=== PATIENT | male | born 1940 | race Caucasian/White ===

== ENCOUNTER 2017-10-21 12:28 | Emergency (ER) | payer OTHER ==
[2017-10-21 12:43] VITALS: BP 143/85
--- NOTE | 2017-10-21 13:04 | EDM.PDOC ---
ED HPI GENERAL MEDICAL PROBLEM - General Chief Complaint: ENT Problem Stated Complaint: LT SIDE TOOTH PAIN/SWELLING Time Seen by Provider: 10/21/17 12:45 Source of Information: Reports: Patient, Old Records, RN History Limitations: Reports: No Limitations - History of Present Illness INITIAL COMMENTS - FREE TEXT/NARRATIVE: 77 yo male broke off a couple of L mandibular molars a few yrs ago and did nothing about it. A couple days ago he developed pain in the area and tx'd it with ibuprofen. Now his pain is less, but he is developing L facial swelling. No fever. Hasn't seen a dentist in yrs. Onset: Gradual Onset Date: 10/19/17 Duration: Day(s): (2) Location: Reports: Face (L mandible) Quality: Reports: Ache Severity: Mild Improves with: Reports: Medication Worsens with: Reports: Other (time) Context: Reports: Other (dental neglect) Associated Symptoms: Reports: No Other Symptoms. 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 - Related Data Allergies Allergy/AdvReac Type Severity Reaction Status Date / Time lisinopril Allergy Cough Verified 10/21/17 12:44 venom-honey bee Allergy Swelling Verified 10/21/17 12:44 [bee venom (honey bee)] Home Meds: Home Meds Aspirin 325 mg PO DAILY 11/29/14 [History] Lecithin 518 mg PO DAILY 11/29/14 [History] Levothyroxine Sodium [Synthroid] 25 mcg PO DAILY 11/29/14 [History] Losartan [Cozaar] mg PO DAILY 11/29/14 [History] Multivitamin [Multivitamins] 1 each PO DAILY 11/29/14 [History] metFORMIN [Glucophage] mg PO BIDMEALS 11/29/14 [History] Penicillin V Potassium [IJD: Penicillin V Potassium] 500 mg PO .EVERY 6 HOURS # 40 tab 10/21/17 [Rx] Past Medical History Other Musculoskeletal History: broken ribs from fall - Past Surgical History GI Surgical History: Reports: Appendectomy, Cholecystectomy, Hernia Repair/Other Social & Family History - Tobacco Use Smoking Status *Q: Never Smoker Second Hand Smoke Exposure: No - Alcohol Use Days Per Week of Alcohol Use: 7 Number of Drinks Per Day: 1 Total Drinks Per Week: 7 - Recreational Drug Use Recreational Drug Use: No ED ROS ENT - Review of Systems Review Of Systems: See Below Constitutional: Reports: No Symptoms HEENT: Reports: Dental Pain, Other (L facial swelling, minimal) Respiratory: Reports: No Symptoms Cardiovascular: Reports: No Symptoms GI/Abdominal: Reports: No Symptoms Musculoskeletal: Reports: No Symptoms Skin: Reports: No Symptoms Neurological: Reports: No Symptoms ED EXAM, ENT - Physical Exam Exam: See Below Exam Limited By: No Limitations General Appearance: Alert, WD/WN, No Apparent Distress Eye Exam: Bilateral Eye: Normal Inspection Ears: Normal External Exam, Normal Canal, Hearing Grossly Normal, Normal TMs Nose: Normal Inspection, Normal Mucousa, No Blood Mouth/Throat: Normal Inspection, Normal Lips, Normal Oropharynx, Dental Abcess ( 2 of his molars on the L mandible are broken off at the gum line with marked decay present. ), Dental Pain, Dental Tenderness. No: Lip Swelling, Lip Ulcers , Muffled Voice, Teething, Throat Pain Head: Atraumatic, Normocephalic Neck: Normal Inspection, Supple, Non-Tender Neurological: Alert, Oriented, CN II-XII Intact, Normal Cognition, No Motor/ Sensory Deficits Psychiatric: Normal Affect, Normal Mood Skin: Warm, Dry, Intact, Normal Color, No Rash Lymphatic: No Adenopathy Course - Vital Signs Last Recorded V/S: Last Vital Signs Temp 36.2 C 10/21/17 12:50 Pulse 71 10/21/17 12:50 Resp 16 10/21/17 12:50 BP 143/85 H 10/21/17 12:50 Pulse Ox 96 10/21/17 12:50 Departure - Departure Time of Disposition: 13:04 Disposition: Home, Self-Care 01 Condition: Good Clinical Impression: Dental caries, Dental abscess - Discharge Information Prescriptions: Penicillin V Potassium [IJD: Penicillin V Potassium] 500 mg PO .EVERY 6 HOURS # 40 tab Referrals: Pari Matson MD [Primary Care Provider] - Forms: ED Department Discharge Additional Instructions: Take Penicillin VK 500 mg every 6 hrs until gone. See a dentist KAREN. Take ibuprofen and/or acetaminophen as needed for pain relief.
== END 2017-10-21 13:20 | disposition home or self-care (01) ==
LOC: JP.ED 12:28
DX: K02.9 Dental caries, unspecified (principal); K04.7 Periapical abscess without sinus; Z88.8 Allergy status to other drugs, medicaments and biological substances; Z91.030 Bee allergy status; Z79.82 Long term (current) use of aspirin; Z79.899 Other long term (current) drug therapy; Z79.84 Long term (current) use of oral hypoglycemic drugs; Z90.49 Acquired absence of other specified parts of digestive tract
CPT/HCPCS: 99283

== ENCOUNTER 2018-01-11 02:35 | Emergency (ER) | payer OTHER ==
[2018-01-11 02:56] VITALS: BP 100/64
[2018-01-11] MEDS ORDERED: Famotidine 20 MG Tab PO ONE (04:23)
--- NOTE | 2018-01-11 04:25 | EDM.PDOC ---
ED HPI GENERAL MEDICAL PROBLEM - General Chief Complaint: Gastrointestinal Problem Stated Complaint: VOMITING BLOOD Time Seen by Provider: 01/11/18 03:05 Source of Information: Reports: Patient, Old Records, RN Notes Reviewed History Limitations: Reports: No Limitations - History of Present Illness INITIAL COMMENTS - FREE TEXT/NARRATIVE: Drove himself here Chief complaint Possibly vomiting blood History of present illness 77-year-old male who lives on his own, , an episode yesterday at 3 PM of vomiting up some brownish fluid and then again at 1 AM. This had some red streaks in it. He was concerned he might be bleeding internally. He has a history of anemia for which she is taking an iron tablet. Negative H. pylori test. 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 (see below) Other Treatments UNDERGROUND MINING SECTION FOREMAN: none Lower abdomen Pain Score (Numeric/FACES): 3 - Related Data Allergies Allergy/AdvReac Type Severity Reaction Status Date / Time lisinopril Allergy Cough Verified 01/11/18 02:57 venom-honey bee Allergy Swelling Verified 01/11/18 02:57 [bee venom (honey bee)] Home Meds: Home Meds Aspirin 325 mg PO DAILY 11/29/14 [History] Lecithin 518 mg PO DAILY 11/29/14 [History] Levothyroxine Sodium [Synthroid] 25 mcg PO DAILY 11/29/14 [History] Losartan [Cozaar] 25 mg PO DAILY 11/29/14 [History] Multivitamin [Multivitamins] 1 each PO DAILY 11/29/14 [History] metFORMIN [Glucophage] 500 mg PO BIDMEALS 11/29/14 [History] Famotidine [Pepcid] 20 mg PO DAILY #20 tablet 01/11/18 [Rx] Past Medical History HEENT History: Reports: Hard of Hearing, Other (See Below) Other HEENT History: hearing aids Cardiovascular History: Reports: Hypertension Musculoskeletal History: Reports: Other (See Below) Other Musculoskeletal History: broken ribs from fall Endocrine/Metabolic History: Reports: Diabetes, Type II, Hypothyroidism - Infectious Disease History Infectious Disease History: Reports: Chicken Pox, Measles - Past Surgical History GI Surgical History: Reports: Appendectomy, Cholecystectomy, Hernia Repair/Other Social & Family History - Tobacco Use Smoking Status *Q: Never Smoker Second Hand Smoke Exposure: No - Caffeine Use Caffeine Use: Reports: Coffee - Recreational Drug Use Recreational Drug Use: No ED ROS GENERAL - Review of Systems Review Of Systems: See Below Constitutional: Reports: No Symptoms HEENT: Reports: No Symptoms Respiratory: Reports: No Symptoms Cardiovascular: Reports: No Symptoms GI/Abdominal: Reports: Hematemesis (Possibly). Denies: Diarrhea, Decreased Appetite, Nausea, Vomiting : Reports: No Symptoms Musculoskeletal: Reports: No Symptoms Skin: Reports: No Symptoms Psychiatric: Reports: No Symptoms Hematologic/Lymphatic: Reports: No Symptoms ED EXAM, GI/ABD - Physical Exam Exam: See Below Exam Limited By: No Limitations General Appearance: Alert, Other (Talkative, no acute distress, vital signs normal) Eyes: Bilateral: Normal Appearance Ears: Normal External Exam Nose: Normal Inspection Throat/Mouth: Normal Inspection Head: Atraumatic, Normocephalic Neck: Normal Inspection Respiratory/Chest: No Respiratory Distress, No Accessory Muscle Use Cardiovascular: Normal Peripheral Pulses GI/Abdominal Exam: Normal Bowel Sounds, Soft, Non-Tender, No Distention Back Exam: Normal Inspection Extremities: Normal Inspection Neurological: Alert, Oriented Course - Vital Signs Last Recorded V/S: Last Vital Signs Temp 35.8 C 01/11/18 02:50 Pulse 89 01/11/18 02:50 Resp 14 01/11/18 02:50 BP 100/64 01/11/18 02:50 Pulse Ox 96 01/11/18 02:50 - Orders/Labs/Meds Labs: Laboratory Tests 01/11/18 01/11/18 Range/Units 03:25 03:25 WBC 9.0 (4.5-11.0) K/uL RBC 3.63 L (4.30-5.90) M/uL Hgb 10.7 L D (12.0-15.0) g/dL Hct 33.8 L (40.0-54.0) % MCV 93 (80-98) fL MCH 30 (27-31) pg MCHC 32 (32-36) % Plt Count 185 (150-400) K/uL Sodium 142 (140-148) mmol/L Potassium 4.0 (3.6-5.2) mmol/L Chloride 105 (100-108) mmol/L Carbon Dioxide 24 (21-32) mmol/L Anion Gap 12.6 (5.0-14.0) mmol/L BUN 36 H D (7-18) mg/dL Creatinine 1.1 (0.8-1.3) mg/dL Est Cr Clr Drug Dosing 59.91 mL/min Estimated GFR (MDRD) > 60 (>60) Glucose 192 H (74-106) mg/dL Calcium 8.6 (8.5-10.1) mg/dL Total Bilirubin 0.8 D (0.2-1.0) mg/dL AST 55 H (15-37) U/L ALT 47 (12-78) U/L Alkaline Phosphatase 133 H (46-116) U/L Total Protein 7.1 (6.4-8.2) g/dL Albumin 2.7 L (3.4-5.0) g/dL Globulin 4.4 H (2.3-3.5) g/dL Albumin/Globulin Ratio 0.6 L (1.2-2.2) Lipase 161 (73-393) U/L Meds: Medications Discontinued Medications Generic Name Dose Route Start Last Admin Trade Name Minda PRN Reason Stop Dose Admin Famotidine 20 mg 01/11/18 04:23 Pepcid PO 01/11/18 04:24 ONETIME ONE - Re-Assessments/Exams Free Text/Narrative Re-Assessment/Exam: 01/11/18 04:22 77-year-old male with possible upper GI bleeding, without hypotension, or abdominal pain Does have some anemia but he is under treatment for this. Follow-up with primary care/[facility] is recommended Pepcid 20 mg by mouth See discharge instructions Departure - Departure Time of Disposition: 04:23 Disposition: Home, Self-Care 01 Condition: Good Clinical Impression: Hematemesis Qualifiers: Nausea presence: without nausea Qualified Code(s): K92.0 - Hematemesis - Discharge Information Prescriptions: Famotidine [Pepcid] 20 mg PO DAILY #20 tablet Instructions: Upper Gastrointestinal Bleeding Referrals: Pari Matson MD [Primary Care Provider] - Forms: ED Department Discharge Additional Instructions: Please make an appointment with your clinic for further assessment You may need further testing such as an upper GI endoscopy. Return to emergency if you become very faint or weak, passing out, severe abdominal pain, or vomiting large amounts of blood
== END 2018-01-11 04:43 | disposition home or self-care (01) ==
LOC: JP.ED 02:35
DX: K92.0 Hematemesis (principal); I10 Essential (primary) hypertension; E11.9 Type 2 diabetes mellitus without complications; E03.9 Hypothyroidism, unspecified; Z79.82 Long term (current) use of aspirin; Z79.84 Long term (current) use of oral hypoglycemic drugs; Z79.899 Other long term (current) drug therapy; Z91.030 Bee allergy status; Z88.8 Allergy status to other drugs, medicaments and biological substances
CPT/HCPCS: 36415; 80053; 83690; 85027; 99284

== ENCOUNTER 2018-07-21 08:26 | Inpatient (IN) | payer MEDICARE ==
[2018-07-21] MEDS ORDERED: Pantoprazole 40 MG Vial IVPUSH STA (08:55)
[2018-07-21] MEDS ORDERED: Aluminum Hydroxide/Magnesium Hydroxide/Simethicone Susp 30 ML Cup PO ONE (08:56)
[2018-07-21] MEDS ORDERED: Lactated Ringers 1,000 ML IV SCH (09:00)
--- NOTE | 2018-07-21 09:03 | EDM.PDOC ---
ED HPI GENERAL MEDICAL PROBLEM - General Chief Complaint: Gastrointestinal Problem Stated Complaint: VOMITING BLOOD Time Seen by Provider: 07/21/18 08:45 Source of Information: Reports: Patient, Old Records, RN History Limitations: Reports: No Limitations - History of Present Illness INITIAL COMMENTS - FREE TEXT/NARRATIVE: 78 yo male presents with possible GI bleed. He states he developed nausea in the afternoon yesterday. Then starting about 11pm last night he had a couple episodes of vomiting of some some dark, brownish-red emesis. Then this morning he had a black stool. Had his aspirin stopped about 6 weeks ago. Denies a hx of PUD. Is slightly dizzy with standing. Has some mild chronic anemia, he thinks his last hgb was about 10. Gets most of his health care in [place]. He has no abdominal pain. Take generic Protonix most days, unknown strength. Initial reporting was that he was on IV iron therapy for his anemia. Later if was discovered that he is also on iron orally for about 2 mos. Onset: Gradual Onset Date: 07/20/18 Onset Time: 23:00 (First emesis, nausea preceded this.) Duration: Hour(s):, Getting Worse Location: Reports: Abdomen (no pain in abdomen.) Quality: Reports: Other (no pain) Severity: Moderate Improves with: Reports: None Worsens with: Reports: Other (? time) Context: Reports: Other (unknown, is on Protonix most days.) Associated Symptoms: Reports: Nausea/Vomiting, Weakness. 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 (see below) (none) - Related Data Allergies Allergy/AdvReac Type Severity Reaction Status Date / Time lisinopril Allergy Cough Verified 01/11/18 02:57 venom-honey bee Allergy Swelling Verified 01/11/18 02:57 [bee venom (honey bee)] Home Meds: Home Meds Levothyroxine Sodium [Synthroid] 25 mcg PO DAILY 11/29/14 [History] Losartan [Cozaar] 25 mg PO DAILY 11/29/14 [History] metFORMIN [Glucophage] 500 mg PO BIDMEALS 11/29/14 [History] Iron 18 mg PO DAILY 07/21/18 [History] Pantoprazole Sodium [Protonix] 20 mg PO DAILY 07/21/18 [History] Past Medical History HEENT History: Reports: Hard of Hearing, Other (See Below) Other HEENT History: hearing aids Cardiovascular History: Reports: Hypertension Musculoskeletal History: Reports: Other (See Below) Other Musculoskeletal History: broken ribs from fall Endocrine/Metabolic History: Reports: Diabetes, Type II, Hypothyroidism - Infectious Disease History Infectious Disease History: Reports: Chicken Pox, Measles - Past Surgical History GI Surgical History: Reports: Appendectomy, Cholecystectomy, Hernia Repair/Other Social & Family History - Tobacco Use Smoking Status *Q: Never Smoker - Caffeine Use Caffeine Use: Reports: None - Recreational Drug Use Recreational Drug Use: No ED ROS GENERAL - Review of Systems Review Of Systems: See Below Constitutional: Reports: Malaise, Weakness HEENT: Reports: No Symptoms Respiratory: Reports: No Symptoms Cardiovascular: Reports: Lightheadedness Endocrine: Reports: No Symptoms GI/Abdominal: Reports: Black Stool, Decreased Appetite, Hematemesis, Melena, Nausea, Vomiting. Denies: Abdominal Pain, Bloody Stool, Constipation, Diarrhea , Distension, Flatus, Hematochezia : Reports: No Symptoms Musculoskeletal: Reports: No Symptoms Skin: Reports: No Symptoms Neurological: Reports: No Symptoms ED EXAM, GI/ABD - Physical Exam Exam: See Below Exam Limited By: No Limitations General Appearance: Alert, WD/WN, No Apparent Distress Eyes: Bilateral: EOMI, Pale Conjunctiva Ears: Normal External Exam, Normal Canal, Hearing Loss (hearing aid R ear.) Nose: Normal Inspection, No Blood Throat/Mouth: Normal Inspection, Normal Lips, Normal Oropharynx, Normal Voice, No Airway Compromise Head: Atraumatic, Normocephalic Neck: Normal Inspection Respiratory/Chest: No Respiratory Distress, Lungs Clear, Normal Breath Sounds, No Accessory Muscle Use Cardiovascular: Regular Rate, Rhythm GI/Abdominal Exam: Soft, Non-Tender, No Distention, No Mass, Abnormal Bowel Sounds (slightly increased). No: Distended, Guarding, Rigid, Rebound, Tender, Hernia, Mass, Hepatomegaly, Splenomegaly Back Exam: Normal Inspection. No: CVA Tenderness (R), CVA Tenderness (L) Extremities: Normal Inspection, Normal Range of Motion, Non-Tender, No Pedal Edema Neurological: Alert, Oriented, CN II-XII Intact, Normal Cognition, No Motor/ Sensory Deficits Psychiatric: Normal Affect, Normal Mood Skin Exam: Warm, Dry, Intact, Normal Color, No Rash Course - Vital Signs Text/Narrative:: Dr. Smith aware at 10:20h Last Recorded V/S: Last Vital Signs Temp 35.7 C 07/21/18 08:56 Pulse 78 07/21/18 09:35 Resp 13 07/21/18 08:56 BP 108/63 07/21/18 09:35 Pulse Ox 92 L 07/21/18 08:56 Orthostatic Blood Pressure [ 76/50 Standing] Orthostatic Blood Pressure [ 84/57 Sitting] Orthostatic Blood Pressure [ 89/59 Supine] - Orders/Labs/Meds Orders: Active Orders 24 hr Category Date Time Status Orthostatic Vital Signs [RC] ASDIRECTED Care 07/21/18 08:29 Active H. PYLORI STOOL AG, EIA Routine Lab 07/21/18 09:54 Received Lactated Ringers [Ringers, Lactated] 1,000 ml Med 07/21/18 09:00 Active IV ASDIRECTED Medication Orders Lactated Ringer's (Ringers, Lactated) 1,000 mls @ 500 mls/hr IV ASDIRECTED JEANETTE Last Admin: 07/21/18 09:17 Dose: 500 mls/hr Labs: Laboratory Tests 07/21/18 07/21/18 07/21/18 Range/Units 09:00 09:00 09:00 WBC 9.5 (4.5-11.0) K/uL RBC 3.65 L (4.30-5.90) M/uL Hgb 9.4 L (12.0-15.0) g/dL Hct 30.4 L (40.0-54.0) % MCV 83 (80-98) fL MCH 26 L (27-31) pg MCHC 31 L (32-36) % Plt Count 156 (150-400) K/uL Sodium 143 (140-148) mmol/L Potassium 4.3 (3.6-5.2) mmol/L Chloride 106 (100-108) mmol/L Carbon Dioxide 21 (21-32) mmol/L Anion Gap 15.6 H (5.0-14.0) mmol/L BUN 37 H (7-18) mg/dL Creatinine 1.1 (0.8-1.3) mg/dL Est Cr Clr Drug Dosing 60.48 mL/min Estimated GFR (MDRD) > 60 (>60) Glucose 193 H (74-106) mg/dL Calcium 8.9 (8.5-10.1) mg/dL Urine Color Urine Appearance Urine pH (4.5-8.0) Ur Specific [place] (1.008-1.030) Urine Protein (NEGATIVE) mg/dL Urine Glucose (UA) (NEGATIVE) mg/dL Urine Ketones (NEGATIVE) mg/dL Urine Occult Blood (NEGATIVE) Urine Nitrite (NEGAITVE) Urine Bilirubin (NEGATIVE) Urine Urobilinogen (NORMAL) mg/dL Ur Leukocyte Esterase (NEGATIVE) Urine RBC (0-5) Urine WBC (0-5) Ur Epithelial Cells Amorphous Sediment Urine Bacteria Urine Mucus Blood Type A NEGATIVE Gel Antibody Screen Negative 07/21/18 Range/Units 09:53 WBC (4.5-11.0) K/uL RBC (4.30-5.90) M/uL Hgb (12.0-15.0) g/dL Hct (40.0-54.0) % MCV (80-98) fL MCH (27-31) pg MCHC (32-36) % Plt Count (150-400) K/uL Sodium (140-148) mmol/L Potassium (3.6-5.2) mmol/L Chloride (100-108) mmol/L Carbon Dioxide (21-32) mmol/L Anion Gap (5.0-14.0) mmol/L BUN (7-18) mg/dL Creatinine (0.8-1.3) mg/dL Est Cr Clr Drug Dosing mL/min Estimated GFR (MDRD) (>60) Glucose (74-106) mg/dL Calcium (8.5-10.1) mg/dL Urine Color Yellow Urine Appearance Clear Urine pH 5.0 (4.5-8.0) Ur Specific [place] 1.015 (1.008-1.030) Urine Protein Negative (NEGATIVE) mg/dL Urine Glucose (UA) Normal (NEGATIVE) mg/dL Urine Ketones 15 H (NEGATIVE) mg/dL Urine Occult Blood Negative (NEGATIVE) Urine Nitrite Negative (NEGAITVE) Urine Bilirubin Negative (NEGATIVE) Urine Urobilinogen Normal (NORMAL) mg/dL Ur Leukocyte Esterase Negative (NEGATIVE) Urine RBC Not seen (0-5) Urine WBC 0-5 (0-5) Ur Epithelial Cells Not seen Amorphous Sediment Rare Urine Bacteria Not seen Urine Mucus Not seen Blood Type Gel Antibody Screen Meds: Medications Generic Name Dose Route Start Last Admin Trade Name Minda PRN Reason Stop Dose Admin Lactated Ringer's 1,000 mls @ 500 mls/hr 07/21/18 09:00 07/21/18 09:17 Ringers, Lactated IV 500 mls/hr ASDIRECTED JEANETTE Administration Discontinued Medications Generic Name Dose Route Start Last Admin Trade Name Minda PRN Reason Stop Dose Admin Al Hydroxide/Mg Hydroxide 30 ml 07/21/18 08:56 07/21/18 09:10 Mag-Al Plus PO 07/21/18 08:57 30 ml ONETIME ONE Administration Pantoprazole Sodium 80 mg 07/21/18 08:55 07/21/18 09:11 Protonix Iv IVPUSH 07/21/18 08:56 80 mg .BOLUS STA Administration Departure - Departure Time of Disposition: 10:30 Disposition: Admitted As Inpatient 66 Condition: Fair Clinical Impression: UGI bleed, Elevated blood sugar, Heme + stool Hypotension Qualifiers: Hypotension type: hypotension due to hypovolemia Qualified Code(s): I95.89 - Other hypotension; E86.1 - Hypovolemia - Discharge Information *PRESCRIPTION DRUG MONITORING PROGRAM REVIEWED*: No *COPY OF PRESCRIPTION DRUG MONITORING REPORT IN PATIENT JAIRO: No Referrals: Pari Matson MD [Primary Care Provider] - Forms: ED Department Discharge - My Orders Last 24 Hours: My Active Orders 07/21/18 08:29 Orthostatic Vital Signs [RC] ASDIRECTED 07/21/18 09:00 Lactated Ringers [Ringers, Lactated] 1,000 ml IV ASDIRECTED 07/21/18 09:54 H. PYLORI STOOL AG, EIA Routine - Assessment/Plan Last 24 Hours: My Active Orders 07/21/18 08:29 Orthostatic Vital Signs [RC] ASDIRECTED 07/21/18 09:00 Lactated Ringers [Ringers, Lactated] 1,000 ml IV ASDIRECTED 07/21/18 09:54 H. PYLORI STOOL AG, EIA Routine
[2018-07-21] MEDS ORDERED: Sodium Chloride 0.9% 100 ML with Pantoprazole 80 MG IV SCH ×2 (10:30)
--- NOTE | 2018-07-21 10:42 | PCM.HP ---
H&P History of Present Illness - General Date of Service: 07/21/18 Admit Problem/Dx: Admission Diagnosis/Problem Admission Diagnosis/Problem Bleeding Source of Information: Patient, Provider, RN Notes Reviewed History Limitations: Reports: No Limitations - History of Present Illness Initial Comments - Free Text/Narative: Mr. Schwartz is a 78-year-old gentleman was admitted through the emergency department with a history of hematemesis and melena, thought secondary to an upper GI bleed. He denies any previous history of intestinal bleeding or peptic ulcer disease. He felt well until yesterday afternoon when he noted some symptoms of nausea. Later in the evening had an episode of emesis with dark appearing coffee-ground blood. He had 2 more episodes of hematemesis during the night and an episode of melenic-appearing stool this morning. He does have a history of chronic anemia and does take supplemental iron. He denies significant abdominal pain. Blood pressure found to be low when he initially presented to the emergency department but has improved with IV fluids. He has been seen and evaluated by Dr. Mary with plan to proceed with EGD today. - Related Data Allergies/Adverse Reactions: Allergies Allergy/AdvReac Type Severity Reaction Status Date / Time lisinopril Allergy Cough Verified 01/11/18 02:57 venom-honey bee Allergy Swelling Verified 01/11/18 02:57 [bee venom (honey bee)] Home Medications: Home Meds Levothyroxine Sodium [Synthroid] 25 mcg PO DAILY 11/29/14 [History] Losartan [Cozaar] 25 mg PO DAILY 11/29/14 [History] metFORMIN [Glucophage] 500 mg PO BIDMEALS 11/29/14 [History] Iron 18 mg PO DAILY 07/21/18 [History] Pantoprazole Sodium [Protonix] 20 mg PO DAILY 07/21/18 [History] Past Medical History HEENT History: Reports: Hard of Hearing, Other (See Below) Other HEENT History: hearing aids Cardiovascular History: Reports: Hypertension Musculoskeletal History: Reports: Other (See Below) Other Musculoskeletal History: broken ribs from fall Endocrine/Metabolic History: Reports: Diabetes, Type II, Hypothyroidism - Infectious Disease History Infectious Disease History: Reports: Chicken Pox, Measles - Past Surgical History GI Surgical History: Reports: Appendectomy, Cholecystectomy, Hernia Repair/Other Social & Family History - Tobacco Use Smoking Status *Q: Never Smoker - Caffeine Use Caffeine Use: Reports: None - Recreational Drug Use Recreational Drug Use: No H&P Review of Systems - Review of Systems: Review Of Systems: See Below General: Reports: Weakness, Decreased Appetite. Denies: Fever, Chills HEENT: Reports: No Symptoms Pulmonary: Reports: No Symptoms Cardiovascular: Reports: No Symptoms Gastrointestinal: Reports: Diarrhea, Decreased Appetite, Hematemesis, Melena, Nausea, Vomiting. Denies: Abdominal Pain, Constipation, Difficulty Swallowing, Distension Genitourinary: Reports: No Symptoms Musculoskeletal: Reports: No Symptoms Skin: Reports: No Symptoms Psychiatric: Reports: No Symptoms Neurological: Reports: No Symptoms Hematologic/Lymphatic: Reports: No Symptoms Immunologic: Reports: No Symptoms Exam - Exam Exam: See Below - Vital Signs Vital Signs: Last Vital Signs Temp 96.3 F 07/21/18 08:56 Pulse 78 07/21/18 09:35 Resp 13 07/21/18 08:56 BP 108/63 07/21/18 09:35 Pulse Ox 92 L 07/21/18 08:56 Orthostatic Blood Pressure [ 76/50 Standing] Orthostatic Blood Pressure [ 84/57 Sitting] Orthostatic Blood Pressure [ 89/59 Supine] Weight: 165 lb - Exam Quality Assessment: DVT Prophylaxis General: Alert, Oriented, Cooperative, Moderate Distress HEENT: Conjunctiva Clear, Hearing Intact, Normal Nasal Septum, Posterior Pharynx Clear, Pupils Equal. No: Mucosa Moist & [place] Neck: Supple, Trachea Midline, +2 Carotid Pulse wo Bruit Lungs: Clear to Auscultation, Normal Respiratory Effort Cardiovascular: Regular Rate, Regular Rhythm, Normal S1, Normal S2. No: Systolic Murmur, Diastolic Murmur GI/Abdominal Exam: Soft, Non-Tender, No Organomegaly, No Distention Back Exam: Normal Inspection, Full Range of Motion Extremities: Non-Tender, No Pedal Edema Skin: Warm, Dry, Intact Neurological: Cranial Nerves Intact, Strength Equal Bilateral, Normal Speech, Normal Tone, Sensation Intact. No: Focal Deficit Neuro Extensive - Mental Status: Alert, Oriented x3, Normal Mood/Affect, Normal Cognition, Memory Intact - Patient Data Lab Results Last 24 hrs: Laboratory Results - last 24 hr 07/21/18 07/21/18 07/21/18 Range/Units 09:00 09:00 09:00 WBC 9.5 (4.5-11.0) K/uL RBC 3.65 L (4.30-5.90) M/uL Hgb 9.4 L (12.0-15.0) g/dL Hct 30.4 L (40.0-54.0) % MCV 83 (80-98) fL MCH 26 L (27-31) pg MCHC 31 L (32-36) % Plt Count 156 (150-400) K/uL Sodium 143 (140-148) mmol/L Potassium 4.3 (3.6-5.2) mmol/L Chloride 106 (100-108) mmol/L Carbon Dioxide 21 (21-32) mmol/L Anion Gap 15.6 H (5.0-14.0) mmol/L BUN 37 H (7-18) mg/dL Creatinine 1.1 (0.8-1.3) mg/dL Est Cr Clr Drug Dosing 60.48 mL/min Estimated GFR (MDRD) > 60 (>60) Glucose 193 H (74-106) mg/dL Calcium 8.9 (8.5-10.1) mg/dL Urine Color Urine Appearance Urine pH (4.5-8.0) Ur Specific [place] (1.008-1.030) Urine Protein (NEGATIVE) mg/dL Urine Glucose (UA) (NEGATIVE) mg/dL Urine Ketones (NEGATIVE) mg/dL Urine Occult Blood (NEGATIVE) Urine Nitrite (NEGAITVE) Urine Bilirubin (NEGATIVE) Urine Urobilinogen (NORMAL) mg/dL Ur Leukocyte Esterase (NEGATIVE) Urine RBC (0-5) Urine WBC (0-5) Ur Epithelial Cells Amorphous Sediment Urine Bacteria Urine Mucus Blood Type A NEGATIVE Gel Antibody Screen Negative Crossmatch See Detail 07/21/18 Range/Units 09:53 WBC (4.5-11.0) K/uL RBC (4.30-5.90) M/uL Hgb (12.0-15.0) g/dL Hct (40.0-54.0) % MCV (80-98) fL MCH (27-31) pg MCHC (32-36) % Plt Count (150-400) K/uL Sodium (140-148) mmol/L Potassium (3.6-5.2) mmol/L Chloride (100-108) mmol/L Carbon Dioxide (21-32) mmol/L Anion Gap (5.0-14.0) mmol/L BUN (7-18) mg/dL Creatinine (0.8-1.3) mg/dL Est Cr Clr Drug Dosing mL/min Estimated GFR (MDRD) (>60) Glucose (74-106) mg/dL Calcium (8.5-10.1) mg/dL Urine Color Yellow Urine Appearance Clear Urine pH 5.0 (4.5-8.0) Ur Specific [place] 1.015 (1.008-1.030) Urine Protein Negative (NEGATIVE) mg/dL Urine Glucose (UA) Normal (NEGATIVE) mg/dL Urine Ketones 15 H (NEGATIVE) mg/dL Urine Occult Blood Negative (NEGATIVE) Urine Nitrite Negative (NEGAITVE) Urine Bilirubin Negative (NEGATIVE) Urine Urobilinogen Normal (NORMAL) mg/dL Ur Leukocyte Esterase Negative (NEGATIVE) Urine RBC Not seen (0-5) Urine WBC 0-5 (0-5) Ur Epithelial Cells Not seen Amorphous Sediment Rare Urine Bacteria Not seen Urine Mucus Not seen Blood Type Gel Antibody Screen Crossmatch Result Diagrams: 07/21/18 09:00 07/21/18 09:00 [place] Results Last 24 hrs: Microbiology 07/21/18 09:53 Stool Occult Blood (TRISTIAN) - Final Stool / Feces *Q Meaningful Use (ADM) - VTE *Q VTE Pharmacological Contraindications *Q: Active Hemorrhage - VTE Risk Assess *Q Each Risk Factor Represents 1 Point: None Total Score 1 Point Risk Factors: 0 Each Risk Factor Represents 2 Points: None Total Score 2 Point Risk Factors: 0 Each Risk Factor Represents 3 Points: Age 75 Years or Greater Total Score 3 Point Risk Factors: 3 Each Risk Factor Represents 5 Points: None Total Score 5 Point Risk Factors: 0 Venous Thromboembolism Risk Factor Score *Q: 3 Problem List Initiated/Reviewed/Updated: Yes Orders Last 24hrs: Active Orders 24 hr Category Date Time Status Patient Status Manage Transfer [TRANSFER] Routine ADT 07/21/18 10:27 Active Orthostatic Vital Signs [RC] ASDIRECTED Care 07/21/18 08:29 Active H. PYLORI STOOL AG, EIA Routine Lab 07/21/18 09:54 Received HGB [HEMOGLOBIN] [HEME] Stat Lab 07/21/18 12:00 Ordered HGB [HEMOGLOBIN] [HEME] Stat Lab 07/21/18 17:00 Ordered HGB [HEMOGLOBIN] [HEME] Stat Lab 07/21/18 23:00 Ordered PATIENT RETYPE [BBK] Stat Lab 07/21/18 09:00 Results RED BLOOD CELLS LP [BBK] Stat Lab 07/21/18 09:00 Results TYPE AND SCREEN [BBK] Stat Lab 07/21/18 09:00 Results Lactated Ringers [Ringers, Lactated] 1,000 ml Med 07/21/18 09:00 Active IV ASDIRECTED Sodium Chloride 0.9% [Normal Saline] 100 ml Med 07/21/18 10:45 Active Pantoprazole [ProTONIX IV] 80 mg IV 10 mls/hr Resuscitation Status Routine Resus Stat 07/21/18 10:35 Ordered Medication Orders Lactated Ringer's (Ringers, Lactated) 1,000 mls @ 500 mls/hr IV ASDIRECTED JEANETTE Last Admin: 07/21/18 09:17 Dose: 500 mls/hr Pantoprazole Sodium 80 mg/ (Sodium Chloride) 100 mls @ 10 mls/hr IV .Q10H [facility] Assessment/Plan Comment:: ASSESSMENT AND PLAN UPPER GI BLEED-history of hematemesis and melena over the past several hours, consistent with upper GI bleed. No previous history of GI bleed, ulcer disease or significant risk factors. -Maintain 2 IV sites -Type and cross to hold 2 units of red blood cells -Surgical consult Dr. Mary, EGD now -Protonix 80 mg IV bolus given in emergency department -Protonix continuous infusion 8 mg per hour initiated in emergency department -IV fluids for hydration -Admit to ICU for more close monitoring -Serial hemoglobin levels ACUTE BLOOD LOSS ANEMIA-secondary to upper GI bleed TYPE 2 DIABETES MELLITUS -Hold metformin -4 times a day glucometers -Low-dose sliding scale Humalog MAINTENANCE ISSUES -DVT prophylaxis; SCUDs, hold on anticoagulation because of acute hemorrhage -GI prophylaxis; Protonix as above -Moy catheter; not indicated -Nutrition; nothing by mouth -Nicotine dependence; not required CODE STATUS-FULL CODE ADMISSION STATUS-patient will be admitted to inpatient status, expect at least a 2 night hospital stay for evaluation and management of problems as outlined above. At the time of this admission I do not reasonably expected evaluation and management of this problem will require more than a 96 hour hospital stay. DISPOSITION-anticipate discharge to home after the hospital stay. PRIMARY CARE PROVIDER-Pari Matson
[2018-07-21] MEDS: Sodium Chloride 0.9% 100 ML with Pantoprazole 80 MG IV SCH ×4 (11:04→20:27)
[2018-07-21] MEDS ORDERED: Propofol 200 MG/20 ML SDV ONE (11:22)
[2018-07-21] MEDS ORDERED: EPINEPHrine 1 MG/ML SDV ONE ×2 (11:43→11:44)
[2018-07-21] MEDS ORDERED: Glucose Gel 15 GM in 37.5 GM Tube PO PRN (12:31)
[2018-07-21] MEDS ORDERED: Acetaminophen 325 MG Tab PO PRN (12:31)
[2018-07-21] MEDS ORDERED: 50% Dextrose in Water 50 ML Syringe IV PRN (12:31)
[2018-07-21] MEDS ORDERED: Sodium Chloride 0.9% 10 ML Syringe FLUSH PRN (12:31)
[2018-07-21] MEDS: Insulin Lispro 100 Unit/ML 3 ML KwikPen SUBCUT SCH ×3 (14:55→20:15)
[2018-07-21] MEDS: Sodium Chloride 0.9% 1,000 ML IV SCH (17:47)
[2018-07-22] MEDS: Sodium Chloride 0.9% 1,000 ML IV SCH (01:29)
[2018-07-22] MEDS: Sodium Chloride 0.9% 100 ML with Pantoprazole 80 MG IV SCH ×4 (06:07→17:17)
[2018-07-22] MEDS: Levothyroxine 25 MCG Tab PO SCH (07:34)
[2018-07-22] MEDS: Insulin Lispro 100 Unit/ML 3 ML KwikPen SUBCUT SCH ×4 (07:34→19:49)
[2018-07-22] MEDS ORDERED: Sodium Chloride 0.9% 1,000 ML IV SCH (09:15)
--- NOTE | 2018-07-22 09:30 | PCM.PN ---
- General Info Date of Service: 07/22/18 Subjective Update: Mr. Schwartz did have a drop in hemoglobin this morning 7.5 and now has received 1 unit of red blood cells. Otherwise has been hemodynamically stable and afebrile. Continues to pass some melenic-appearing stool through the night and this morning. Denies any discomfort. EGD performed yesterday by Dr. Mary shoulder old blood within the stomach, no obvious source of blood loss was seen because of old blood coating the reese of the stomach and small intestine. Functional Status: Reports: Ambulating, Urinating - Review of Systems General: Denies: Fever, Weakness, Chills Pulmonary: Reports: No Symptoms Cardiovascular: Reports: No Symptoms Gastrointestinal: Reports: Diarrhea, Melena. Denies: Abdominal Pain, Difficulty Swallowing, Nausea, Vomiting - Patient Data Vitals - Most Recent: Last Vital Signs Temp 97.9 F 07/22/18 08:25 Pulse 53 L 07/22/18 08:25 Resp 16 07/22/18 08:25 BP 107/48 L 07/22/18 08:25 Pulse Ox 99 07/22/18 08:00 Orthostatic Blood Pressure [ 76/50 Standing] Orthostatic Blood Pressure [ 84/57 Sitting] Orthostatic Blood Pressure [ 89/59 Supine] Weight - Most Recent: 373 lb 0.354 oz I&O - Last 24 Hours: Intake & Output 07/21/18 07/22/18 07/22/18 22:59 06:59 14:59 Intake Total 890 1495 0 Balance 890 1495 0 Lab Results Last 24 Hours: Laboratory Results - last 24 hr 07/21/18 07/21/18 07/21/18 Range/Units 09:00 09:00 09:00 WBC 9.5 (4.5-11.0) K/uL RBC 3.65 L (4.30-5.90) M/uL Hgb 9.4 L (12.0-15.0) g/dL Hct 30.4 L (40.0-54.0) % MCV 83 (80-98) fL MCH 26 L (27-31) pg MCHC 31 L (32-36) % Plt Count 156 (150-400) K/uL Neut % (Auto) (36-66) % Lymph % (Auto) (24-44) % [place] % (Auto) (2-6) % Eos % (Auto) (2-4) % Baso % (Auto) (0-1) % PT (9.5-12.0) sec INR (0.80-1.20) APTT (27.0-36.0) sec Sodium 143 (140-148) mmol/L Potassium 4.3 (3.6-5.2) mmol/L Chloride 106 (100-108) mmol/L Carbon Dioxide 21 (21-32) mmol/L Anion Gap 15.6 H (5.0-14.0) mmol/L BUN 37 H (7-18) mg/dL Creatinine 1.1 (0.8-1.3) mg/dL Est Cr Clr Drug Dosing 60.48 mL/min Estimated GFR (MDRD) > 60 (>60) Glucose 193 H (74-106) mg/dL Calcium 8.9 (8.5-10.1) mg/dL Urine Color Urine Appearance Urine pH (4.5-8.0) Ur Specific [place] (1.008-1.030) Urine Protein (NEGATIVE) mg/dL Urine Glucose (UA) (NEGATIVE) mg/dL Urine Ketones (NEGATIVE) mg/dL Urine Occult Blood (NEGATIVE) Urine Nitrite (NEGAITVE) Urine Bilirubin (NEGATIVE) Urine Urobilinogen (NORMAL) mg/dL Ur Leukocyte Esterase (NEGATIVE) Urine RBC (0-5) Urine WBC (0-5) Ur Epithelial Cells Amorphous Sediment Urine Bacteria Urine Mucus Blood Type A NEGATIVE Gel Antibody Screen Negative Crossmatch See Detail 07/21/18 07/21/18 07/21/18 Range/Units 09:00 09:53 12:46 WBC (4.5-11.0) K/uL RBC (4.30-5.90) M/uL Hgb 8.4 L (12.0-15.0) g/dL Hct (40.0-54.0) % MCV (80-98) fL MCH (27-31) pg MCHC (32-36) % Plt Count (150-400) K/uL Neut % (Auto) (36-66) % Lymph % (Auto) (24-44) % [place] % (Auto) (2-6) % Eos % (Auto) (2-4) % Baso % (Auto) (0-1) % PT 12.3 H (9.5-12.0) sec INR 1.13 (0.80-1.20) APTT 25.7 L (27.0-36.0) sec Sodium (140-148) mmol/L Potassium (3.6-5.2) mmol/L Chloride (100-108) mmol/L Carbon Dioxide (21-32) mmol/L Anion Gap (5.0-14.0) mmol/L BUN (7-18) mg/dL Creatinine (0.8-1.3) mg/dL Est Cr Clr Drug Dosing mL/min Estimated GFR (MDRD) (>60) Glucose (74-106) mg/dL Calcium (8.5-10.1) mg/dL Urine Color Yellow Urine Appearance Clear Urine pH 5.0 (4.5-8.0) Ur Specific [place] 1.015 (1.008-1.030) Urine Protein Negative (NEGATIVE) mg/dL Urine Glucose (UA) Normal (NEGATIVE) mg/dL Urine Ketones 15 H (NEGATIVE) mg/dL Urine Occult Blood Negative (NEGATIVE) Urine Nitrite Negative (NEGAITVE) Urine Bilirubin Negative (NEGATIVE) Urine Urobilinogen Normal (NORMAL) mg/dL Ur Leukocyte Esterase Negative (NEGATIVE) Urine RBC Not seen (0-5) Urine WBC 0-5 (0-5) Ur Epithelial Cells Not seen Amorphous Sediment Rare Urine Bacteria Not seen Urine Mucus Not seen Blood Type Gel Antibody Screen Crossmatch 07/21/18 07/21/18 07/22/18 Range/Units 17:05 23:00 04:34 WBC 6.4 (4.5-11.0) K/uL RBC 2.87 L (4.30-5.90) M/uL Hgb 8.5 L 8.5 L 7.5 L (12.0-15.0) g/dL Hct 24.0 L (40.0-54.0) % MCV 84 (80-98) fL MCH 26 L (27-31) pg MCHC 31 L (32-36) % Plt Count 120 L (150-400) K/uL Neut % (Auto) 47 (36-66) % Lymph % (Auto) 37 (24-44) % [place] % (Auto) 14 H (2-6) % Eos % (Auto) 2 (2-4) % Baso % (Auto) 1 (0-1) % PT (9.5-12.0) sec INR (0.80-1.20) APTT (27.0-36.0) sec Sodium (140-148) mmol/L Potassium (3.6-5.2) mmol/L Chloride (100-108) mmol/L Carbon Dioxide (21-32) mmol/L Anion Gap (5.0-14.0) mmol/L BUN (7-18) mg/dL Creatinine (0.8-1.3) mg/dL Est Cr Clr Drug Dosing mL/min Estimated GFR (MDRD) (>60) Glucose (74-106) mg/dL Calcium (8.5-10.1) mg/dL Urine Color Urine Appearance Urine pH (4.5-8.0) Ur Specific [place] (1.008-1.030) Urine Protein (NEGATIVE) mg/dL Urine Glucose (UA) (NEGATIVE) mg/dL Urine Ketones (NEGATIVE) mg/dL Urine Occult Blood (NEGATIVE) Urine Nitrite (NEGAITVE) Urine Bilirubin (NEGATIVE) Urine Urobilinogen (NORMAL) mg/dL Ur Leukocyte Esterase (NEGATIVE) Urine RBC (0-5) Urine WBC (0-5) Ur Epithelial Cells Amorphous Sediment Urine Bacteria Urine Mucus Blood Type Gel Antibody Screen Crossmatch 07/22/18 Range/Units 04:34 WBC (4.5-11.0) K/uL RBC (4.30-5.90) M/uL Hgb (12.0-15.0) g/dL Hct (40.0-54.0) % MCV (80-98) fL MCH (27-31) pg MCHC (32-36) % Plt Count (150-400) K/uL Neut % (Auto) (36-66) % Lymph % (Auto) (24-44) % [place] % (Auto) (2-6) % Eos % (Auto) (2-4) % Baso % (Auto) (0-1) % PT (9.5-12.0) sec INR (0.80-1.20) APTT (27.0-36.0) sec Sodium 144 (140-148) mmol/L Potassium 4.0 (3.6-5.2) mmol/L Chloride 112 H (100-108) mmol/L Carbon Dioxide 24 (21-32) mmol/L Anion Gap 12.0 (5.0-14.0) mmol/L BUN 34 H (7-18) mg/dL Creatinine 1.0 (0.8-1.3) mg/dL Est Cr Clr Drug Dosing 73.10 mL/min Estimated GFR (MDRD) > 60 (>60) Glucose 158 H (74-106) mg/dL Calcium 8.3 L (8.5-10.1) mg/dL Urine Color Urine Appearance Urine pH (4.5-8.0) Ur Specific [place] (1.008-1.030) Urine Protein (NEGATIVE) mg/dL Urine Glucose (UA) (NEGATIVE) mg/dL Urine Ketones (NEGATIVE) mg/dL Urine Occult Blood (NEGATIVE) Urine Nitrite (NEGAITVE) Urine Bilirubin (NEGATIVE) Urine Urobilinogen (NORMAL) mg/dL Ur Leukocyte Esterase (NEGATIVE) Urine RBC (0-5) Urine WBC (0-5) Ur Epithelial Cells Amorphous Sediment Urine Bacteria Urine Mucus Blood Type Gel Antibody Screen Crossmatch [place] Results Last 24 Hours: Microbiology 07/21/18 09:53 Stool Occult Blood (TRISTIAN) - Final Stool / Feces Med Orders - Current: Current Medications Acetaminophen (Tylenol) 650 mg PO Q4H PRN PRN Reason: Pain (Mild 1-3)/fever Dextrose (Glutose 15) 15 gm PO ONETIME PRN PRN Reason: Hypoglycemia Dextrose/Water (Dextrose 50% In Water) 50 ml IV ONETIME PRN PRN Reason: Hypoglycemia Pantoprazole Sodium 80 mg/ (Sodium Chloride) 100 mls @ 10 mls/hr IV .Q10H [facility] Last Admin: 07/22/18 06:07 Dose: 10 mls/hr Sodium Chloride (Normal Saline) 1,000 mls @ 25 mls/hr IV ASDIRECTED JEANETTE Insulin Human Lispro (Humalog) 0 unit SUBCUT QIDACANDBED [facility]; Protocol Last Admin: 07/22/18 07:34 Dose: 1 unit Levothyroxine Sodium (Levothyroxine) 25 mcg PO ACBREAKFAST JEANETTE Last Admin: 07/22/18 07:34 Dose: 25 mcg Sodium Chloride (Saline Flush) 10 ml FLUSH ASDIRECTED PRN PRN Reason: Keep Vein Open Discontinued Medications Al Hydroxide/Mg Hydroxide (Mag-Al Plus) 30 ml PO ONETIME ONE Stop: 07/21/18 08:57 Last Admin: 07/21/18 09:10 Dose: 30 ml Epinephrine HCl (Adrenalin) Confirm Administered Dose 1 mg .ROUTE .STK-MED ONE Stop: 07/21/18 11:44 Epinephrine HCl (Adrenalin) Confirm Administered Dose 2 mg .ROUTE .STK-MED ONE Stop: 07/21/18 11:45 Lactated Ringer's (Ringers, Lactated) 1,000 mls @ 500 mls/hr IV ASDIRECTED [facility] Last Admin: 07/21/18 09:17 Dose: 500 mls/hr Sodium Chloride (Normal Saline) 1,000 mls @ 125 mls/hr IV ASDIRECTED [facility] Last Admin: 07/22/18 01:29 Dose: 125 mls/hr Pantoprazole Sodium (Protonix Iv) 80 mg IVPUSH .BOLUS STA Stop: 07/21/18 08:56 Last Admin: 07/21/18 09:11 Dose: 80 mg Propofol (Diprivan 20 Ml) Confirm Administered Dose 200 mg .ROUTE .STK-MED ONE Stop: 07/21/18 11:23 - Exam General: Alert, Oriented, Cooperative, No Acute Distress Lungs: Clear to Auscultation, Normal Respiratory Effort Cardiovascular: Regular Rate, Regular Rhythm, No Murmurs GI/Abdominal Exam: Soft, Non-Tender, No Organomegaly, No Distention Extremities: Non-Tender, No Pedal Edema - Problem List Review Problem List Initiated/Reviewed/Updated: Yes - My Orders Last 24 Hours: My Active Orders 07/21/18 09:00 RED BLOOD CELLS LP [BBK] Stat 07/21/18 10:35 Resuscitation Status Routine 07/21/18 10:45 Sodium Chloride 0.9% [Normal Saline] 100 ml Pantoprazole [ProTONIX IV] 80 mg IV 10 mls/hr 07/21/18 12:31 Patient Status [ADT] Routine Ambulate [RC] QID Blood Glucose Check, Bedside [RC] QIDACANDBED Cardiac Monitoring [RC] .As Directed Communication Order [RC] STAT Diabetes Education [RC] Click to Edit Height and Weight [RC] DAILY Intake and Output [RC] QSHIFT Notify Provider Consults [RC] ASDIRECTED Notify Provider Vital Signs [RC] ASDIRECTED Notify Provider [RC] PRN Oxygen Therapy [RC] PRN Peripheral IV Care [RC] . DIRECTED Up With Assistance [RC] ASDIRECTED Up to Chair [RC] QID VTE/DVT Education [RC] Per Unit Routine Vital Signs [RC] Q2H Consult to Physician [CONS] Routine Acetaminophen [Tylenol] 650 mg PO Q4H PRN Dextrose 50% in Water 50 ml IV ONETIME PRN Dextrose [Glutose 15] 15 gm PO ONETIME PRN Insulin Lispro [HumaLOG] See Protocol SUBCUT QIDACANDBED Sodium Chloride 0.9% [Saline Flush] 10 ml FLUSH ASDIRECTED PRN Peripheral IV Insertion Adult [OM.PC] Routine Sequential Compression Device [OM.PC] Per Unit Routine VTE Pharmacological Contraindications [AST] Per Unit Routine 07/22/18 05:48 Transfuse Red Blood Cells [COMM] Stat 07/22/18 07:30 Levothyroxine 25 mcg PO ACBREAKFAST 07/22/18 09:15 Sodium Chloride 0.9% [Normal Saline] 1,000 ml IV ASDIRECTED 07/22/18 11:00 HGB [HEMOGLOBIN] [HEME] Stat 07/22/18 17:00 HGB [HEMOGLOBIN] [HEME] Stat 07/22/18 23:00 HGB [HEMOGLOBIN] [HEME] Stat 07/23/18 05:00 BASIC METABOLIC PANEL,BMP [CHEM] Timed CBC WITH AUTO DIFF [HEME] Timed 07/23/18 07:30 GLUCOSE POC LAB TO COLLECT [POC] QIDACANDBED 07/23/18 11:30 GLUCOSE POC LAB TO COLLECT [POC] QIDACANDBED 07/23/18 16:30 GLUCOSE POC LAB TO COLLECT [POC] QIDACANDBED 07/23/18 21:00 GLUCOSE POC LAB TO COLLECT [POC] QIDACANDBED 07/24/18 07:30 GLUCOSE POC LAB TO COLLECT [POC] QIDACANDBED 07/24/18 11:30 GLUCOSE POC LAB TO COLLECT [POC] QIDACANDBED 07/24/18 16:30 GLUCOSE POC LAB TO COLLECT [POC] QIDACANDBED 07/24/18 21:00 GLUCOSE POC LAB TO COLLECT [POC] QIDACANDBED 07/25/18 07:30 GLUCOSE POC LAB TO COLLECT [POC] QIDACANDBED 07/25/18 11:30 GLUCOSE POC LAB TO COLLECT [POC] QIDACANDBED 07/25/18 16:30 GLUCOSE POC LAB TO COLLECT [POC] QIDACANDBED 07/25/18 21:00 GLUCOSE POC LAB TO COLLECT [POC] QIDACANDBED 07/26/18 07:30 GLUCOSE POC LAB TO COLLECT [POC] QIDACANDBED 07/26/18 11:30 GLUCOSE POC LAB TO COLLECT [POC] QIDACANDBED - Plan Plan:: ASSESSMENT AND PLAN UPPER GI BLEED-status post transfusion of one unit of red blood cells this morning after hemoglobin dropped to 7.5. Continues to experience melenic stools. No hematemesis or significant abdominal pain. EGD showed old blood in the stomach, no obvious source identified. -Consider repeating EGD if there is further evidence of active bleeding -Maintain 2 IV sites -1unit of blood on hold -Surgical follow-up per Dr. Mary -Continue IV Protonix 8 mg per hour -Decrease IV rate to 25 mL per hour -There liquid diet -Serial hemoglobin levels -Plan for outpatient EGD 2 weeks for follow-up of thickened mucosa in the duodenum ACUTE BLOOD LOSS ANEMIA-secondary to upper GI bleed TYPE 2 DIABETES MELLITUS -Hold metformin -4 times a day glucometers -Low-dose sliding scale Humalog MAINTENANCE ISSUES -DVT prophylaxis; SCUDs, hold on anticoagulation because of acute hemorrhage -GI prophylaxis; Protonix as above -Moy catheter; not indicated -Nutrition; nothing by mouth -Nicotine dependence; not required CODE STATUS-FULL CODE ADMISSION STATUS-patient will be admitted to inpatient status, expect at least a 2 night hospital stay for evaluation and management of problems as outlined above. At the time of this admission I do not reasonably expected evaluation and management of this problem will require more than a 96 hour hospital stay. DISPOSITION-anticipate discharge to home after the hospital stay. PRIMARY CARE PROVIDER-Pari Matson
[2018-07-23] MEDS: Sodium Chloride 0.9% 100 ML with Pantoprazole 80 MG IV SCH ×2 (02:46)
[2018-07-23] MEDS: Insulin Lispro 100 Unit/ML 3 ML KwikPen SUBCUT SCH ×4 (07:48→21:31)
[2018-07-23] MEDS: Levothyroxine 25 MCG Tab PO SCH (07:48)
--- NOTE | 2018-07-23 08:09 | OR ---
DATE OF PROCEDURE: 07/21/2018 PREOPERATIVE DIAGNOSIS: Upper gastrointestinal hemorrhage. POSTOPERATIVE DIAGNOSES: Upper gastrointestinal hemorrhage, etiology unknown. No active bleeding at the present time. Old blood present. Prominent duodenal folds. PROCEDURE: Esophagogastroduodenoscopy. ANESTHESIA: IV anesthesia with monitored anesthesia care. SURGEON: Sumanth Mary MD INDICATION: This 78-year-old white male has had prior upper gastrointestinal hemorrhages dating back several months. He has had two or three of these episodes. He has undergone upper and lower endoscopy at the [facility] in [place]. He was doing fine until last night about 11 o'clock when he felt some abdominal discomfort and then vomited blood. He vomited again at 3 a.m. and this ultimately caused him to come into the emergency room. He did have a dark maroon stool. In the emergency room, he has received IV fluid and currently feels well. No more vomiting. His hemoglobin is 9.5. The indices are microcytic suggestive of chronic blood loss. Request was made for upper endoscopy. I counseled him for upper endoscopy with possible biopsy with the attempt to stop any bleeding encountered including risks and alternatives, and he gave his informed consent to proceed. His PT, PTT, and INR are unremarkable. He is taking no anticoagulation medication. DESCRIPTION OF PROCEDURE: The patient was placed in the left lateral decubitus position. IV anesthesia was administered by the Anesthesia Service. Time-out was held. The flexible video Olympus upper endoscope was passed through his mouth, down his esophagus, and into his stomach. We encountered a pool of old brown blood. We saw no evidence of active bleeding. The scope was easily passed through the pylorus into the duodenum, reaching its third portion. The scope was then slowly withdrawn examining the mucosa throughout. At the edge of the duodenal bulb, there were some prominent duodenal folds. We did not biopsy these at the present time. The scope was brought up into the stomach. We aspirated as much of the old blood free as we could. We saw no active bleeding at the present time. The antrum appeared unremarkable. The scope was retroflexed. No obvious masses or ulcers. The scope was straightened and brought up through the GE junction. The GE junction appeared unremarkable. The scope was then brought up through the unremarkable- appearing esophagus and was removed. He tolerated the procedure well. He will be placed in the Intensive Care Unit with serial hemoglobins. Hopefully, he will not start bleeding again. Sumanth Mary MD /[id number] MTDD
--- NOTE | 2018-07-23 09:50 | PCM.PN ---
- General Info Date of Service: 07/23/18 Subjective Update: there were no acute events overnight. The patient reports no abdominal pain and has not had any melena. Tolerated clear liquids with no difficulty. No fevers. Hemoglobin stable since blood transfusion yesterday. Vital signs have all been stable. Functional Status: Reports: Pain Controlled, Tolerating Diet - Review of Systems General: Denies: Weakness Gastrointestinal: Denies: Abdominal Pain, Melena - Patient Data Vitals - Most Recent: Last Vital Signs Temp 36.2 C 07/23/18 03:56 Pulse 55 L 07/23/18 03:56 Resp 16 07/23/18 06:00 BP 135/60 07/23/18 06:00 Pulse Ox 99 07/23/18 03:56 Orthostatic Blood Pressure [ 76/50 Standing] Orthostatic Blood Pressure [ 84/57 Sitting] Orthostatic Blood Pressure [ 89/59 Supine] Weight - Most Recent: 75.432 kg I&O - Last 24 Hours: Intake & Output 07/22/18 07/23/18 07/23/18 22:59 06:59 14:59 Intake Total 879 418 Balance 879 418 Lab Results Last 24 Hours: Laboratory Results - last 24 hr 07/22/18 07/22/18 07/22/18 Range/Units 11:00 17:00 23:00 WBC (4.5-11.0) K/uL RBC (4.30-5.90) M/uL Hgb 9.3 L 8.7 L 8.4 L (12.0-15.0) g/dL Hct (40.0-54.0) % MCV (80-98) fL MCH (27-31) pg MCHC (32-36) % Plt Count (150-400) K/uL Neut % (Auto) (36-66) % Lymph % (Auto) (24-44) % [place] % (Auto) (2-6) % Eos % (Auto) (2-4) % Baso % (Auto) (0-1) % Sodium (140-148) mmol/L Potassium (3.6-5.2) mmol/L Chloride (100-108) mmol/L Carbon Dioxide (21-32) mmol/L Anion Gap (5.0-14.0) mmol/L BUN (7-18) mg/dL Creatinine (0.8-1.3) mg/dL Est Cr Clr Drug Dosing mL/min Estimated GFR (MDRD) (>60) Glucose (74-106) mg/dL Calcium (8.5-10.1) mg/dL 07/23/18 07/23/18 Range/Units 04:35 04:35 WBC 4.3 L (4.5-11.0) K/uL RBC 3.08 L (4.30-5.90) M/uL Hgb 8.5 L (12.0-15.0) g/dL Hct 25.9 L (40.0-54.0) % MCV 84 (80-98) fL MCH 28 (27-31) pg MCHC 33 (32-36) % Plt Count 106 L (150-400) K/uL Neut % (Auto) 41 (36-66) % Lymph % (Auto) 40 (24-44) % [place] % (Auto) 14 H (2-6) % Eos % (Auto) 4 (2-4) % Baso % (Auto) 1 (0-1) % Sodium 143 (140-148) mmol/L Potassium 3.6 (3.6-5.2) mmol/L Chloride 111 H (100-108) mmol/L Carbon Dioxide 21 (21-32) mmol/L Anion Gap 14.6 H (5.0-14.0) mmol/L BUN 17 (7-18) mg/dL Creatinine 0.8 (0.8-1.3) mg/dL Est Cr Clr Drug Dosing 83.81 mL/min Estimated GFR (MDRD) > 60 (>60) Glucose 129 H (74-106) mg/dL Calcium 8.2 L (8.5-10.1) mg/dL Med Orders - Current: Current Medications Acetaminophen (Tylenol) 650 mg PO Q4H PRN PRN Reason: Pain (Mild 1-3)/fever Dextrose (Glutose 15) 15 gm PO ONETIME PRN PRN Reason: Hypoglycemia Dextrose/Water (Dextrose 50% In Water) 50 ml IV ONETIME PRN PRN Reason: Hypoglycemia Insulin Human Lispro (Humalog) 0 unit SUBCUT QIDACANDBED [facility]; Protocol Last Admin: 07/23/18 07:48 Dose: Not Given Levothyroxine Sodium (Levothyroxine) 25 mcg PO ACBREAKFAST [facility] Last Admin: 07/23/18 07:48 Dose: 25 mcg Sodium Chloride (Saline Flush) 10 ml FLUSH ASDIRECTED PRN PRN Reason: Keep Vein Open Discontinued Medications Al Hydroxide/Mg Hydroxide (Mag-Al Plus) 30 ml PO ONETIME ONE Stop: 07/21/18 08:57 Last Admin: 07/21/18 09:10 Dose: 30 ml Epinephrine HCl (Adrenalin) Confirm Administered Dose 1 mg .ROUTE .STK-MED ONE Stop: 07/21/18 11:44 Epinephrine HCl (Adrenalin) Confirm Administered Dose 2 mg .ROUTE .STK-MED ONE Stop: 07/21/18 11:45 Lactated Ringer's (Ringers, Lactated) 1,000 mls @ 500 mls/hr IV ASDIRECTED JEANETTE Last Admin: 07/21/18 09:17 Dose: 500 mls/hr Pantoprazole Sodium 80 mg/ (Sodium Chloride) 100 mls @ 10 mls/hr IV .Q10H [facility] Last Admin: 07/23/18 02:46 Dose: 10 mls/hr Sodium Chloride (Normal Saline) 1,000 mls @ 125 mls/hr IV ASDIRECTED JEANETTE Last Admin: 07/22/18 01:29 Dose: 125 mls/hr Sodium Chloride (Normal Saline) 1,000 mls @ 25 mls/hr IV ASDIRECTED JEANETTE Pantoprazole Sodium (Protonix Iv) 80 mg IVPUSH .BOLUS STA Stop: 07/21/18 08:56 Last Admin: 07/21/18 09:11 Dose: 80 mg Propofol (Diprivan 20 Ml) Confirm Administered Dose 200 mg .ROUTE .STK-MED ONE Stop: 07/21/18 11:23 - Exam Quality Assessment: No: Supplemental Oxygen General: Alert, Oriented, Cooperative, No Acute Distress Lungs: Clear to Auscultation, Normal Respiratory Effort Cardiovascular: Regular Rate, Regular Rhythm GI/Abdominal Exam: Soft, No Distention Extremities: No Pedal Edema Skin: Warm, Dry Psy/Mental Status: Alert, Normal Affect - Problem List Review Problem List Initiated/Reviewed/Updated: Yes - My Orders Last 24 Hours: My Active Orders 07/23/18 09:49 Transfer Patient (Change bed) [ADT] Routine Convert IV to Saline Lock [OM.PC] Routine 07/23/18 16:30 Pantoprazole [ProTONIX] 40 mg PO BIDAC 07/23/18 Lunch Full Liquid Diet [DIET] 07/24/18 05:00 CBC W/O DIFF,HEMOGRAM [HEME] Timed (1) - Plan Plan:: ASSESSMENT AND PLAN ACUTE UPPER GI BLEED - status post transfusion of one unit of red blood cells after hemoglobin dropped to 7.5. melena has resolved and hemoglobin has been stable. -Consider repeating EGD if there is further evidence of active bleeding -Maintain 2 IV sites -1unit of blood on hold -Surgical follow-up per Dr. Mary -transition to oral pantoprazole -saline lock IV -full liquid diet -hemoglobin level in the morning -Plan for outpatient EGD 2 weeks for follow-up of thickened mucosa in the duodenum ACUTE BLOOD LOSS ANEMIA - secondary to upper GI bleed. currently stable with no evidence for ongoing bleeding. TYPE 2 DIABETES MELLITUS -Hold metformin -4 times a day glucometers -Low-dose sliding scale Humalog MAINTENANCE ISSUES -DVT prophylaxis; SCUDs, hold on anticoagulation because of acute hemorrhage -GI prophylaxis; PPI -Moy catheter; not indicated -Nutrition; full liquids DISPOSITION - anticipate discharge to home after the hospital stay, likely tomorrow if stable overnight Etienne Del Rio M.D.
[2018-07-23] MEDS: Pantoprazole 40 MG Tab.CR PO SCH (16:06)
[2018-07-24 07:11] VITALS: BP 133/68
[2018-07-24] MEDS: Pantoprazole 40 MG Tab.CR PO SCH (07:34)
[2018-07-24] MEDS: Levothyroxine 25 MCG Tab PO SCH (07:34)
[2018-07-24] MEDS: Insulin Lispro 100 Unit/ML 3 ML KwikPen SUBCUT SCH (07:38)
--- NOTE | 2018-07-24 10:26 | PCM.DCSUM1 ---
Discharge Summary - Hospital Course Brief History: 78-year-old male who presented with hematemesis and melena. He was admitted for management of acute upper gastrointestinal hemorrhage. Diagnosis: Stroke: No - Discharge Data Discharge Date: 07/24/18 Discharge Disposition: Home, Self-Care 01 Condition: Good - Discharge Diagnosis/Problem(s) (1) Acute upper GI hemorrhage SNOMED Code(s): 85857199 ICD Code: K92.2 - GASTROINTESTINAL HEMORRHAGE, UNSPECIFIED Status: Acute (2) Anemia due to acute blood loss SNOMED Code(s): 966370614 ICD Code: D62 - ACUTE POSTHEMORRHAGIC ANEMIA Status: Acute - Patient Summary/Data Operative Procedure(s) Performed: Upper endoscopy performed by Dr. Mary to determine source of presumed upper gastrointestinal hemorrhage Consults: Consultations 07/21/18 12:31 Consult to Physician [CONS] Routine Consulting Provider: Sumanth Mary Courtesy Call Completed to Consulting Physician: Yes Reason for Consult: Upper GI bleed, EGD Hospital Course: Alton presented to the emergency room with hematemesis and melena. Workup in the emergency room revealed a hemoglobin of 9.4. There was significant concern for potentially life-threatening upper gastrointestinal hemorrhage. He was admitted to the intensive care unit for further management. He was taken to the operating room the afternoon after admission and had upper endoscopy performed. This did not determine a source of bleeding but there was a fair amount of old blood in the stomach. After admission to the intensive care unit he had serial hemoglobin levels taken along with IV fluid resuscitation. He was also started on a pantoprazole infusion. Over the next 24 hours his hemoglobin drifted down to 7.5. He did receive 1 unit of blood via transfusion the morning after admission. By the evening after admission his melena had stopped. He was started on clear liquids and tolerated these well. His hemoglobin remained stable after the blood transfusion with average readings during the last 2 days of his hospital stay being 8.5. He has tolerated the transition from clear liquids to full liquids. He has no abdominal pain. He has not had any melena. We did make the transition from IV pantoprazole to oral pantoprazole. At this point I believe he is safe for discharge to home. He will be taking a proton pump inhibitor twice daily until his follow-up endoscopy which is planned in 2 weeks time. This endoscopy is planned because of the incomplete evaluation during the hospital stay due to significant quantity of old blood in the stomach limiting evaluation. - Patient Instructions Diet: Regular Diet as Tolerated (soft, bland food for the next week ) Activity: As Tolerated Showering/Bathing: May Shower Notify Provider of: Fever, Increased Pain, Nausea and/or Vomiting Other/Special Instructions: 1. You were in the hospital for management of an acute upper gastrointestinal hemorrhage with anemia due to acute blood loss. You did require a blood transfusion because of the severity of the bleeding. Your hemoglobin has been stable and the bleeding seems to have stopped. We were not able to determine the exact source of bleeding because of all of the old blood in your stomach. I recommend a repeat upper endoscopy in [address] Mary to see if we can find the source of bleeding. I am suspicious that you have an ulcer in your stomach and would recommend that you take an acid blocking medication such as omeprazole or pantoprazole twice daily until you follow-up with Dr. Mary. 2. Continue your other home medications as previously prescribed. 3. Seek medical attention if you have fever greater than 101, you vomit blood or you have black tarry stools. - Discharge Plan *PRESCRIPTION DRUG MONITORING PROGRAM REVIEWED*: No *COPY OF PRESCRIPTION DRUG MONITORING REPORT IN PATIENT JAIRO: No Home Medications: Home Meds Levothyroxine Sodium [Synthroid] 25 mcg PO DAILY 11/29/14 [History] Losartan [Cozaar] 25 mg PO DAILY 11/29/14 [History] metFORMIN [Glucophage] 500 mg PO BIDMEALS 11/29/14 [History] Iron 18 mg PO DAILY 07/21/18 [History] Pantoprazole Sodium [Protonix] 20 mg PO DAILY 07/21/18 [History] Oxygen Therapy Mode: Room Air Patient Handouts: Gastrointestinal Bleeding Referrals: Pari Matson MD [Primary Care Provider] - (f/u as needed after the hospital stay ) - Discharge Summary/Plan Comment DC Time >30 min.: No - Patient Data Vitals - Most Recent: Last Vital Signs Temp 36.9 C 07/24/18 07:00 Pulse 57 L 07/24/18 07:00 Resp 16 07/24/18 07:00 BP 133/68 07/24/18 07:00 Pulse Ox 98 07/24/18 07:00 Orthostatic Blood Pressure [ 76/50 Standing] Orthostatic Blood Pressure [ 84/57 Sitting] Orthostatic Blood Pressure [ 89/59 Supine] Weight - Most Recent: 75.432 kg I&O - Last 24 hours: Intake & Output 07/23/18 07/24/18 07/24/18 22:59 06:59 14:59 Intake Total 500 360 Balance 500 360 Lab Results - Last 24 hrs: Laboratory Results - last 24 hr 07/24/18 Range/Units 05:00 WBC 4.2 L (4.5-11.0) K/uL RBC 3.08 L (4.30-5.90) M/uL Hgb 8.4 L (12.0-15.0) g/dL Hct 26.0 L (40.0-54.0) % MCV 84 (80-98) fL MCH 27 (27-31) pg MCHC 32 (32-36) % Plt Count 97 L (150-400) K/uL Med Orders - Current: Current Medications Acetaminophen (Tylenol) 650 mg PO Q4H PRN PRN Reason: Pain (Mild 1-3)/fever Dextrose (Glutose 15) 15 gm PO ONETIME PRN PRN Reason: Hypoglycemia Dextrose/Water (Dextrose 50% In Water) 50 ml IV ONETIME PRN PRN Reason: Hypoglycemia Insulin Human Lispro (Humalog) 0 unit SUBCUT QIDACANDBED [facility]; Protocol Last Admin: 07/24/18 07:38 Dose: Not Given Levothyroxine Sodium (Levothyroxine) 25 mcg PO ACBREAKFAST [facility] Last Admin: 07/24/18 07:34 Dose: 25 mcg Pantoprazole Sodium (Protonix) 40 mg PO BIDAC [facility] Last Admin: 07/24/18 07:34 Dose: 40 mg Sodium Chloride (Saline Flush) 10 ml FLUSH ASDIRECTED PRN PRN Reason: Keep Vein Open Discontinued Medications Al Hydroxide/Mg Hydroxide (Mag-Al Plus) 30 ml PO ONETIME ONE Stop: 07/21/18 08:57 Last Admin: 07/21/18 09:10 Dose: 30 ml Epinephrine HCl (Adrenalin) Confirm Administered Dose 1 mg .ROUTE .STK-MED ONE Stop: 07/21/18 11:44 Epinephrine HCl (Adrenalin) Confirm Administered Dose 2 mg .ROUTE .STK-MED ONE Stop: 07/21/18 11:45 Lactated Ringer's (Ringers, Lactated) 1,000 mls @ 500 mls/hr IV ASDIRECTED [facility] Last Admin: 07/21/18 09:17 Dose: 500 mls/hr Pantoprazole Sodium 80 mg/ (Sodium Chloride) 100 mls @ 10 mls/hr IV .Q10H [facility] Last Admin: 07/23/18 02:46 Dose: 10 mls/hr Sodium Chloride (Normal Saline) 1,000 mls @ 125 mls/hr IV ASDIRECTED [facility] Last Admin: 07/22/18 01:29 Dose: 125 mls/hr Sodium Chloride (Normal Saline) 1,000 mls @ 25 mls/hr IV ASDIRECTED [facility] Pantoprazole Sodium (Protonix Iv) 80 mg IVPUSH .BOLUS STA Stop: 07/21/18 08:56 Last Admin: 07/21/18 09:11 Dose: 80 mg Propofol (Diprivan 20 Ml) Confirm Administered Dose 200 mg .ROUTE .[facility]-MED ONE Stop: 07/21/18 11:23 - Exam Quality Assessment: Denies: Supplemental Oxygen General: Reports: Alert, Oriented, Cooperative, No Acute Distress Lungs: Reports: Normal Respiratory Effort Cardiovascular: Reports: Regular Rate, Regular Rhythm GI/Abdominal Exam: Soft, No Distention Extremities: No Pedal Edema Psy/Mental Status: Reports: Alert, Normal Affect *Q Meaningful Use (DIS) - VTE *Q VTE Pharmacological Contraindications *Q: Active Hemorrhage
== END 2018-07-24 11:09 | disposition home or self-care (01) | DRG 378 ==
LOC: JP.ED 08:26 → JP.ICU 10:27 → JP.MS 07-23 11:26
PROVIDERS: ADMIT Hospitalist; ATTEND Internal Medicine
PROC: 0DJ08ZZ Inspection of Upper Intestinal Tract, Via Natural or Artificial Opening Endoscopic (ICD-10-PCS; principal; 2018-07-21)
PROC: 30233N1 Transfusion of Nonautologous Red Blood Cells into Peripheral Vein, Percutaneous Approach (ICD-10-PCS; 2018-07-22)
DX: K92.2 Gastrointestinal hemorrhage, unspecified (principal); D62 Acute posthemorrhagic anemia; I10 Essential (primary) hypertension; E03.9 Hypothyroidism, unspecified; E11.9 Type 2 diabetes mellitus without complications; Z79.84 Long term (current) use of oral hypoglycemic drugs; H91.90 Unspecified hearing loss, unspecified ear; Z91.030 Bee allergy status; Z88.8 Allergy status to other drugs, medicaments and biological substances; K92.0 Hematemesis; K92.1 Melena
CPT/HCPCS: 36415; 80048; 81001; 82272; 85027; 85610; 85730; 86850; 86900; 86901; 86920; 86922; 87338; 96361; 96374; 99285; A9270; C9113; J7120; 36430; 82962; 85018; 85025; J0171; J1815; J2704; J7030; P9016

== ENCOUNTER 2018-08-16 08:15 | Day surgery (SDC) | payer MEDICARE, OTHER ==
[2018-08-16] MEDS ORDERED: Dextrose 5%-Lactated Ringers 1,000 ML IV SCH (09:15)
[2018-08-16] MEDS ORDERED: Propofol 200 MG/20 ML SDV ONE (09:43)
[2018-08-16] MEDS ORDERED: fentaNYL 100 MCG/2 ML SDV ONE (09:43)
[2018-08-16 13:56] VITALS: BP 173/95
--- NOTE | 2018-08-20 13:23 | OR ---
DATE OF PROCEDURE: 08/16/2018 PREOPERATIVE DIAGNOSIS: Recent upper gastrointestinal bleeding with a brief endoscopic examination. POSTOPERATIVE DIAGNOSES: 1. Large hiatal hernia without significant gross inflammation at the esophagogastric junction. 2. Mild antral gastritis and duodenitis, but without any bleeding, erosions, or ulcers on present upper GI endoscopic examination. OPERATIVE PROCEDURE: Esophagogastroduodenoscopy with biopsies of the antrum for CLOtest. ANESTHESIA: IV sedation. INDICATION FOR PROCEDURE: A 78-year-old presenting for a followup endoscopy. He was examined by an upper endoscopy by Dr. Sumanth Mary about 2 weeks ago. At that time, no obvious bleeding source was seen, but there was a large amount of old blood present in the stomach, making a complete examination not possible. He has been on Protonix 20 mg orally b.i.d. and is in now for followup upper endoscopy to make sure there are not some problems, such as underlying neoplasia associated with the process, and to assess whether or not the healing has occurred. Potential risks including bleeding and perforation were discussed, and the patient wishes to proceed. DETAILS OF PROCEDURE: The patient was taken to the operating room and placed in a left lateral decubitus position. IV sedation was administered, after which the upper GI endoscope was passed orally through the length of the esophagus and into the stomach with retroflexion view of the fundus, and thereafter through the pyloric channel and into the proximal duodenum. Findings included normal hypopharynx, larynx, upper esophageal sphincter, and esophageal body. At the EG junction, there was a fairly large hiatal hernia measuring around 4 cm. This, however, was not associated with any gross upward extension of the esophagogastric junction mucosal line above the upper gastric folds and not associated with any significant gross inflammation in the area of the esophagogastric junction. As one passed into the stomach, no retained food or bile was present. There was some mild gastritis in the antrum consisting of some patchy reddened areas. This continued into the duodenal bulb, and then beyond the duodenal bulb, the remainder of the duodenal examination at the junction of third and fourth portions was unremarkable. Overall, there was no blood or bleeding and presently no erosions or ulcers or other signs of neoplasia on the upper GI endoscopic exam. Biopsies were obtained from the antrum and sent for the CLOtest to establish the patient's H. pylori status. Minimal bleeding from the biopsy sites was seen, and the procedure was then concluded. The plan will be to have the patient continue on the Protonix 20 mg b.i.d. 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 Ty Munguia MD /[id number]
== END 2018-08-16 14:02 | disposition home or self-care (01) ==
LOC: JP.SDS 08:15
PROVIDERS: ATTEND Surgery
DX: K29.71 Gastritis, unspecified, with bleeding (principal); K29.81 Duodenitis with bleeding; K44.9 Diaphragmatic hernia without obstruction or gangrene; I10 Essential (primary) hypertension; E11.9 Type 2 diabetes mellitus without complications; K21.9 Gastro-esophageal reflux disease without esophagitis
CPT/HCPCS: 36415; 43239; 82728; 85027; 87081; J2704; J3010; J7042

== ENCOUNTER 2018-09-24 09:32 | Emergency (ER) | payer MEDICARE ==
[2018-09-24 09:49] VITALS: BP 140/73
[2018-09-24] MEDS ORDERED: Sodium Chloride 0.9% 10 ML Syringe FLUSH PRN (11:33)
--- NOTE | 2018-09-24 11:33 | EDM.PDOC ---
<Marta Danielson - Last Filed: 09/24/18 11:56> ED HPI GENERAL MEDICAL PROBLEM - General Chief Complaint: Gastrointestinal Problem Stated Complaint: SURGERY COMPLICATIONS Time Seen by Provider: 09/24/18 10:10 Source of Information: Reports: Patient History Limitations: Reports: No Limitations - History of Present Illness INITIAL COMMENTS - FREE TEXT/NARRATIVE: Pt comes to er with complaints of red blood in his emesis this am. Pt states he was up last night with excessive burping and then this morning at 630 had "pint size emesis with red blood". He had an additional emesis of lesser amount at 815. This concerned him and he came to the ER. He had a recent endoscopy with biopsy in previous 6 months and patient states "benign" findings. [facility]. He states he stopped taking his iron supplement. Pt states he is due for a colonoscopy this year. Today patient denies pain, blood in his stool, nausea or difficulty swallowing. He feels he has lost approximately 10 # in last 10 days stating his weight is less than he was in high school. Pt states his appetite is the same and eating when he feels he is hungry. Onset: Today, Sudden Onset Date: 09/24/18 (this occurance started this am but this is an onging issue ) Onset Time: 06:15 Duration: Hour(s):, Chronic, Getting Worse Location: Reports: Abdomen Quality: Reports: Pressure (slight pressure in mid right abdomen) Severity: Mild Improves with: Reports: None Worsens with: Reports: None Context: Reports: Other (history of previous emesis with blood) Associated Symptoms: Reports: No Other Symptoms - Related Data Allergies Allergy/AdvReac Type Severity Reaction Status Date / Time lisinopril Allergy Cough Verified 01/11/18 02:57 venom-honey bee Allergy Swelling Verified 01/11/18 02:57 [bee venom (honey bee)] Home Meds: Home Meds Levothyroxine Sodium [Synthroid] 25 mcg PO DAILY 11/29/14 [History] Losartan [Cozaar] 25 mg PO DAILY 11/29/14 [History] metFORMIN [Glucophage] 500 mg PO BIDMEALS 11/29/14 [History] Pantoprazole Sodium [Protonix] 20 mg PO BID 07/21/18 [History] Past Medical History HEENT History: Reports: Cataract, Hard of Hearing, Other (See Below) Other HEENT History: hearing aids Cardiovascular History: Reports: Hypertension Gastrointestinal History: Reports: GERD, GI Bleed Genitourinary History: Reports: BPH Musculoskeletal History: Reports: Gout, Other (See Below) Other Musculoskeletal History: broken ribs from fall Endocrine/Metabolic History: Reports: Diabetes, Type II, Hypothyroidism Hematologic History: Reports: Blood Transfusion(s), Iron Deficiency Oncologic (Cancer) History: Reports: Basal Cell Carcinoma - Infectious Disease History Infectious Disease History: Reports: Chicken Pox, Herpes, Measles, Mumps - Past Surgical History HEENT Surgical History: Reports: Cataract Surgery Cardiovascular Surgical History: Reports: None GI Surgical History: Reports: Appendectomy, Cholecystectomy, Hernia Repair/Other Male Surgical History: Reports: Prostate Biopsy Endocrine Surgical History: Reports: None Musculoskeletal Surgical History: Reports: None Oncologic Surgical History: Reports: Other (See Below) Other Oncologic Surgeries/Procedures: nose biopsy Dermatological Surgical History: Reports: None Social & Family History - Family History Cardiac: Reports: [place] - Tobacco Use Smoking Status *Q: Unknown Ever Smoked - Caffeine Use Caffeine Use: Reports: Coffee - Recreational Drug Use Recreational Drug Use: No ED ROS GENERAL - Review of Systems Review Of Systems: See Below Constitutional: Reports: No Symptoms HEENT: Reports: No Symptoms Respiratory: Reports: No Symptoms Cardiovascular: Reports: No Symptoms Endocrine: Reports: No Symptoms GI/Abdominal: Reports: Hematemesis, Vomiting. Denies: Abdominal Pain, Black Stool, Bloody Stool, Difficulty Swallowing, Melena Musculoskeletal: Reports: No Symptoms Skin: Reports: No Symptoms Neurological: Reports: No Symptoms. Denies: Confusion, Headache, Syncope Psychiatric: Reports: No Symptoms Hematologic/Lymphatic: Reports: Anemia ED EXAM, GENERAL - Physical Exam Exam: See Below Free Text/Narrative:: Alton is a 78 y/o male appearing stated age, dressed and converses appropriately. Exam Limited By: No Limitations General Appearance: Alert, WD/WN, No Apparent Distress Throat/Mouth: Normal Inspection, Normal Lips, Normal Oropharynx, Normal Voice, No Airway Compromise Head: Atraumatic, Normocephalic Respiratory/Chest: No Respiratory Distress, Lungs Clear, Normal Breath Sounds, No Accessory Muscle Use, Chest Non-Tender Cardiovascular: Normal Peripheral Pulses, Regular Rate, Rhythm, No Edema, No Gallop, No Murmur, No Rub GI/Abdominal: Normal Bowel Sounds, Soft, No Organomegaly, No Distention, No Abnormal Bruit, No Mass, Pelvis Stable. No: Non-Tender (minimal tenderness with palpation mid right abdomen), Guarding, Rigid, Rebound, Mass, Hepatomegaly Extremities: Normal Inspection, Normal Range of Motion, Non-Tender, No Pedal Edema, Normal Capillary Refill Neurological: Alert, Oriented, CN II-XII Intact, Normal Cognition, Normal Gait, Normal Reflexes, No Motor/Sensory Deficits Psychiatric: Normal Affect, Normal Mood Skin Exam: Warm, Dry, Intact, Normal Color, No Rash Course - Vital Signs Last Recorded V/S: Last Vital Signs Temp 95 F L 09/24/18 09:48 Pulse 90 09/24/18 09:48 Resp 18 09/24/18 09:48 BP 140/73 09/24/18 09:48 Pulse Ox 99 09/24/18 09:48 VSS denies fever is currently afebrile and without signs of sepsis - Orders/Labs/Meds Orders: Active Orders 24 hr Category Date Time Status Peripheral IV Care [RC] . DIRECTED Care 09/24/18 11:33 Active Peripheral IV Insertion Adult [OM.PC] Routine Oth 09/24/18 11:33 Ordered Labs: Laboratory Tests 09/24/18 09/24/18 Range/Units 10:32 10:32 WBC 6.8 (4.5-11.0) K/uL RBC 3.19 L (4.30-5.90) M/uL Hgb 9.6 L D (12.0-15.0) g/dL Hct 28.8 L (40.0-54.0) % MCV 90 (80-98) fL MCH 30 (27-31) pg MCHC 33 (32-36) % Plt Count 114 L (150-400) K/uL Neut % (Auto) 64 (36-66) % Lymph % (Auto) 25 (24-44) % Powell % (Auto) 11 H (2-6) % Eos % (Auto) 0 L (2-4) % Baso % (Auto) 0 (0-1) % Sodium 139 L (140-148) mmol/L Potassium 4.8 (3.6-5.2) mmol/L Chloride 106 (100-108) mmol/L Carbon Dioxide 24 (21-32) mmol/L Anion Gap 13.8 (5.0-14.0) mmol/L BUN 30 H D (7-18) mg/dL Creatinine 1.0 (0.8-1.3) mg/dL Est Cr Clr Drug Dosing 63.73 mL/min Estimated GFR (MDRD) > 60 (>60) Glucose 172 H (74-106) mg/dL Calcium 8.2 L (8.5-10.1) mg/dL Decrease of HGB on 08/16 at 11.8 to 9.6 today Meds: Medications Discontinued Medications Generic Name Dose Route Start Last Admin Trade Name Freq PRN Reason Stop Dose Admin Sodium Chloride 10 ml 09/24/18 11:33 09/24/18 11:41 Saline Flush FLUSH 10 ml ASDIRECTED PRN Administration Keep Vein Open - Re-Assessments/Exams Free Text/Narrative Re-Assessment/Exam: 09/24/18 11:49 Patient is in no obvious distress. Discussed drop in his hemoglobin and need for detention officer assessment per [place] recommendations. Dr Chambers discussed patient situation with [facility] and received approval to transfer patient to facility with specialist. Patient is in agreement with this plan 09/24/18 11:57 Departure - Departure Disposition: DC/Tfer to Acute Hospital 02 Clinical Impression: Blood loss anemia Hematemesis Qualifiers: Nausea presence: with nausea Qualified Code(s): K92.0 - Hematemesis - Discharge Information Referrals: PCP,None [Primary Care Provider] - Forms: ED Department Discharge Care Plan Goals: Patient is to be transferred to [facility] in [place] for evaluation of hematemesis and anemia. <Rufino Chambers - Last Filed: 09/24/18 12:52> Course - Re-Assessments/Exams Free Text/Narrative Re-Assessment/Exam: 09/24/18 12:49 Historical and physical exam from Lisa Danielson was reviewed and repeated as necessary, her findings are concurred. [facility], [facility] not have [facility] available and recommended transfer to [facility]. This was arranged through the hospitalist service, he was transferred by EMS. Departure - Departure Time of Disposition: 12:37 Condition: Fair
== END 2018-09-24 12:37 ==
LOC: JP.ED 09:32
DX: K92.0 Hematemesis (principal); D50.0 Iron deficiency anemia secondary to blood loss (chronic); I10 Essential (primary) hypertension; K21.9 Gastro-esophageal reflux disease without esophagitis; E11.9 Type 2 diabetes mellitus without complications; E03.9 Hypothyroidism, unspecified; Z79.899 Other long term (current) drug therapy; Z79.84 Long term (current) use of oral hypoglycemic drugs
CPT/HCPCS: 36415; 80048; 85025; 99285

== ENCOUNTER 2019-03-02 05:37 | Inpatient (IN) | payer MEDICARE, OTHER ==
[2019-03-02] MEDS ORDERED: Sodium Chloride 0.9% 1,000 ML IV SCH (06:30)
--- NOTE | 2019-03-02 06:35 | EDM.PDOC ---
ED HPI GENERAL MEDICAL PROBLEM - General Chief Complaint: Gastrointestinal Problem Stated Complaint: BLOOD IN STOOL Time Seen by Provider: 03/02/19 06:30 Source of Information: Reports: Patient History Limitations: Reports: No Limitations - History of Present Illness INITIAL COMMENTS - FREE TEXT/NARRATIVE: [place] . Yesterday he started to have black tarry stools. During the nite he had a stool every hour. 4 monthes ago he had heaVY gi BLEEDING. hE HAD A GASTRO AND A COLONOSCOPY ATTHAT TIME. 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 hE WAS IN THE HOSP FOR 4 DAYS AT THAT TIME. hE DID HAVE 3 POLPS REMOVED ON MON. Onset: Other ( STARTED YESTERDAY. ) Duration: Hour(s): Location: Reports: Abdomen, Other (PT IS HAVING BLOODY STOOLS. ) Quality: Reports: Ache Associated Symptoms: Reports: Nausea/Vomiting, Other (PT DID HAVE ONE EMESIS THAT HAD A SMALL AMOUNT OF BRIGHT RED BLOOD IN THE EMESIS. ) denies Pain Score (Numeric/FACES): 0 - Related Data Allergies Allergy/AdvReac Type Severity Reaction Status Date / Time venom-honey bee Allergy Swelling Verified 03/02/19 05:58 [bee venom (honey bee)] lisinopril AdvReac Cough Verified 03/02/19 07:53 Home Meds: Home Meds Levothyroxine Sodium [Synthroid] 25 mcg PO DAILY 11/29/14 [History] metFORMIN [Glucophage] 500 mg PO BIDMEALS 11/29/14 [History] Pantoprazole Sodium [Protonix] 20 mg PO BID 07/21/18 [History] Past Medical History HEENT History: Reports: Cataract, Hard of Hearing, Other (See Below) Other HEENT History: hearing aids Cardiovascular History: Reports: Hypertension Gastrointestinal History: Reports: GERD, GI Bleed Genitourinary History: Reports: BPH Musculoskeletal History: Reports: Gout, Other (See Below) Other Musculoskeletal History: broken ribs from fall Endocrine/Metabolic History: Reports: Diabetes, Type II, Hypothyroidism Hematologic History: Reports: Blood Transfusion(s), Iron Deficiency Oncologic (Cancer) History: Reports: Basal Cell Carcinoma - Infectious Disease History Infectious Disease History: Reports: Chicken Pox, Herpes, Measles, Mumps - Past Surgical History Head Surgeries/Procedures: Reports: None HEENT Surgical History: Reports: Cataract Surgery Cardiovascular Surgical History: Reports: None GI Surgical History: Reports: Appendectomy, Cholecystectomy, Hernia Repair/Other Male Surgical History: Reports: Prostate Biopsy Endocrine Surgical History: Reports: None Musculoskeletal Surgical History: Reports: None Oncologic Surgical History: Reports: Other (See Below) Other Oncologic Surgeries/Procedures: nose biopsy Dermatological Surgical History: Reports: None Social & Family History - Family History Cardiac: Reports: [place] - Tobacco Use Smoking Status *Q: Never Smoker Second Hand Smoke Exposure: No - Caffeine Use Caffeine Use: Reports: Coffee, Soda, Tea - Recreational Drug Use Recreational Drug Use: No ED ROS GENERAL - Review of Systems Review Of Systems: See Below Constitutional: Reports: No Symptoms HEENT: Reports: No Symptoms Respiratory: Reports: No Symptoms Cardiovascular: Reports: No Symptoms Endocrine: Reports: No Symptoms GI/Abdominal: Reports: Black Stool, Bloody Stool, Diarrhea, Other (PT HAS HAD A STOOL EVERY HOUR AND THE LAST STOOLS LOOK LIKE PURE BLOOD. ) ED EXAM, GI/ABD - Physical Exam Exam: See Below Text/Narrative:: PT IS A VERY PALE APPEARING PT WITH A BP OF 108/60. hE HAS HAD ABOUT 12 OR 13 BLOODY STOOLS DURING THE NITE. hE DID HAVE 3 POLPS REMOVED ON MON AT THE ct, hE DOES HAVE A HISTORY OF CIRROHOSIS OF THE LIVER. aLL OF THE STOOLS HAVE BEEN BLACK. Exam Limited By: No Limitations General Appearance: Alert, Anxious, Mild Distress Ears: Normal TMs Nose: Normal Inspection Throat/Mouth: Normal Inspection Head: Atraumatic Neck: Normal Inspection Respiratory/Chest: No Respiratory Distress Cardiovascular: Regular Rate, Rhythm GI/Abdominal Exam: Soft, Other (MIL UPPER ABDOMANAL TENDERNESS. ) (Male) Exam: Other ( DARK BLOODY STOOL PRESENT) Back Exam: Normal Inspection Extremities: Normal Inspection Course - Vital Signs Last Recorded V/S: Last Vital Signs Temp 36.6 C 03/04/19 16:00 Pulse 56 L 03/04/19 16:00 Resp 14 03/04/19 16:00 BP 106/61 03/04/19 16:00 Pulse Ox 96 03/04/19 16:00 - Orders/Labs/Meds Orders: Medication Orders Acetaminophen (Tylenol) 650 mg PO Q4H PRN PRN Reason: Pain (Mild 1-3)/fever Dextrose (Glutose 15) 15 gm PO ONETIME PRN PRN Reason: Hypoglycemia Dextrose/Water (Dextrose 50% In Water) 50 ml IV ONETIME PRN PRN Reason: Hypoglycemia Insulin Human Lispro (Humalog) 0 unit SUBCUT QIDACANDBED [facility]; Protocol Last Admin: 03/04/19 17:24 Dose: Admin: 03/04/19 11:13 Dose: 2 unit Admin: 03/04/19 07:16 Dose: Admin: 03/03/19 21:01 Dose: 1 unit Admin: 03/03/19 17:14 Dose: Not Given Admin: 03/03/19 11:39 Dose: 1 unit Admin: 03/03/19 07:39 Dose: Not Given Admin: 03/02/19 21:05 Dose: Not Given Admin: 03/02/19 16:52 Dose: Not Given Admin: 03/02/19 11:26 Dose: 1 unit Levothyroxine Sodium (Levothyroxine) 25 mcg PO DAILY@0730 [facility] Last Admin: 03/04/19 10:10 Dose: 25 mcg Admin: 03/03/19 10:17 Dose: 25 mcg Admin: 03/02/19 11:15 Dose: 25 mcg Melatonin (Melatonin) 6 mg PO BEDTIME [facility] Last Admin: 03/03/19 21:01 Dose: 6 mg Admin: 03/02/19 21:05 Dose: 6 mg Ondansetron HCl (Zofran) 4 mg IV Q4H PRN PRN Reason: Nausea/Vomiting Sodium Chloride (Saline Flush) 10 ml FLUSH ASDIRECTED PRN PRN Reason: Keep Vein Open Labs: Laboratory Tests 03/02/19 03/02/19 03/02/19 Range/Units 06:16 06:16 06:29 WBC 7.8 (4.5-11.0) K/uL RBC 2.89 L (4.30-5.90) M/uL Hgb 6.7 L* D (12.0-15.0) g/dL Hct 23.0 L (40.0-54.0) % MCV 80 (80-98) fL MCH 23 L (27-31) pg MCHC 29 L (32-36) % Plt Count 172 (150-400) K/uL Neut % (Auto) 66 (36-66) % Lymph % (Auto) 21 L (24-44) % [place] % (Auto) 11 H (2-6) % Eos % (Auto) 1 L (2-4) % Baso % (Auto) 1 (0-1) % Sodium 141 (140-148) mmol/L Potassium 4.1 (3.6-5.2) mmol/L Chloride 108 (100-108) mmol/L Carbon Dioxide 22 (21-32) mmol/L Anion Gap 11.2 (5.0-14.0) mmol/L BUN 27 H (7-18) mg/dL Creatinine 1.1 (0.8-1.3) mg/dL Est Cr Clr Drug Dosing 58.99 mL/min Estimated GFR (MDRD) > 60 (>60) Glucose 144 H (74-106) mg/dL Calcium 8.3 L (8.5-10.1) mg/dL Total Bilirubin 0.7 (0.2-1.0) mg/dL AST 32 (15-37) U/L ALT 25 (12-78) U/L Alkaline Phosphatase 99 (46-116) U/L Total Protein 6.6 (6.4-8.2) g/dL Albumin 2.2 L (3.4-5.0) g/dL Globulin 4.4 H (2.3-3.5) g/dL Albumin/Globulin Ratio 0.5 L (1.2-2.2) Lipase 174 (73-393) U/L Blood Type Gel Antibody Screen Crossmatch 03/02/19 Range/Units 06:34 WBC (4.5-11.0) K/uL RBC (4.30-5.90) M/uL Hgb (12.0-15.0) g/dL Hct (40.0-54.0) % MCV (80-98) fL MCH (27-31) pg MCHC (32-36) % Plt Count (150-400) K/uL Neut % (Auto) (36-66) % Lymph % (Auto) (24-44) % [place] % (Auto) (2-6) % Eos % (Auto) (2-4) % Baso % (Auto) (0-1) % Sodium (140-148) mmol/L Potassium (3.6-5.2) mmol/L Chloride (100-108) mmol/L Carbon Dioxide (21-32) mmol/L Anion Gap (5.0-14.0) mmol/L BUN (7-18) mg/dL Creatinine (0.8-1.3) mg/dL Est Cr Clr Drug Dosing mL/min Estimated GFR (MDRD) (>60) Glucose (74-106) mg/dL Calcium (8.5-10.1) mg/dL Total Bilirubin (0.2-1.0) mg/dL AST (15-37) U/L ALT (12-78) U/L Alkaline Phosphatase (46-116) U/L Total Protein (6.4-8.2) g/dL Albumin (3.4-5.0) g/dL Globulin (2.3-3.5) g/dL Albumin/Globulin Ratio (1.2-2.2) Lipase (73-393) U/L Blood Type A NEGATIVE Gel Antibody Screen Negative Crossmatch See Detail Meds: Medications Generic Name Dose Route Start Last Admin Trade Name Frebhavana PRN Reason Stop Dose Admin Acetaminophen 650 mg 03/02/19 09:10 Tylenol PO Q4H PRN Pain (Mild 1-3)/fever Dextrose 15 gm 03/02/19 09:10 Glutose 15 PO ONETIME PRN Hypoglycemia Dextrose/Water 50 ml 03/02/19 09:10 Dextrose 50% In Water IV ONETIME PRN Hypoglycemia Insulin Human Lispro 0 unit 03/02/19 11:00 03/04/19 17:24 Humalog SUBCUT Not Given QIDACANDBED [facility] Protocol Levothyroxine Sodium 25 mcg 03/02/19 09:10 03/04/19 10:10 Levothyroxine PO 25 mcg DAILY@0730 JEANETTE Administration Melatonin 6 mg 03/02/19 21:00 03/03/19 21:01 Melatonin PO 6 mg BEDTIME JEANETTE Administration Ondansetron HCl 4 mg 03/02/19 09:10 Zofran IV Q4H PRN Nausea/Vomiting Sodium Chloride 10 ml 03/02/19 09:10 Saline Flush FLUSH ASDIRECTED PRN Keep Vein Open Discontinued Medications Generic Name Dose Route Start Last Admin Trade Name Frebhavana PRN Reason Stop Dose Admin Fentanyl Confirm 03/03/19 06:22 Sublimaze Administered 03/03/19 06:23 Dose 100 mcg .ROUTE .STK-MED ONE Fentanyl Confirm 03/04/19 08:11 Sublimaze Administered 03/04/19 08:12 Dose 100 mcg .ROUTE .STK-MED ONE Sodium Chloride 1,000 mls @ 999 mls/hr 03/02/19 06:30 03/02/19 06:42 Normal Saline IV 999 mls/hr ASDIRECTED JEANETTE Administration Pantoprazole Sodium 80 mg/ 100 mls @ 10 mls/hr 03/02/19 10:00 03/02/19 09:41 Sodium Chloride IV 10 mls/hr .Q10H JEANETTE Administration Sodium Chloride 1,000 mls @ 125 mls/hr 03/02/19 09:10 03/03/19 10:09 Normal Saline IV 125 mls/hr ASDIRECTED JEANETTE Administration Pantoprazole Sodium 80 mg/ 100 mls @ 10 mls/hr 03/02/19 18:00 03/03/19 05:36 Sodium Chloride IV 03/03/19 13:59 10 mls/hr .Q10H JAENETTE Administration Sodium Chloride 1,000 mls @ 75 mls/hr 03/04/19 00:01 Normal Saline IV ASDIRECTED JEANETTE Pantoprazole Sodium 80 mg/ 100 mls @ 10 mls/hr 03/03/19 15:30 03/04/19 01:39 Sodium Chloride IV 10 mls/hr .Q10H JEANETTE Administration Lactated Ringer's Confirm 03/04/19 09:19 Ringers, Lactated Administered 03/04/19 09:20 Dose 1,000 mls @ as directed .ROUTE .STK-MED ONE Pantoprazole Sodium 40 mg 03/02/19 06:39 03/02/19 06:47 Protonix Iv IVPUSH 03/02/19 06:40 40 mg ONETIME ONE Administration Pantoprazole Sodium 40 mg 03/02/19 08:25 03/02/19 09:36 Protonix Iv IVPUSH 03/02/19 08:26 40 mg ONETIME ONE Administration Propofol Confirm 03/03/19 06:22 Diprivan 20 Ml Administered 03/03/19 06:23 Dose 200 mg .ROUTE .STK-MED ONE Propofol Confirm 03/04/19 08:11 Diprivan 20 Ml Administered 03/04/19 08:12 Dose 200 mg .ROUTE .STK-MED ONE Departure - Departure Time of Disposition: 08:00 Disposition: Admitted As Inpatient 66 Condition: Fair Clinical Impression: Upper GI bleed - Discharge Information
[2019-03-02] MEDS ORDERED: Pantoprazole 40 MG Vial IVPUSH ONE ×2 (06:39→08:25)
--- NOTE | 2019-03-02 08:41 | PCM.HP.2 ---
H&P History of Present Illness - General Date of Service: 03/02/19 Admit Problem/Dx: Admission Diagnosis/Problem Admission Diagnosis/Problem Bleeding Source of Information: Patient, Old Records, Provider, RN Notes Reviewed History Limitations: Reports: No Limitations - History of Present Illness Initial Comments - Free Text/Narative: Mr. Schwartz is a 78-year-old gentleman who was admitted through the emergency department with weakness and melenic stool, hemoglobin of 6.7, secondary to upper GI bleed. He was hospitalized at this facility in July with similar symptoms and findings, upper GI endoscopy at that time showed old blood within the stomach but no obvious source of bleeding. Since then he has been diagnosed with hepatic cirrhosis, it's unclear as to whether they feel he has esophageal varices. He been feeling well until early this morning when he began to note melenic stools and to feel somewhat lightheaded. On evaluation in emergency department hemoglobin was noted to be low as documented above, he has been hemodynamically stable. - Related Data Allergies/Adverse Reactions: Allergies Allergy/AdvReac Type Severity Reaction Status Date / Time venom-honey bee Allergy Swelling Verified 03/02/19 05:58 [bee venom (honey bee)] lisinopril AdvReac Cough Verified 03/02/19 07:53 Home Medications: Home Meds Levothyroxine Sodium [Synthroid] 25 mcg PO DAILY 11/29/14 [History] metFORMIN [Glucophage] 500 mg PO BIDMEALS 11/29/14 [History] Pantoprazole Sodium [Protonix] 20 mg PO BID 07/21/18 [History] Past Medical History HEENT History: Reports: Cataract, Hard of Hearing, Other (See Below) Other HEENT History: hearing aids Cardiovascular History: Reports: Hypertension Gastrointestinal History: Reports: GERD, GI Bleed Genitourinary History: Reports: BPH Musculoskeletal History: Reports: Gout, Other (See Below) Other Musculoskeletal History: broken ribs from fall Endocrine/Metabolic History: Reports: Diabetes, Type II, Hypothyroidism Hematologic History: Reports: Blood Transfusion(s), Iron Deficiency Oncologic (Cancer) History: Reports: Basal Cell Carcinoma - Infectious Disease History Infectious Disease History: Reports: Chicken Pox, Herpes, Measles, Mumps - Past Surgical History Head Surgeries/Procedures: Reports: None HEENT Surgical History: Reports: Cataract Surgery Cardiovascular Surgical History: Reports: None GI Surgical History: Reports: Appendectomy, Cholecystectomy, Hernia Repair/Other Male Surgical History: Reports: Prostate Biopsy Endocrine Surgical History: Reports: None Musculoskeletal Surgical History: Reports: None Oncologic Surgical History: Reports: Other (See Below) Other Oncologic Surgeries/Procedures: nose biopsy Dermatological Surgical History: Reports: None Social & Family History - Family History Cardiac: Reports: ME - Tobacco Use Smoking Status *Q: Never Smoker Second Hand Smoke Exposure: No - Caffeine Use Caffeine Use: Reports: Coffee, Soda, Tea - Recreational Drug Use Recreational Drug Use: No H&P Review of Systems - Review of Systems: Review Of Systems: See Below General: Reports: Malaise, Weakness HEENT: Reports: No Symptoms Pulmonary: Reports: No Symptoms Cardiovascular: Reports: No Symptoms Gastrointestinal: Reports: Abdominal Pain, Diarrhea, Decreased Appetite, Melena , Nausea. Denies: Difficulty Swallowing, Distension, Vomiting Genitourinary: Reports: No Symptoms Musculoskeletal: Reports: No Symptoms Skin: Reports: No Symptoms Psychiatric: Reports: No Symptoms Neurological: Reports: No Symptoms Hematologic/Lymphatic: Reports: No Symptoms Immunologic: Reports: No Symptoms Exam - Exam Exam: See Below - Vital Signs Vital Signs: Last Vital Signs Temp 96.7 F 03/02/19 08:21 Pulse 72 03/02/19 08:21 Resp 15 03/02/19 08:21 BP 113/67 03/02/19 08:21 Pulse Ox 97 03/02/19 05:57 Weight: 166 lb 7.184 oz - Exam Quality Assessment: DVT Prophylaxis General: Alert, Oriented, Cooperative, Mild Distress HEENT: Conjunctiva Clear, Hearing Intact, Normal Nasal Septum, Posterior Pharynx Clear, Pupils Equal. No: Mucosa Moist & [place] Neck: Supple, Trachea Midline, +2 Carotid Pulse wo Bruit Lungs: Clear to Auscultation, Normal Respiratory Effort Cardiovascular: Regular Rate, Regular Rhythm, Normal S1, Normal S2. No: Systolic Murmur, Diastolic Murmur GI/Abdominal Exam: Soft, No Organomegaly, Tender. No: Distended, Guarding, Rigid, Rebound Back Exam: Normal Inspection, Full Range of Motion Extremities: Non-Tender, No Pedal Edema Skin: Warm, Dry, Intact Neurological: Cranial Nerves Intact, Strength Equal Bilateral, Normal Speech, Normal Tone, Sensation Intact. No: Focal Deficit Neuro Extensive - Mental Status: Alert, Oriented x3, Normal Mood/Affect, Normal Cognition, Memory Intact - Patient Data Lab Results Last 24 hrs: Laboratory Results - last 24 hr 03/02/19 03/02/19 03/02/19 Range/Units 06:16 06:16 06:29 WBC 7.8 (4.5-11.0) K/uL RBC 2.89 L (4.30-5.90) M/uL Hgb 6.7 L* D (12.0-15.0) g/dL Hct 23.0 L (40.0-54.0) % MCV 80 (80-98) fL MCH 23 L (27-31) pg MCHC 29 L (32-36) % Plt Count 172 (150-400) K/uL Neut % (Auto) 66 (36-66) % Lymph % (Auto) 21 L (24-44) % [place] % (Auto) 11 H (2-6) % Eos % (Auto) 1 L (2-4) % Baso % (Auto) 1 (0-1) % Sodium 141 (140-148) mmol/L Potassium 4.1 (3.6-5.2) mmol/L Chloride 108 (100-108) mmol/L Carbon Dioxide 22 (21-32) mmol/L Anion Gap 11.2 (5.0-14.0) mmol/L BUN 27 H (7-18) mg/dL Creatinine 1.1 (0.8-1.3) mg/dL Est Cr Clr Drug Dosing 58.99 mL/min Estimated GFR (MDRD) > 60 (>60) Glucose 144 H (74-106) mg/dL Calcium 8.3 L (8.5-10.1) mg/dL Total Bilirubin 0.7 (0.2-1.0) mg/dL AST 32 (15-37) U/L ALT 25 (12-78) U/L Alkaline Phosphatase 99 (46-116) U/L Total Protein 6.6 (6.4-8.2) g/dL Albumin 2.2 L (3.4-5.0) g/dL Globulin 4.4 H (2.3-3.5) g/dL Albumin/Globulin Ratio 0.5 L (1.2-2.2) Lipase 174 (73-393) U/L Blood Type Gel Antibody Screen Crossmatch 03/02/19 Range/Units 06:34 WBC (4.5-11.0) K/uL RBC (4.30-5.90) M/uL Hgb (12.0-15.0) g/dL Hct (40.0-54.0) % MCV (80-98) fL MCH (27-31) pg MCHC (32-36) % Plt Count (150-400) K/uL Neut % (Auto) (36-66) % Lymph % (Auto) (24-44) % [place] % (Auto) (2-6) % Eos % (Auto) (2-4) % Baso % (Auto) (0-1) % Sodium (140-148) mmol/L Potassium (3.6-5.2) mmol/L Chloride (100-108) mmol/L Carbon Dioxide (21-32) mmol/L Anion Gap (5.0-14.0) mmol/L BUN (7-18) mg/dL Creatinine (0.8-1.3) mg/dL Est Cr Clr Drug Dosing mL/min Estimated GFR (MDRD) (>60) Glucose (74-106) mg/dL Calcium (8.5-10.1) mg/dL Total Bilirubin (0.2-1.0) mg/dL AST (15-37) U/L ALT (12-78) U/L Alkaline Phosphatase (46-116) U/L Total Protein (6.4-8.2) g/dL Albumin (3.4-5.0) g/dL Globulin (2.3-3.5) g/dL Albumin/Globulin Ratio (1.2-2.2) Lipase (73-393) U/L Blood Type A NEGATIVE Gel Antibody Screen Negative Crossmatch See Detail Result Diagrams: 03/02/19 06:16 03/02/19 06:16 *Q Meaningful Use (ADM) - VTE *Q VTE Pharmacological Contraindications *Q: Active Hemorrhage - VTE Risk Assess *Q Each Risk Factor Represents 1 Point: None Total Score 1 Point Risk Factors: 0 Each Risk Factor Represents 2 Points: None Total Score 2 Point Risk Factors: 0 Each Risk Factor Represents 3 Points: Age 75 Years or Greater Total Score 3 Point Risk Factors: 3 Each Risk Factor Represents 5 Points: None Total Score 5 Point Risk Factors: 0 Venous Thromboembolism Risk Factor Score *Q: 3 Problem List Initiated/Reviewed/Updated: Yes Orders Last 24hrs: Active Orders 24 hr Category Date Time Status Patient Status Manage Transfer [TRANSFER] Routine ADT 03/02/19 08:27 Ordered RED BLOOD CELLS LP [BBK] Stat Lab 03/02/19 06:34 Results TYPE AND SCREEN [BBK] Stat Lab 03/02/19 06:34 Results Sodium Chloride 0.9% [Normal Saline] 1,000 ml Med 03/02/19 06:30 Active IV ASDIRECTED Sodium Chloride 0.9% [Normal Saline] 100 ml Med 03/02/19 08:30 Pending Pantoprazole [ProTONIX IV] 80 mg IV 10 mls/hr Resuscitation Status Routine Resus Stat 03/02/19 08:29 Ordered Medication Orders Sodium Chloride (Normal Saline) 1,000 mls @ 999 mls/hr IV ASDIRECTED JEANETTE Last Admin: 03/02/19 06:42 Dose: 999 mls/hr Pantoprazole Sodium 80 mg/ (Sodium Chloride) 100 mls @ 10 mls/hr IV .Q10H JEANETTE Assessment/Plan Comment:: ASSESSMENT AND PLAN UPPER GI BLEED-history of hematemesis and melena over the past several hours, consistent with upper GI bleed. Similar symptoms and findings approximately 8 months ago, EGD at that time showed old blood within the stomach but no obvious source of bleeding. Since then he has been diagnosed with cirrhosis, unclear as to whether they have found varices. -Maintain 2 IV sites -Type and cross to hold 2 units of red blood cells -Surgical consult Dr. Munguia, EGD in a.m. -Protonix 80 mg IV bolus given in emergency department -Protonix continuous infusion 8 mg per hour initiated in emergency department -IV fluids for hydration -Admit to ICU for more close monitoring -Serial hemoglobin levels -Nothing by mouth ACUTE BLOOD LOSS ANEMIA-secondary to upper GI bleed TYPE 2 DIABETES MELLITUS -Hold metformin -4 times a day glucometers -Low-dose sliding scale Humalog MAINTENANCE ISSUES -DVT prophylaxis; SCUDs, hold on anticoagulation because of acute hemorrhage -GI prophylaxis; Protonix as above -Moy catheter; not indicated -Nutrition; nothing by mouth -Nicotine dependence; not required CODE STATUS-FULL CODE ADMISSION STATUS-patient will be admitted to inpatient status, expect at least a 2 night hospital stay for evaluation and management of problems as outlined above. At the time of this admission I do not reasonably expected evaluation and management of this problem will require more than a 96 hour hospital stay. DISPOSITION-anticipate discharge to home after the hospital stay. PRIMARY CARE PROVIDER-Pari Matson - Mortality Measure Prognosis:: Good
[2019-03-02] MEDS ORDERED: Acetaminophen 325 MG Tab PO PRN (09:10)
[2019-03-02] MEDS ORDERED: Glucose Gel 15 GM in 37.5 GM Tube PO PRN (09:10)
[2019-03-02] MEDS ORDERED: 50% Dextrose in Water 50 ML Syringe IV PRN (09:10)
[2019-03-02] MEDS ORDERED: Sodium Chloride 0.9% 10 ML Syringe FLUSH PRN (09:10)
[2019-03-02] MEDS ORDERED: Ondansetron 4 MG/2 ML SDV IV PRN (09:10)
[2019-03-02] MEDS ORDERED: Sodium Chloride 0.9% 100 ML with Pantoprazole 80 MG IV SCH ×2 (10:00)
[2019-03-02] MEDS: Levothyroxine 25 MCG Tab PO SCH (11:15)
[2019-03-02] MEDS: Insulin Lispro 100 Unit/ML 3 ML KwikPen SUBCUT SCH ×3 (11:26→21:05)
[2019-03-02] MEDS: Sodium Chloride 0.9% 100 ML with Pantoprazole 80 MG IV SCH ×2 (18:23)
[2019-03-02] MEDS: Melatonin 3 MG Tab PO SCH (21:05)
[2019-03-02] MEDS: Sodium Chloride 0.9% 1,000 ML IV SCH (21:39)
[2019-03-03] MEDS: Sodium Chloride 0.9% 1,000 ML IV SCH ×2 (05:30→10:09)
[2019-03-03] MEDS: Sodium Chloride 0.9% 100 ML with Pantoprazole 80 MG IV SCH ×4 (05:36→16:08)
[2019-03-03] MEDS ORDERED: fentaNYL 100 MCG/2 ML SDV ONE (06:22)
[2019-03-03] MEDS ORDERED: Propofol 200 MG/20 ML SDV ONE (06:22)
[2019-03-03] MEDS: Insulin Lispro 100 Unit/ML 3 ML KwikPen SUBCUT SCH ×4 (07:39→21:01)
[2019-03-03] MEDS: Levothyroxine 25 MCG Tab PO SCH (10:17)
--- NOTE | 2019-03-03 10:30 | PCM.PN ---
- General Info Date of Service: 03/03/19 Subjective Update: Mr. Schwartz has shown some evidence of ongoing bleeding yesterday, stable since last night. After admission he was transfused 2 units of red blood cells and hemoglobin was stable at 8.5 until last night when it dropped to 7.5. He was transfused 1 additional unit of red blood cells and this morning his hemoglobin is back to 8.5. EGD was performed this morning by Dr. Munguia, nondiagnostic because of large amount of old blood and clots within the lumen of the stomach. Functional Status: Reports: Ambulating, Urinating - Review of Systems General: Reports: Weakness. Denies: Fever, Chills Pulmonary: Reports: No Symptoms Cardiovascular: Reports: No Symptoms Gastrointestinal: Reports: Melena. Denies: Abdominal Pain, Difficulty Swallowing, Nausea, Vomiting - Patient Data Vitals - Most Recent: Last Vital Signs Temp 96.8 F 03/03/19 10:12 Pulse 62 03/03/19 09:59 Resp 20 03/03/19 10:12 BP 112/62 03/03/19 10:12 Pulse Ox 95 03/03/19 10:12 Weight - Most Recent: 166 lb 7.184 oz I&O - Last 24 Hours: Intake & Output 03/02/19 03/03/19 03/03/19 22:59 06:59 14:59 Intake Total 534 1928 Output Total 125 1500 Balance 409 428 Lab Results Last 24 Hours: Laboratory Results - last 24 hr 03/02/19 03/02/19 03/02/19 Range/Units 06:34 14:15 16:55 WBC (4.5-11.0) K/uL RBC (4.30-5.90) M/uL Hgb 8.4 L 8.4 L (12.0-15.0) g/dL Hct (40.0-54.0) % MCV (80-98) fL MCH (27-31) pg MCHC (32-36) % Plt Count (150-400) K/uL Neut % (Auto) (36-66) % Lymph % (Auto) (24-44) % [place] % (Auto) (2-6) % Eos % (Auto) (2-4) % Baso % (Auto) (0-1) % PT (9.5-12.0) sec INR (0.80-1.20) Sodium (140-148) mmol/L Potassium (3.6-5.2) mmol/L Chloride (100-108) mmol/L Carbon Dioxide (21-32) mmol/L Anion Gap (5.0-14.0) mmol/L BUN (7-18) mg/dL Creatinine (0.8-1.3) mg/dL Est Cr Clr Drug Dosing mL/min Estimated GFR (MDRD) (>60) Glucose (74-106) mg/dL Calcium (8.5-10.1) mg/dL Blood Type A NEGATIVE Gel Antibody Screen Negative Crossmatch See Detail 03/02/19 03/03/19 03/03/19 Range/Units 23:00 05:40 05:40 WBC 4.9 (4.5-11.0) K/uL RBC 3.33 L (4.30-5.90) M/uL Hgb 7.5 L 8.5 L (12.0-15.0) g/dL Hct 27.2 L (40.0-54.0) % MCV 82 (80-98) fL MCH 26 L (27-31) pg MCHC 31 L (32-36) % Plt Count 109 L (150-400) K/uL Neut % (Auto) 59 (36-66) % Lymph % (Auto) 22 L (24-44) % [place] % (Auto) 17 H (2-6) % Eos % (Auto) 1 L (2-4) % Baso % (Auto) 0 (0-1) % PT (9.5-12.0) sec INR (0.80-1.20) Sodium 141 (140-148) mmol/L Potassium 3.8 (3.6-5.2) mmol/L Chloride 112 H (100-108) mmol/L Carbon Dioxide 21 (21-32) mmol/L Anion Gap 11.8 (5.0-14.0) mmol/L BUN 23 H (7-18) mg/dL Creatinine 0.9 (0.8-1.3) mg/dL Est Cr Clr Drug Dosing 72.28 mL/min Estimated GFR (MDRD) > 60 (>60) Glucose 136 H (74-106) mg/dL Calcium 7.8 L (8.5-10.1) mg/dL Blood Type Gel Antibody Screen Crossmatch 03/03/19 Range/Units 05:40 WBC (4.5-11.0) K/uL RBC (4.30-5.90) M/uL Hgb (12.0-15.0) g/dL Hct (40.0-54.0) % MCV (80-98) fL MCH (27-31) pg MCHC (32-36) % Plt Count (150-400) K/uL Neut % (Auto) (36-66) % Lymph % (Auto) (24-44) % [place] % (Auto) (2-6) % Eos % (Auto) (2-4) % Baso % (Auto) (0-1) % PT 12.9 H (9.5-12.0) sec INR 1.21 H (0.80-1.20) Sodium (140-148) mmol/L Potassium (3.6-5.2) mmol/L Chloride (100-108) mmol/L Carbon Dioxide (21-32) mmol/L Anion Gap (5.0-14.0) mmol/L BUN (7-18) mg/dL Creatinine (0.8-1.3) mg/dL Est Cr Clr Drug Dosing mL/min Estimated GFR (MDRD) (>60) Glucose (74-106) mg/dL Calcium (8.5-10.1) mg/dL Blood Type Gel Antibody Screen Crossmatch Med Orders - Current: Current Medications Acetaminophen (Tylenol) 650 mg PO Q4H PRN PRN Reason: Pain (Mild 1-3)/fever Dextrose (Glutose 15) 15 gm PO ONETIME PRN PRN Reason: Hypoglycemia Dextrose/Water (Dextrose 50% In Water) 50 ml IV ONETIME PRN PRN Reason: Hypoglycemia Pantoprazole Sodium 80 mg/ (Sodium Chloride) 100 mls @ 10 mls/hr IV .Q10H JEANETTE Last Admin: 03/03/19 05:36 Dose: 10 mls/hr Sodium Chloride (Normal Saline) 1,000 mls @ 75 mls/hr IV ASDIRECTED [facility] Insulin Human Lispro (Humalog) 0 unit SUBCUT QIDACANDBED [facility]; Protocol Last Admin: 03/03/19 07:39 Dose: Not Given Levothyroxine Sodium (Levothyroxine) 25 mcg PO DAILY@0730 [facility] Last Admin: 03/03/19 10:17 Dose: 25 mcg Melatonin (Melatonin) 6 mg PO BEDTIME [facility] Last Admin: 03/02/19 21:05 Dose: 6 mg Ondansetron HCl (Zofran) 4 mg IV Q4H PRN PRN Reason: Nausea/Vomiting Sodium Chloride (Saline Flush) 10 ml FLUSH ASDIRECTED PRN PRN Reason: Keep Vein Open Discontinued Medications Fentanyl (Sublimaze) Confirm Administered Dose 100 mcg .ROUTE .STK-MED ONE Stop: 03/03/19 06:23 Sodium Chloride (Normal Saline) 1,000 mls @ 999 mls/hr IV ASDIRECTED [facility] Last Admin: 03/02/19 06:42 Dose: 999 mls/hr Pantoprazole Sodium 80 mg/ (Sodium Chloride) 100 mls @ 10 mls/hr IV .Q10H [facility] Last Admin: 03/02/19 09:41 Dose: 10 mls/hr Sodium Chloride (Normal Saline) 1,000 mls @ 125 mls/hr IV ASDIRECTED [facility] Last Admin: 03/03/19 10:09 Dose: 125 mls/hr Pantoprazole Sodium (Protonix Iv) 40 mg IVPUSH ONETIME ONE Stop: 03/02/19 06:40 Last Admin: 03/02/19 06:47 Dose: 40 mg Pantoprazole Sodium (Protonix Iv) 40 mg IVPUSH ONETIME ONE Stop: 03/02/19 08:26 Last Admin: 03/02/19 09:36 Dose: 40 mg Propofol (Diprivan 20 Ml) Confirm Administered Dose 200 mg .ROUTE .STK-MED ONE Stop: 03/03/19 06:23 - Exam Quality Assessment: DVT Prophylaxis General: Alert, Oriented, Cooperative, No Acute Distress Lungs: Clear to Auscultation, Normal Respiratory Effort Cardiovascular: Regular Rate, Regular Rhythm, No Murmurs GI/Abdominal Exam: Soft, Non-Tender, No Organomegaly, No Distention - Problem List Review Problem List Initiated/Reviewed/Updated: Yes - My Orders Last 24 Hours: My Active Orders 03/02/19 11:00 Insulin Lispro [HumaLOG] See Protocol SUBCUT QIDACANDBED 03/02/19 18:00 Sodium Chloride 0.9% [Normal Saline] 100 ml Pantoprazole [ProTONIX IV] 80 mg IV 10 mls/hr 03/02/19 21:00 Melatonin 6 mg PO BEDTIME 03/02/19 23:14 Transfuse Red Blood Cells [COMM] Urgent 03/03/19 10:18 Convert IV to Saline Lock [OM.PC] Routine 03/03/19 17:00 HGB [HEMOGLOBIN] [HEME] Stat 03/04/19 00:01 Sodium Chloride 0.9% @ 75 MLS/HR(1000ml) Sodium Chloride 0.9% [Normal Saline] 1 ,000 ml IV ASDIRECTED 03/04/19 05:11 HGB [HEMOGLOBIN] [HEME] AM 03/04/19 07:30 GLUCOSE POC LAB TO COLLECT [POC] QIDACANDBED 03/04/19 11:30 GLUCOSE POC LAB TO COLLECT [POC] QIDACANDBED 03/04/19 16:30 GLUCOSE POC LAB TO COLLECT [POC] QIDACANDBED 03/04/19 21:00 GLUCOSE POC LAB TO COLLECT [POC] QIDACANDBED 03/04/19 Breakfast NPO After Midnight [Nothing per Oral After Midnight Diet] [DIET] 03/05/19 07:30 GLUCOSE POC LAB TO COLLECT [POC] QIDACANDBED 03/05/19 11:30 GLUCOSE POC LAB TO COLLECT [POC] QIDACANDBED 03/05/19 16:30 GLUCOSE POC LAB TO COLLECT [POC] QIDACANDBED 03/05/19 21:00 GLUCOSE POC LAB TO COLLECT [POC] QIDACANDBED 03/06/19 07:30 GLUCOSE POC LAB TO COLLECT [POC] QIDACANDBED 03/06/19 11:30 GLUCOSE POC LAB TO COLLECT [POC] QIDACANDBED 03/06/19 16:30 GLUCOSE POC LAB TO COLLECT [POC] QIDACANDBED 03/06/19 21:00 GLUCOSE POC LAB TO COLLECT [POC] QIDACANDBED 03/07/19 07:30 GLUCOSE POC LAB TO COLLECT [POC] QIDACANDBED - Plan Plan:: ASSESSMENT AND PLAN UPPER GI BLEED-evidence of ongoing bleeding yesterday, stable since last night. EGD this morning nondiagnostic because of large amount of old blood and clots within the stomach and upper GI tract. -Maintain 2 IV sites -Continue to hold 2 units of red blood cells -Repeat EGD in a.m., Dr. De Jesus -Protonix continuous infusion 8 mg per hour -Saline lock IV, resume IV fluids after midnight -Serial hemoglobin levels -Clear liquid diet, nothing by mouth after midnight ACUTE BLOOD LOSS ANEMIA-secondary to upper GI bleed TYPE 2 DIABETES MELLITUS -Hold metformin -4 times a day glucometers -Low-dose sliding scale Humalog MAINTENANCE ISSUES -DVT prophylaxis; SCUDs, hold on anticoagulation because of acute hemorrhage -GI prophylaxis; Protonix as above -Moy catheter; not indicated -Nutrition; nothing by mouth -Nicotine dependence; not required CODE STATUS-FULL CODE ADMISSION STATUS-patient will be admitted to inpatient status, expect at least a 2 night hospital stay for evaluation and management of problems as outlined above. At the time of this admission I do not reasonably expected evaluation and management of this problem will require more than a 96 hour hospital stay. DISPOSITION-anticipate discharge to home after the hospital stay. PRIMARY CARE PROVIDER-Pari Matson
[2019-03-03] MEDS: Melatonin 3 MG Tab PO SCH (21:01)
[2019-03-04] MEDS ORDERED: Sodium Chloride 0.9% 1,000 ML IV SCH (00:01)
[2019-03-04] MEDS: Sodium Chloride 0.9% 100 ML with Pantoprazole 80 MG IV SCH ×2 (01:39)
[2019-03-04] MEDS: Insulin Lispro 100 Unit/ML 3 ML KwikPen SUBCUT SCH ×4 (07:16→21:01)
[2019-03-04] MEDS ORDERED: Propofol 200 MG/20 ML SDV ONE (08:11)
[2019-03-04] MEDS ORDERED: fentaNYL 100 MCG/2 ML SDV ONE (08:11)
[2019-03-04] MEDS ORDERED: Lactated Ringers 1,000 ML ONE (09:19)
--- NOTE | 2019-03-04 10:03 | PN ---
DATE OF SERVICE: 03/04/2019 SUBJECTIVE: Alton had an esophagogastroduodenoscopy yesterday. It will be repeated today for an upper GI. Hemoglobin this morning dropped from 8.1 to 7.3. He is getting 1 unit of packed red blood cells. Vital signs have been stable. He is n.p.o. no other questions or concerns. OBJECTIVE: GENERAL: Alton Schwartz is a 78-year-old male. VITAL SIGNS: TPR is 98, 60, 21, blood pressure 119/67. HEENT: Negative. NECK: Supple. HEART: Regular rate and rhythm. LUNGS: Clear. ABDOMEN: Nontender. EXTREMITIES: Without peripheral edema. ASSESSMENT: Gastrointestinal bleed. PLAN: Sumanth Mary MD, will be doing the esophagogastroduodenoscopy to further evaluate upper gastrointestinal bleed. Remainder of care is under hospitalist. We will evaluate p.r.n. or in a.m. Kitty Medeiros PA-C /[id number]
[2019-03-04] MEDS: Levothyroxine 25 MCG Tab PO SCH (10:10)
--- NOTE | 2019-03-04 13:38 | PCM.PN ---
- General Info Date of Service: 03/04/19 Subjective Update: There were no acute events overnight. Patient did not have nausea, vomiting or hematemesis. He doesn't think that he had any melena but does admit that he stooled in the dark this morning. No complaints of abdominal pain. No fevers. Hemoglobin did drop down to 7.3 this morning and he did receive another unit of blood via transfusion. Repeat EGD this morning did reveal some mild varices but no evidence for bleeding. There is no blood in the stomach. No obvious source for bleeding. Functional Status: Reports: Pain Controlled - Review of Systems Gastrointestinal: Denies: Abdominal Pain, Hematochezia, Melena - Patient Data Vitals - Most Recent: Last Vital Signs Temp 36.6 C 03/04/19 10:00 Pulse 59 L 03/04/19 12:00 Resp 21 H 03/04/19 12:00 BP 110/57 L 03/04/19 12:00 Pulse Ox 96 03/04/19 12:00 Weight - Most Recent: 75.5 kg I&O - Last 24 Hours: Intake & Output 03/03/19 03/04/19 03/04/19 22:59 06:59 14:59 Intake Total 851 674 805 Balance 851 674 805 Lab Results Last 24 Hours: Laboratory Results - last 24 hr 03/02/19 03/03/19 03/04/19 Range/Units 06:34 17:08 04:30 Hgb 8.1 L 7.3 L (12.0-15.0) g/dL Blood Type A NEGATIVE Gel Antibody Screen Negative Crossmatch See Detail [place] Results Last 24 Hours: Microbiology 03/03/19 09:35 CLOtest - Final Stomach NEGATIVE CLOTEST REFERENCE RANGE: NEGATIVE Med Orders - Current: Current Medications Acetaminophen (Tylenol) 650 mg PO Q4H PRN PRN Reason: Pain (Mild 1-3)/fever Dextrose (Glutose 15) 15 gm PO ONETIME PRN PRN Reason: Hypoglycemia Dextrose/Water (Dextrose 50% In Water) 50 ml IV ONETIME PRN PRN Reason: Hypoglycemia Insulin Human Lispro (Humalog) 0 unit SUBCUT QIDACANDBED [facility]; Protocol Last Admin: 03/04/19 11:13 Dose: 2 unit Levothyroxine Sodium (Levothyroxine) 25 mcg PO DAILY@0730 [facility] Last Admin: 03/04/19 10:10 Dose: 25 mcg Melatonin (Melatonin) 6 mg PO BEDTIME [facility] Last Admin: 03/03/19 21:01 Dose: 6 mg Ondansetron HCl (Zofran) 4 mg IV Q4H PRN PRN Reason: Nausea/Vomiting Sodium Chloride (Saline Flush) 10 ml FLUSH ASDIRECTED PRN PRN Reason: Keep Vein Open Discontinued Medications Fentanyl (Sublimaze) Confirm Administered Dose 100 mcg .ROUTE .STK-MED ONE Stop: 03/03/19 06:23 Fentanyl (Sublimaze) Confirm Administered Dose 100 mcg .ROUTE .K-MED ONE Stop: 03/04/19 08:12 Sodium Chloride (Normal Saline) 1,000 mls @ 999 mls/hr IV ASDIRECTED [facility] Last Admin: 03/02/19 06:42 Dose: 999 mls/hr Pantoprazole Sodium 80 mg/ (Sodium Chloride) 100 mls @ 10 mls/hr IV .Q10H [facility] Last Admin: 03/02/19 09:41 Dose: 10 mls/hr Sodium Chloride (Normal Saline) 1,000 mls @ 125 mls/hr IV ASDIRECTED [facility] Last Admin: 03/03/19 10:09 Dose: 125 mls/hr Pantoprazole Sodium 80 mg/ (Sodium Chloride) 100 mls @ 10 mls/hr IV .Q10H [facility] Stop: 03/03/19 13:59 Last Admin: 03/03/19 05:36 Dose: 10 mls/hr Sodium Chloride (Normal Saline) 1,000 mls @ 75 mls/hr IV ASDIRECTED [facility] Pantoprazole Sodium 80 mg/ (Sodium Chloride) 100 mls @ 10 mls/hr IV .Q10H [facility] Last Admin: 03/04/19 01:39 Dose: 10 mls/hr Lactated Ringer's (Ringers, Lactated) Confirm Administered Dose 1,000 mls @ as directed .ROUTE .K-MED ONE Stop: 03/04/19 09:20 Pantoprazole Sodium (Protonix Iv) 40 mg IVPUSH ONETIME ONE Stop: 03/02/19 06:40 Last Admin: 03/02/19 06:47 Dose: 40 mg Pantoprazole Sodium (Protonix Iv) 40 mg IVPUSH ONETIME ONE Stop: 03/02/19 08:26 Last Admin: 03/02/19 09:36 Dose: 40 mg Propofol (Diprivan 20 Ml) Confirm Administered Dose 200 mg .ROUTE .STK-MED ONE Stop: 03/03/19 06:23 Propofol (Diprivan 20 Ml) Confirm Administered Dose 200 mg .ROUTE .STK-MED ONE Stop: 03/04/19 08:12 - Exam Quality Assessment: No: Supplemental Oxygen General: Alert, Oriented, Cooperative, No Acute Distress Lungs: Normal Respiratory Effort Cardiovascular: Regular Rhythm, Irregular Rhythm GI/Abdominal Exam: Soft, No Distention Extremities: No Pedal Edema Skin: Warm, Dry Psy/Mental Status: Alert, Normal Affect - Problem List Review Problem List Initiated/Reviewed/Updated: Yes - My Orders Last 24 Hours: My Active Orders 03/04/19 10:55 Convert IV to Saline Lock [OM.PC] Routine 03/04/19 16:00 HGB [HEMOGLOBIN] [HEME] Routine 03/05/19 05:00 BASIC METABOLIC PANEL,BMP [CHEM] Timed CBC W/O DIFF,HEMOGRAM [HEME] Timed (1) - Plan Plan:: ASSESSMENT AND PLAN UPPER GI HEMORRHAGE - no evidence to support bleeding overnight but hemoglobin did drop approximately 1 g overnight. Repeat EGD this morning did not show any source of bleeding or blood in the stomach. Mild varices were noted. He did receive a unit of blood this morning. -Maintain 2 IV sites -Continue to hold 2 units of red blood cells -Twice daily PPI -Saline lock IV -Serial hemoglobin levels -Clear liquid diet, advance if tolerated ACUTE BLOOD LOSS ANEMIA - secondary to upper GI bleed. Hemoglobin dropped again this morning and he did receive another unit of blood. -Management as above TYPE 2 DIABETES MELLITUS - stable. -Hold metformin -4 times a day glucometers -Low-dose sliding scale Humalog MAINTENANCE ISSUES -DVT prophylaxis; SCUDs, hold on anticoagulation because of acute hemorrhage -GI prophylaxis; Protonix as above -Moy catheter; not indicated -Nutrition; nothing by mouth -Nicotine dependence; not required CODE STATUS-FULL CODE ADMISSION STATUS-patient will be admitted to inpatient status, expect at least a 2 night hospital stay for evaluation and management of problems as outlined above. At the time of this admission I do not reasonably expected evaluation and management of this problem will require more than a 96 hour hospital stay. DISPOSITION - anticipate discharge to home after the hospital stay. Etienne Del Rio M.D.
--- NOTE | 2019-03-04 15:00 | OR ---
DATE OF PROCEDURE: 03/04/2019 PREOPERATIVE DIAGNOSIS: Upper gastrointestinal hemorrhage. POSTOPERATIVE DIAGNOSES: 1. Upper gastrointestinal hemorrhage, resolved, etiology unknown. 2. Esophageal varices. PROCEDURE: Esophagogastroduodenoscopy. SURGEON: Sumanth Mary MD ANESTHESIA: IV anesthesia with monitored anesthesia care. INDICATION: This 78-year-old white male, a few months ago, underwent upper endoscopy for upper gastrointestinal hemorrhage. The etiology of bleeding was unknown. He has done fine since then, after being placed on a proton pump inhibitor. A few days ago, he started noticing black tarry stools. He ultimately came into the emergency room and was admitted. He has had blood transfusions. Upper endoscopy was done yesterday, but there was too much blood present to identify the source. It was all old blood. There was no fresh bleeding. A request was made for a repeat endoscopy today. I counseled him for upper endoscopy with possible biopsy, including risks and alternatives, and he gave his informed consent to proceed. PROCEDURE IN DETAIL: The patient was placed in the left lateral decubitus position. IV anesthesia was administered by the Anesthesia Service. Time-out was held. The flexible video Olympus upper endoscope was passed through his mouth, down his esophagus, and into his stomach. The scope was easily passed through the pylorus into the duodenum, reaching its third portion. The scope was then slowly withdrawn, examining the mucosa throughout. The duodenal mucosa appeared unremarkable. The scope was brought through the pylorus. The antrum appeared unremarkable. The scope was retroflexed. The proximal stomach appeared unremarkable. The scope was straightened and brought up to the GE junction. The GE junction appeared unremarkable. When we examined the lower esophagus, we encountered some esophageal varices. There was no bleeding from any of these. The scope was then brought up through the esophagus, which other than the varices appeared unremarkable and it was removed. He tolerated the procedure well. Sumanth Mary MD /[id number]
[2019-03-04] MEDS: Melatonin 3 MG Tab PO SCH (23:14)
[2019-03-05] MEDS: Insulin Lispro 100 Unit/ML 3 ML KwikPen SUBCUT SCH (07:12)
[2019-03-05] MEDS: Levothyroxine 25 MCG Tab PO SCH (07:22)
[2019-03-05] MEDS ORDERED: Potassium Chloride 20 MEQ Tab.ER PO ONE (09:00)
--- NOTE | 2019-03-05 09:06 | PN ---
DATE OF SERVICE: 03/05/2019 Alton is a 78-year-old male. He is sitting up in the chair, ready to go home. Stating that he is feeling better and [facility]. Vital signs have been stable. Hemoglobin this morning was 9.1. He received 4 units of packed red blood cells. Esophagogastroduodenoscopy yesterday showed esophageal varices. He will be discharged by Etienne Del Rio MD, and he states he will [facility] the [facility]. Kitty Medeiros PA-C /[id number]
[2019-03-05 09:17] VITALS: BP 136/76
--- NOTE | 2019-03-05 09:43 | PCM.DCSUM1 ---
Discharge Summary - Hospital Course Brief History: 78-year-old male with history of idiopathic upper gastrointestinal hemorrhage, type 2 diabetes mellitus that is well-controlled who presented with lightheadedness and melena. He was admitted for management of acute upper gastrointestinal hemorrhage. Diagnosis: Stroke: No - Discharge Data Discharge Date: 03/05/19 Discharge Disposition: Home, Self-Care 01 Condition: Good - Discharge Diagnosis/Problem(s) (1) Acute upper gastrointestinal hemorrhage SNOMED Code(s): 72893632 ICD Code: K92.2 - GASTROINTESTINAL HEMORRHAGE, UNSPECIFIED Status: Acute (2) Blood loss anemia SNOMED Code(s): 880508274 ICD Code: D50.0 - IRON DEFICIENCY ANEMIA SECONDARY TO BLOOD LOSS (CHRONIC) Status: Acute (3) Type 2 diabetes mellitus SNOMED Code(s): 28166245 ICD Code: E11.9 - TYPE 2 DIABETES MELLITUS WITHOUT COMPLICATIONS Status: Chronic Qualifiers: Diabetes mellitus halfway insulin use: without intermission coordinator use Diabetes mellitus complication status: without complication Qualified Code(s): E11.9 - Type 2 diabetes mellitus without complications (4) Hypothyroidism SNOMED Code(s): 20290568 ICD Code: E03.9 - HYPOTHYROIDISM, UNSPECIFIED Status: Chronic Qualifiers: Hypothyroidism type: acquired Qualified Code(s): E03.9 - Hypothyroidism, unspecified - Patient Summary/Data Operative Procedure(s) Performed: Upper endoscopy was performed twice, once by Dr. Munguia on 03/[address] Mary on 03/04 Consults: Consultations 03/02/19 09:10 Consult to Physician [CONS] Routine Consulting Provider: Ty Munguia Courtesy Call Completed to Consulting Physician: Yes Reason for Consult: UGI Bleed Hospital Course: Alton presented to the emergency room with weakness, lightheadedness and melena. Workup in the emergency room revealed a hemoglobin of 6.7. Patient was transfused 2 units of blood and started on a pantoprazole infusion and admitted to the intensive care unit for further management. Recheck of his hemoglobin revealed improvement initially but then later in the evening it had dropped down to 7 again. He was still having melena so he received a third unit of blood the evening of admission. Vital signs were otherwise stable. The morning after admission he did have an EGD performed by Dr. Munguia which was nondiagnostic because of a large quantity of old blood in the stomach. He was continued on the pantoprazole infusion and his hemoglobin had remained stable throughout the second day of hospitalization. Vital signs have been stable as well. He had a small amount of melena but did not have any hematemesis. On the morning of hospital day 3 his hemoglobin dropped down to 7 again and he received a fourth unit of blood. Also he had a second EGD performed which revealed some gastric varices but there was no evidence for active bleeding, no old blood and no stigmata of recent bleeding. None of the varices appeared to have been bleeding recently or were actively bleeding. Since that time he has not had any melena and his hemoglobin has been stable to improving for more than 24 hours. He has tolerated advancement in his diet. His vital signs have remained stable and clinically he feels well. The exact source of his bleeding has not been determined at this time. Upper gastrointestinal source was suspected but an exact source was never determined. Differential would include occult bleeding source from his varices versus Dieulafoy lesion versus other. There is no evidence for gastritis or ulceration. Patient does have an upcoming visit with the electric switch repairer. His bleeding has stopped and his vitals have been stable. I believe he is safe for outpatient management at this time. He will be following up next week for a hemoglobin recheck. - Patient Instructions Diet: Regular Diet as Tolerated Activity: As Tolerated Showering/Bathing: May Shower Notify Provider of: Fever, Increased Pain, Nausea and/or Vomiting Other/Special Instructions: 1. You were in the hospital for management of an acute upper gastrointestinal hemorrhage. We did not find a definite source for the bleeding. We did notice esophageal varices on the upper endoscopy but these did not appear to have been bleeding and were not actively bleeding. The bleeding has stopped and your hemoglobin has been stable/improving for the past 24 hours. Please follow-up as scheduled with the electric switch repairer in early April. 2. Continue your usual home medications as previously prescribed. 3. Follow up with your primary care next week to have your hemoglobin rechecked and ensure that you continue to do well after hospital discharge. 4. Seek medical attention if you have fever greater than 101, you vomit blood, you have black, tarry stools or if you have severe abdominal pain. - Discharge Plan *PRESCRIPTION DRUG MONITORING PROGRAM REVIEWED*: Not Applicable *COPY OF PRESCRIPTION DRUG MONITORING REPORT IN PATIENT JAIRO: Not Applicable Home Medications: Home Meds Levothyroxine Sodium [Synthroid] 25 mcg PO DAILY 11/29/14 [History] metFORMIN [Glucophage] 500 mg PO BIDMEALS 11/29/14 [History] Pantoprazole Sodium [Protonix] 20 mg PO BID 07/21/18 [History] Oxygen Therapy Mode: Room Air Patient Handouts: Esophageal Varices Referrals: Pari Matson MD [Primary Care Provider] - (1 week - f/u hospital stay for GI bleed, varices and recheck hemoglobin ) - Discharge Summary/Plan Comment DC Time >30 min.: No - Patient Data Vitals - Most Recent: Last Vital Signs Temp 36.6 C 03/05/19 09:16 Pulse 61 03/05/19 09:16 Resp 19 03/05/19 09:16 BP 136/76 03/05/19 09:16 Pulse Ox 98 03/05/19 09:16 Weight - Most Recent: 75.5 kg I&O - Last 24 hours: Intake & Output 03/04/19 03/05/19 03/05/19 22:59 06:59 14:59 Intake Total 260 480 Balance 260 480 Lab Results - Last 24 hrs: Laboratory Results - last 24 hr 03/04/19 03/05/19 03/05/19 Range/Units 16:02 04:40 04:40 WBC 4.1 L (4.5-11.0) K/uL RBC 3.42 L (4.30-5.90) M/uL Hgb 8.6 L 9.1 L (12.0-15.0) g/dL Hct 28.2 L (40.0-54.0) % MCV 83 (80-98) fL MCH 27 (27-31) pg MCHC 32 (32-36) % Plt Count 111 L (150-400) K/uL Sodium 139 L (140-148) mmol/L Potassium 3.3 L (3.6-5.2) mmol/L Chloride 109 H (100-108) mmol/L Carbon Dioxide 20 L (21-32) mmol/L Anion Gap 13.3 (5.0-14.0) mmol/L BUN 13 (7-18) mg/dL Creatinine 0.8 (0.8-1.3) mg/dL Est Cr Clr Drug Dosing 81.31 mL/min Estimated GFR (MDRD) > 60 (>60) Glucose 127 H (74-106) mg/dL Calcium 7.7 L (8.5-10.1) mg/dL JOSEFINA Results - Last 24 hrs: Microbiology 03/03/19 09:35 CLOtest - Final Stomach NEGATIVE CLOTEST REFERENCE RANGE: NEGATIVE Med Orders - Current: Current Medications Acetaminophen (Tylenol) 650 mg PO Q4H PRN PRN Reason: Pain (Mild 1-3)/fever Dextrose (Glutose 15) 15 gm PO ONETIME PRN PRN Reason: Hypoglycemia Dextrose/Water (Dextrose 50% In Water) 50 ml IV ONETIME PRN PRN Reason: Hypoglycemia Insulin Human Lispro (Humalog) 0 unit SUBCUT QIDACANDBED [facility]; Protocol Last Admin: 03/05/19 07:12 Dose: Not Given Levothyroxine Sodium (Levothyroxine) 25 mcg PO DAILY@0730 [facility] Last Admin: 03/05/19 07:22 Dose: 25 mcg Melatonin (Melatonin) 6 mg PO BEDTIME [facility] Last Admin: 03/04/19 23:14 Dose: Not Given Metformin HCl (Glucophage) 500 mg PO BIDMEALS [facility] Ondansetron HCl (Zofran) 4 mg IV Q4H PRN PRN Reason: Nausea/Vomiting Sodium Chloride (Saline Flush) 10 ml FLUSH ASDIRECTED PRN PRN Reason: Keep Vein Open Discontinued Medications Fentanyl (Sublimaze) Confirm Administered Dose 100 mcg .ROUTE .STK-MED ONE Stop: 03/03/19 06:23 Fentanyl (Sublimaze) Confirm Administered Dose 100 mcg .ROUTE .STK-MED ONE Stop: 03/04/19 08:12 Sodium Chloride (Normal Saline) 1,000 mls @ 999 mls/hr IV ASDIRECTED [facility] Last Admin: 03/02/19 06:42 Dose: 999 mls/hr Pantoprazole Sodium 80 mg/ (Sodium Chloride) 100 mls @ 10 mls/hr IV .Q10H [facility] Last Admin: 03/02/19 09:41 Dose: 10 mls/hr Sodium Chloride (Normal Saline) 1,000 mls @ 125 mls/hr IV ASDIRECTED [facility] Last Admin: 03/03/19 10:09 Dose: 125 mls/hr Pantoprazole Sodium 80 mg/ (Sodium Chloride) 100 mls @ 10 mls/hr IV .Q10H [facility] Stop: 03/03/19 13:59 Last Admin: 03/03/19 05:36 Dose: 10 mls/hr Sodium Chloride (Normal Saline) 1,000 mls @ 75 mls/hr IV ASDIRECTED [facility] Pantoprazole Sodium 80 mg/ (Sodium Chloride) 100 mls @ 10 mls/hr IV .Q10H [facility] Last Admin: 03/04/19 01:39 Dose: 10 mls/hr Lactated Ringer's (Ringers, Lactated) Confirm Administered Dose 1,000 mls @ as directed .ROUTE .STK-MED ONE Stop: 03/04/19 09:20 Pantoprazole Sodium (Protonix Iv) 40 mg IVPUSH ONETIME ONE Stop: 03/02/19 06:40 Last Admin: 03/02/19 06:47 Dose: 40 mg Pantoprazole Sodium (Protonix Iv) 40 mg IVPUSH ONETIME ONE Stop: 03/02/19 08:26 Last Admin: 03/02/19 09:36 Dose: 40 mg Potassium Chloride (Klor-Con M20) 40 meq PO ONETIME ONE Stop: 03/05/19 09:01 Last Admin: 03/05/19 09:08 Dose: 40 meq Propofol (Diprivan 20 Ml) Confirm Administered Dose 200 mg .ROUTE .STK-MED ONE Stop: 03/03/19 06:23 Propofol (Diprivan 20 Ml) Confirm Administered Dose 200 mg .ROUTE .STK-MED ONE Stop: 03/04/19 08:12 - Exam Quality Assessment: Denies: Supplemental Oxygen General: Reports: Alert, Oriented, Cooperative, No Acute Distress Lungs: Reports: Normal Respiratory Effort Cardiovascular: Reports: Regular Rate, Regular Rhythm GI/Abdominal Exam: Soft, No Distention Extremities: No Pedal Edema Psy/Mental Status: Reports: Alert, Normal Affect *Q Meaningful Use (DIS) - VTE *Q VTE Pharmacological Contraindications *Q: Active Hemorrhage
[2019-03-05] MEDS ORDERED: metFORMIN 500 MG Tab PO SCH (17:00)
--- NOTE | 2019-03-06 15:09 | OR ---
DATE OF PROCEDURE: 03/03/2019 SURGEON: Ty Munguia MD PREOPERATIVE DIAGNOSIS: Upper gastrointestinal bleeding. POSTOPERATIVE DIAGNOSES: 1. Ulcerative distal esophagitis with small hiatal hernia. 2. Large amount of old black blood in the stomach and duodenum obscuring much of the gastroduodenal surfaces. 3. No obvious active bleeding. OPERATIVE PROCEDURE: Esophagogastroduodenoscopy with biopsies of antrum for CLOtest. ANESTHESIA: IV sedation. INDICATION FOR PROCEDURE: This is a 78-year-old presenting with evidence of upper GI bleeding. He had episode recently with no well-defined underlying diagnosis being established. The plan is to proceed with upper GI endoscopy with biopsies as indicated. Potential risks including bleeding and perforation were discussed, and the patient wishes to proceed. DETAILS OF PROCEDURE: The patient was taken to the operating room and placed in a left lateral decubitus position. IV sedation was administered, after which the upper GI endoscope was passed orally through the length of the esophagus and into the stomach, and from there, retroflexion was obtained and then the scope passed into the pyloric channel and proximal duodenum. The patient was noted to have no active bleeding. There was a large amount of black old blood predominantly in the stomach, to a lesser extent in the duodenum, and a little bit in the distal esophagus. The patient had some shallow ulcers within the distal esophagus, but did not appear to be overly convincing as a cause of bleeding. There was no blood or bleeding on the surface, and at this point, there was only a very thin layer of fibrinous exudate. Within the stomach and visualized portion of duodenum, no obvious pathology was seen, although a large portion of the fundus and a large portion of the antrum was obscured by the blood, as was a portion of the duodenum. Antral biopsies were obtained to rule out H. pylori, and the scope was then withdrawn, and procedure was concluded. The plan will be to continue his proton pump inhibitor administration and re-endoscopy. I will be out of town, so Dr. Mary will be doing followup endoscopy tomorrow. Ty Munguia MD /[id number]
== END 2019-03-05 10:06 | disposition home or self-care (01) | DRG 378 ==
LOC: JP.ED 05:37 → JP.ICU 08:27
PROVIDERS: ADMIT Hospitalist; ATTEND Internal Medicine
PROC: 0DB78ZX Excision of Stomach, Pylorus, Via Natural or Artificial Opening Endoscopic, Diagnostic (ICD-10-PCS; principal; 2019-03-03)
PROC: 30233N1 Transfusion of Nonautologous Red Blood Cells into Peripheral Vein, Percutaneous Approach (ICD-10-PCS; 2019-03-03)
PROC: 0DJ08ZZ Inspection of Upper Intestinal Tract, Via Natural or Artificial Opening Endoscopic (ICD-10-PCS; 2019-03-04)
DX: K92.1 Melena (principal); K92.0 Hematemesis; H91.93 Unspecified hearing loss, bilateral; K92.2 Gastrointestinal hemorrhage, unspecified; K22.10 Ulcer of esophagus without bleeding; N40.0 Benign prostatic hyperplasia without lower urinary tract symptoms; D62 Acute posthemorrhagic anemia; I85.00 Esophageal varices without bleeding; E11.9 Type 2 diabetes mellitus without complications; E03.9 Hypothyroidism, unspecified; I86.4 Gastric varices; Z79.890 Hormone replacement therapy; I10 Essential (primary) hypertension; K21.9 Gastro-esophageal reflux disease without esophagitis; M10.9 Gout, unspecified; K74.60 Unspecified cirrhosis of liver; K44.9 Diaphragmatic hernia without obstruction or gangrene; Z98.49 Cataract extraction status, unspecified eye; Z90.49 Acquired absence of other specified parts of digestive tract; Z90.89 Acquired absence of other organs; Z85.828 Personal history of other malignant neoplasm of skin; Z91.030 Bee allergy status; Z88.8 Allergy status to other drugs, medicaments and biological substances; Z79.84 Long term (current) use of oral hypoglycemic drugs; Z86.010 Personal history of colon polyps; Z79.899 Other long term (current) drug therapy
CPT/HCPCS: 36415; 36430; 80053; 83690; 85025; 86850; 86900; 86901; 86920 ×4; 86922 ×4; 99284; C9113; J7030; P9016; 80048; 82962; 85018; 85027; 85610; 87081; A9270-GY; J1815; J2704; J3010; J7120

== ENCOUNTER 2019-03-09 07:32 | Emergency (ER) | payer OTHER ==
[2019-03-09] MEDS ORDERED: Sodium Chloride 0.9% 1,000 ML IV SCH (07:45)
--- NOTE | 2019-03-09 08:06 | EDM.PDOC ---
ED HPI GENERAL MEDICAL PROBLEM - General Chief Complaint: Gastrointestinal Problem Stated Complaint: MEDICAL [facility]IA [facility] Time Seen by Provider: 03/09/19 08:06 Source of Information: Reports: Patient History Limitations: Reports: No Limitations - History of Present Illness INITIAL COMMENTS - FREE TEXT/NARRATIVE: pt was discharged from the hop the first of the week and he is now vomiting blood and passing dark stools. His hg is 6. He is having some left lower abdomanal pain. Onset: Today, Other (Pt started bleeding today. ) Duration: Week(s): Location: Reports: Abdomen Associated Symptoms: Reports: Nausea/Vomiting, Other ( black tarry stools. ) - Related Data Allergies Allergy/AdvReac Type Severity Reaction Status Date / Time venom-honey bee Allergy Swelling Verified 03/09/19 07:42 [bee venom (honey bee)] lisinopril AdvReac Cough Verified 03/09/19 07:42 Home Meds: Home Meds Levothyroxine Sodium [Synthroid] 25 mcg PO DAILY 11/29/14 [History] metFORMIN [Glucophage] 500 mg PO BIDMEALS 11/29/14 [History] Pantoprazole Sodium [Protonix] 20 mg PO BID 07/21/18 [History] Past Medical History HEENT History: Reports: Cataract, Hard of Hearing, Other (See Below) Other HEENT History: hearing aids Cardiovascular History: Reports: Hypertension Gastrointestinal History: Reports: GERD, GI Bleed Genitourinary History: Reports: BPH Musculoskeletal History: Reports: Gout, Other (See Below) Other Musculoskeletal History: broken ribs from fall Endocrine/Metabolic History: Reports: Diabetes, Type II, Hypothyroidism Hematologic History: Reports: Blood Transfusion(s), Iron Deficiency Oncologic (Cancer) History: Reports: Basal Cell Carcinoma - Infectious Disease History Infectious Disease History: Reports: Chicken Pox, Herpes, Measles, Mumps - Past Surgical History Head Surgeries/Procedures: Reports: None HEENT Surgical History: Reports: Cataract Surgery Cardiovascular Surgical History: Reports: None GI Surgical History: Reports: Appendectomy, Cholecystectomy, Hernia Repair/Other Male Surgical History: Reports: Prostate Biopsy Endocrine Surgical History: Reports: None Musculoskeletal Surgical History: Reports: None Oncologic Surgical History: Reports: Other (See Below) Other Oncologic Surgeries/Procedures: nose biopsy Dermatological Surgical History: Reports: None Social & Family History - Family History Cardiac: Reports: [place] - Tobacco Use Smoking Status *Q: Never Smoker - Caffeine Use Caffeine Use: Reports: Coffee ED ROS GENERAL - Review of Systems Review Of Systems: See Below Constitutional: Reports: No Symptoms HEENT: Reports: No Symptoms Respiratory: Reports: No Symptoms Cardiovascular: Reports: No Symptoms Endocrine: Reports: No Symptoms GI/Abdominal: Reports: Abdominal Pain, Black Stool, Hematemesis : Reports: No Symptoms Musculoskeletal: Reports: No Symptoms Skin: Reports: No Symptoms Neurological: Reports: No Symptoms Psychiatric: Reports: Anxiety ED EXAM, GI/ABD - Physical Exam Exam: See Below Text/Narrative:: pt arrived with a history of black tarry stools and vomiting bright red blood twice. Exam Limited By: No Limitations General Appearance: Alert, Anxious, Moderate Distress Ears: Normal TMs Nose: Normal Inspection Throat/Mouth: Normal Inspection Head: Atraumatic Neck: Normal Inspection Respiratory/Chest: No Respiratory Distress Cardiovascular: Regular Rate, Rhythm, Tachycardia GI/Abdominal Exam: Other (tender in the left lower abdoman. ) (Male) Exam: Deferred Rectal (Males) Exam: Deferred Back Exam: Normal Inspection Extremities: Normal Inspection Neurological: Alert, Oriented, Normal Cognition Course - Vital Signs Last Recorded V/S: Last Vital Signs Temp 35.9 C 03/09/19 09:26 Pulse 89 03/09/19 09:26 Resp 20 03/09/19 09:26 BP 124/73 03/09/19 09:26 Pulse Ox 97 03/09/19 08:34 - Orders/Labs/Meds Orders: Active Orders 24 hr Category Date Time Status Chest 2V [CR] Stat Exams 03/09/19 09:28 Ordered RED BLOOD CELLS LP [BBK] Stat Lab 03/09/19 08:04 Results TYPE AND SCREEN [BBK] Stat Lab 03/09/19 08:04 Results Sodium Chloride 0.9% [Normal Saline] 1,000 ml Med 03/09/19 07:45 Active IV ASDIRECTED Medication Orders Sodium Chloride (Normal Saline) 1,000 mls @ 500 mls/hr IV ASDIRECTED JEANETTE Last Admin: 03/09/19 08:18 Dose: 500 mls/hr Labs: Laboratory Tests 03/09/19 03/09/19 03/09/19 Range/Units 07:48 07:48 08:04 WBC 7.3 (4.5-11.0) K/uL RBC 2.34 L (4.30-5.90) M/uL Hgb 6.0 L* D (12.0-15.0) g/dL Hct 20.6 L (40.0-54.0) % MCV 88 (80-98) fL MCH 26 L (27-31) pg MCHC 29 L (32-36) % Plt Count 168 (150-400) K/uL Neut % (Auto) 72 H (36-66) % Lymph % (Auto) 17 L (24-44) % [place] % (Auto) 11 H (2-6) % Eos % (Auto) 0 L (2-4) % Baso % (Auto) 0 (0-1) % Sodium 142 (140-148) mmol/L Potassium 4.5 (3.6-5.2) mmol/L Chloride 106 (100-108) mmol/L Carbon Dioxide 16 L (21-32) mmol/L Anion Gap 24.5 H (5.0-14.0) mmol/L BUN 34 H D (7-18) mg/dL Creatinine 1.5 H D (0.8-1.3) mg/dL Est Cr Clr Drug Dosing 43.26 mL/min Estimated GFR (MDRD) 46 L (>60) Glucose 179 H (74-106) mg/dL Calcium 7.5 L (8.5-10.1) mg/dL Total Bilirubin 0.9 (0.2-1.0) mg/dL AST 31 (15-37) U/L ALT 28 (12-78) U/L Alkaline Phosphatase 103 (46-116) U/L Total Protein 5.7 L (6.4-8.2) g/dL Albumin 1.8 L (3.4-5.0) g/dL Globulin 3.9 H (2.3-3.5) g/dL Albumin/Globulin Ratio 0.5 L (1.2-2.2) Blood Type A NEGATIVE Gel Antibody Screen Negative Crossmatch See Detail Meds: Medications Generic Name Dose Route Start Last Admin Trade Name Freq PRN Reason Stop Dose Admin Sodium Chloride 1,000 mls @ 500 mls/hr 03/09/19 07:45 03/09/19 08:18 Normal Saline IV 500 mls/hr ASDIRECTED JEANETTE Administration - Re-Assessments/Exams Free Text/Narrative Re-Assessment/Exam: 03/09/19 09:53 pt has a hg of 6. He had a cat scan of the abdoman without contrast which showed a small amount of acetes, he has a very large rt pleual effusion. He has borderline renal funtion. Departure - Departure Time of Disposition: 09:55 Disposition: DC/Tfer to [facility] 02 Condition: Fair Clinical Impression: GI bleeding, Cirrhosis of liver, Ascites, Anemia, Renal insufficiency - Discharge Information Referrals: PCP,None [Primary Care Provider] - Forms: ED Department Discharge Care Plan Goals: transfer to [facility]. - My Orders Last 24 Hours: My Active Orders 03/09/19 07:45 Sodium Chloride 0.9% [Normal Saline] 1,000 ml IV ASDIRECTED 03/09/19 08:04 RED BLOOD CELLS LP [BBK] Stat TYPE AND SCREEN [BBK] Stat 03/09/19 09:28 Chest 2V [CR] Stat - Assessment/Plan Last 24 Hours: My Active Orders 03/09/19 07:45 Sodium Chloride 0.9% [Normal Saline] 1,000 ml IV ASDIRECTED 03/09/19 08:04 RED BLOOD CELLS LP [BBK] Stat TYPE AND SCREEN [BBK] Stat 03/09/19 09:28 Chest 2V [CR] Stat
--- NOTE | 2019-03-09 09:21 | CRLCT ---
Examination / Procedure: CT Abdomen/Pelvis Indication: Left-sided abdominal pain. Gastrointestinal bleeding. Comparison: None available Technique: Contiguous axial CT images of the abdomen and pelvis were acquired without IV contrast. Coronal and sagittal reformations generated and reviewed. Findings: Lack of IV contrast limits evaluation of the solid abdominal organs. Kidneys/ureters/bladder: No hydronephrosis or nephrolithiasis. Ureters are nondistended with no suspicious calcifications along the length. Mild prostatic hypertrophy. There is mild thickening of the bladder wall. Small right inguinal hernia contains ascites and fat. Liver/bile ducts/gallbladder: Cirrhosis. Lack of IV contrast limits evaluation for underlying liver lesions. Gallbladder not well seen either surgically absent or decompressed. Moderate amount of ascites. Pancreas: Unremarkable. Spleen: Unremarkable. No splenomegaly. Adrenals: Unremarkable. Bowel/Mesentery: No bowel obstruction. No definite wall thickening though presence of cirrhosis and ascites slightly limits this evaluation. Appendix not identified but no secondary signs of appendicitis. Sigmoid diverticulosis. Lymph nodes: No enlarged mesenteric, retroperitoneal, pelvic, or inguinal lymphadenopathy. Vasculature: Aortoiliac atherosclerosis. Mild abdominal aortic aneurysm measuring up to 3.0 cm in diameter. 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 Lower chest: Large right pleural effusion with atelectasis of the majority of the right lower lobe. Coronary artery calcifications. Bones: Age-indeterminate 25 percent compression deformity of T12 vertebral body. Vertebral body heights otherwise well maintained. L5 pars defects with grade 1 anterolisthesis of L5 on S1 and severe L5-S1 degenerative disc disease. Impression: 1. Cirrhosis and moderate ascites. 2. Diverticulosis without evidence of diverticulitis. No large perirectal varices identified though evaluation is limited without IV contrast. 3. Mild prostatic hypertrophy. Bladder wall thickening could be due to chronic outlet obstruction. Correlate with urinalysis if there is concern for infection. 4. Large right pleural effusion with atelectasis of most of the right lower lobe. 5. Abdominal aortic aneurysm measuring up to 3.0 cm in diameter. Left common iliac artery aneurysm also measuring up to 3.0 cm. 6. 25 percent compression deformity T12 vertebral body. This is age indeterminate. Correlate with point tenderness to exclude acute injury. Please note that all CT scans at this facility use dose modulation, iterative reconstruction, and/or weight-based dosing when appropriate to reduce radiation dose to as low as reasonably achievable. Dictated by Sigifredo Gambino MD @ Mar 09 2019 9:08AM Signed by Dr. Sigifredo Gambino @ Mar 09 2019 9:18AM
--- NOTE | 2019-03-09 10:01 | CRLCR ---
Indication: Pleural effusion Technique: PA and lateral (2) views of the chest. Comparison: Chest radiograph 11/29/2014. Findings: There is a large right pleural effusion with atelectasis of the mid and lower portions of the right lung. The left lung and left pleural spaces are clear. Normal heart and mediastinum. No acute or aggressive osseous abnormality. Impression: Large right pleural effusion with passive atelectasis of the mid and lower portions of the right lung. Dictated by Sigifredo Gambino MD @ Mar 09 2019 9:59AM Signed by Dr. Sigifredo Gambino @ Mar 09 2019 10:00AM
[2019-03-12 13:59] VITALS: BP 123/79
== END 2019-03-09 11:00 ==
LOC: JP.ED 07:32
DX: K92.2 Gastrointestinal hemorrhage, unspecified (principal); K74.60 Unspecified cirrhosis of liver; R18.8 Other ascites; D64.9 Anemia, unspecified; N28.9 Disorder of kidney and ureter, unspecified; I10 Essential (primary) hypertension; E11.9 Type 2 diabetes mellitus without complications; E03.9 Hypothyroidism, unspecified; K21.9 Gastro-esophageal reflux disease without esophagitis; Z98.49 Cataract extraction status, unspecified eye; Z90.49 Acquired absence of other specified parts of digestive tract; Z79.84 Long term (current) use of oral hypoglycemic drugs; Z79.899 Other long term (current) drug therapy; Z91.030 Bee allergy status; Z88.8 Allergy status to other drugs, medicaments and biological substances
CPT/HCPCS: 36415; 36430; 71046; 74176; 80053; 85025; 86850; 86900; 86901; 86920; 86922; 96360; 96361; 99285; J7030; P9016

== ENCOUNTER 2019-10-02 19:37 | Inpatient (IN) | payer OTHER ==
--- NOTE | 2019-10-02 19:51 | EDM.PDOC ---
ED HPI GENERAL MEDICAL PROBLEM - General Chief Complaint: Gastrointestinal Problem Stated Complaint: MEDICAL [facility]IA [facility] Time Seen by Provider: 10/02/19 19:40 Source of Information: Reports: Patient, EMS, Old Records History Limitations: Reports: No Limitations - History of Present Illness INITIAL COMMENTS - FREE TEXT/NARRATIVE: 79 yo male began vomiting about 0300h today. His emesis is brown. His last stool was black. He is dizzy with standing. Has not been able to take any of his regular meds today. Has a hx of anemia. Is suspected of having liver dz. Here via EMS who administered Zofran IV en route. Onset: Today Onset Date: 10/02/19 Onset Time: 03:00 Duration: Hour(s):, Waxing/Waning Location: Reports: Other (GI tract) Quality: Reports: Other (no pain reported.) Severity: Moderate Improves with: Reports: None Worsens with: Reports: Other (unknown) Context: Reports: Other (see HPI) Associated Symptoms: Reports: Nausea/Vomiting, Other (tachycardia when up). 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 - Related Data Allergies Allergy/AdvReac Type Severity Reaction Status Date / Time venom-honey bee Allergy Swelling Verified 10/02/19 19:47 [bee venom (honey bee)] lisinopril AdvReac Cough Verified 10/02/19 19:47 Home Meds: Home Meds Levothyroxine Sodium [Synthroid] 50 mcg PO DAILY 11/29/14 [History] metFORMIN [Glucophage] 1,000 mg PO BIDMEALS 11/29/14 [History] Pantoprazole Sodium [Protonix] 20 mg PO BID 07/21/18 [History] Spironolactone [Aldactone] 100 mg PO BID 10/02/19 [History] Past Medical History HEENT History: Reports: Cataract, Hard of Hearing, Other (See Below) Other HEENT History: hearing aids Cardiovascular History: Reports: Hypertension Gastrointestinal History: Reports: GERD, GI Bleed Genitourinary History: Reports: BPH Musculoskeletal History: Reports: Gout, Other (See Below) Other Musculoskeletal History: broken ribs from fall Endocrine/Metabolic History: Reports: Diabetes, Type II, Hypothyroidism Hematologic History: Reports: Blood Transfusion(s), Iron Deficiency Oncologic (Cancer) History: Reports: Basal Cell Carcinoma - Infectious Disease History Infectious Disease History: Reports: Chicken Pox, Herpes, Measles, Mumps - Past Surgical History Head Surgeries/Procedures: Reports: None HEENT Surgical History: Reports: Cataract Surgery Cardiovascular Surgical History: Reports: None GI Surgical History: Reports: Appendectomy, Cholecystectomy, Hernia Repair/Other Male Surgical History: Reports: Prostate Biopsy Endocrine Surgical History: Reports: None Musculoskeletal Surgical History: Reports: None Oncologic Surgical History: Reports: Other (See Below) Other Oncologic Surgeries/Procedures: nose biopsy Dermatological Surgical History: Reports: None Social & Family History - Family History Cardiac: Reports: [place] - Caffeine Use Caffeine Use: Reports: Coffee ED ROS GENERAL - Review of Systems Review Of Systems: See Below Constitutional: Reports: Weakness HEENT: Reports: No Symptoms Respiratory: Reports: No Symptoms Cardiovascular: Reports: Dyspnea on Exertion, Other (tachycardia when up.) Endocrine: Reports: No Symptoms GI/Abdominal: Reports: Black Stool, Hematemesis, Melena, Nausea, Vomiting. Denies: Abdominal Pain, Bloody Stool, Constipation, Diarrhea : Reports: No Symptoms Musculoskeletal: Reports: No Symptoms Skin: Reports: No Symptoms Neurological: Reports: No Symptoms Psychiatric: Reports: No Symptoms ED EXAM, GI/ABD - Physical Exam Exam: See Below Exam Limited By: No Limitations General Appearance: Alert, WD/WN, No Apparent Distress Eyes: Bilateral: Normal Appearance (pale conjunctivas) Ears: Normal External Exam, Normal Canal, Hearing Loss Nose: Normal Inspection, No Blood Throat/Mouth: Normal Inspection, Normal Lips, Normal Oropharynx, Normal Voice, No Airway Compromise Head: Atraumatic, Normocephalic Neck: Normal Inspection Respiratory/Chest: No Respiratory Distress, Lungs Clear, Normal Breath Sounds, No Accessory Muscle Use Cardiovascular: Regular Rate, Rhythm, No Edema GI/Abdominal Exam: Normal Bowel Sounds, Soft, Non-Tender, No Distention Extremities: Normal Inspection, Normal Range of Motion, Non-Tender, No Pedal Edema Neurological: Alert, Oriented, CN II-XII Intact, Normal Cognition, No Motor/ Sensory Deficits Psychiatric: Normal Affect, Normal Mood Skin Exam: Warm, Dry, Intact, No Rash, Other (pale) Course - Vital Signs Text/Narrative:: Francine Resendiz called @ Last Recorded V/S: Last Vital Signs Temp 35.4 C L 10/02/19 19:47 Pulse 91 10/02/19 19:47 Resp 15 03/25/20 19:47 BP 93/69 10/02/19 19:47 Pulse Ox 96 10/02/19 19:47 - Orders/Labs/Meds Orders: Active Orders 24 hr Category Date Time Status Cardiac Monitoring [RC] .As Directed Care 10/02/19 19:39 Active TYPE AND SCREEN [BBK] Stat Lab 10/02/19 19:47 Received UA W/MICROSCOPIC [URIN] Stat Lab 10/02/19 19:38 Ordered Lactated Ringers [Ringers, Lactated] 1,000 ml Med 10/02/19 20:30 Active IV ASDIRECTED Medication Orders Lactated Ringer's (Ringers, Lactated) 1,000 mls @ 500 mls/hr IV ASDIRECTED JEANETTE Last Admin: 10/02/19 20:24 Dose: 500 mls/hr Labs: Laboratory Tests 10/02/19 10/02/19 10/02/19 Range/Units 19:47 19:47 19:47 WBC 8.6 (4.5-11.0) K/uL RBC 3.41 L (4.30-5.90) M/uL Hgb 7.8 L (12.0-15.0) g/dL Hct 27.8 L (40.0-54.0) % MCV 82 (80-98) fL MCH 23 L (27-31) pg MCHC 28 L (32-36) % Plt Count 142 L (150-400) K/uL PT 13.4 H (9.5-12.0) sec INR 1.26 H (0.80-1.20) APTT 22.4 L (27.0-36.0) sec Sodium 142 (140-148) mmol/L Potassium 4.3 (3.6-5.2) mmol/L Chloride 105 (100-108) mmol/L Carbon Dioxide 21 (21-32) mmol/L Anion Gap 16.2 H (5.0-14.0) mmol/L BUN 39 H (7-18) mg/dL Creatinine 1.5 H (0.8-1.3) mg/dL Est Cr Clr Drug Dosing 40.48 mL/min Estimated GFR (MDRD) 45 L (>60) Glucose 206 H (74-106) mg/dL Calcium 8.2 L (8.5-10.1) mg/dL TSH, Ultra Sensitive (0.358-3.740) uIU/mL 10/02/19 Range/Units 19:47 WBC (4.5-11.0) K/uL RBC (4.30-5.90) M/uL Hgb (12.0-15.0) g/dL Hct (40.0-54.0) % MCV (80-98) fL MCH (27-31) pg MCHC (32-36) % Plt Count (150-400) K/uL PT (9.5-12.0) sec INR (0.80-1.20) APTT (27.0-36.0) sec Sodium (140-148) mmol/L Potassium (3.6-5.2) mmol/L Chloride (100-108) mmol/L Carbon Dioxide (21-32) mmol/L Anion Gap (5.0-14.0) mmol/L BUN (7-18) mg/dL Creatinine (0.8-1.3) mg/dL Est Cr Clr Drug Dosing mL/min Estimated GFR (MDRD) (>60) Glucose (74-106) mg/dL Calcium (8.5-10.1) mg/dL TSH, Ultra Sensitive 5.851 H (0.358-3.740) uIU/mL Meds: Medications Generic Name Dose Route Start Last Admin Trade Name Freq PRN Reason Stop Dose Admin Lactated Ringer's 1,000 mls @ 500 mls/hr 10/02/19 20:30 10/02/19 20:24 Ringers, Lactated IV 500 mls/hr ASDIRECTED JEANETTE Administration Departure - Departure Time of Disposition: 20:45 Disposition: Admitted As Inpatient 66 Condition: Fair Clinical Impression: UGI bleed Anemia Qualifiers: Anemia type: other cause Other causes of anemia: acute posthemorrhagic Qualified Code(s): D62 - Acute posthemorrhagic anemia - Discharge Information *PRESCRIPTION DRUG MONITORING PROGRAM REVIEWED*: No *COPY OF PRESCRIPTION DRUG MONITORING REPORT IN PATIENT JAIRO: No Referrals: PCP,None [Primary Care Provider] - Forms: ED Department Discharge Sepsis Event Note - Focused Exam Vital Signs: Vital Signs Temp Pulse Resp BP Pulse Ox 10/02/19 19:47 35.4 C L 91 15 93/69 96 Date Exam was Performed: 10/02/19 Time Exam was Performed: 20:33 - My Orders Last 24 Hours: My Active Orders 10/02/19 19:38 UA W/MICROSCOPIC [URIN] Stat 10/02/19 19:39 Cardiac Monitoring [RC] .As Directed 10/02/19 19:47 TYPE AND SCREEN [BBK] Stat 10/02/19 20:30 Lactated Ringers [Ringers, Lactated] 1,000 ml IV ASDIRECTED - Assessment/Plan Last 24 Hours: My Active Orders 10/02/19 19:38 UA W/MICROSCOPIC [URIN] Stat 10/02/19 19:39 Cardiac Monitoring [RC] .As Directed 10/02/19 19:47 TYPE AND SCREEN [BBK] Stat 10/02/19 20:30 Lactated Ringers [Ringers, Lactated] 1,000 ml IV ASDIRECTED
[2019-10-02] MEDS ORDERED: Lactated Ringers 1,000 ML IV SCH (20:30)
[2019-10-02] MEDS ORDERED: Pantoprazole 40 MG Vial IVPUSH SCH (21:30)
--- NOTE | 2019-10-02 22:35 | PCM.HP.2 ---
H&P History of Present Illness - General Date of Service: 10/02/19 Admit Problem/Dx: Admission Diagnosis/Problem Admission Diagnosis/Problem Acute gastrointestinal hemorrhage Source of Information: Patient, Provider History Limitations: Reports: No Limitations - History of Present Illness Initial Comments - Free Text/Narative: CC: I've had a rough day HPI: Alton presents to the emergency room today after several episodes of vomiting as well as 2 episodes of melena. His first episode of vomiting was around 3 AM this morning, a little over 12 hours prior to presentation to the emergency room. He had a second episode of emesis about 2 hours later. Both of these were large quantity and brown in color but he did not see any blood. About an hour and a half later he had a bowel movement that was initially normal but then turned to black. He had a second bowel movement about an hour after that that was all black and loose. He felt well for a couple of hours but then became dizzy lightheaded and had another episode of vomiting this evening. He has not had any abdominal pain. He does not feel nauseated between episodes of vomiting. He has not had any fevers or chills. Appetite has been good up until today. Energy had been good up until today. He has drank some water this morning but thinks he vomited it all up. He has not had any food today. No travel or sick contacts. Work-up in the emergency room was concerning for an acute upper GI hemorrhage. His hemoglobin is only 7.8. Initially he was hypotensive and very dizzy. Blood pressure is slowly improving with IV fluids but he remains somewhat dizzy. He has received 80 mg of IV pantoprazole. He will be receiving a unit of blood and will be admitted to the intensive care unit for further management. - Related Data Allergies/Adverse Reactions: Allergies Allergy/AdvReac Type Severity Reaction Status Date / Time venom-honey bee Allergy Swelling Verified 10/02/19 19:47 [bee venom (honey bee)] lisinopril AdvReac Cough Verified 10/02/19 19:47 Home Medications: Home Meds Levothyroxine Sodium [Synthroid] 50 mcg PO DAILY 11/29/14 [History] metFORMIN [Glucophage] 500 mg PO BIDMEALS 11/29/14 [History] Pantoprazole Sodium [Protonix] 20 mg PO BID 07/21/18 [History] Spironolactone [Aldactone] 50 mg PO BID 10/02/19 [History] Past Medical History HEENT History: Reports: Cataract, Hard of Hearing, Other (See Below) Other HEENT History: hearing aids Cardiovascular History: Reports: Hypertension Gastrointestinal History: Reports: GERD, GI Bleed Genitourinary History: Reports: BPH Musculoskeletal History: Reports: Gout, Other (See Below) Other Musculoskeletal History: broken ribs from fall Endocrine/Metabolic History: Reports: Diabetes, Type II, Hypothyroidism Hematologic History: Reports: Blood Transfusion(s), Iron Deficiency Oncologic (Cancer) History: Reports: Basal Cell Carcinoma - Infectious Disease History Infectious Disease History: Reports: Chicken Pox, Herpes, Measles, Mumps - Past Surgical History Head Surgeries/Procedures: Reports: None HEENT Surgical History: Reports: Cataract Surgery Cardiovascular Surgical History: Reports: None GI Surgical History: Reports: Appendectomy, Cholecystectomy, Hernia Repair/Other Male Surgical History: Reports: Prostate Biopsy Endocrine Surgical History: Reports: None Musculoskeletal Surgical History: Reports: None Oncologic Surgical History: Reports: Other (See Below) Other Oncologic Surgeries/Procedures: nose biopsy Dermatological Surgical History: Reports: None Social & Family History - Family History Cardiac: Reports: [place] - Tobacco Use Smoking Status *Q: Never Smoker - Caffeine Use Caffeine Use: Reports: Coffee - Alcohol Use Alcohol Use History: Yes Date/Time of Last Drink Comment: More than 1 year ago - Recreational Drug Use Recreational Drug Use: No H&P Review of Systems - Review of Systems: Review Of Systems: See Below Free Text/Narrative: A complete 12 point review of systems was obtained. Pertinent positives and negatives are noted in the history of present illness. All other systems were reviewed and were negative except as noted. Exam - Exam Exam: See Below - Vital Signs Vital Signs: Last Vital Signs Temp 35.4 C L 10/02/19 19:47 Pulse 88 10/02/19 20:36 Resp 14 10/02/19 20:36 BP 117/71 10/02/19 20:36 Pulse Ox 99 10/02/19 20:36 Weight: 69.4 kg - Exam Quality Assessment: No: Supplemental Oxygen General: Alert, Oriented, Cooperative. No: Mild Distress HEENT: Conjunctiva Clear. No: Mucosa Moist & [place] (dry), Scleral Icterus Neck: Supple, Trachea Midline. No: Lymphadenopathy Lungs: Clear to Auscultation, Normal Respiratory Effort Cardiovascular: Regular Rate, Regular Rhythm. No: Systolic Murmur GI/Abdominal Exam: Normal Bowel Sounds, Soft, Non-Tender, No Distention, No Mass Back Exam: Normal Inspection, Full Range of Motion Extremities: No Pedal Edema. No: Increased Warmth Peripheral Pulses: 1+: Dorsalis Pedis (L), Dorsalis Pedis (R) Skin: Warm, Dry Neuro Extensive - Mental Status: Alert, Oriented x3, Nl Response to Commands Neuro Extensive - Motor, Sensory, Reflexes: No: Dysarthria, Abnormal Motor, Tremor Psychiatric: Alert, Normal Affect - Patient Data Lab Results Last 24 hrs: Laboratory Results - last 24 hr 10/02/19 10/02/19 10/02/19 Range/Units 18:15 18:15 19:47 WBC 8.6 (4.5-11.0) K/uL RBC 3.41 L (4.30-5.90) M/uL Hgb 7.8 L (12.0-15.0) g/dL Hct 27.8 L (40.0-54.0) % MCV 82 (80-98) fL MCH 23 L (27-31) pg MCHC 28 L (32-36) % Plt Count 142 L (150-400) K/uL PT (9.5-12.0) sec INR (0.80-1.20) APTT (27.0-36.0) sec Sodium (140-148) mmol/L Potassium (3.6-5.2) mmol/L Chloride (100-108) mmol/L Carbon Dioxide (21-32) mmol/L Anion Gap (5.0-14.0) mmol/L BUN (7-18) mg/dL Creatinine (0.8-1.3) mg/dL Est Cr Clr Drug Dosing mL/min Estimated GFR (MDRD) (>60) Glucose (74-106) mg/dL Calcium (8.5-10.1) mg/dL Magnesium 1.3 L D (1.8-2.4) mg/dL Total Bilirubin (0.2-1.0) mg/dL AST (15-37) U/L ALT (12-78) U/L Alkaline Phosphatase 98 (46-116) U/L Ammonia (11-32) mmol/L Amylase 48 (25-115) U/L Lipase 121 (73-393) U/L TSH, Ultra Sensitive (0.358-3.740) uIU/mL Blood Type Gel Antibody Screen Crossmatch 10/02/19 10/02/19 10/02/19 Range/Units 19:47 19:47 19:47 WBC (4.5-11.0) K/uL RBC (4.30-5.90) M/uL Hgb (12.0-15.0) g/dL Hct (40.0-54.0) % MCV (80-98) fL MCH (27-31) pg MCHC (32-36) % Plt Count (150-400) K/uL PT 13.4 H (9.5-12.0) sec INR 1.26 H (0.80-1.20) APTT 22.4 L (27.0-36.0) sec Sodium 142 (140-148) mmol/L Potassium 4.3 (3.6-5.2) mmol/L Chloride 105 (100-108) mmol/L Carbon Dioxide 21 (21-32) mmol/L Anion Gap 16.2 H (5.0-14.0) mmol/L BUN 39 H (7-18) mg/dL Creatinine 1.5 H (0.8-1.3) mg/dL Est Cr Clr Drug Dosing 40.48 mL/min Estimated GFR (MDRD) 45 L (>60) Glucose 206 H (74-106) mg/dL Calcium 8.2 L (8.5-10.1) mg/dL Magnesium (1.8-2.4) mg/dL Total Bilirubin (0.2-1.0) mg/dL AST (15-37) U/L ALT (12-78) U/L Alkaline Phosphatase (46-116) U/L Ammonia (11-32) mmol/L Amylase (25-115) U/L Lipase (73-393) U/L TSH, Ultra Sensitive (0.358-3.740) uIU/mL Blood Type A NEGATIVE Gel Antibody Screen Negative Crossmatch See Detail 10/02/19 10/02/19 10/02/19 Range/Units 19:47 21:15 21:15 WBC (4.5-11.0) K/uL RBC (4.30-5.90) M/uL Hgb (12.0-15.0) g/dL Hct (40.0-54.0) % MCV (80-98) fL MCH (27-31) pg MCHC (32-36) % Plt Count (150-400) K/uL PT (9.5-12.0) sec INR (0.80-1.20) APTT (27.0-36.0) sec Sodium (140-148) mmol/L Potassium (3.6-5.2) mmol/L Chloride (100-108) mmol/L Carbon Dioxide (21-32) mmol/L Anion Gap (5.0-14.0) mmol/L BUN (7-18) mg/dL Creatinine (0.8-1.3) mg/dL Est Cr Clr Drug Dosing mL/min Estimated GFR (MDRD) (>60) Glucose (74-106) mg/dL Calcium (8.5-10.1) mg/dL Magnesium (1.8-2.4) mg/dL Total Bilirubin (0.2-1.0) mg/dL AST 35 (15-37) U/L ALT 31 (12-78) U/L Alkaline Phosphatase (46-116) U/L Ammonia 16 (11-32) mmol/L Amylase (25-115) U/L Lipase (73-393) U/L TSH, Ultra Sensitive 5.851 H (0.358-3.740) uIU/mL Blood Type Gel Antibody Screen Crossmatch 10/02/19 Range/Units 21:15 WBC (4.5-11.0) K/uL RBC (4.30-5.90) M/uL Hgb (12.0-15.0) g/dL Hct (40.0-54.0) % MCV (80-98) fL MCH (27-31) pg MCHC (32-36) % Plt Count (150-400) K/uL PT (9.5-12.0) sec INR (0.80-1.20) APTT (27.0-36.0) sec Sodium (140-148) mmol/L Potassium (3.6-5.2) mmol/L Chloride (100-108) mmol/L Carbon Dioxide (21-32) mmol/L Anion Gap (5.0-14.0) mmol/L BUN (7-18) mg/dL Creatinine (0.8-1.3) mg/dL Est Cr Clr Drug Dosing mL/min Estimated GFR (MDRD) (>60) Glucose (74-106) mg/dL Calcium (8.5-10.1) mg/dL Magnesium (1.8-2.4) mg/dL Total Bilirubin 1.0 (0.2-1.0) mg/dL AST (15-37) U/L ALT (12-78) U/L Alkaline Phosphatase (46-116) U/L Ammonia (11-32) mmol/L Amylase (25-115) U/L Lipase (73-393) U/L TSH, Ultra Sensitive (0.358-3.740) uIU/mL Blood Type Gel Antibody Screen Crossmatch Result Diagrams: 10/02/19 19:47 10/02/19 19:47 Sepsis Event Note - Evaluation Sepsis Screening Result: No Definite Risk - Focused Exam Vital Signs: Vital Signs Temp Pulse Resp BP Pulse Ox 10/02/19 20:36 88 14 117/71 99 10/02/19 20:06 86 12 109/72 99 10/02/19 19:47 35.4 C L 91 15 93/69 96 Date Exam was Performed: 10/02/19 Time Exam was Performed: 22:46 *Q Meaningful Use (ADM) - VTE *Q VTE Pharmacological Contraindications *Q: Active Hemorrhage - VTE Risk Assess *Q Each Risk Factor Represents 1 Point: Minor Surgery Planned Total Score 1 Point Risk Factors: 1 Each Risk Factor Represents 2 Points: None Total Score 2 Point Risk Factors: 0 Each Risk Factor Represents 3 Points: Age 75 Years or Greater Total Score 3 Point Risk Factors: 3 Each Risk Factor Represents 5 Points: None Total Score 5 Point Risk Factors: 0 Venous Thromboembolism Risk Factor Score *Q: 4 - Problem List (1) Acute upper gastrointestinal hemorrhage SNOMED Code(s): 48201531 ICD Code: K92.2 - GASTROINTESTINAL HEMORRHAGE, UNSPECIFIED Status: Acute Current Visit: No (2) Cirrhosis of liver SNOMED Code(s): 00335520 ICD Code: K74.60 - UNSPECIFIED CIRRHOSIS OF LIVER Status: Chronic Current Visit: No Qualifiers: Hepatic cirrhosis type: unspecified hepatic cirrhosis Ascites presence: without ascites Qualified Code(s): K74.60 - Unspecified cirrhosis of liver (3) Type 2 diabetes mellitus SNOMED Code(s): 23341967 ICD Code: E11.9 - TYPE 2 DIABETES MELLITUS WITHOUT COMPLICATIONS Status: Chronic Current Visit: No 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 Diabetes mellitus complication status: without complication Qualified Code(s): E11.9 - Type 2 diabetes mellitus without complications Problem List Initiated/Reviewed/Updated: Yes Orders Last 24hrs: Active Orders 24 hr Category Date Time Status Patient Status Manage Transfer [TRANSFER] Routine ADT 10/02/19 22:28 Ordered Cardiac Monitoring [RC] .As Directed Care 10/02/19 19:39 Active Notify Provider Consults [RC] ASDIRECTED Care 10/02/19 21:57 Active Consult to Physician [CONS] Urgent Cons 10/02/19 21:56 Ordered RED BLOOD CELLS LP [BBK] Stat Lab 10/02/19 19:47 Results TYPE AND SCREEN [BBK] Stat Lab 10/02/19 19:47 Results UA W/MICROSCOPIC [URIN] Stat Lab 10/02/19 19:38 Ordered Lactated Ringers [Ringers, Lactated] 1,000 ml Med 10/02/19 20:30 Active IV ASDIRECTED Pantoprazole [ProTONIX IV] Med 10/02/19 21:30 Active 80 mg IVPUSH .BOLUS Transfuse Red Blood Cells [COMM] Routine Oth 10/02/19 21:50 Ordered Resuscitation Status Routine Resus Stat 10/02/19 22:30 Ordered Medication Orders Lactated Ringer's (Ringers, Lactated) 1,000 mls @ 500 mls/hr IV ASDIRECTED JEANETTE Last Admin: 10/02/19 20:24 Dose: 500 mls/hr Pantoprazole Sodium (Protonix Iv) 80 mg IVPUSH .BOLUS JEANETTE Assessment/Plan Comment:: ASSESSMENT AND PLAN - Acute upper gastrointestinal hemorrhage-complicated by anemia due to blood loss. Hemoglobin was 7.8 and a very dehydrated state and I suspect that his hydrated hemoglobin will be less than 7. He will be receiving 1 unit of blood. He has received 80 mg of IV pantoprazole. He has a history of similar episodes and no obvious bleeding source has been that identified with previous endoscopy. Last episode was about 6 months ago. 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 Vital signs improving with IV fluid hydration. -Transfuse 1 unit of blood now -IV fluids overnight -IV PPI every 12 hours starting in the morning -Hemoglobin in the morning -Maintain 2 IV sites -EGD with Dr. Munguia in the morning Hepatic cirrhosis-chronic, stable and well compensated at this time. -Restart spironolactone once stable after the GI bleed is complete Type 2 diabetes mellitus-well controlled with only oral medications. -Hold metformin until after his procedure Maintenance issues - - DVT prophylaxis -mechanical with active hemorrhage - GI prophylaxis -PPI - Nutrition -n.p.o. - Moy catheter -not indicated CODE STATUS -full code Admission justification -this patient will be admitted for inpatient services and is medically appropriate meeting medical necessity for inpatient admission as outlined in my documentation. I reasonably expect the patient will require inpatient services that span a period time over 2 midnights. I reasonably expect this patient to be discharged or transferred within 96 hours [facility]. Disposition -I anticipate discharge home after the hospital stay Primary care physician -[place] [facility] Etienne Del Rio M.D. - Mortality Measure Prognosis:: Good
[2019-10-02] MEDS ORDERED: Albuterol 0.083% 2.5 MG/3 ML Neb Soln NEB PRN (22:56)
[2019-10-02] MEDS ORDERED: Ondansetron 4 MG/2 ML SDV IV PRN (22:56)
[2019-10-02] MEDS ORDERED: LORazepam 2 MG/ML SDV IVPUSH PRN (22:56)
[2019-10-02] MEDS ORDERED: Ondansetron 4 MG Tab.DIS PO PRN (22:56)
[2019-10-02] MEDS ORDERED: Magnesium Hydroxide 400 MG/5 ML Susp 30 ML Cup PO PRN (22:56)
[2019-10-02] MEDS ORDERED: Acetaminophen 325 MG Tab PO PRN (22:56)
[2019-10-02] MEDS: Sodium Chloride 0.9% 1,000 ML IV SCH (23:23)
[2019-10-03] MEDS ORDERED: Pantoprazole 40 MG Vial IV SCH ×2 (07:00→09:00)
[2019-10-03] MEDS ORDERED: Propofol 200 MG/20 ML SDV ONE (07:37)
[2019-10-03] MEDS ORDERED: fentaNYL 100 MCG/2 ML SDV ONE (07:37)
[2019-10-03] MEDS ORDERED: Lactated Ringers 1,000 ML ONE (08:38)
[2019-10-03] MEDS: Sodium Chloride 0.9% 1,000 ML IV SCH (09:40)
--- NOTE | 2019-10-03 10:22 | PCM.PN ---
- General Info Date of Service: 10/03/19 Subjective Update: There were no acute events overnight. He does continue to have some melena though it seems to be less. Hemoglobin did drop down to 7 even after a blood transfusion and he received a second unit this morning. He did have an EGD that showed significant erosive distal esophagitis with no active bleeding. He was started on a full liquid diet and has tolerated this so far. He does not have any abdominal pain. He does not feel short of breath. Blood pressures have been stable. Functional Status: Reports: Pain Controlled - Review of Systems General: Denies: Fever Gastrointestinal: Reports: Melena - Patient Data Vitals - Most Recent: Last Vital Signs Temp 36.3 C 10/03/19 09:45 Pulse 62 10/03/19 09:45 Resp 12 10/03/19 09:45 BP 122/66 10/03/19 09:45 Pulse Ox 95 10/03/19 09:32 Weight - Most Recent: 72.348 kg I&O - Last 24 Hours: Intake & Output 10/02/19 10/03/19 10/03/19 22:59 06:59 14:59 Intake Total 370 665 Output Total 250 285 Balance 120 380 Lab Results Last 24 Hours: Laboratory Results - last 24 hr 10/02/19 10/02/19 10/02/19 Range/Units 18:15 18:15 19:47 WBC 8.6 (4.5-11.0) K/uL RBC 3.41 L (4.30-5.90) M/uL Hgb 7.8 L (12.0-15.0) g/dL Hct 27.8 L (40.0-54.0) % MCV 82 (80-98) fL MCH 23 L (27-31) pg MCHC 28 L (32-36) % Plt Count 142 L (150-400) K/uL PT (9.5-12.0) sec INR (0.80-1.20) APTT (27.0-36.0) sec Sodium (140-148) mmol/L Potassium (3.6-5.2) mmol/L Chloride (100-108) mmol/L Carbon Dioxide (21-32) mmol/L Anion Gap (5.0-14.0) mmol/L BUN (7-18) mg/dL Creatinine (0.8-1.3) mg/dL Est Cr Clr Drug Dosing mL/min Estimated GFR (MDRD) (>60) Glucose (74-106) mg/dL Calcium (8.5-10.1) mg/dL Magnesium 1.3 L D (1.8-2.4) mg/dL Total Bilirubin (0.2-1.0) mg/dL AST (15-37) U/L ALT (12-78) U/L Alkaline Phosphatase 98 (46-116) U/L Ammonia (11-32) mmol/L Amylase 48 (25-115) U/L Lipase 121 (73-393) U/L TSH, Ultra Sensitive (0.358-3.740) uIU/mL Urine Color (YELLOW) Urine Appearance (CLEAR) Urine pH (5.0-8.0) Ur Specific [place] (1.008-1.030) Urine Protein (NEGATIVE) mg/dL Urine Glucose (UA) (NEGATIVE) mg/dL Urine Ketones (NEGATIVE) mg/dL Urine Occult Blood (NEGATIVE) Urine Nitrite (NEGATIVE) Urine Bilirubin (NEGATIVE) Urine Urobilinogen (0.2-1.0) EU/dL Ur Leukocyte Esterase (NEGATIVE) Urine RBC (0-5) Urine WBC (0-5) Ur Epithelial Cells Amorphous Sediment Urine Bacteria Urine Mucus Urine Other Blood Type Gel Antibody Screen Crossmatch 10/02/19 10/02/19 10/02/19 Range/Units 19:47 19:47 19:47 WBC (4.5-11.0) K/uL RBC (4.30-5.90) M/uL Hgb (12.0-15.0) g/dL Hct (40.0-54.0) % MCV (80-98) fL MCH (27-31) pg MCHC (32-36) % Plt Count (150-400) K/uL PT 13.4 H (9.5-12.0) sec INR 1.26 H (0.80-1.20) APTT 22.4 L (27.0-36.0) sec Sodium 142 (140-148) mmol/L Potassium 4.3 (3.6-5.2) mmol/L Chloride 105 (100-108) mmol/L Carbon Dioxide 21 (21-32) mmol/L Anion Gap 16.2 H (5.0-14.0) mmol/L BUN 39 H (7-18) mg/dL Creatinine 1.5 H (0.8-1.3) mg/dL Est Cr Clr Drug Dosing 40.48 mL/min Estimated GFR (MDRD) 45 L (>60) Glucose 206 H (74-106) mg/dL Calcium 8.2 L (8.5-10.1) mg/dL Magnesium (1.8-2.4) mg/dL Total Bilirubin (0.2-1.0) mg/dL AST (15-37) U/L ALT (12-78) U/L Alkaline Phosphatase (46-116) U/L Ammonia (11-32) mmol/L Amylase (25-115) U/L Lipase (73-393) U/L TSH, Ultra Sensitive (0.358-3.740) uIU/mL Urine Color (YELLOW) Urine Appearance (CLEAR) Urine pH (5.0-8.0) Ur Specific [place] (1.008-1.030) Urine Protein (NEGATIVE) mg/dL Urine Glucose (UA) (NEGATIVE) mg/dL Urine Ketones (NEGATIVE) mg/dL Urine Occult Blood (NEGATIVE) Urine Nitrite (NEGATIVE) Urine Bilirubin (NEGATIVE) Urine Urobilinogen (0.2-1.0) EU/dL Ur Leukocyte Esterase (NEGATIVE) Urine RBC (0-5) Urine WBC (0-5) Ur Epithelial Cells Amorphous Sediment Urine Bacteria Urine Mucus Urine Other Blood Type A NEGATIVE Gel Antibody Screen Negative Crossmatch See Detail 10/02/19 10/02/19 10/02/19 Range/Units 19:47 21:15 21:15 WBC (4.5-11.0) K/uL RBC (4.30-5.90) M/uL Hgb (12.0-15.0) g/dL Hct (40.0-54.0) % MCV (80-98) fL MCH (27-31) pg MCHC (32-36) % Plt Count (150-400) K/uL PT (9.5-12.0) sec INR (0.80-1.20) APTT (27.0-36.0) sec Sodium (140-148) mmol/L Potassium (3.6-5.2) mmol/L Chloride (100-108) mmol/L Carbon Dioxide (21-32) mmol/L Anion Gap (5.0-14.0) mmol/L BUN (7-18) mg/dL Creatinine (0.8-1.3) mg/dL Est Cr Clr Drug Dosing mL/min Estimated GFR (MDRD) (>60) Glucose (74-106) mg/dL Calcium (8.5-10.1) mg/dL Magnesium (1.8-2.4) mg/dL Total Bilirubin (0.2-1.0) mg/dL AST 35 (15-37) U/L ALT 31 (12-78) U/L Alkaline Phosphatase (46-116) U/L Ammonia 16 (11-32) mmol/L Amylase (25-115) U/L Lipase (73-393) U/L TSH, Ultra Sensitive 5.851 H (0.358-3.740) uIU/mL Urine Color (YELLOW) Urine Appearance (CLEAR) Urine pH (5.0-8.0) Ur Specific [place] (1.008-1.030) Urine Protein (NEGATIVE) mg/dL Urine Glucose (UA) (NEGATIVE) mg/dL Urine Ketones (NEGATIVE) mg/dL Urine Occult Blood (NEGATIVE) Urine Nitrite (NEGATIVE) Urine Bilirubin (NEGATIVE) Urine Urobilinogen (0.2-1.0) EU/dL Ur Leukocyte Esterase (NEGATIVE) Urine RBC (0-5) Urine WBC (0-5) Ur Epithelial Cells Amorphous Sediment Urine Bacteria Urine Mucus Urine Other Blood Type Gel Antibody Screen Crossmatch 10/02/19 10/03/19 10/03/19 Range/Units 21:15 02:15 05:40 WBC 9.6 (4.5-11.0) K/uL RBC 2.96 L (4.30-5.90) M/uL Hgb 7.3 L (12.0-15.0) g/dL Hct 24.2 L (40.0-54.0) % MCV 82 (80-98) fL MCH 25 L (27-31) pg MCHC 30 L (32-36) % Plt Count 93 L (150-400) K/uL PT (9.5-12.0) sec INR (0.80-1.20) APTT (27.0-36.0) sec Sodium (140-148) mmol/L Potassium (3.6-5.2) mmol/L Chloride (100-108) mmol/L Carbon Dioxide (21-32) mmol/L Anion Gap (5.0-14.0) mmol/L BUN (7-18) mg/dL Creatinine (0.8-1.3) mg/dL Est Cr Clr Drug Dosing mL/min Estimated GFR (MDRD) (>60) Glucose (74-106) mg/dL Calcium (8.5-10.1) mg/dL Magnesium (1.8-2.4) mg/dL Total Bilirubin 1.0 (0.2-1.0) mg/dL AST (15-37) U/L ALT (12-78) U/L Alkaline Phosphatase (46-116) U/L Ammonia (11-32) mmol/L Amylase (25-115) U/L Lipase (73-393) U/L TSH, Ultra Sensitive (0.358-3.740) uIU/mL Urine Color Yellow (YELLOW) Urine Appearance Clear (CLEAR) Urine pH 5.5 (5.0-8.0) Ur Specific [place] >= 1.030 (1.008-1.030) Urine Protein Negative (NEGATIVE) mg/dL Urine Glucose (UA) Negative (NEGATIVE) mg/dL Urine Ketones Negative (NEGATIVE) mg/dL Urine Occult Blood Negative (NEGATIVE) Urine Nitrite Negative (NEGATIVE) Urine Bilirubin Negative (NEGATIVE) Urine Urobilinogen 0.2 (0.2-1.0) EU/dL Ur Leukocyte Esterase Negative (NEGATIVE) Urine RBC 0-5 (0-5) Urine WBC 0-5 (0-5) Ur Epithelial Cells Rare Amorphous Sediment Few Urine Bacteria Rare Urine Mucus Few Urine Other Blood Type Gel Antibody Screen Crossmatch 10/03/19 Range/Units 05:40 WBC (4.5-11.0) K/uL RBC (4.30-5.90) M/uL Hgb (12.0-15.0) g/dL Hct (40.0-54.0) % MCV (80-98) fL MCH (27-31) pg MCHC (32-36) % Plt Count (150-400) K/uL PT (9.5-12.0) sec INR (0.80-1.20) APTT (27.0-36.0) sec Sodium 142 (140-148) mmol/L Potassium 4.4 (3.6-5.2) mmol/L Chloride 109 H (100-108) mmol/L Carbon Dioxide 25 (21-32) mmol/L Anion Gap 12.4 (5.0-14.0) mmol/L BUN 46 H (7-18) mg/dL Creatinine 1.2 (0.8-1.3) mg/dL Est Cr Clr Drug Dosing 52.75 mL/min Estimated GFR (MDRD) 59 L (>60) Glucose 169 H (74-106) mg/dL Calcium 7.5 L (8.5-10.1) mg/dL Magnesium (1.8-2.4) mg/dL Total Bilirubin (0.2-1.0) mg/dL AST (15-37) U/L ALT (12-78) U/L Alkaline Phosphatase (46-116) U/L Ammonia (11-32) mmol/L Amylase (25-115) U/L Lipase (73-393) U/L TSH, Ultra Sensitive (0.358-3.740) uIU/mL Urine Color (YELLOW) Urine Appearance (CLEAR) Urine pH (5.0-8.0) Ur Specific [place] (1.008-1.030) Urine Protein (NEGATIVE) mg/dL Urine Glucose (UA) (NEGATIVE) mg/dL Urine Ketones (NEGATIVE) mg/dL Urine Occult Blood (NEGATIVE) Urine Nitrite (NEGATIVE) Urine Bilirubin (NEGATIVE) Urine Urobilinogen (0.2-1.0) EU/dL Ur Leukocyte Esterase (NEGATIVE) Urine RBC (0-5) Urine WBC (0-5) Ur Epithelial Cells Amorphous Sediment Urine Bacteria Urine Mucus Urine Other Blood Type Gel Antibody Screen Crossmatch Med Orders - Current: Current Medications Acetaminophen (Tylenol) 650 mg PO Q4H PRN PRN Reason: Pain (Mild 1-3)/fever Albuterol (Proventil Neb Soln) 2.5 mg NEB Q4H PRN PRN Reason: Shortness Of Breath/wheezing Levothyroxine Sodium (Levothyroxine) 50 mcg PO DAILY JEANETTE Lorazepam (Ativan) 0.5 mg IVPUSH Q4H PRN PRN Reason: Nausea/Vomiting Magnesium Hydroxide (Milk Of Magnesia) 30 ml PO Q12H PRN PRN Reason: Constipation Metformin HCl (Glucophage) 500 mg PO BIDMEALS [facility] Ondansetron HCl (Zofran Odt) 4 mg PO Q6H PRN PRN Reason: Nausea able to take PO Ondansetron HCl (Zofran) 4 mg IV Q6H PRN PRN Reason: Nausea/Vomiting Senna/Docusate Sodium (Senna Plus) 1 tab PO BID PRN PRN Reason: Constipation Discontinued Medications Fentanyl (Sublimaze) Confirm Administered Dose 100 mcg .ROUTE .[facility] ONE Stop: 10/03/19 07:38 Lactated Ringer's (Ringers, Lactated) 1,000 mls @ 500 mls/hr IV ASDIRECTED [facility] Last Admin: 10/02/19 20:24 Dose: 500 mls/hr Sodium Chloride (Normal Saline) 1,000 mls @ 100 mls/hr IV ASDIRECTED [facility] Last Admin: 10/03/19 09:40 Dose: 100 mls/hr Lactated Ringer's (Ringers, Lactated) Confirm Administered Dose 1,000 mls @ as directed .ROUTE .[facility] ONE Stop: 10/03/19 08:39 Pantoprazole Sodium (Protonix Iv) 80 mg IVPUSH .BOLUS [facility] Last Admin: 10/02/19 23:00 Dose: 80 mg Pantoprazole Sodium (Protonix Iv) 40 mg IV Q12H [facility] Last Admin: 10/03/19 09:32 Dose: 40 mg Propofol (Diprivan 20 Ml) Confirm Administered Dose 200 mg .ROUTE .[facility] ONE Stop: 10/03/19 07:38 - Exam Quality Assessment: No: Supplemental Oxygen General: Alert, Oriented, Cooperative, No Acute Distress Lungs: Normal Respiratory Effort. No: Wheezing Cardiovascular: Regular Rate, Regular Rhythm GI/Abdominal Exam: Soft, No Distention Extremities: No Pedal Edema. No: Increased Warmth Skin: Warm, Dry Psy/Mental Status: Alert, Normal Affect Sepsis Event Note - Evaluation Sepsis Screening Result: No Definite Risk - Focused Exam Vital Signs: Vital Signs Temp Temp Temp Pulse Pulse Resp BP 10/03/19 09:45 36.3 C 62 12 10/03/19 09:32 64 11 L 10/03/19 09:20 36.1 C 67 9 L 10/03/19 09:10 36.1 C 62 16 10/03/19 09:05 64 16 10/03/19 09:00 68 16 10/03/19 08:55 58 L 16 10/03/19 08:50 36 C L 60 16 10/03/19 08:29 36.6 C 72 14 10/03/19 08:15 36.8 C 72 12 10/03/19 07:47 36.6 C 70 12 10/03/19 07:46 37.0 C 76 12 10/03/19 07:31 36.9 C 73 11 L 10/03/19 07:26 37.0 C 73 14 10/03/19 06:00 80 16 10/03/19 05:00 92 12 10/03/19 04:00 84 16 10/03/19 03:00 87 87 13 109/49 L 10/03/19 02:13 37.0 C 75 12 10/03/19 02:12 37.1 C 91 16 10/03/19 02:03 36.3 C 89 15 10/03/19 02:00 91 16 10/03/19 01:30 37.3 C 91 12 10/03/19 01:00 37.2 C 95 14 10/03/19 00:30 37.3 C 94 12 10/03/19 00:11 37.3 C 107 H 11 L 10/03/19 00:09 37.1 C 97 12 10/02/19 23:53 37.1 C 96 12 10/02/19 23:45 36.6 C 86 11 L 114/69 10/02/19 23:38 37.0 C 91 12 10/02/19 23:28 36.6 C 86 11 L 10/02/19 23:23 37.2 C 87 10 L BP Pulse Ox 10/03/19 09:45 122/66 10/03/19 09:32 116/47 L 95 10/03/19 09:20 136/73 96 10/03/19 09:10 107/58 L 95 10/03/19 09:05 116/52 L 93 L 10/03/19 09:00 116/52 L 97 10/03/19 08:55 101/45 L 97 10/03/19 08:50 97/46 L 97 10/03/19 08:29 158/64 H 99 10/03/19 08:15 128/78 99 10/03/19 07:47 129/72 97 10/03/19 07:46 110/54 L 96 10/03/19 07:31 121/67 99 10/03/19 07:26 99 10/03/19 06:00 99/50 L 95 10/03/19 05:00 115/62 99 10/03/19 04:00 118/49 L 96 10/03/19 03:00 109/49 L 97 10/03/19 02:13 127/69 98 10/03/19 02:12 103/56 L 100 10/03/19 02:03 95/50 L 10/03/19 02:00 95/50 L 99 10/03/19 01:30 97/51 L 10/03/19 01:00 101/59 L 96 10/03/19 00:30 92/52 L 10/03/19 00:11 104/63 10/03/19 00:09 97/53 L 98 10/02/19 23:53 97/53 L 10/02/19 23:45 100 10/02/19 23:38 97/44 L 10/02/19 23:28 114/69 10/02/19 23:23 115/69 Date Exam was Performed: 10/03/19 Time Exam was Performed: 14:52 - Problem List & Annotations (1) Erosive esophagitis SNOMED Code(s): 15418803 Code(s): K22.10 - ULCER OF ESOPHAGUS WITHOUT BLEEDING Status: Acute Current Visit: Yes (2) Acute upper gastrointestinal hemorrhage SNOMED Code(s): 71316348 Code(s): K92.2 - GASTROINTESTINAL HEMORRHAGE, UNSPECIFIED Status: Resolved Current Visit: No (3) Cirrhosis of liver SNOMED Code(s): 04831735 Code(s): K74.60 - UNSPECIFIED CIRRHOSIS OF LIVER Status: Chronic Current Visit: No Qualifiers: Hepatic cirrhosis type: unspecified hepatic cirrhosis Ascites presence: without ascites Qualified Code(s): K74.60 - Unspecified cirrhosis of liver (4) Type 2 diabetes mellitus SNOMED Code(s): 84998288 Code(s): E11.9 - TYPE 2 DIABETES MELLITUS WITHOUT COMPLICATIONS Status: Chronic Current Visit: No Qualifiers: Diabetes mellitus intermodal dispatcher insulin use: without correction use Diabetes mellitus complication status: without complication Qualified Code(s): E11.9 - Type 2 diabetes mellitus without complications - Problem List Review Problem List Initiated/Reviewed/Updated: Yes - My Orders Last 24 Hours: My Active Orders 10/02/19 19:47 RED BLOOD CELLS LP [BBK] Stat 10/02/19 21:50 Transfuse Red Blood Cells [COMM] Routine 10/02/19 22:30 Resuscitation Status Routine 10/02/19 22:56 Patient Status [ADT] Routine Antiembolic Devices [RC] .Routine Cardiac Monitoring [RC] CONTINUOUS Intake and Output [RC] QSHIFT Notify Provider Vital Signs [RC] ASDIRECTED Oxygen Therapy [RC] PRN RT Aerosol Therapy [RC] ASDIRECTED Up With Assistance [RC] ASDIRECTED VTE/DVT Education [RC] Per Unit Routine Vital Signs [RC] Q2HR Acetaminophen [Tylenol] 650 mg PO Q4H PRN Albuterol [Proventil Neb Soln] 2.5 mg NEB Q4H PRN Docusate Sodium/Sennosides [Senna Plus] 1 tab PO BID PRN LORazepam [Ativan] 0.5 mg IVPUSH Q4H PRN Magnesium Hydroxide [Milk of Magnesia] 30 ml PO Q12H PRN Ondansetron [Zofran ODT] 4 mg PO Q6H PRN Ondansetron [Zofran] 4 mg IV Q6H PRN Sequential Compression Device [OM.PC] Routine VTE Pharmacological Contraindications [AST] Routine 10/03/19 14:00 HGB [HEMOGLOBIN] [HEME] Timed 10/03/19 16:30 Pantoprazole [ProTONIX] 40 mg PO BIDAC Spironolactone [Aldactone] 50 mg PO BIDAC 10/03/19 17:00 metFORMIN [Glucophage] 500 mg PO BIDMEALS 10/03/19 Lunch Full Liquid Diet [DIET] 10/04/19 05:00 BASIC METABOLIC PANEL,BMP [CHEM] Timed CBC W/O DIFF,HEMOGRAM [HEME] Timed (1) 10/04/19 09:00 Levothyroxine 50 mcg PO DAILY - Plan Plan:: ASSESSMENT AND PLAN - Acute upper gastrointestinal hemorrhage-complicated by anemia due to blood loss. He has required 2 units of blood via transfusion so far. EGD showed erosive esophagitis which is likely the source of bleeding. There is no active bleeding. He does have a known hiatal hernia and I suspect this is contributing to the distal esophagitis. -Hemoglobin this afternoon -Saline lock IV -Twice daily proton pump inhibitor -Hemoglobin in the morning -Maintain 2 IV sites Hepatic cirrhosis-chronic, stable and well compensated at this time. -Restart spironolactone tomorrow morning Type 2 diabetes mellitus-well controlled with only oral medications. -Restart metformin this evening Maintenance issues - - DVT prophylaxis -mechanical with active hemorrhage - GI prophylaxis -PPI - Nutrition -full liquids Disposition -I anticipate discharge home after the hospital stay Primary care physician -[place] [facility] Etienne Del Rio M.D.
[2019-10-03] MEDS: Pantoprazole 40 MG Tab.CR PO SCH (16:27)
[2019-10-03] MEDS: Spironolactone 25 MG Tab PO SCH (16:27)
[2019-10-03] MEDS: metFORMIN 500 MG Tab PO SCH (17:44)
[2019-10-04] MEDS ORDERED: Levothyroxine 50 MCG Tab PO SCH (07:30)
[2019-10-04 08:05] VITALS: BP 98/66
[2019-10-04] MEDS: metFORMIN 500 MG Tab PO SCH (08:29)
[2019-10-04] MEDS: Spironolactone 25 MG Tab PO SCH (08:30)
[2019-10-04] MEDS: Pantoprazole 40 MG Tab.CR PO SCH (08:30)
[2019-10-04 08:41] VITALS: PULSE 65
--- NOTE | 2019-10-04 09:29 | PCM.DCSUM1 ---
Discharge Summary - Hospital Course Brief History: 79-year-old male with history of compensated cirrhosis, well- controlled diabetes mellitus and previous episodes of gastrointestinal bleeding who presented with hematemesis and melena. He was admitted for management of an acute upper gastrointestinal hemorrhage with anemia due to blood loss. Diagnosis: Stroke: No - Discharge Data Discharge Date: 10/04/19 Discharge Disposition: Home, Self-Care 01 Condition: Good - Referral to Home Health Primary Care Physician: PCP None - Discharge Diagnosis/Problem(s) (1) Erosive esophagitis SNOMED Code(s): 56598982 ICD Code: K22.10 - ULCER OF ESOPHAGUS WITHOUT BLEEDING Status: Acute (2) Acute upper gastrointestinal hemorrhage SNOMED Code(s): 75962612 ICD Code: K92.2 - GASTROINTESTINAL HEMORRHAGE, UNSPECIFIED Status: Resolved (3) Cirrhosis of liver SNOMED Code(s): 94005949 ICD Code: K74.60 - UNSPECIFIED CIRRHOSIS OF LIVER Status: Chronic Qualifiers: Hepatic cirrhosis type: unspecified hepatic cirrhosis Ascites presence: without ascites Qualified Code(s): K74.60 - Unspecified cirrhosis of liver (4) Type 2 diabetes mellitus SNOMED Code(s): 99309029 ICD Code: E11.9 - TYPE 2 DIABETES MELLITUS WITHOUT COMPLICATIONS Status: Chronic Qualifiers: Diabetes mellitus long term care phlebotomist insulin use: without long term care phlebotomist use Diabetes mellitus complication status: without complication Qualified Code(s): E11.9 - Type 2 diabetes mellitus without complications - Patient Summary/Data Consults: Consultations 10/02/19 21:56 Consult to Physician [CONS] Urgent Consulting Provider: Ty Munguia Courtesy Call Completed to Consulting Physician: Yes Reason for Consult: upper GI bleed Person Notified: Dr. Ty Munguia Date Notified: 10/02/19 Time Notified: 21:55 Special Instructions: EGD in am. Hospital Course: Alton presented to the emergency room with weakness, dizziness and lightheadedness as well as probable hematemesis and melena. Work-up in the emergency room revealed hypotension and anemia due to acute blood loss. He received IV fluids as well as 80 mg of IV pantoprazole. He received 1 unit of blood in the emergency room and was admitted to the intensive care unit for further management. He did respond well to initial management and his vital signs were stable. The morning after admission he had an EGD performed by Dr. Munguia which showed a persistent hiatal hernia as well as erosive distal esophagitis. This was suspected to be his recent source of bleeding but there was no active bleeding. He did require a second unit of blood via transfusion the morning after admission. Since the EGD he has been stable. He tolerated liquids well. He has not had any additional hematemesis. Melena has nearly resolved at this point. Hemoglobin has been stable. Vital signs have been stable. He has been up and walking around without any significant symptoms. I believe he is safe for discharge home at this time. I did increase his proton pump inhibitor with the suspicion that his he has acid reflux because of his hiatal hernia causing the distal esophagitis. Biopsies are still pending at this time. He will be on an iron supplement as well. His hemoglobin was 7.3 at the time of discharge but since he is stable and asymptomatic we did not perform an additional transfusion. He will have telephone follow-up with the [facility] next week. - Patient Instructions Diet: GI Soft/Low Residue/Low Fiber Activity: As Tolerated Showering/Bathing: May Shower Notify Provider of: Increased Pain, Nausea and/or Vomiting Other/Special Instructions: 1. You were in the hospital for management of an acute upper gastrointestinal bleed caused by erosive esophagitis. I suspect this is related to acid reflux secondary to the hiatal hernia. The bleeding appears to have stopped at this time. I do recommend that you increase your pantoprazole to 40 mg twice daily with breakfast and supper. You should also take an [id number] iron supplement twice daily with breakfast and supper for the next month. 2. Follow up with your primary care provider as scheduled next month. 3. Seek medical attention if you have dizziness/lightheadedness or if you have recurrent episodes of vomiting or black stools. - Discharge Plan *PRESCRIPTION DRUG MONITORING PROGRAM REVIEWED*: No *COPY OF PRESCRIPTION DRUG MONITORING REPORT IN PATIENT JAIRO: No Prescriptions/Med Rec: Pantoprazole [ProTONIX] 40 mg PO BIDAC #60 tab.cr Home Medications: Home Meds Levothyroxine Sodium [Synthroid] 50 mcg PO DAILY 11/29/14 [History] metFORMIN [Glucophage] 500 mg PO BIDMEALS 11/29/14 [History] Spironolactone [Aldactone] 50 mg PO BID 10/02/19 [History] Pantoprazole [ProTONIX] 40 mg PO BIDAC #60 tab.cr 10/04/19 [Rx] Oxygen Therapy Mode: Room Air Patient Handouts: Esophagitis, Soft-Food Eating Plan, Pantoprazole tablets Referrals: Pari Matson MD [Ordering Only Provider] - 11/04/19 12:45 pm (f/u as scheduled ) - Discharge Summary/Plan Comment DC Time >30 min.: No - Patient Data Vitals - Most Recent: Last Vital Signs Temp 36.3 C 10/04/19 07:00 Pulse 62 10/04/19 08:00 Resp 16 10/04/19 08:00 BP 98/66 10/04/19 08:00 Pulse Ox 99 10/04/19 08:00 Weight - Most Recent: 72.348 kg I&O - Last 24 hours: Intake & Output 10/03/19 10/04/19 10/04/19 22:59 06:59 14:59 Intake Total 1230 Output Total 300 300 Balance 930 -300 Lab Results - Last 24 hrs: Laboratory Results - last 24 hr 10/03/19 10/04/19 10/04/19 Range/Units 14:00 05:20 05:20 WBC 8.5 (4.5-11.0) K/uL RBC 2.92 L (4.30-5.90) M/uL Hgb 7.9 L 7.3 L (12.0-15.0) g/dL Hct 24.1 L (40.0-54.0) % MCV 83 (80-98) fL MCH 25 L (27-31) pg MCHC 30 L (32-36) % Plt Count 80 L (150-400) K/uL Sodium 142 (140-148) mmol/L Potassium 4.2 (3.6-5.2) mmol/L Chloride 108 (100-108) mmol/L Carbon Dioxide 28 (21-32) mmol/L Anion Gap 6.5 (5.0-14.0) mmol/L BUN 41 H (7-18) mg/dL Creatinine 1.0 (0.8-1.3) mg/dL Est Cr Clr Drug Dosing 63.30 mL/min Estimated GFR (MDRD) > 60 (>60) Glucose 175 H (74-106) mg/dL Calcium 7.4 L (8.5-10.1) mg/dL Med Orders - Current: Current Medications Acetaminophen (Tylenol) 650 mg PO Q4H PRN PRN Reason: Pain (Mild 1-3)/fever Albuterol (Proventil Neb Soln) 2.5 mg NEB Q4H PRN PRN Reason: Shortness Of Breath/wheezing Levothyroxine Sodium (Synthroid) 50 mcg PO DAILY@0730 [facility] Last Admin: 10/04/19 08:29 Dose: 50 mcg Lorazepam (Ativan) 0.5 mg IVPUSH Q4H PRN PRN Reason: Nausea/Vomiting Magnesium Hydroxide (Milk Of Magnesia) 30 ml PO Q12H PRN PRN Reason: Constipation Metformin HCl (Glucophage) 500 mg PO BIDMEALS [facility] Last Admin: 10/04/19 08:29 Dose: 500 mg Ondansetron HCl (Zofran Odt) 4 mg PO Q6H PRN PRN Reason: Nausea able to take PO Ondansetron HCl (Zofran) 4 mg IV Q6H PRN PRN Reason: Nausea/Vomiting Pantoprazole Sodium (Protonix) 40 mg PO BIDAC [facility] Last Admin: 10/04/19 08:30 Dose: 40 mg Senna/Docusate Sodium (Senna Plus) 1 tab PO BID PRN PRN Reason: Constipation Spironolactone (Aldactone) 50 mg PO BIDAC [facility] Last Admin: 10/04/19 08:30 Dose: 50 mg Discontinued Medications Fentanyl (Sublimaze) Confirm Administered Dose [address] m[address] .[address] .[facility] ONE Stop: 10/03/19 07:38 Lactated Ringer's (Ringers, Lactated) 1,000 mls @ 500 mls/hr IV ASDIRECTED [facility] Last Admin: 10/02/19 20:24 Dose: 500 mls/hr Sodium Chloride (Normal Saline) 1,000 mls @ 100 mls/hr IV ASDIRECTED [facility] Last Admin: 10/03/19 09:40 Dose: 100 mls/hr Lactated Ringer's (Ringers, Lactated) Confirm Administered Dose 1,000 mls @ as directed .ROUTE .[facility] Stop: 10/03/19 08:39 Pantoprazole Sodium (Protonix Iv) 80 mg IVPUSH .BOLUS [facility] Last Admin: 10/02/19 23:00 Dose: 80 mg Pantoprazole Sodium (Protonix Iv) 40 mg IV Q12H [facility] Last Admin: 10/03/19 09:32 Dose: 40 mg Propofol (Diprivan 20 Ml) Confirm Administered Dose 200 mg .ROUTE .[facility] ONE Stop: 10/03/19 07:38 - Exam Quality Assessment: Denies: Supplemental Oxygen General: Reports: Alert, Oriented, Cooperative, No Acute Distress Lungs: Reports: Normal Respiratory Effort Cardiovascular: Reports: Regular Rate, Regular Rhythm GI/Abdominal Exam: Soft, No Distention Extremities: No Pedal Edema Psy/Mental Status: Reports: Alert, Normal Affect *Q Meaningful Use (DIS) - VTE *Q VTE Pharmacological Contraindications *Q: Active Hemorrhage
--- NOTE | 2019-10-06 11:54 | OR ---
DATE OF PROCEDURE: 10/03/2019 SURGEON: Ty Munguia MD PREOPERATIVE DIAGNOSIS: Upper gastrointestinal bleeding. POSTOPERATIVE DIAGNOSES: 1. Upper gastrointestinal bleeding secondary to erosive esophagitis. 2. Large nonbleeding esophageal varices. OPERATIVE PROCEDURES: Esophagogastroduodenoscopy with biopsies of distal esophagus. ANESTHESIA: IV sedation. INDICATIONS FOR PROCEDURE: This is a 79-year-old presenting with some upper GI bleeding. This was associated with some hematemesis as well as some black stools. The patient presented with significantly low hemoglobin and requiring transfusions. Plan is to proceed with an upper GI endoscopy with biopsies as indicated. Potential risks including bleeding and perforation were discussed, and the patient wishes to proceed. DETAILS OF PROCEDURE: The patient was taken to the operating room and placed in a left lateral decubitus position. IV sedation was administered, after which the upper GI endoscope was passed orally through the length of the esophagus and the stomach with retroflexion view of the fundus, and thereafter through the pyloric channel into the proximal duodenum. Within the esophagus, the patient was noted to have a fairly large esophageal varices consistent with underlying portal hypertension. The mucosa over the varices was not significantly inflamed. There was, however, some ulcerated mucosa in the distal esophagus which was covered with some fibrinous exudate. This was not actively bleeding. The patient had roughly 3 cm hiatal hernia. Within the stomach, there was some coffee-ground type material consistent with some recent bleeding. There were, however, no erosions or ulcers. There were some less prominent gastric varices present in the fundus, gastric cardia. The remainder of the stomach and duodenum to the junction of the third and fourth portions were otherwise unremarkable. At this point, biopsies were obtained from the area of the esophagitis. This has not been previously biopsied recently. We avoided areas where there were some adjacent varices so as to avoid major bleeding issues. Upon completion of the biopsies, minimal bleeding was noted and the procedure was then concluded. The patient has been scheduled to be on b.i.d. Protonix 40 mg but it is questionable that whether or not he has been compliant. Recommendation would be to continue that regimen and increase the medical management if he continues to have issues with bleeding and otherwise appears to be compliant with that. Ty Munguia MD /[id number]
--- NOTE | 2019-10-06 13:48 | PN ---
DATE OF SERVICE: 10/04/2019 The patient has been clinically stable. No signs of any serious injury or ongoing bleeding. At this point, the patient will need to stay on b.i.d. Protonix. Hopefully, this will control the reflux esophagitis. Otherwise, management will continue per Dr. Del Rio. Ty Munguia MD /[id number]
== END 2019-10-04 12:04 | disposition home or self-care (01) | DRG 381 ==
LOC: JP.ED 19:37 → JP.ICU 22:28
PROVIDERS: ADMIT Internal Medicine; ATTEND Internal Medicine
PROC: 30233N1 Transfusion of Nonautologous Red Blood Cells into Peripheral Vein, Percutaneous Approach (ICD-10-PCS; 2019-10-02)
PROC: 0DB38ZX Excision of Lower Esophagus, Via Natural or Artificial Opening Endoscopic, Diagnostic (ICD-10-PCS; principal; 2019-10-03)
DX: K92.2 Gastrointestinal hemorrhage, unspecified (principal); K22.11 Ulcer of esophagus with bleeding; D62 Acute posthemorrhagic anemia; K74.60 Unspecified cirrhosis of liver; H91.93 Unspecified hearing loss, bilateral; I10 Essential (primary) hypertension; K21.9 Gastro-esophageal reflux disease without esophagitis; N40.0 Benign prostatic hyperplasia without lower urinary tract symptoms; K44.9 Diaphragmatic hernia without obstruction or gangrene; M10.9 Gout, unspecified; E11.9 Type 2 diabetes mellitus without complications; E03.9 Hypothyroidism, unspecified; E61.1 Iron deficiency; Z85.828 Personal history of other malignant neoplasm of skin; Z98.49 Cataract extraction status, unspecified eye; Z90.49 Acquired absence of other specified parts of digestive tract; Z79.84 Long term (current) use of oral hypoglycemic drugs; Z79.890 Hormone replacement therapy; Z79.899 Other long term (current) drug therapy; Z88.8 Allergy status to other drugs, medicaments and biological substances; Z91.030 Bee allergy status
CPT/HCPCS: 36415; 80048; 82140; 82150; 82247; 83690; 83735; 84075; 84443; 84450; 84460; 85027; 85610; 85730; 86850; 86900; 86901; 86920; 86922; 96360; 96361; 99284; 99285; J7120; 36430; 81001; 85018; 88305; A9270-GY; C9113; J2704; J3010; J7030; P9016

== ENCOUNTER 2019-10-06 04:49 | Inpatient (IN) | payer OTHER ==
--- NOTE | 2019-10-06 05:10 | EDM.PDOC ---
ED HPI GENERAL MEDICAL PROBLEM - General Chief Complaint: Gastrointestinal Problem Stated Complaint: [facility] Time Seen by Provider: 10/06/19 05:00 Source of Information: Reports: Patient, EMS, Old Records History Limitations: Reports: No Limitations - History of Present Illness INITIAL COMMENTS - FREE TEXT/NARRATIVE: 79 yo male was discharged from this hospital on Monday and tonight about 0300h awoke with nausea and sat up and soon vomited dark material. He vomited several times and then called EMS who administered some IV Zofran so that now Alton no longer has nausea. His Hgb when he left was 7.3. He had endoscopy during his hospital stay that suggested erosive esophagitis as the cause of his UGI bleed. He did receive 2 units of blood during his visit. 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 Lives alone. Onset: Today, Sudden Onset Date: 10/06/19 Onset Time: 03:00 Duration: Hour(s):, Constant Location: Reports: Other (no pain) Quality: Reports: Other (none) Severity: Mild Improves with: Reports: None Worsens with: Reports: Other (uncertain) Context: Reports: Other (See HPI) Associated Symptoms: Reports: Nausea/Vomiting. Denies: Diaphoresis, Fever/ Chills, Shortness of Breath Treatments BRAN MIXER: Reports: Other (see below) (Zofran per EMS) - Related Data Allergies Allergy/AdvReac Type Severity Reaction Status Date / Time venom-honey bee Allergy Swelling Verified 10/06/19 04:57 [bee venom (honey bee)] lisinopril AdvReac Cough Verified 10/06/19 04:57 Home Meds: Home Meds Levothyroxine Sodium [Synthroid] 50 mcg PO DAILY 11/29/14 [History] metFORMIN [Glucophage] 500 mg PO BIDMEALS 11/29/14 [History] Spironolactone [Aldactone] 50 mg PO BID 10/02/19 [History] Pantoprazole [ProTONIX] 80 mg PO BIDAC 10/06/19 [History] Past Medical History HEENT History: Reports: Cataract, Hard of Hearing, Other (See Below) Other HEENT History: hearing aids Cardiovascular History: Reports: Aneurysm, Hypertension Other Cardiovascular History: mild abdominal aneurism Gastrointestinal History: Reports: GERD, GI Bleed Genitourinary History: Reports: BPH Musculoskeletal History: Reports: Gout, Other (See Below) Other Musculoskeletal History: broken ribs from fall Endocrine/Metabolic History: Reports: Diabetes, Type II, Hypothyroidism Hematologic History: Reports: Blood Transfusion(s), Iron Deficiency Oncologic (Cancer) History: Reports: Basal Cell Carcinoma - Infectious Disease History Infectious Disease History: Reports: Chicken Pox, Herpes, Measles, Mumps - Past Surgical History Head Surgeries/Procedures: Reports: None HEENT Surgical History: Reports: Cataract Surgery GI Surgical History: Reports: Appendectomy, Cholecystectomy, Hernia Repair/Other Male Surgical History: Reports: Prostate Biopsy Endocrine Surgical History: Reports: None Musculoskeletal Surgical History: Reports: None Oncologic Surgical History: Reports: Other (See Below) Other Oncologic Surgeries/Procedures: nose biopsy Dermatological Surgical History: Reports: None Social & Family History - Family History Cardiac: Reports: [place] - Tobacco Use Smoking Status *Q: Never Smoker - Caffeine Use Caffeine Use: Reports: Coffee - Recreational Drug Use Recreational Drug Use: No ED ROS GENERAL - Review of Systems Review Of Systems: See Below Constitutional: Reports: No Symptoms HEENT: Reports: No Symptoms Respiratory: Reports: No Symptoms Cardiovascular: Reports: No Symptoms Endocrine: Reports: No Symptoms GI/Abdominal: Reports: Hematemesis, Nausea, Vomiting. Denies: Abdominal Pain, Black Stool, Bloody Stool, Melena : Reports: No Symptoms Musculoskeletal: Reports: No Symptoms Skin: Reports: No Symptoms Neurological: Reports: No Symptoms ED EXAM, GI/ABD - Physical Exam Exam: See Below Exam Limited By: No Limitations General Appearance: Alert, WD/WN, No Apparent Distress Eyes: Bilateral: Normal Appearance (pale conjunctivas) Ears: Hearing Loss Nose: Normal Inspection, No Blood Throat/Mouth: Normal Inspection, Normal Lips, Normal Oropharynx, Normal Voice, No Airway Compromise Head: Atraumatic, Normocephalic Neck: Normal Inspection Respiratory/Chest: No Respiratory Distress, Lungs Clear, Normal Breath Sounds, No Accessory Muscle Use Cardiovascular: Regular Rate, Rhythm, No Edema GI/Abdominal Exam: Normal Bowel Sounds, Soft, Non-Tender, No Distention Back Exam: Normal Inspection. No: CVA Tenderness (R), CVA Tenderness (L) Extremities: Normal Inspection, Normal Range of Motion, Non-Tender, No Pedal Edema Neurological: Alert, Oriented, CN II-XII Intact, Normal Cognition, No Motor/ Sensory Deficits Psychiatric: Normal Affect, Normal Mood Skin Exam: Warm, Dry, Intact, No Rash, Pallor Course - Vital Signs Text/Narrative:: Dr. Del Rio called @ 0520h Last Recorded V/S: Last Vital Signs Temp 36.0 C L 10/06/19 04:54 Pulse 76 10/06/19 05:00 Resp 16 10/06/19 05:00 BP 113/67 10/06/19 05:00 Pulse Ox 98 10/06/19 05:00 - Orders/Labs/Meds Orders: Active Orders 24 hr Category Date Time Status Abdomen Pelvis w Cont [CT] Stat Exams 10/06/19 05:24 Ordered RED BLOOD CELLS LP [BBK] Stat Lab 10/06/19 05:05 Results TYPE AND SCREEN [BBK] Stat Lab 10/06/19 05:05 Results Iopamidol [Isovue-300 (61%)] Med 10/06/19 05:45 Active 100 ml IV . DIRECTED Pantoprazole [ProTONIX IV] 80 mg Med 10/06/19 05:30 Active Sodium Chloride 0.9% [Normal Saline] 100 ml IV .BOLUS Sodium Chloride 0.9% [Normal Saline] 80 ml Med 10/06/19 05:45 Active IV ASDIRECTED Sodium Chloride 0.9% [Saline Flush] Med 10/06/19 05:39 Active 10 ml FLUSH ASDIRECTED PRN Transfuse Red Blood Cells [COMM] Urgent Oth 10/06/19 05:18 Ordered Medication Orders Pantoprazole Sodium 80 mg/ (Sodium Chloride) 100 mls @ 200 mls/hr IV .BOLUS JEANETTE Last Admin: 10/06/19 05:50 Dose: 200 mls/hr Sodium Chloride (Normal Saline) 80 mls @ 3 mls/sec IV ASDIRECTED JEANETTE Iopamidol (Isovue-300 (61%)) 100 ml IV . DIRECTED JEANETTE Sodium Chloride (Saline Flush) 10 ml FLUSH ASDIRECTED PRN PRN Reason: Keep Vein Open Labs: Laboratory Tests 10/06/19 10/06/19 10/06/19 Range/Units 05:05 05:05 05:05 WBC 8.6 (4.5-11.0) K/uL RBC 2.55 L (4.30-5.90) M/uL Hgb 6.5 L* (12.0-15.0) g/dL Hct 21.9 L (40.0-54.0) % MCV 86 (80-98) fL MCH 26 L (27-31) pg MCHC 30 L (32-36) % Plt Count 147 L (150-400) K/uL Sodium 139 L (140-148) mmol/L Potassium 4.1 (3.6-5.2) mmol/L Chloride 103 (100-108) mmol/L Carbon Dioxide 16 L (21-32) mmol/L Anion Gap 24.1 H (5.0-14.0) mmol/L BUN 44 H (7-18) mg/dL Creatinine 1.6 H D (0.8-1.3) mg/dL Est Cr Clr Drug Dosing 37.21 mL/min Estimated GFR (MDRD) 42 L (>60) Glucose 209 H (74-106) mg/dL Calcium 8.0 L (8.5-10.1) mg/dL Magnesium (1.8-2.4) mg/dL Blood Type A NEGATIVE Gel Antibody Screen Negative Crossmatch See Detail 10/06/19 Range/Units 05:05 WBC (4.5-11.0) K/uL RBC (4.30-5.90) M/uL Hgb (12.0-15.0) g/dL Hct (40.0-54.0) % MCV (80-98) fL MCH (27-31) pg MCHC (32-36) % Plt Count (150-400) K/uL Sodium (140-148) mmol/L Potassium (3.6-5.2) mmol/L Chloride (100-108) mmol/L Carbon Dioxide (21-32) mmol/L Anion Gap (5.0-14.0) mmol/L BUN (7-18) mg/dL Creatinine (0.8-1.3) mg/dL Est Cr Clr Drug Dosing mL/min Estimated GFR (MDRD) (>60) Glucose (74-106) mg/dL Calcium (8.5-10.1) mg/dL Magnesium 1.6 L (1.8-2.4) mg/dL Blood Type Gel Antibody Screen Crossmatch Meds: Medications Generic Name Dose Route Start Last Admin Trade Name Freq PRN Reason Stop Dose Admin Pantoprazole Sodium 80 mg/ 100 mls @ 200 mls/hr 10/06/19 05:30 10/06/19 05:50 Sodium Chloride IV 200 mls/hr .BOLUS JEANETTE Administration Sodium Chloride 80 mls @ 3 mls/sec 10/06/19 05:45 Normal Saline IV ASDIRECTED JEANETTE Iopamidol 100 ml 10/06/19 05:45 Isovue-300 (61%) IV . DIRECTED JEANETTE Sodium Chloride 10 ml 10/06/19 05:39 Saline Flush FLUSH ASDIRECTED PRN Keep Vein Open Discontinued Medications Generic Name Dose Route Start Last Admin Trade Name Freq PRN Reason Stop Dose Admin Lactated Ringer's 1,000 mls @ 150 mls/hr 10/06/19 05:45 Ringers, Lactated IV ASDIRECTED JEANETTE Lactated Ringer's 1,000 mls @ 999 mls/hr 10/06/19 05:47 10/06/19 06:07 Ringers, Lactated IV 10/06/19 06:47 999 mls/hr BOLUS ONE Administration Magnesium Oxide 400 mg 10/06/19 05:33 10/06/19 05:50 Magnesium Oxide PO 10/06/19 05:34 400 mg ONETIME ONE Administration Sucralfate 1 gm 10/06/19 05:23 10/06/19 05:50 Carafate PO 10/06/19 05:24 1 gm ONETIME ONE Administration - Radiology Interpretation Free Text/Narrative:: CT abd/pelvis with IV contrast- CT Results Date: 10/06/19 Departure - Departure Time of Disposition: 07:00 Disposition: Admitted As Inpatient 68 Condition: Fair Clinical Impression: UGI bleed, Hypomagnesemia Anemia Qualifiers: Anemia type: other cause Other causes of anemia: acute posthemorrhagic Qualified Code(s): D62 - Acute posthemorrhagic anemia Nausea and vomiting Qualifiers: Vomiting type: hematemesis Qualified Code(s): K92.0 - Hematemesis - Discharge Information *PRESCRIPTION DRUG MONITORING PROGRAM REVIEWED*: Not Applicable *COPY OF PRESCRIPTION DRUG MONITORING REPORT IN PATIENT JAIRO: Not Applicable Referrals: PCP,None [Primary Care Provider] - Forms: ED Department Discharge Sepsis Event Note - Evaluation Sepsis Screening Result: No Definite Risk - Focused Exam Vital Signs: Vital Signs Temp Pulse Resp BP Pulse Ox 10/06/19 05:00 76 16 113/67 98 10/06/19 04:54 36.0 C L 78 15 113 99 Date Exam was Performed: 10/06/19 Time Exam was Performed: 06:49 - My Orders Last 24 Hours: My Active Orders 10/06/19 05:05 RED BLOOD CELLS LP [BBK] Stat TYPE AND SCREEN [BBK] Stat 10/06/19 05:18 Transfuse Red Blood Cells [COMM] Urgent 10/06/19 05:24 Abdomen Pelvis w Cont [CT] Stat 10/06/19 05:30 Pantoprazole [ProTONIX IV] 80 mg Sodium Chloride 0.9% [Normal Saline] 100 ml IV .BOLUS 10/06/19 05:39 Sodium Chloride 0.9% [Saline Flush] 10 ml FLUSH ASDIRECTED PRN 10/06/19 05:45 Iopamidol [Isovue-300 (61%)] 100 ml IV . DIRECTED Sodium Chloride 0.9% [Normal Saline] 80 ml IV ASDIRECTED - Assessment/Plan Last 24 Hours: My Active Orders 10/06/19 05:05 RED BLOOD CELLS LP [BBK] Stat TYPE AND SCREEN [BBK] Stat 10/06/19 05:18 Transfuse Red Blood Cells [COMM] Urgent 10/06/19 05:24 Abdomen Pelvis w Cont [CT] Stat 10/06/19 05:30 Pantoprazole [ProTONIX IV] 80 mg Sodium Chloride 0.9% [Normal Saline] 100 ml IV .BOLUS 10/06/19 05:39 Sodium Chloride 0.9% [Saline Flush] 10 ml FLUSH ASDIRECTED PRN 10/06/19 05:45 Iopamidol [Isovue-300 (61%)] 100 ml IV . DIRECTED Sodium Chloride 0.9% [Normal Saline] 80 ml IV ASDIRECTED
[2019-10-06] MEDS ORDERED: Sucralfate Suspension 1 GM/10 ML Cup PO ONE (05:23)
[2019-10-06] MEDS ORDERED: Pantoprazole 80 MG in Sodium Chloride 0.9% 100 ML IV SCH (05:30)
[2019-10-06] MEDS ORDERED: Magnesium Oxide 400 MG Tab PO ONE (05:33)
[2019-10-06] MEDS ORDERED: Sodium Chloride 0.9% 80 ML IV SCH (05:45)
[2019-10-06] MEDS ORDERED: Iopamidol 612 MG/ML 100 ML Bottle IV SCH (05:45)
[2019-10-06] MEDS ORDERED: Lactated Ringers 1,000 ML IV SCH (05:45)
[2019-10-06] MEDS ORDERED: Lactated Ringers 1,000 ML IV ONE (05:47)
--- NOTE | 2019-10-06 07:39 | PCM.HP.2 ---
H&P History of Present Illness - General Date of Service: 10/06/19 Admit Problem/Dx: Admission Diagnosis/Problem Admission Diagnosis/Problem Acute gastrointestinal hemorrhage Source of Information: Patient, Provider History Limitations: Reports: No Limitations - History of Present Illness Initial Comments - Free Text/Narative: CC: I started vomiting again HPI: Alton presented to the emergency room after 4 episodes of vomiting. Emesis was brown in color and had a consistency of coffee grounds. This was very similar to the episode that he had several days ago prior to his last episode. He does not have any abdominal pain. He has not had any fevers. He does have some mild dizziness and feels weak all over. No complaints of shortness of breath or chest pain. He said things have been going well since he got out of the hospital. Appetite had been good. He had been consuming only soft foods and thought he had been doing well until around 3 AM this morning before coming to the hospital. He has not been out of his apartment and has not had any sick contacts. He has not had any melena as of yet. Work-up in the emergency room revealed anemia due to blood loss with a hemoglobin of less than 7. Other labs are relatively stable. He has received 80 mg of pantoprazole as well as a dose of sucralfate. He is receiving IV fluids. 2 units of blood have been ordered from the emergency room and infusion will be started momentarily. He will be admitted to the intensive care unit for further management. - Related Data Allergies/Adverse Reactions: Allergies Allergy/AdvReac Type Severity Reaction Status Date / Time venom-honey bee Allergy Swelling Verified 10/06/19 04:57 [bee venom (honey bee)] lisinopril AdvReac Cough Verified 10/06/19 04:57 Home Medications: Home Meds Levothyroxine Sodium [Synthroid] 50 mcg PO DAILY 11/29/14 [History] metFORMIN [Glucophage] 500 mg PO BIDMEALS 11/29/14 [History] Spironolactone [Aldactone] 50 mg PO BID 10/02/19 [History] Pantoprazole [ProTONIX] 80 mg PO BIDAC 10/06/19 [History] Past Medical History HEENT History: Reports: Cataract, Hard of Hearing, Other (See Below) Other HEENT History: hearing aids Cardiovascular History: Reports: Aneurysm, Hypertension Other Cardiovascular History: mild abdominal aneurism Gastrointestinal History: Reports: GERD, GI Bleed Genitourinary History: Reports: BPH Musculoskeletal History: Reports: Gout, Other (See Below) Other Musculoskeletal History: broken ribs from fall Endocrine/Metabolic History: Reports: Diabetes, Type II, Hypothyroidism Hematologic History: Reports: Blood Transfusion(s), Iron Deficiency Oncologic (Cancer) History: Reports: Basal Cell Carcinoma - Infectious Disease History Infectious Disease History: Reports: Chicken Pox, Herpes, Measles, Mumps - Past Surgical History Head Surgeries/Procedures: Reports: None HEENT Surgical History: Reports: Cataract Surgery GI Surgical History: Reports: Appendectomy, Cholecystectomy, Hernia Repair/Other Male Surgical History: Reports: Prostate Biopsy Endocrine Surgical History: Reports: None Musculoskeletal Surgical History: Reports: None Oncologic Surgical History: Reports: Other (See Below) Other Oncologic Surgeries/Procedures: nose biopsy Dermatological Surgical History: Reports: None Social & Family History - Family History Cardiac: Reports: [place] - Tobacco Use Smoking Status *Q: Never Smoker - Caffeine Use Caffeine Use: Reports: Coffee - Recreational Drug Use Recreational Drug Use: No H&P Review of Systems - Review of Systems: Review Of Systems: See Below Free Text/Narrative: A complete 12 point review of systems was obtained. Pertinent positives and negatives are noted in the history of present illness. All other systems were reviewed and were negative except as noted. Exam - Exam Exam: See Below - Vital Signs Vital Signs: Last Vital Signs Temp 36.4 C 10/06/19 07:34 Pulse 70 10/06/19 07:34 Resp 18 10/06/19 07:34 BP 124/63 10/06/19 07:34 Pulse Ox 98 10/06/19 06:00 Weight: 68.039 kg - Exam Quality Assessment: No: Supplemental Oxygen General: Alert, Oriented, Cooperative. No: Mild Distress HEENT: Conjunctiva Clear, Mucosa Moist & Cassel. No: Scleral Icterus Neck: Supple, Trachea Midline. No: Lymphadenopathy Lungs: Clear to Auscultation, Normal Respiratory Effort, Decreased Breath Sounds (Mild right lung base) Cardiovascular: Regular Rate, Regular Rhythm. No: Systolic Murmur GI/Abdominal Exam: Normal Bowel Sounds, Soft, Non-Tender, No Distention, No Mass Back Exam: Normal Inspection, Full Range of Motion Extremities: No Pedal Edema. No: Increased Warmth Peripheral Pulses: 2+: Dorsalis Pedis (L), Dorsalis Pedis (R) Skin: Warm, Dry Neuro Extensive - Mental Status: Alert, Oriented x3, Nl Response to Commands Neuro Extensive - Motor, Sensory, Reflexes: No: Dysarthria, Abnormal Motor, Tremor Psychiatric: Alert, Normal Affect - Patient Data Lab Results Last 24 hrs: Laboratory Results - last 24 hr 10/06/19 10/06/19 10/06/19 Range/Units 05:05 05:05 05:05 WBC 8.6 (4.5-11.0) K/uL RBC 2.55 L (4.30-5.90) M/uL Hgb 6.5 L* (12.0-15.0) g/dL Hct 21.9 L (40.0-54.0) % MCV 86 (80-98) fL MCH 26 L (27-31) pg MCHC 30 L (32-36) % Plt Count 147 L (150-400) K/uL Sodium 139 L (140-148) mmol/L Potassium 4.1 (3.6-5.2) mmol/L Chloride 103 (100-108) mmol/L Carbon Dioxide 16 L (21-32) mmol/L Anion Gap 24.1 H (5.0-14.0) mmol/L BUN 44 H (7-18) mg/dL Creatinine 1.6 H D (0.8-1.3) mg/dL Est Cr Clr Drug Dosing 37.21 mL/min Estimated GFR (MDRD) 42 L (>60) Glucose 209 H (74-106) mg/dL Calcium 8.0 L (8.5-10.1) mg/dL Magnesium (1.8-2.4) mg/dL Blood Type A NEGATIVE Gel Antibody Screen Negative Crossmatch See Detail 10/06/19 Range/Units 05:05 WBC (4.5-11.0) K/uL RBC (4.30-5.90) M/uL Hgb (12.0-15.0) g/dL Hct (40.0-54.0) % MCV (80-98) fL MCH (27-31) pg MCHC (32-36) % Plt Count (150-400) K/uL Sodium (140-148) mmol/L Potassium (3.6-5.2) mmol/L Chloride (100-108) mmol/L Carbon Dioxide (21-32) mmol/L Anion Gap (5.0-14.0) mmol/L BUN (7-18) mg/dL Creatinine (0.8-1.3) mg/dL Est Cr Clr Drug Dosing mL/min Estimated GFR (MDRD) (>60) Glucose (74-106) mg/dL Calcium (8.5-10.1) mg/dL Magnesium 1.6 L (1.8-2.4) mg/dL Blood Type Gel Antibody Screen Crossmatch Result Diagrams: 10/06/19 05:05 10/06/19 05:05 Imaging Impressions Last 24 hrs: CT scan of the abdomen and pelvis-images were personally reviewed-there is a small right pleural effusion. Liver appears to be cirrhotic. Gastric wall appears to be slightly thickened. No obvious intra-abdominal masses or lymphadenopathy. Sepsis Event Note - Evaluation Sepsis Screening Result: No Definite Risk - Focused Exam Vital Signs: Vital Signs Temp Temp Pulse Resp BP Pulse Ox 10/06/19 07:34 36.4 C 70 18 124/63 10/06/19 06:51 36.4 C 75 13 10/06/19 06:00 71 13 107/75 98 10/06/19 05:30 71 19 110/69 97 10/06/19 05:00 76 16 113/67 98 10/06/19 04:54 36.0 C L 78 15 113/67 99 Date Exam was Performed: 10/06/19 Time Exam was Performed: 10:24 *Q Meaningful Use (ADM) - VTE *Q VTE Pharmacological Contraindications *Q: Active Hemorrhage - VTE Risk Assess *Q Each Risk Factor Represents 1 Point: None Total Score 1 Point Risk Factors: 0 Each Risk Factor Represents 2 Points: None Total Score 2 Point Risk Factors: 0 Each Risk Factor Represents 3 Points: Age 75 Years or Greater Total Score 3 Point Risk Factors: 3 Each Risk Factor Represents 5 Points: None Total Score 5 Point Risk Factors: 0 Venous Thromboembolism Risk Factor Score *Q: 3 - Problem List (1) Acute upper gastrointestinal hemorrhage SNOMED Code(s): 81989894 ICD Code: K92.2 - GASTROINTESTINAL HEMORRHAGE, UNSPECIFIED Status: Acute Current Visit: Yes (2) Erosive esophagitis SNOMED Code(s): 76077975 ICD Code: K22.10 - ULCER OF ESOPHAGUS WITHOUT BLEEDING Status: Acute Current Visit: No (3) Anemia due to blood loss, acute SNOMED Code(s): 171258331 ICD Code: D62 - ACUTE POSTHEMORRHAGIC ANEMIA Status: Acute Current Visit : Yes (4) Stage 3 chronic kidney disease SNOMED Code(s): 277053777 ICD Code: N18.3 - CHRONIC KIDNEY DISEASE, STAGE 3 (MODERATE) Status: Chronic Current Visit: Yes (5) Type 2 diabetes mellitus SNOMED Code(s): 12528822 ICD Code: E11.9 - TYPE 2 DIABETES MELLITUS WITHOUT COMPLICATIONS Status: Chronic Current Visit: No Qualifiers: Diabetes mellitus mcc insulin use: without termite treater use Diabetes mellitus complication status: without complication Qualified Code(s): E11.9 - Type 2 diabetes mellitus without complications Problem List Initiated/Reviewed/Updated: Yes Orders Last 24hrs: Active Orders 24 hr Category Date Time Status Patient Status Manage Transfer [TRANSFER] Routine ADT 10/06/19 07:33 Active Abdomen Pelvis w Cont [CT] Stat Exams 10/06/19 05:24 Ordered RED BLOOD CELLS LP [BBK] Stat Lab 10/06/19 05:05 Results TYPE AND SCREEN [BBK] Stat Lab 10/06/19 05:05 Results Iopamidol [Isovue-300 (61%)] Med 10/06/19 05:45 Active 100 ml IV . DIRECTED Pantoprazole [ProTONIX IV] 80 mg Med 10/06/19 05:30 Active Sodium Chloride 0.9% [Normal Saline] 100 ml IV .BOLUS Sodium Chloride 0.9% [Normal Saline] 80 ml Med 10/06/19 05:45 Active IV ASDIRECTED Sodium Chloride 0.9% [Saline Flush] Med 10/06/19 05:39 Active 10 ml FLUSH ASDIRECTED PRN Transfuse Red Blood Cells [COMM] Urgent Oth 10/06/19 05:18 Ordered Resuscitation Status Routine Resus Stat 10/06/19 07:34 Ordered Medication Orders Pantoprazole Sodium 80 mg/ (Sodium Chloride) 100 mls @ 200 mls/hr IV .BOLUS JEANETTE Last Admin: 10/06/19 05:50 Dose: 200 mls/hr Sodium Chloride (Normal Saline) 80 mls @ 3 mls/sec IV ASDIRECTED JEANETTE Iopamidol (Isovue-300 (61%)) 100 ml IV . DIRECTED JEANETTE Sodium Chloride (Saline Flush) 10 ml FLUSH ASDIRECTED PRN PRN Reason: Keep Vein Open Assessment/Plan Comment:: ASSESSMENT AND PLAN - Acute upper gastrointestinal hemorrhage-complicated by anemia due to blood loss. I suspect this is related to his erosive esophagitis that was recently diagnosed. Hemoglobin has dropped significantly since hospital discharge. Fortunately his vital signs are stable at this time but blood pressure is on the low side of normal. He is receiving 2 units of blood that were ordered from the emergency room and has received an IV proton pump inhibitor and sucralfate. -N.p.o. status -Twice daily IV proton pump inhibitor -Sucralfate 4 times a day -IV fluids -Repeat hemoglobin this afternoon Cirrhosis-very small amount of ascites but otherwise stable and well compensated. Type 2 diabetes mellitus-very well controlled by history and is on only oral metformin. -Hold metformin until he starts eating again Maintenance issues - - DVT prophylaxis -mechanical with active hemorrhage - GI prophylaxis -PPI - Nutrition -nothing by mouth - Omy catheter -not indicated CODE STATUS -full code Admission justification -this patient will be admitted for inpatient services and is medically appropriate meeting medical necessity for inpatient admission as outlined in my documentation. I reasonably expect the patient will require inpatient services that span a period time over 2 midnights. I reasonably expect this patient to be discharged or transferred within 96 hours [facility]. Disposition -I would anticipate discharge home after the hospital stay Primary care physician - [place] [facility] Etienne Del Rio M.D. - Mortality Measure Prognosis:: Good
[2019-10-06] MEDS: Sodium Chloride 0.9% 10 ML Syringe FLUSH PRN (07:47)
[2019-10-06] MEDS ORDERED: Ondansetron 4 MG/2 ML SDV IV PRN (07:59)
[2019-10-06] MEDS ORDERED: Acetaminophen 325 MG Tab PO PRN (07:59)
[2019-10-06] MEDS ORDERED: Magnesium Hydroxide 400 MG/5 ML Susp 30 ML Cup PO PRN (07:59)
[2019-10-06] MEDS ORDERED: LORazepam 2 MG/ML SDV IVPUSH PRN (07:59)
[2019-10-06] MEDS ORDERED: Ondansetron 4 MG Tab.DIS PO PRN (07:59)
--- NOTE | 2019-10-06 08:23 | CRLCT ---
INDICATION: recurrent UGI bleeding, hx of cirrhosis HISTORY: Upper GI bleed. COMPARISON: CT of the abdomen and pelvis, 03/09/2019. TECHNIQUE: CT of the abdomen and pelvis. 100 cc of Isovue-300 IV. Coronal/sagittal reconstruction images. FINDINGS: Lung bases: Moderate right pleural effusion, which is smaller today when compared with 03/09/2019. Coronary artery calcifications, and calcifications in the mitral anulus. There is no pericardial or left pleural effusion. Passive atelectasis adjacent to the right pleural effusion. No basilar pneumothorax. Abdomen/pelvis: Cirrhotic liver morphology. No solid hepatic mass. The portal vein is patent. SMV and splenic vein are patent. Spleen size is within normal limits. 14 mm low-density lesion in the spleen on image 49, series 2, is indeterminate. No adrenal mass. No hydronephrosis. No perinephric inflammatory changes. There is no pancreatic mass, pancreatic duct dilation, or glandular atrophy. There is gastric wall thickening, which is seen best on image 28, series 2. The prostate is enlarged. This may be correlated with digital rectal exam/PSA. The prostate measures 5.1 x 6.4 cm in AP and transverse dimensions. Trace amount of pelvic ascites. Colonic diverticulosis. No clear evidence for diverticulitis. There is circumferential wall thickening of the ascending colon, and cecum, which may be related to the presence of ascites/cirrhosis. This is similar to 03/09/2019. On today`s exam, this finding is seen on image 85, series 2. There is no pneumatosis or portal venous gas. There is a duodenal diverticulum without inflammatory changes, image 54, series 2, which measures 37 mm in dimension. Degenerative atherosclerotic plaque throughout the abdominal aorta. There are common iliac artery aneurysms, with a thrombosed portion on image 86, series 2 involving the left common iliac artery. Left common iliac artery measures up to 25 mm. Right common iliac artery measures up to 16 mm. Infrarenal abdominal aorta measures up to 28 mm. There is no intramural hematoma. There are nonenlarged lymph nodes present in the pelvis. There is no retroperitoneal, gastrohepatic ligament, or portal caval lymphadenopathy. No common bile duct stone or mass. Gallbladder is presumably surgically absent. Re- cannulization of the paraumbilical vein, compatible with portal hypertension. The bone windows demonstrate degenerative changes at the hips. There is a sclerotic lesion present at the left iliac bone, measuring 16 mm. This is stable from previous, and does not have suspicious features on CT. There is no cortical break or soft tissue component. 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 There is a compression fracture at T12. This involves the superior endplate, and is unchanged from 03/09/2019. IMPRESSION: 1. Cirrhotic liver morphology, with a small volume ascites, and evidence of portal hypertension. 2. Right pleural effusion with passive atelectasis. The right pleural effusion has diminished in size when compared with 03/09/2019. 3. Gastric thickening. Stable duodenal diverticulum without inflammatory changes. 4. Circumferential wall thickening of the cecum and ascending colon, which is stable, and may be related to the presence of ascites/liver disease. 5. Bilateral common iliac artery aneurysms, unchanged. 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 6. No abdominal/pelvic lymphadenopathy by size criteria. Dictated by Dom Haque MD @ 10/06/2019 8:22:18 AM Please note that all CT scans at this facility use dose modulation, iterative reconstruction, and/or weight-based dosing when appropriate to reduce radiation dose to as low as reasonably achievable. Dictated by: Dom Haque MD @ 10/06/2019 08:22:26 (Electronically Signed)
[2019-10-06] MEDS: Sodium Chloride 0.9% 1,000 ML IV SCH ×2 (09:11→21:36)
[2019-10-06] MEDS: Levothyroxine 50 MCG Tab PO SCH (09:12)
[2019-10-06] MEDS: Magnesium Sulfate/Water 2 GM in Premix Bag 1 BAG IV SCH ×2 (09:13→16:03)
[2019-10-06] MEDS: Sucralfate Suspension 1 GM/10 ML Cup PO SCH ×3 (11:01→20:28)
[2019-10-06] MEDS: Pantoprazole 40 MG Vial IV SCH (17:25)
[2019-10-06] MEDS: Melatonin 3 MG Tab PO SCH (20:28)
[2019-10-07] MEDS: Pantoprazole 40 MG Vial IV SCH ×2 (06:13→17:10)
[2019-10-07] MEDS: Sucralfate Suspension 1 GM/10 ML Cup PO SCH ×4 (06:13→20:39)
[2019-10-07] MEDS: Sodium Chloride 0.9% 1,000 ML IV SCH (07:35)
[2019-10-07] MEDS: Levothyroxine 50 MCG Tab PO SCH (07:35)
--- NOTE | 2019-10-07 10:32 | PCM.PN ---
- General Info Date of Service: 10/07/19 Subjective Update: Mr. Schwartz is experienced a mild decrease in hemoglobin since yesterday now at 7.3. There has been no further evidence of active bleeding and he reports that he otherwise feels well. Denies lightheadedness, shortness of breath, or chest pain. Denies any abdominal pain and has tolerated clear liquids since last night. Functional Status: Reports: Tolerating Diet, Ambulating, Urinating - Review of Systems General: Reports: No Symptoms Pulmonary: Reports: No Symptoms Cardiovascular: Reports: No Symptoms Gastrointestinal: Reports: No Symptoms - Patient Data Vitals - Most Recent: Last Vital Signs Temp 96.6 F L 10/07/19 08:00 Pulse 61 10/07/19 10:00 Resp 16 10/07/19 10:00 BP 113/49 L 10/07/19 10:00 Pulse Ox 97 10/07/19 10:00 Weight - Most Recent: 150 lb I&O - Last 24 Hours: Intake & Output 10/06/19 10/07/19 10/07/19 22:59 06:59 14:59 Intake Total 603 860 Output Total 725 275 Balance -122 -275 860 Lab Results Last 24 Hours: Laboratory Results - last 24 hr 10/06/19 10/06/19 10/07/19 Range/Units 05:05 17:25 05:44 WBC 4.6 (4.5-11.0) K/uL RBC 2.76 L (4.30-5.90) M/uL Hgb 7.6 L 7.3 L (12.0-15.0) g/dL Hct 23.5 L (40.0-54.0) % MCV 85 (80-98) fL MCH 26 L (27-31) pg MCHC 31 L (32-36) % Plt Count 96 L (150-400) K/uL Sodium (140-148) mmol/L Potassium (3.6-5.2) mmol/L Chloride (100-108) mmol/L Carbon Dioxide (21-32) mmol/L Anion Gap (5.0-14.0) mmol/L BUN (7-18) mg/dL Creatinine (0.8-1.3) mg/dL Est Cr Clr Drug Dosing mL/min Estimated GFR (MDRD) (>60) Glucose (74-106) mg/dL Calcium (8.5-10.1) mg/dL Crossmatch See Detail 10/07/19 Range/Units 05:44 WBC (4.5-11.0) K/uL RBC (4.30-5.90) M/uL Hgb (12.0-15.0) g/dL Hct (40.0-54.0) % MCV (80-98) fL MCH (27-31) pg MCHC (32-36) % Plt Count (150-400) K/uL Sodium 140 (140-148) mmol/L Potassium 3.8 (3.6-5.2) mmol/L Chloride 107 (100-108) mmol/L Carbon Dioxide 26 (21-32) mmol/L Anion Gap 7.2 (5.0-14.0) mmol/L BUN 31 H (7-18) mg/dL Creatinine 1.0 (0.8-1.3) mg/dL Est Cr Clr Drug Dosing 59.53 mL/min Estimated GFR (MDRD) > 60 (>60) Glucose 142 H (74-106) mg/dL Calcium 7.3 L (8.5-10.1) mg/dL Crossmatch Med Orders - Current: Current Medications Acetaminophen (Tylenol) 650 mg PO Q4H PRN PRN Reason: Pain (Mild 1-3)/fever Levothyroxine Sodium (Synthroid) 50 mcg PO ACBREAKFAST [facility] Last Admin: 10/07/19 07:35 Dose: 50 mcg Lorazepam (Ativan) 0.5 mg IVPUSH Q4H PRN PRN Reason: Nausea/Vomiting Magnesium Hydroxide (Milk Of Magnesia) 30 ml PO Q12H PRN PRN Reason: Constipation Melatonin (Melatonin) 9 mg PO BEDTIME [facility] Last Admin: 10/06/19 20:28 Dose: 9 mg Ondansetron HCl (Zofran Odt) 4 mg PO Q6H PRN PRN Reason: Nausea able to take PO Ondansetron HCl (Zofran) 4 mg IV Q6H PRN PRN Reason: Nausea/Vomiting Pantoprazole Sodium (Protonix Iv) 40 mg IV Q12H [facility] Last Admin: 10/07/19 06:13 Dose: 40 mg Senna/Docusate Sodium (Senna Plus) 1 tab PO BID PRN PRN Reason: Constipation Sodium Chloride (Saline Flush) 10 ml FLUSH ASDIRECTED PRN PRN Reason: Keep Vein Open Last Admin: 10/06/19 07:47 Dose: 10 ml Sucralfate (Carafate) 1 gm PO QIDACANDBED [facility] Last Admin: 10/07/19 06:13 Dose: 1 gm Discontinued Medications Pantoprazole Sodium 80 mg/ (Sodium Chloride) 100 mls @ 200 mls/hr IV .BOLUS [facility] Last Admin: 10/06/19 05:50 Dose: 200 mls/hr Lactated Ringer's (Ringers, Lactated) 1,000 mls @ 150 mls/hr IV ASDIRECTED [facility] Sodium Chloride (Normal Saline) 80 mls @ 3 mls/sec IV ASDIRECTED [facility] Last Admin: 10/06/19 07:47 Dose: 3 mls/sec Lactated Ringer's (Ringers, Lactated) 1,000 mls @ 999 mls/hr IV BOLUS ONE Stop: 10/06/19 06:47 Last Admin: 10/06/19 06:07 Dose: 999 mls/hr Sodium Chloride (Normal Saline) 1,000 mls @ 100 mls/hr IV ASDIRECTED [facility] Last Admin: 10/07/19 07:35 Dose: 100 mls/hr Magnesium Sulfate 2 gm/ Premix 50 mls @ 25 mls/hr IV Q6H [facility] Stop: 10/06/19 17:59 Last Admin: 10/06/19 16:03 Dose: 25 mls/hr Iopamidol (Isovue-300 (61%)) 100 ml IV . DIRECTED [facility] Stop: 10/06/19 22:00 Last Admin: 10/06/19 07:47 Dose: 100 ml Magnesium Oxide (Magnesium Oxide) 400 mg PO ONETIME ONE Stop: 10/06/19 05:34 Last Admin: 10/06/19 05:50 Dose: 400 mg Sucralfate (Carafate) 1 gm PO ONETIME ONE Stop: 10/06/19 05:24 Last Admin: 10/06/19 05:50 Dose: 1 gm - Exam General: Alert, Oriented, Cooperative, No Acute Distress Lungs: Clear to Auscultation, Normal Respiratory Effort Cardiovascular: Regular Rate, Regular Rhythm, No Murmurs GI/Abdominal Exam: Soft, Non-Tender, No Organomegaly, No Distention Extremities: Non-Tender, No Pedal Edema Sepsis Event Note - Evaluation Sepsis Screening Result: No Definite Risk - Focused Exam Vital Signs: Vital Signs Temp Pulse Resp BP Pulse Ox 10/07/19 10:00 61 16 113/49 L 97 10/07/19 08:00 96.6 F L 49 L 16 127/71 97 10/07/19 06:00 50 L 17 122/61 96 10/07/19 04:00 97.1 F 53 L 17 110/56 L 96 10/07/19 02:00 51 L 17 98/56 L 97 10/07/19 00:00 96.4 F L 55 L 16 104/60 95 Date Exam was Performed: 10/07/19 Time Exam was Performed: 10:28 - Problem List Review Problem List Initiated/Reviewed/Updated: Yes - My Orders Last 24 Hours: My Active Orders 10/07/19 10:25 Convert IV to Saline Lock [OM.PC] Routine 10/07/19 10:27 Transfuse Red Blood Cells [COMM] Urgent 10/07/19 17:00 HGB [HEMOGLOBIN] [HEME] Stat 10/07/19 Lunch GI Soft Low Fiber [Soft Diet] [DIET] 10/08/19 05:11 HGB [HEMOGLOBIN] [HEME] AM - Plan Plan:: ASSESSMENT AND PLAN Acute upper gastrointestinal hemorrhage-complicated by anemia due to blood loss. I suspect this is related to his erosive esophagitis that was recently diagnosed. Overall stable since yesterday with only mild decrease in hemoglobin to 7.3. -Low residue diet -Twice daily IV proton pump inhibitor -Sucralfate 4 times a day -Saline lock IV -Repeat hemoglobin this afternoon and in a.m. Cirrhosis-very small amount of ascites but otherwise stable and well compensated. Type 2 diabetes mellitus-very well controlled by history and is on only oral metformin. -Resume Metformin Maintenance issues - - DVT prophylaxis -mechanical with active hemorrhage - GI prophylaxis -PPI - Nutrition -nothing by mouth - Moy catheter -not indicated CODE STATUS -full code Admission justification -this patient will be admitted for inpatient services and is medically appropriate meeting medical necessity for inpatient admission as outlined in my documentation. I reasonably expect the patient will require inpatient services that span a period time over 2 midnights. I reasonably expect this patient to be discharged or transferred within 96 hours [facility] Disposition -I would anticipate discharge home after the hospital stay Primary care physician - [place] system
[2019-10-07] MEDS: Sodium Chloride 0.9% 10 ML Syringe FLUSH PRN (14:49)
[2019-10-07] MEDS: metFORMIN 500 MG Tab PO SCH (18:00)
[2019-10-07] MEDS: Melatonin 3 MG Tab PO SCH (20:39)
[2019-10-08 06:03] VITALS: BP 101/56
[2019-10-08] MEDS: Pantoprazole 40 MG Vial IV SCH (06:55)
[2019-10-08] MEDS: Sucralfate Suspension 1 GM/10 ML Cup PO SCH (07:04)
[2019-10-08] MEDS: Levothyroxine 50 MCG Tab PO SCH (07:29)
[2019-10-08] MEDS: metFORMIN 500 MG Tab PO SCH (07:30)
[2019-10-08 07:38] VITALS: PULSE 64
--- NOTE | 2019-10-08 10:56 | PCM.DCSUM1 ---
Discharge Summary - Hospital Course Brief History: Mr. Schwartz is a 79-year-old gentleman who was readmitted through the emergency department with recurrent upper GI bleed secondary to erosive esophagitis. - Discharge Data Discharge Date: 10/08/19 Discharge Disposition: Home, Self-Care 01 Condition: Good - Referral to Home Health Primary Care Physician: PCP None - Discharge Diagnosis/Problem(s) (1) Erosive esophagitis SNOMED Code(s): 23303269 ICD Code: K22.10 - ULCER OF ESOPHAGUS WITHOUT BLEEDING Status: Acute Current Visit: No (2) Acute upper gastrointestinal hemorrhage SNOMED Code(s): 66026323 ICD Code: K92.2 - GASTROINTESTINAL HEMORRHAGE, UNSPECIFIED Status: Acute Current Visit: Yes (3) Anemia due to blood loss, acute SNOMED Code(s): 252775137 ICD Code: D62 - ACUTE POSTHEMORRHAGIC ANEMIA Status: Acute Current Visit : Yes (4) Stage 3 chronic kidney disease SNOMED Code(s): 652775900 ICD Code: N18.3 - CHRONIC KIDNEY DISEASE, STAGE 3 (MODERATE) Status: Chronic Current Visit: Yes (5) Cirrhosis of liver SNOMED Code(s): 43055318 ICD Code: K74.60 - UNSPECIFIED CIRRHOSIS OF LIVER Status: Chronic Current Visit: No Qualifiers: Hepatic cirrhosis type: unspecified hepatic cirrhosis Ascites presence: without ascites Qualified Code(s): K74.60 - Unspecified cirrhosis of liver (6) Type 2 diabetes mellitus SNOMED Code(s): 58450419 ICD Code: E11.9 - TYPE 2 DIABETES MELLITUS WITHOUT COMPLICATIONS Status: Chronic Current Visit: No Qualifiers: Diabetes mellitus group home insulin use: without long term care administrator use Diabetes mellitus complication status: without complication Qualified Code(s): E11.9 - Type 2 diabetes mellitus without complications - Patient Summary/Data Hospital Course: Mr. Schwartz presented to the emergency room after 4 episodes of vomiting. Emesis was brown in color and had a consistency of coffee grounds. He had been just discharged from this facility for a episode of upper GI bleed with associated acute blood loss anemia. EGD performed during that admission showed evidence of erosive esophagitis was was felt to be the source of that bleed. He does have some mild dizziness and feels weak all over. No complaints of shortness of breath or chest pain. He said things have been going well since he got out of the hospital. Appetite had been good. He had been consuming only soft foods and thought he had been doing well until around 3 AM this morning before coming to the hospital. He has not been out of his apartment and has not had any sick contacts. He has not had any melena as of yet. Work- up in the emergency room revealed anemia due to blood loss with a hemoglobin of less than 7. Other labs are relatively stable. He has received 80 mg of pantoprazole as well as a dose of sucralfate. He is receiving IV fluids. 2 units of blood have been ordered from the emergency room and infusion will be started momentarily. He will be admitted to the intensive care unit for further management. After transfusion of 2 units of red blood cells hemoglobin was found to be 7.3 and the following morning. He received 1 additional unit of red blood cells and prior to discharge his hemoglobin was 8.1 and had remained fairly stable over the previous 24 hours. There had been no further evidence of active bleeding and he was tolerating a soft low residue diet. He will be continued on Protonix 80 mg twice daily after discharge and will also be on Carafate 1 g p.o. 4 times daily. He will return to the emergency department if he notes recurrent nausea vomiting hematemesis or melena, as well as symptoms of lightheadedness weakness or shortness of breath. Activity will be as tolerated and he will be on a soft low residue diet. Follow-up appointment should be with primary care within 3 days with a follow-up hemoglobin at that time. - Patient Instructions Diet: GI Soft/Low Residue/Low Fiber Activity: As Tolerated Other/Special Instructions: Schedule follow-up appointment with primary care provider in the next 3 days. Hemoglobin should be obtained at the time of follow-up appointment. Patient should return immediately to the emergency department if he notes recurrent weakness, shortness of breath, lightheadedness , or black appearing stool. - Discharge Plan *PRESCRIPTION DRUG MONITORING PROGRAM REVIEWED*: Not Applicable *COPY OF PRESCRIPTION DRUG MONITORING REPORT IN PATIENT JAIRO: Not Applicable Prescriptions/Med Rec: Sucralfate [Carafate] 1 gm PO QIDACANDBED #1200 ml Home Medications: Home Meds Levothyroxine Sodium [Synthroid] 50 mcg PO DAILY 11/29/14 [History] metFORMIN [Glucophage] 500 mg PO BIDMEALS 11/29/14 [History] Spironolactone [Aldactone] 50 mg PO BID 10/02/19 [History] Pantoprazole [ProTONIX] 80 mg PO BIDAC 10/06/19 [History] Sucralfate [Carafate] 1 gm PO QIDACANDBED #1200 ml 10/08/19 [Rx] Referrals: PCP,None [Primary Care Provider] - - Discharge Summary/Plan Comment DC Time >30 min.: No - Patient Data Vitals - Most Recent: Last Vital Signs Temp 96.4 F L 10/08/19 07:37 Pulse 64 10/08/19 07:37 Resp 16 10/08/19 07:37 BP 101/56 L 10/08/19 07:37 Pulse Ox 98 10/08/19 07:37 Weight - Most Recent: 150 lb 0.005 oz I&O - Last 24 hours: Intake & Output 10/07/19 10/08/19 10/08/19 22:59 06:59 14:59 Intake Total 360 Output Total 175 400 Balance 185 -400 Lab Results - Last 24 hrs: Laboratory Results - last 24 hr 10/06/19 10/07/19 10/08/19 Range/Units 05:05 16:49 05:11 Hgb 8.7 L 8.1 L (12.0-15.0) g/dL Blood Type A NEGATIVE Gel Antibody Screen Negative Crossmatch See Detail Med Orders - Current: Current Medications Acetaminophen (Tylenol) 650 mg PO Q4H PRN PRN Reason: Pain (Mild 1-3)/fever Levothyroxine Sodium (Synthroid) 50 mcg PO ACBREAKFAST [facility] Last Admin: 10/08/19 07:29 Dose: 50 mcg Lorazepam (Ativan) 0.5 mg IVPUSH Q4H PRN PRN Reason: Nausea/Vomiting Magnesium Hydroxide (Milk Of Magnesia) 30 ml PO Q12H PRN PRN Reason: Constipation Melatonin (Melatonin) 9 mg PO BEDTIME [facility] Last Admin: 10/07/19 20:39 Dose: 9 mg Metformin HCl (Glucophage) 500 mg PO BIDMEALS [facility] Last Admin: 10/08/19 07:30 Dose: 500 mg Ondansetron HCl (Zofran Odt) 4 mg PO Q6H PRN PRN Reason: Nausea able to take PO Ondansetron HCl (Zofran) 4 mg IV Q6H PRN PRN Reason: Nausea/Vomiting Pantoprazole Sodium (Protonix Iv) 40 mg IV Q12H [facility] Last Admin: 10/08/19 06:55 Dose: 40 mg Senna/Docusate Sodium (Senna Plus) 1 tab PO BID PRN PRN Reason: Constipation Sodium Chloride (Saline Flush) 10 ml FLUSH ASDIRECTED PRN PRN Reason: Keep Vein Open Last Admin: 10/07/19 14:49 Dose: 10 ml Sucralfate (Carafate) 1 gm PO QIDACANDBED [facility] Last Admin: 10/08/19 07:04 Dose: 1 gm Discontinued Medications Pantoprazole Sodium 80 mg/ (Sodium Chloride) 100 mls @ 200 mls/hr IV .BOLUS [facility] Last Admin: 10/06/19 05:50 Dose: 200 mls/hr Lactated Ringer's (Ringers, Lactated) 1,000 mls @ 150 mls/hr IV ASDIRECTED [facility] Sodium Chloride (Normal Saline) 80 mls @ 3 mls/sec IV ASDIRECTED [facility] Last Admin: 10/06/19 07:47 Dose: 3 mls/sec Lactated Ringer's (Ringers, Lactated) 1,000 mls @ 999 mls/hr IV BOLUS ONE Stop: 10/06/19 06:47 Last Admin: 10/06/19 06:07 Dose: 999 mls/hr Sodium Chloride (Normal Saline) 1,000 mls @ 100 mls/hr IV ASDIRECTED [facility] Last Admin: 10/07/19 07:35 Dose: 100 mls/hr Magnesium Sulfate 2 gm/ Premix 50 mls @ 25 mls/hr IV Q6H [facility] Stop: 10/06/19 17:59 Last Admin: 10/06/19 16:03 Dose: 25 mls/hr Iopamidol (Isovue-300 (61%)) 100 ml IV . DIRECTED [facility] Stop: 10/06/19 22:00 Last Admin: 10/06/19 07:47 Dose: 100 ml Magnesium Oxide (Magnesium Oxide) 400 mg PO ONETIME ONE Stop: 10/06/19 05:34 Last Admin: 10/06/19 05:50 Dose: 400 mg Sucralfate (Carafate) 1 gm PO ONETIME ONE Stop: 10/06/19 05:24 Last Admin: 10/06/19 05:50 Dose: 1 gm - Exam General: Reports: Alert, Oriented, Cooperative, No Acute Distress Lungs: Reports: Clear to Auscultation, Normal Respiratory Effort Cardiovascular: Reports: Regular Rate, Regular Rhythm, No Murmurs GI/Abdominal Exam: Soft, Non-Tender, No Organomegaly, No Distention *Q Meaningful Use (DIS) - VTE *Q VTE Pharmacological Contraindications *Q: Active Hemorrhage
== END 2019-10-08 13:05 | disposition home or self-care (01) | DRG 812 ==
LOC: JP.ED 04:49 → JP.ICU 07:33
PROVIDERS: ADMIT Internal Medicine; ATTEND Internal Medicine
PROC: 30233N1 Transfusion of Nonautologous Red Blood Cells into Peripheral Vein, Percutaneous Approach (ICD-10-PCS; principal; 2019-10-06)
DX: K92.2 Gastrointestinal hemorrhage, unspecified (principal); E83.42 Hypomagnesemia; D62 Acute posthemorrhagic anemia; H91.93 Unspecified hearing loss, bilateral; I10 Essential (primary) hypertension; I71.4 Abdominal aortic aneurysm, without rupture; K22.10 Ulcer of esophagus without bleeding; I12.9 Hypertensive chronic kidney disease with stage 1 through stage 4 chronic kidney disease, or unspecified chronic kidney disease; M10.9 Gout, unspecified; E11.9 Type 2 diabetes mellitus without complications; N18.3 Chronic kidney disease, stage 3 (moderate); Z85.828 Personal history of other malignant neoplasm of skin; E11.22 Type 2 diabetes mellitus with diabetic chronic kidney disease; K74.60 Unspecified cirrhosis of liver; K21.9 Gastro-esophageal reflux disease without esophagitis; N40.0 Benign prostatic hyperplasia without lower urinary tract symptoms; Z98.49 Cataract extraction status, unspecified eye; Z79.84 Long term (current) use of oral hypoglycemic drugs; Z79.899 Other long term (current) drug therapy; Z79.890 Hormone replacement therapy; Z91.030 Bee allergy status; Z88.8 Allergy status to other drugs, medicaments and biological substances; Z90.49 Acquired absence of other specified parts of digestive tract
CPT/HCPCS: 36415; 36430; 74177; 80048; 83735; 85027; 86850; 86900; 86901; 86920 ×2; 86922 ×2; 96361; 96365; 99285 ×2; A9270 ×2; C9113; J7050; J7120; P9016; 85018; J3475; J7030; Q9967

== ENCOUNTER 2020-01-30 16:13 | Emergency (ER) | payer OTHER ==
[2020-01-30] MEDS ORDERED: Ondansetron 4 MG/2 ML SDV IVPUSH ONE (16:38)
[2020-01-30] MEDS ORDERED: Lactated Ringers 1,000 ML IV ONE (16:38)
[2020-01-30 16:42] VITALS: BP 125/84; PULSE 81
--- NOTE | 2020-01-30 16:50 | EDM.PDOC ---
ED HPI GENERAL MEDICAL PROBLEM - General Chief Complaint: Gastrointestinal Problem Stated Complaint: VOMITING Time Seen by Provider: 01/30/20 16:35 Source of Information: Reports: Patient, Old Records History Limitations: Reports: No Limitations - History of Present Illness INITIAL COMMENTS - FREE TEXT/NARRATIVE: 79 yo male here with vomiting since he awoke this morning. No hematemesis or fever. Stools are looser than normal, but not diarrhea. No abdominal pain or bloating. Does have ascites. No known exposures. Was tested a week ago for Covid-19 and was negative. Did not contact his primary before coming to the ER today. His primary care provider is with the [facility] in [place]. Onset: Today Onset Date: 01/30/20 Onset Time: 08:00 Duration: Hour(s):, Waxing/Waning Location: Reports: Generalized Quality: Reports: Other (no pain reported) Severity: Moderate Improves with: Reports: None Worsens with: Reports: Other (unknown) Context: Reports: Other (See HPI) Associated Symptoms: Reports: Nausea/Vomiting. Denies: Confusion, Chest Pain, Diaphoresis, Fever/Chills, Shortness of Breath Treatments RECORDS MANAGEMENT TECHNICIAN: Reports: Other (see below) (none) - Related Data Allergies Allergy/AdvReac Type Severity Reaction Status Date / Time venom-honey bee Allergy Swelling Verified 10/06/19 04:57 [bee venom (honey bee)] lisinopril AdvReac Cough Verified 10/06/19 04:57 Home Meds: Home Meds Levothyroxine Sodium [Synthroid] 50 mcg PO DAILY 11/29/14 [History] metFORMIN [Glucophage] 1,000 mg PO DAILY 11/29/14 [History] Spironolactone [Aldactone] 50 mg PO DAILY 10/02/19 [History] Pantoprazole [ProTONIX] 80 mg PO BIDAC 10/06/19 [History] Furosemide 10 mg PO DAILY 01/30/20 [History] Past Medical History HEENT History: Reports: Cataract, Hard of Hearing, Other (See Below) Other HEENT History: hearing aids Cardiovascular History: Reports: Aneurysm, Hypertension Other Cardiovascular History: mild abdominal aneurism Gastrointestinal History: Reports: GERD, GI Bleed Genitourinary History: Reports: BPH Musculoskeletal History: Reports: Gout, Other (See Below) Other Musculoskeletal History: broken ribs from fall Endocrine/Metabolic History: Reports: Diabetes, Type II, Hypothyroidism Hematologic History: Reports: Blood Transfusion(s), Iron Deficiency Oncologic (Cancer) History: Reports: Basal Cell Carcinoma - Infectious Disease History Infectious Disease History: Reports: Chicken Pox, Herpes, Measles, Mumps - Past Surgical History Head Surgeries/Procedures: Reports: None HEENT Surgical History: Reports: Cataract Surgery GI Surgical History: Reports: Appendectomy, Cholecystectomy, Hernia Repair/Other Male Surgical History: Reports: Prostate Biopsy Endocrine Surgical History: Reports: None Musculoskeletal Surgical History: Reports: None Oncologic Surgical History: Reports: Other (See Below) Other Oncologic Surgeries/Procedures: nose biopsy Dermatological Surgical History: Reports: None Social & Family History - Family History Cardiac: Reports: [place] - Caffeine Use Caffeine Use: Reports: Coffee ED ROS GENERAL - Review of Systems Review Of Systems: See Below Constitutional: Reports: No Symptoms HEENT: Reports: No Symptoms Respiratory: Reports: No Symptoms Cardiovascular: Reports: No Symptoms GI/Abdominal: Reports: Nausea, Vomiting. Denies: Abdominal Pain, Black Stool, Bloody Stool, Constipation, Diarrhea, Distension, Flatus, Hematemesis, Hematochezia, Melena : Reports: No Symptoms Musculoskeletal: Reports: No Symptoms Skin: Reports: No Symptoms Neurological: Reports: No Symptoms Psychiatric: Reports: No Symptoms ED EXAM, GI/ABD - Physical Exam Exam: See Below Exam Limited By: No Limitations General Appearance: Alert, WD/WN, No Apparent Distress Eyes: Bilateral: Normal Appearance Ears: Normal External Exam, Normal Canal, Hearing Loss. No: Hearing Grossly Normal Nose: Normal Inspection, No Blood Throat/Mouth: Normal Inspection, Normal Lips, Normal Oropharynx, Normal Voice, No Airway Compromise Head: Atraumatic, Normocephalic Neck: Normal Inspection Respiratory/Chest: No Respiratory Distress, Lungs Clear, Normal Breath Sounds, Chest Non-Tender Cardiovascular: Regular Rate, Rhythm, No Edema GI/Abdominal Exam: Normal Bowel Sounds, Soft, Non-Tender, No Distention, Other (some ascites present). No: Distended Back Exam: Normal Inspection Extremities: Normal Inspection, Normal Range of Motion, Non-Tender, No Pedal Edema Neurological: Alert, Oriented, CN II-XII Intact, Normal Cognition, No Motor/Sensory Deficits Course - Vital Signs Last Recorded V/S: Last Vital Signs Temp 37.6 C 01/30/20 17:00 Pulse 81 01/30/20 17:00 Resp 16 01/30/20 17:00 BP 125/84 01/30/20 17:00 Pulse Ox 97 01/30/20 17:00 - Orders/Labs/Meds Labs: Laboratory Tests 01/30/20 01/30/20 Range/Units 16:51 16:51 WBC 14.5 H (4.5-11.0) K/uL RBC 4.15 L (4.30-5.90) M/uL Hgb 8.7 L (12.0-15.0) g/dL Hct 29.4 L (40.0-54.0) % MCV 71 L (80-98) fL MCH 21 L (27-31) pg MCHC 30 L (32-36) % Plt Count 155 (150-400) K/uL Sodium 138 L (140-148) mmol/L Potassium 4.3 (3.6-5.2) mmol/L Chloride 104 (100-108) mmol/L Carbon Dioxide 23 (21-32) mmol/L Anion Gap 15.3 H (5.0-14.0) mmol/L BUN 11 D (7-18) mg/dL Creatinine 1.1 (0.8-1.3) mg/dL Est Cr Clr Drug Dosing 57.73 mL/min Estimated GFR (MDRD) > 60 (>60) Glucose 146 H (74-106) mg/dL Calcium 8.2 L (8.5-10.1) mg/dL Total Bilirubin 1.2 H (0.2-1.0) mg/dL AST 31 (15-37) U/L ALT 25 (12-78) U/L Alkaline Phosphatase 127 H (46-116) U/L Troponin I 0.043 (0.000-0.056) ng/mL Total Protein 7.6 (6.4-8.2) g/dL Albumin 2.6 L (3.4-5.0) g/dL Globulin 5.0 H (2.3-3.5) g/dL Albumin/Globulin Ratio 0.5 L (1.2-2.2) Meds: Medications Discontinued Medications Generic Name Dose Route Start Last Admin Trade Name Freq PRN Reason Stop Dose Admin Lactated Ringer's 1,000 mls @ 1,000 mls/hr 01/30/20 16:38 01/30/20 16:51 Ringers, Lactated IV 01/30/20 17:37 1,000 mls/hr BOLUS ONE Administration Ondansetron HCl 4 mg 01/30/20 16:38 01/30/20 16:52 Zofran IVPUSH 01/30/20 16:39 4 mg ONETIME ONE Administration - Re-Assessments/Exams Free Text/Narrative Re-Assessment/Exam: 01/30/20 17:46 Feeling much better after Zofran and IV fluids. Departure - Departure Time of Disposition: 18:00 Disposition: Home, Self-Care 01 Condition: Fair Clinical Impression: Nausea & vomiting Qualifiers: Vomiting type: hematemesis Qualified Code(s): K92.0 - Hematemesis - Discharge Information *PRESCRIPTION DRUG MONITORING PROGRAM REVIEWED*: Not Applicable *COPY OF PRESCRIPTION DRUG MONITORING REPORT IN PATIENT JAIRO: Not Applicable Instructions: Nausea and Vomiting, Adult, [id number] Referrals: Pari Matson MD [Primary Care Provider] - Forms: ED Department Discharge Additional Instructions: Use Zofran ODT 4 mg every 6 hrs under the tongue as needed for nausea control. Clear liquids tonight and advance diet as tolerated. Return if worse or not improving. Sepsis Event Note (ED) - Focused Exam Vital Signs: Vital Signs Temp Pulse Resp BP Pulse Ox 01/30/20 17:00 37.6 C 81 16 125/84 97 01/30/20 16:40 37.6 C 81 16 125/84 97
== END 2020-01-30 18:03 | disposition home or self-care (01) ==
LOC: JP.ED 16:13
DX: K92.0 Hematemesis (principal); E03.9 Hypothyroidism, unspecified; I10 Essential (primary) hypertension; K21.9 Gastro-esophageal reflux disease without esophagitis; Z91.030 Bee allergy status; Z88.8 Allergy status to other drugs, medicaments and biological substances; E11.9 Type 2 diabetes mellitus without complications; Z79.84 Long term (current) use of oral hypoglycemic drugs; Z79.899 Other long term (current) drug therapy
CPT/HCPCS: 36415; 80053; 84484; 85027; 96361; 96374; 99284; J2405; J7120

== ENCOUNTER 2020-06-08 16:41 | Emergency (ER) | payer OTHER ==
[2020-06-08] MEDS ORDERED: Sodium Chloride 0.9% 1,000 ML IV STA (17:33)
[2020-06-08] MEDS ORDERED: Sodium Chloride 0.9% 10 ML Syringe FLUSH PRN (17:33)
--- NOTE | 2020-06-08 17:39 | EDM.PDOC ---
<OfficerGibran - Last Filed: 06/08/20 17:40> ED HPI GENERAL MEDICAL PROBLEM - General Chief Complaint: Gastrointestinal Problem Stated Complaint: BLACK STOOLS Time Seen by Provider: 06/08/20 17:21 Source of Information: Reports: Patient, Old Records, RN Notes Reviewed History Limitations: Reports: No Limitations - History of Present Illness INITIAL COMMENTS - FREE TEXT/NARRATIVE: 79-year-old gentleman presents emergency department a complaint of black tarry stools he does have a history of erosive gastritis about a year ago had significant upper GI bleeding ended up transfusion of 2 units has had both EGD and colonoscopy done about a year ago. He states his been doing well for the last year and then over the last 24 hours he has had 4 bouts of black tarry stools 2 bouts of emesis but he denies any blood in his emesis or denies any coffee-ground colored emesis. He states his nausea feeling has gone away no shortness of breath no chest pain. He states he has abstained from alcohol for over 1 year. He does complain of some abdominal pain predominantly along the left flank it has been there for 1 months time he states it will wax and wane and is positional worse when he is bending - Related Data Allergies Allergy/AdvReac Type Severity Reaction Status Date / Time venom-honey bee Allergy Swelling Verified 10/06/19 04:57 [bee venom (honey bee)] lisinopril AdvReac Cough Verified 10/06/19 04:57 Home Meds: Home Meds Levothyroxine Sodium [Synthroid] 50 mcg PO DAILY 11/29/14 [History] metFORMIN [Glucophage] 1,000 mg PO DAILY 11/29/14 [History] Spironolactone [Aldactone] 50 mg PO DAILY 10/02/19 [History] Pantoprazole [ProTONIX] 80 mg PO BIDAC 10/06/19 [History] Furosemide 10 mg PO DAILY 01/30/20 [History] Ondansetron [Zofran ODT] 4 mg PO Q6H PRN #7 tab.dis 01/30/20 [Rx] Past Medical History HEENT History: Reports: Cataract, Hard of Hearing, Other (See Below) Other HEENT History: hearing aids Cardiovascular History: Reports: Aneurysm, Hypertension Other Cardiovascular History: mild abdominal aneurism Gastrointestinal History: Reports: GERD, GI Bleed, Other (See Below) Other Gastrointestinal History: Liver cirosis Genitourinary History: Reports: BPH Musculoskeletal History: Reports: Gout, Other (See Below) Other Musculoskeletal History: broken ribs from fall Endocrine/Metabolic History: Reports: Diabetes, Type II, Hypothyroidism Hematologic History: Reports: Blood Transfusion(s), Iron Deficiency Oncologic (Cancer) History: Reports: Basal Cell Carcinoma - Infectious Disease History Infectious Disease History: Reports: Chicken Pox, Herpes, Measles, Mumps - Past Surgical History Head Surgeries/Procedures: Reports: None HEENT Surgical History: Reports: Cataract Surgery Cardiovascular Surgical History: Reports: None GI Surgical History: Reports: Appendectomy, Cholecystectomy, Hernia Repair/Other Male Surgical History: Reports: Prostate Biopsy Endocrine Surgical History: Reports: None Musculoskeletal Surgical History: Reports: None Oncologic Surgical History: Reports: Other (See Below) Other Oncologic Surgeries/Procedures: nose biopsy Dermatological Surgical History: Reports: None Social & Family History - Family History Cardiac: Reports: [place] - Tobacco Use Tobacco Use Status *Q: Never Tobacco User - Caffeine Use Caffeine Use: Reports: Coffee ED ROS GENERAL - Review of Systems Review Of Systems: See Below Constitutional: Reports: Weakness HEENT: Reports: No Symptoms Respiratory: Reports: No Symptoms Cardiovascular: Reports: No Symptoms GI/Abdominal: Reports: Abdominal Pain, Black Stool, Flatus, Nausea, Vomiting : Reports: No Symptoms Musculoskeletal: Reports: No Symptoms Skin: Reports: No Symptoms Neurological: Reports: No Symptoms ED EXAM, GI/ABD - Physical Exam Exam: See Below Exam Limited By: No Limitations General Appearance: Alert, WD/WN, No Apparent Distress Neck: Normal Inspection, Supple, Non-Tender, Full Range of Motion Respiratory/Chest: No Respiratory Distress, Lungs Clear, Normal Breath Sounds, No Accessory Muscle Use, Chest Non-Tender Cardiovascular: Regular Rate, Rhythm, No Murmur GI/Abdominal Exam: Normal Bowel Sounds, Soft, Tender (Tender along the left flank) Rectal (Males) Exam: Normal Rectal Tone, Black Stool. No: Rectal Fissure, Tenderness Back Exam: Normal Inspection, Full Range of Motion. No: CVA Tenderness (R), CVA Tenderness (L) Extremities: No Pedal Edema Departure - Departure Disposition: DC/Tfer to Other Clinical Impression: Portal hypertension, Acute upper gastrointestinal hemorrhage GI bleed Qualifiers: GI bleed type/associated pathology: melena Qualified Code(s): K92.1 - Melena - Discharge Information Referrals: Pari Matson MD [Primary Care Provider] - Forms: ED Department Discharge Care Plan Goals: Patient will be transferred by EMS to [facility] for further evaluation of GI bleed and potential for esophageal varices or significant GI bleeding due to portal hypertension. Sepsis Event Note (ED) - Evaluation Sepsis Screening Result: No Definite Risk <Rufino Chambers - Last Filed: 06/08/20 20:54> Course - Vital Signs Last Recorded V/S: Last Vital Signs Temp 97.8 F 06/08/20 17:04 Pulse 79 06/08/20 20:26 Resp 19 06/08/20 20:26 BP 149/86 H 06/08/20 20:26 Pulse Ox 97 06/08/20 20:26 - Orders/Labs/Meds Orders: Active Orders 24 hr Category Date Time Status Peripheral IV Insertion Adult [OM.PC] Urgent Oth 06/08/20 17:33 Ordered Labs: Laboratory Tests 06/08/20 06/08/20 06/08/20 Range/Units 17:50 17:50 17:50 WBC 6.6 (4.5-11.0) K/uL RBC 3.62 L (4.30-5.90) M/uL Hgb 10.8 L D (12.0-15.0) g/dL Hct 33.6 L (40.0-54.0) % MCV 93 (80-98) fL MCH 30 (27-31) pg MCHC 32 (32-36) % Plt Count 118 L (150-400) K/uL Neut % (Auto) 59 (36-66) % Lymph % (Auto) 25 (24-44) % [place] % (Auto) 15 H (2-6) % Eos % (Auto) 1 L (2-4) % Baso % (Auto) 1 (0-1) % PT 12.3 H (9.5-12.0) sec INR 1.13 (0.80-1.20) Sodium 139 L (140-148) mmol/L Potassium 3.9 (3.6-5.2) mmol/L Chloride 106 (100-108) mmol/L Carbon Dioxide 24 (21-32) mmol/L Anion Gap 12.9 (5.0-14.0) mmol/L BUN 26 H D (7-18) mg/dL Creatinine 1.2 (0.8-1.3) mg/dL Est Cr Clr Drug Dosing 53.23 mL/min Estimated GFR (MDRD) 59 L (>60) Glucose 242 H (74-106) mg/dL Lactic Acid (0.4-2.0) mmol/L Calcium 8.1 L (8.5-10.1) mg/dL Total Bilirubin 0.9 (0.2-1.0) mg/dL AST 33 (15-37) U/L ALT 28 (12-78) U/L Alkaline Phosphatase 121 H (46-116) U/L Total Protein 6.6 (6.4-8.2) g/dL Albumin 2.2 L (3.4-5.0) g/dL Globulin 4.4 H (2.3-3.5) g/dL Albumin/Globulin Ratio 0.5 L (1.2-2.2) 11/30/20 Range/Units 17:50 WBC (4.5-11.0) K/uL RBC (4.30-5.90) M/uL Hgb (12.0-15.0) g/dL Hct (40.0-54.0) % MCV (80-98) fL MCH (27-31) pg MCHC (32-36) % Plt Count (150-400) K/uL Neut % (Auto) (36-66) % Lymph % (Auto) (24-44) % [place] % (Auto) (2-6) % Eos % (Auto) (2-4) % Baso % (Auto) (0-1) % PT (9.5-12.0) sec INR (0.80-1.20) Sodium (140-148) mmol/L Potassium (3.6-5.2) mmol/L Chloride (100-108) mmol/L Carbon Dioxide (21-32) mmol/L Anion Gap (5.0-14.0) mmol/L BUN (7-18) mg/dL Creatinine (0.8-1.3) mg/dL Est Cr Clr Drug Dosing mL/min Estimated GFR (MDRD) (>60) Glucose (74-106) mg/dL Lactic Acid 2.8 H (0.4-2.0) mmol/L Calcium (8.5-10.1) mg/dL Total Bilirubin (0.2-1.0) mg/dL AST (15-37) U/L ALT (12-78) U/L Alkaline Phosphatase (46-116) U/L Total Protein (6.4-8.2) g/dL Albumin (3.4-5.0) g/dL Globulin (2.3-3.5) g/dL Albumin/Globulin Ratio (1.2-2.2) Meds: Medications Discontinued Medications Generic Name Dose Route Start Last Admin Trade Name Freq PRN Reason Stop Dose Admin Sodium Chloride 1,000 mls @ 500 mls/hr 06/08/20 17:33 06/08/20 17:52 Normal Saline IV 06/08/20 19:32 500 mls/hr .BOLUS STA Administration Sodium Chloride 100 mls @ 3 mls/sec 06/08/20 18:00 06/08/20 18:57 Normal Saline IV 3 mls/sec ASDIRECTED JEANETTE Administration Iopamidol 100 ml 06/08/20 18:00 06/08/20 18:57 Isovue-300 (61%) IV 100 ml . DIRECTED JEANETTE Administration Octreotide Acetate 200 mcg 06/08/20 20:00 06/08/20 20:19 Sandostatin IVPUSH 06/08/20 20:01 200 mcg ONETIME ONE Administration Pantoprazole Sodium 40 mg 06/08/20 20:00 06/08/20 20:19 Protonix Iv IVPUSH 06/08/20 20:01 40 mg ONETIME ONE Administration Sodium Chloride 10 ml 06/08/20 17:33 06/08/20 17:49 Saline Flush FLUSH 10 ml ASDIRECTED PRN Administration Keep Vein Open Sodium Chloride 10 ml 06/08/20 17:52 06/08/20 18:57 Saline Flush FLUSH 06/08/20 17:53 10 ml ONETIME ONE Administration - Re-Assessments/Exams Free Text/Narrative Re-Assessment/Exam: 06/08/20 20:03 Care taken over from Officer pending CT scan and labs, patient here with GI bleed. Hemoglobin is 10.8, CT scan results are below. IMPRESSION: 1. Moderate size right pleural effusion and right basilar passive atelectasis unchanged. 2. Hepatic cirrhosis with findings of portal hypertension including ascites, collateral vasculature and splenomegaly. Findings are similar to the prior e xamination. 3. Pattern of diffuse GI wall thickening including the stomach, small bowel and portions of the colon without visible associated inflammatory change. This is similar to the prior study and probably due to portal hypertension and/or hypoproteinemia. 4. Unchanged abdominal aortic aneurysm and common iliac artery aneurysms. Markedly enlarged prostate. Degenerative changes of the spine with some progressive loss of height of T12. 5. The major findings are essentially unchanged since October 06, 2019 Patient continued to complain of persistent "burning sensation" and had an additional dark stool while in the emergency room. With his significant risk factors for GI bleed with portal hypertension and cirrhosis, I did not feel comfortable with him going home and following up as we do not have a bed here at our hospital. He was accepted at [facility] in [place], 200 mcg of octreotide was given as well as 40 mg of IV Protonix and transfer arranged. 06/08/20 20:25 Patient was scheduled to be transferred by ground but prior to leaving he had emesis of clots. This change the urgency of his transfer so [facility] was called, I also called [facility] and told them he was going to need an intensive care bed. Departure - Departure Time of Disposition: 20:40 Sepsis Event Note (ED) - Focused Exam Vital Signs: Vital Signs Temp Pulse Resp BP Pulse Ox 06/08/20 20:26 79 19 149/86 H 97 06/08/20 19:03 71 18 132/67 96 06/08/20 17:04 97.8 F 91 18 149/97 H 98
[2020-06-08] MEDS ORDERED: Sodium Chloride 0.9% 10 ML Syringe FLUSH ONE (17:52)
[2020-06-08] MEDS ORDERED: Sodium Chloride 0.9% 100 ML IV SCH (18:00)
[2020-06-08] MEDS ORDERED: Iopamidol 612 MG/ML 100 ML Bottle IV SCH (18:00)
--- NOTE | 2020-06-08 19:25 | CRLCT ---
INDICATION: Left flank pain COMPARISON: October 06, 2019 TECHNIQUE: CT examination of the abdomen and pelvis was performed following the uneventful intravenous administration of 100 cc of Isovue-300. Thin section axial images were obtained from the lung bases through the pubic symphysis. Oral contrast was not administered. Please note that all CT scans at this facility use dose modulation, iterative reconstruction, and/or weight-based dosing when appropriate to reduce radiation dose to as low as reasonably achievable. FINDINGS: LUNG BASES: Heart size normal to lung bases. Atherosclerotic vascular calcifications associated with the heart. Moderate-sized right effusion. Right basilar passive atelectasis. These findings are similar to the prior exam. LIVER/BILIARY SYSTEM:Morphologic evidence of cirrhosis without focal mass or biliary ductal dilatation. Gallbladder surgically absent. Evidence of portal hypertension. ADRENALS: Normal KIDNEYS, URETERS and BLADDER:The kidneys appear normal. No visible mass, calculus or hydronephrosis. The ureters and bladder as visualized appear normal. SPLEEN:Moderately enlarged spleen probably related to portal hypertension PANCREAS: Appears normal. RETROPERITONEUM and MESENTERY: There is a tortuous thoracic aorta and there is an aneurysm of the mid aorta maximally measures 3.5 centimeters unchanged. There is also stable aneurysmal dilatation of both common iliacs, left larger than right. No retroperitoneal lymphadenopathy GASTROINTESTINAL SYSTEM: Small hiatal hernia. Fecal retention. Diverticulosis. There is a diffuse pattern of wall thickening. This involves the stomach, the small bowel and portions of the colon especially the cecum and ascending colon. The transverse colon is also involved. There is no associated inflammatory change. The significance of this is uncertain but it is similar to the prior study and may be due to portal hypertension and/or hypoproteinemia. There is also an incidental duodenal diverticulum. PELVIS: Markedly enlarged prostate. OSSEOUS STRUCTURES and ABDOMINAL WALL: Wedging of T12 and L1 progressive since the prior study. Grade 1 spondylolytic spondylolisthesis of L5 on S1. Degenerative changes at the hip joints. No significant anterior abdominal wall defect. OTHER: Findings of portal hypertension include cirrhosis, splenomegaly, recanalized umbilical vein, ascites and probable retroperitoneal collaterals. IMPRESSION: 1. Moderate size right pleural effusion and right basilar passive atelectasis unchanged. 2. Hepatic cirrhosis with findings of portal hypertension including ascites, collateral vasculature and splenomegaly. Findings are similar to the prior examination. 3. Pattern of diffuse GI wall thickening including the stomach, small bowel and portions of the colon without visible associated inflammatory change. This is similar to the prior study and probably due to portal hypertension and/or hypoproteinemia. 4. Unchanged abdominal aortic aneurysm and common iliac artery aneurysms. Markedly enlarged prostate. Degenerative changes of the spine with some progressive loss of height of T12. 5. The major findings are essentially unchanged since October 06, [address] Please note that all [address] scans at this facility use dose modulation, iterative reconstruction, and/or weight-based dosing when appropriate to reduce radiation dose to as low as reasonably achievable. Dictated by Ty Ellis MD @ Jun 08 2020 7:13PM Signed by Dr. Ty Ellis @ Jun 08 2020 7:24PM
[2020-06-08] MEDS ORDERED: Octreotide 100 MCG/ML SDV IVPUSH ONE (20:00)
[2020-06-08] MEDS ORDERED: Pantoprazole 40 MG Vial IVPUSH ONE (20:00)
[2020-06-08 20:28] VITALS: BP 149/86; PULSE 79
== END 2020-06-08 20:47 | disposition other institution (70) ==
LOC: JP.ED 16:41
DX: K92.1 Melena (principal); K76.6 Portal hypertension; E03.9 Hypothyroidism, unspecified; K21.9 Gastro-esophageal reflux disease without esophagitis; E11.9 Type 2 diabetes mellitus without complications; I10 Essential (primary) hypertension; Z79.84 Long term (current) use of oral hypoglycemic drugs; Z91.030 Bee allergy status; Z88.8 Allergy status to other drugs, medicaments and biological substances; Z90.49 Acquired absence of other specified parts of digestive tract; Z79.899 Other long term (current) drug therapy
CPT/HCPCS: 36415; 74177; 80053; 82272; 83605; 85025; 85610; 96374; 96375; 99285; C9113; J2354; J7030; Q9967

== ENCOUNTER 2020-11-22 17:24 | Emergency (ER) | payer OTHER ==
--- NOTE | 2020-11-22 18:10 | EDM.PDOC ---
ED HPI GENERAL MEDICAL PROBLEM - General Chief Complaint: Gastrointestinal Problem Stated Complaint: BLOATING, WEAKNESS, HEADACHES, NAUSEA Time Seen by Provider: 11/22/20 17:55 Source of Information: Reports: Patient History Limitations: Reports: No Limitations - History of Present Illness INITIAL COMMENTS - FREE TEXT/NARRATIVE: 80-year-old male presents emergency room with abdominal bloating, nausea, general malaise and weakness for the past 2 days. Denies vomiting, but did have a bowel movement today, no diarrhea. [facility]". He has a fairly large ventral hernia which is stable and nontender. He does feel mildly short of breath, he attributes that to the bloating. He has no cough, orthopnea, peripheral edema or cold symptoms. He is hard of hearing but otherwise has no neurologic symptoms such as headache or asymmetric weakness, mostly just generalized symptoms. Despite his abdominal symptoms, he denies abdominal pain. No urinary symptoms. No dark stools. He has a history of anemia and is afraid that he may be anemic again although his color looks good and his vitals are stable. Onset: Gradual Duration: Day(s): (2 days of symptoms) Location: Reports: Abdomen (Mostly abdominal bloating) Improves with: Reports: None Worsens with: Reports: None Associated Symptoms: Reports: Loss of Appetite, Shortness of Breath, Weakness, Other (Nausea but no vomiting). Denies: Confusion, Chest Pain, Cough, Fever/Chills - Related Data Allergies Allergy/AdvReac Type Severity Reaction Status Date / Time venom-honey bee Allergy Swelling Verified 10/06/19 04:57 [bee venom (honey bee)] lisinopril AdvReac Cough Verified 10/06/19 04:57 Home Meds: Home Meds Levothyroxine Sodium [Synthroid] 50 mcg PO DAILY 11/29/14 [History] metFORMIN [Glucophage] 1,000 mg PO DAILY 11/29/14 [History] Spironolactone [Aldactone] 50 mg PO DAILY 10/02/19 [History] Pantoprazole [ProTONIX] 80 mg PO BIDAC 10/06/19 [History] Furosemide 10 mg PO DAILY 01/30/20 [History] Ondansetron [Zofran ODT] 4 mg PO Q6H PRN #7 tab.dis 01/30/20 [Rx] Past Medical History HEENT History: Reports: Cataract, Hard of Hearing, Other (See Below) Other HEENT History: hearing aids Cardiovascular History: Reports: Aneurysm, Hypertension Other Cardiovascular History: mild abdominal aneurism Gastrointestinal History: Reports: GERD, GI Bleed, Other (See Below) Other Gastrointestinal History: Liver cirosis Genitourinary History: Reports: BPH Musculoskeletal History: Reports: Gout, Other (See Below) Other Musculoskeletal History: broken ribs from fall Endocrine/Metabolic History: Reports: Diabetes, Type II, Hypothyroidism Hematologic History: Reports: Blood Transfusion(s), Iron Deficiency Oncologic (Cancer) History: Reports: Basal Cell Carcinoma - Infectious Disease History Infectious Disease History: Reports: Chicken Pox, Herpes, Measles, Mumps - Past Surgical History Head Surgeries/Procedures: Reports: None HEENT Surgical History: Reports: Cataract Surgery Cardiovascular Surgical History: Reports: None GI Surgical History: Reports: Appendectomy, Cholecystectomy, Hernia Repair/Other Male Surgical History: Reports: Prostate Biopsy Endocrine Surgical History: Reports: None Musculoskeletal Surgical History: Reports: None Oncologic Surgical History: Reports: Other (See Below) Other Oncologic Surgeries/Procedures: nose biopsy Dermatological Surgical History: Reports: None Social & Family History - Family History Cardiac: Reports: [place] - Caffeine Use Caffeine Use: Reports: Coffee ED ROS GENERAL - Review of Systems Review Of Systems: See Below Constitutional: Reports: Malaise, Decreased Appetite. Denies: Fever, Chills HEENT: Reports: Other (Hard of hearing, no other symptoms) Respiratory: Reports: Shortness of Breath (Difficulty getting a deep breath, attributes it to his bloated abdomen) Cardiovascular: Denies: Chest Pain, Palpitations GI/Abdominal: Reports: Distension. Denies: Abdominal Pain, Constipation, Diarrhea : Reports: No Symptoms Musculoskeletal: Reports: No Symptoms Skin: Reports: No Symptoms Neurological: Reports: Weakness Psychiatric: Reports: No Symptoms ED EXAM, GI/ABD - Physical Exam Exam: See Below Exam Limited By: No Limitations General Appearance: Alert, No Apparent Distress Eyes: Bilateral: Normal Appearance (No jaundice, good hydration) Head: Atraumatic Respiratory/Chest: No Respiratory Distress, Decreased Breath Sounds (Decreased breath sounds in the right base posteriorly) Cardiovascular: Regular Rate, Rhythm. No: Tachycardia GI/Abdominal Exam: Normal Bowel Sounds, Soft, Non-Tender, Other (He does feel somewhat distended but there is no tenderness to palpation, he has a fairly significant ventral hernia which is nontender) Extremities: Normal Inspection. No: Pedal Edema Neurological: Alert, Oriented Psychiatric: Normal Affect, Normal Mood Skin Exam: Warm, Dry Course - Vital Signs Last Recorded V/S: Last Vital Signs Temp 99.5 F 11/22/20 17:44 Pulse 87 11/22/20 20:58 Resp 16 11/22/20 17:44 BP 121/73 11/22/20 20:58 Pulse Ox 96 11/22/20 20:58 - Orders/Labs/Meds Orders: Active Orders 24 hr Category Date Time Status Chest 2V [CR] Routine Exams 11/22/20 18:04 Taken Labs: Laboratory Tests 11/22/20 11/22/20 Range/Units 18:15 18:15 WBC 5.9 (4.5-11.0) K/uL RBC 3.87 L (4.30-5.90) M/uL Hgb 11.4 L (12.0-15.0) g/dL Hct 35.9 L (40.0-54.0) % MCV 93 (80-98) fL MCH 30 (27-31) pg MCHC 32 (32-36) % Plt Count 124 L (150-400) K/uL Neut % (Auto) 56 (36-66) % Lymph % (Auto) 29 (24-44) % Nash % (Auto) 14 H (2-6) % Eos % (Auto) 1 L (2-4) % Baso % (Auto) 1 (0-1) % Sodium 144 (140-148) mmol/L Potassium 4.6 (3.6-5.2) mmol/L Chloride 106 (100-108) mmol/L Carbon Dioxide 29 (21-32) mmol/L Anion Gap 9.2 (5.0-14.0) mmol/L BUN 33 H (7-18) mg/dL Creatinine 1.0 (0.8-1.3) mg/dL Est Cr Clr Drug Dosing 62.86 mL/min Estimated GFR (MDRD) > 60 (>60) Glucose 149 H (74-106) mg/dL Calcium 8.2 L (8.5-10.1) mg/dL Total Bilirubin 1.1 H (0.2-1.0) mg/dL AST 36 (15-37) U/L ALT 37 (12-78) U/L Alkaline Phosphatase 112 (46-116) U/L Total Protein 6.9 (6.4-8.2) g/dL Albumin 2.2 L (3.4-5.0) g/dL Globulin 4.7 H (2.3-3.5) g/dL Albumin/Globulin Ratio 0.5 L (1.2-2.2) Lipase 237 (73-393) U/L Meds: Medications Discontinued Medications Generic Name Dose Route Start Last Admin Trade Name Freq PRN Reason Stop Dose Admin Sodium Chloride 1,000 mls @ 500 mls/hr 11/22/20 19:45 11/22/20 20:58 Normal Saline IV 500 mls/hr ASDIRECTED JEANETTE Administration Sodium Chloride 100 mls @ 3 mls/sec 11/22/20 20:15 11/22/20 21:27 Normal Saline IV 3 mls/sec ASDIRECTED JEANETTE Administration Iopamidol 100 ml 11/22/20 20:06 11/22/20 21:27 Iopamidol 612 Mg/Ml 100 Ml Bottle IV 11/23/20 20:07 100 ml . DIRECTED PRN Administration RADIOLOGY EXAM Ondansetron HCl 4 mg 11/22/20 21:21 11/22/20 21:54 Ondansetron 4 Mg Tab.Dis PO 11/22/20 21:22 4 mg ONETIME ONE Administration Sodium Chloride 10 ml 11/22/20 20:06 11/22/20 21:27 Sodium Chloride 0.9% 10 Ml Sdv FLUSH 11/22/20 20:07 10 ml ONETIME ONE Administration - Re-Assessments/Exams Free Text/Narrative Re-Assessment/Exam: 11/22/20 18:10 CBC, CMP and lipase were obtained, along with a two-view chest x-ray. No medical treatment needed initially. 11/22/20 19:07 Chest x-ray revealed a fairly significant right pleural effusion, left lung was clear. Bedside ultrasound was then done to look for ascites and none was seen, there was no free fluid in the abdomen to any significant extent, there was no t enderness of the abdomen during the procedure. 11/22/20 22:10 Labs returned generally reassuring, patient was not anemic. CT of the abdomen and pelvis with IV contrast was obtained with the following results IMPRESSION: 1. Increased large right pleural effusion. Atelectasis of the right lower lobe. 2. Distended stomach containing fluid and food debris. 3. Cirrhosis. Small amount of ascites. Results were discussed with the patient, copies of his CT report and labs were given to the patient and he will return tomorrow for an outpatient thoracentesis by Dr. Munguia. This is being arranged. Departure - Departure Time of Disposition: 22:35 Disposition: Home, Self-Care 01 Clinical Impression: Pleural effusion on right - Discharge Information Instructions: Pleural Effusion Referrals: Pari Matson MD [Primary Care Provider] - Forms: ED Department Discharge Care Plan Goals: Return tomorrow as planned in the ACU to remove the fluid from your right lung. [facility] report and labs to discuss any further testing. Sepsis Event Note (ED) - Evaluation Sepsis Screening Result: No Definite Risk - Focused Exam Vital Signs: Vital Signs Temp Pulse Resp BP Pulse Ox 11/22/20 20:58 87 121/73 96 11/22/20 17:44 99.5 F 96 16 141/88 H 95 11/22/20 17:39 99.5 F 96 16 141/88 H 95 - My Orders Last 24 Hours: My Active Orders 11/22/20 18:04 Chest 2V [CR] Routine - Assessment/Plan Last 24 Hours: My Active Orders 11/22/20 18:04 Chest 2V [CR] Routine
[2020-11-22] MEDS ORDERED: Sodium Chloride 0.9% 1,000 ML IV SCH (19:45)
[2020-11-22] MEDS ORDERED: Sodium Chloride 0.9% 10 ML SDV FLUSH ONE (20:06)
[2020-11-22] MEDS ORDERED: Iopamidol 612 MG/ML 100 ML Bottle IV PRN (20:06)
[2020-11-22] MEDS ORDERED: Sodium Chloride 0.9% 100 ML IV SCH (20:15)
[2020-11-22 20:59] VITALS: BP 121/73; PULSE 87
[2020-11-22] MEDS ORDERED: Ondansetron 4 MG Tab.DIS PO ONE (21:21)
--- NOTE | 2020-11-22 21:52 | CRLCT ---
HISTORY: Abdominal bloating. Right effusion. COMPARISON: 06/08/2020. TECHNIQUE: Axial images were obtained through the abdomen pelvis following 100 cc of Isovue-300 intravenous contrast. FINDINGS: Large right-sided pleural effusion with atelectasis of the right lower lobe. The left lung is clear. The pleural effusion is increased since the prior study in 2019. Cirrhotic liver. Small amount of ascites. The spleen is within normal. Fluid and food debris distending the stomach. No evidence for bowel obstruction. Mild diffuse small bowel wall thickening is stable. Cholecystectomy. The pancreas, adrenal glands and kidneys are within small. 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 Colonic diverticula. No evidence for acute diverticulitis. Degenerative changes in the spine are stable L1 compression fracture. Fluid in the right inguinal canal. IMPRESSION: 1. Increased large right pleural effusion. Atelectasis of the right lower lobe. 2. Distended stomach containing fluid and food debris. 3. Cirrhosis. Small amount of ascites. Please note that all CT scans at this facility use dose modulation, iterative reconstruction, and/or weight-based dosing when appropriate to reduce radiation dose to as low as reasonably achievable. Dictated by Bettie Stanton MD @ 11/22/2020 9:51:[address] Betite Stanton @ Nov 22 2020 9:51PM
--- NOTE | 2020-11-23 10:27 | CRLCR ---
Indication: Dyspnea Technique: Chest 2 views Comparison: 03/09/2019 Findings/Impression: Cardiovascular and mediastinum: Heart size and vasculature are normal in caliber and appearance. Mediastinum is within normal limits. Lungs and pleural spaces: Large right-sided pleural effusion persists but has somewhat improved. Remainder of the lungs and pleural spaces are clear. No pneumothorax. Bones and soft tissues: No significant findings. Dictated by Lobito Hernández MD @ 11/23/2020 10:26:[address] Lobito Hernández @ Nov 23 2020 10:26AM
== END 2020-11-22 22:25 | disposition home or self-care (01) ==
LOC: JP.ED 17:24
DX: J90 Pleural effusion, not elsewhere classified (principal); I10 Essential (primary) hypertension; K21.9 Gastro-esophageal reflux disease without esophagitis; E11.9 Type 2 diabetes mellitus without complications; E03.9 Hypothyroidism, unspecified; Z91.030 Bee allergy status; Z88.8 Allergy status to other drugs, medicaments and biological substances; Z79.899 Other long term (current) drug therapy
CPT/HCPCS: 36415; 71046; 74177; 80053; 83690; 85025; 99283; 99285; A9270; J7030; Q9967

== ENCOUNTER 2021-01-09 15:11 | Emergency (ER) | payer OTHER ==
--- NOTE | 2021-01-09 15:58 | EDM.PDOC ---
ED HPI GENERAL MEDICAL PROBLEM - General Chief Complaint: Cardiovascular Problem Stated Complaint: MEDICAL Time Seen by Provider: 01/09/21 15:35 Source of Information: Reports: Patient, Old Records, RN History Limitations: Reports: No Limitations - History of Present Illness INITIAL COMMENTS - FREE TEXT/NARRATIVE: 80 yo male with a pHx of cirrhosis, esophageal varices, ascites, pleural effusions, and chronic anemia presents with increased weakness and some mild sweating at home today. He does have central A/C. He has not had any bleeding, fever or pain. He was able to drive himself to the ER. He lives alone. He gets regular iron infusions in [place] through the [facility]. Onset: Gradual Duration: Day(s):, Getting Worse Location: Reports: Generalized Quality: Reports: Other (no new pain reported) Severity: Mild Improves with: Reports: None Worsens with: Reports: Other (unsure) Context: Reports: Other (See HPI) Associated Symptoms: Reports: Diaphoresis (possibly at home ), Weakness (generalized). Denies: Fever/Chills, Nausea/Vomiting Treatments MAGISTRATE JUDGE: Reports: Other (see below) (none) - Related Data Allergies Allergy/AdvReac Type Severity Reaction Status Date / Time venom-honey bee Allergy Swelling Verified 01/09/21 15:25 [bee venom (honey bee)] lisinopril AdvReac Cough Verified 01/09/21 15:25 Home Meds: Home Meds Levothyroxine Sodium [Synthroid] 50 mcg PO DAILY 11/29/14 [History] metFORMIN [Glucophage] 1,000 mg PO DAILY 11/29/14 [History] Spironolactone [Aldactone] 50 mg PO DAILY 10/02/19 [History] Furosemide 10 mg PO DAILY 01/30/20 [History] Ondansetron [Zofran ODT] 4 mg PO Q6H PRN #7 tab.dis 01/30/20 [Rx] Omeprazole 40 mg PO ACBREAKFAST 01/09/21 [History] Past Medical History HEENT History: Reports: Cataract, Hard of Hearing, Other (See Below) Other HEENT History: hearing aids Cardiovascular History: Reports: Aneurysm, Hypertension Other Cardiovascular History: mild abdominal aneurism Gastrointestinal History: Reports: GERD, GI Bleed, Other (See Below) Other Gastrointestinal History: Liver cirosis Genitourinary History: Reports: BPH Musculoskeletal History: Reports: Gout, Other (See Below) Other Musculoskeletal History: broken ribs from fall Endocrine/Metabolic History: Reports: Diabetes, Type II, Hypothyroidism Hematologic History: Reports: Blood Transfusion(s), Iron Deficiency Oncologic (Cancer) History: Reports: Basal Cell Carcinoma - Infectious Disease History Infectious Disease History: Reports: Chicken Pox, Herpes, Measles, Mumps - Past Surgical History Head Surgeries/Procedures: Reports: None HEENT Surgical History: Reports: Cataract Surgery Cardiovascular Surgical History: Reports: None Respiratory Surgical History: Reports: Thoracentesis GI Surgical History: Reports: Appendectomy, Cholecystectomy, Hernia Repair/Other, Other (See Below) Other GI Surgeries/Procedures: paracentesis Male Surgical History: Reports: Prostate Biopsy Endocrine Surgical History: Reports: None Musculoskeletal Surgical History: Reports: None Oncologic Surgical History: Reports: Other (See Below) Other Oncologic Surgeries/Procedures: nose biopsy Social & Family History - Family History Cardiac: Reports: [place] - Tobacco Use Tobacco Use Status *Q: Never Tobacco User Second Hand Smoke Exposure: No - Caffeine Use Caffeine Use: Reports: None - Recreational Drug Use Recreational Drug Use: No ED ROS GENERAL - Review of Systems Review Of Systems: See Below Constitutional: Reports: No Symptoms HEENT: Reports: No Symptoms Respiratory: Reports: Other (decreased breath sounds R base) Cardiovascular: Reports: No Symptoms Endocrine: Reports: No Symptoms GI/Abdominal: Reports: No Symptoms : Reports: No Symptoms Musculoskeletal: Reports: No Symptoms Skin: Reports: No Symptoms Neurological: Reports: Weakness (generalized) ED EXAM, GENERAL - Physical Exam Exam: See Below Exam Limited By: No Limitations General Appearance: Alert, WD/WN, No Apparent Distress, Thin Eye Exam: Bilateral Eye: Normal Inspection Ears: Normal External Exam, Normal Canal, Hearing Grossly Normal, Normal TMs Ear Exam: Bilateral Ear: Auricle Normal, Canal Normal, TM normal Nose: Normal Inspection, No Blood Throat/Mouth: Normal Inspection, Normal Lips, Normal Oropharynx, Normal Voice, No Airway Compromise, Other (some markedly decayed mandibular molars) Head: No: Facial Swelling Neck: Normal Inspection Respiratory/Chest: No Respiratory Distress, Lungs Clear, Normal Breath Sounds, No Accessory Muscle Use Cardiovascular: Regular Rate, Rhythm, No Edema GI/Abdominal: Normal Bowel Sounds, Soft, Non-Tender, No Distention Back Exam: Normal Inspection. No: CVA Tenderness (R), CVA Tenderness (L) Extremities: Normal Inspection, Normal Range of Motion, Non-Tender, No Pedal Edema. No: Pedal Edema Neurological: Alert, Oriented, CN II-XII Intact, Normal Cognition, No Motor/Sensory Deficits Psychiatric: Normal Affect, Normal Mood Skin Exam: Warm, Dry, Intact, Normal Color, No Rash Course - Vital Signs Last Recorded V/S: Last Vital Signs Temp 36.4 C 01/09/21 15:29 Pulse 92 01/09/21 16:53 Resp 14 01/09/21 15:29 BP 107/52 L 01/09/21 16:53 Pulse Ox 96 01/09/21 15:29 - Orders/Labs/Meds Labs: Laboratory Tests 01/09/21 01/09/21 01/09/21 Range/Units 15:59 15:59 17:16 WBC 7.4 (4.5-11.0) K/uL RBC 3.26 L (4.30-5.90) M/uL Hgb 8.5 L D (12.0-15.0) g/dL Hct 28.0 L (40.0-54.0) % MCV 86 (80-98) fL MCH 26 L (27-31) pg MCHC 30 L (32-36) % Plt Count 172 (150-400) K/uL Sodium 138 L (140-148) mmol/L Potassium 5.0 (3.6-5.2) mmol/L Chloride 104 (100-108) mmol/L Carbon Dioxide 24 (21-32) mmol/L Anion Gap 15.0 H (5.0-14.0) mmol/L BUN 33 H (7-18) mg/dL Creatinine 1.1 (0.8-1.3) mg/dL Est Cr Clr Drug Dosing 55.04 mL/min Estimated GFR (MDRD) > 60 (>60) Glucose 131 H (74-106) mg/dL Calcium 7.7 L (8.5-10.1) mg/dL Troponin I 0.023 (0.000-0.056) ng/mL Urine Color Yellow (YELLOW) Urine Appearance Clear (CLEAR) Urine pH 5.5 (5.0-8.0) Ur Specific [place] 1.025 (1.008-1.030) Urine Protein Negative (NEGATIVE) mg/dL Urine Glucose (UA) Negative (NEGATIVE) mg/dL Urine Ketones Negative (NEGATIVE) mg/dL Urine Occult Blood Negative (NEGATIVE) Urine Nitrite Negative (NEGATIVE) Urine Bilirubin Negative (NEGATIVE) Urine Urobilinogen 0.2 (0.2-1.0) EU/dL Ur Leukocyte Esterase Negative (NEGATIVE) Urine RBC 0-5 (0-5) Urine WBC 0-5 (0-5) Ur Epithelial Cells Rare Amorphous Sediment Few Urine Bacteria Rare Urine Mucus Moderate 01/09/21 Range/Units 17:38 WBC (4.5-11.0) K/uL RBC (4.30-5.90) M/uL Hgb (12.0-15.0) g/dL Hct (40.0-54.0) % MCV (80-98) fL MCH (27-31) pg MCHC (32-36) % Plt Count (150-400) K/uL Sodium (140-148) mmol/L Potassium (3.6-5.2) mmol/L Chloride (100-108) mmol/L Carbon Dioxide (21-32) mmol/L Anion Gap (5.0-14.0) mmol/L BUN (7-18) mg/dL Creatinine (0.8-1.3) mg/dL Est Cr Clr Drug Dosing mL/min Estimated GFR (MDRD) (>60) Glucose (74-106) mg/dL Calcium (8.5-10.1) mg/dL Troponin I 0.022 (0.000-0.056) ng/mL Urine Color (YELLOW) Urine Appearance (CLEAR) Urine pH (5.0-8.0) Ur Specific [place] (1.008-1.030) Urine Protein (NEGATIVE) mg/dL Urine Glucose (UA) (NEGATIVE) mg/dL Urine Ketones (NEGATIVE) mg/dL Urine Occult Blood (NEGATIVE) Urine Nitrite (NEGATIVE) Urine Bilirubin (NEGATIVE) Urine Urobilinogen (0.2-1.0) EU/dL Ur Leukocyte Esterase (NEGATIVE) Urine RBC (0-5) Urine WBC (0-5) Ur Epithelial Cells Amorphous Sediment Urine Bacteria Urine Mucus Meds: Medications Discontinued Medications Generic Name Dose Route Start Last Admin Trade Name Freq PRN Reason Stop Dose Admin Sodium Chloride 750 mls @ 1,000 mls/hr 01/09/21 16:35 01/09/21 16:54 Normal Saline IV 07/03/21 17:19 1,000 mls/hr .BOLUS ONE Administration Departure - Departure Time of Disposition: 18:05 Disposition: Home, Self-Care 01 Condition: Good Clinical Impression: Mild dehydration Instructions: Dehydration, Adult, [id number] Referrals: PCP,None [Primary Care Provider] - Forms: ED Department Discharge Additional Instructions: Drink more fluids when its hot like this. Recheck as needed. Try simethicone for your gas/belching. Sepsis Event Note (ED) - Evaluation Sepsis Screening Result: No Definite Risk - Focused Exam Vital Signs: Vital Signs Temp Pulse Resp BP Pulse Ox 01/09/21 16:53 92 107/52 L 01/09/21 16:04 88 100/74 01/09/21 15:29 36.4 C 80 14 101/70 96
[2021-01-09] MEDS ORDERED: Sodium Chloride 0.9% 750 ML IV ONE (16:35)
[2021-01-09 16:53] VITALS: BP 107/52; PULSE 92
== END 2021-01-09 18:17 | disposition home or self-care (01) ==
LOC: JP.ED 15:11
DX: E86.0 Dehydration (principal); I10 Essential (primary) hypertension; K21.9 Gastro-esophageal reflux disease without esophagitis; E11.9 Type 2 diabetes mellitus without complications; E03.9 Hypothyroidism, unspecified; Z79.84 Long term (current) use of oral hypoglycemic drugs; Z79.899 Other long term (current) drug therapy; Z91.030 Bee allergy status; Z88.8 Allergy status to other drugs, medicaments and biological substances
CPT/HCPCS: 36415; 80048; 81001; 84484; 85027; 99284; J7030

== ENCOUNTER 2021-01-10 03:38 | Emergency (ER) | payer OTHER ==
--- NOTE | 2021-01-10 04:03 | EDM.PDOC ---
ED HPI GENERAL MEDICAL PROBLEM - General Chief Complaint: Gastrointestinal Problem Stated Complaint: MEDICAL VIA [facility] Time Seen by Provider: 01/10/21 03:40 Source of Information: Reports: Patient History Limitations: Reports: No Limitations - History of Present Illness INITIAL COMMENTS - FREE TEXT/NARRATIVE: 80-year-old male with a history of cirrhosis and GI bleed was in earlier today with weakness, bloating and nausea. Hemoglobin was 8.5 but no active bleeding was found at the time. After he went home he developed very dark stools and increased bloating, and was told if he ever develops the symptoms to return. Denies vomiting. Onset: Unknown/Unsure Associated Symptoms: Denies: Chest Pain, Fever/Chills, Headaches, Shortness of Breath denies pain Pain Score (Numeric/FACES): 0 - Related Data Allergies Allergy/AdvReac Type Severity Reaction Status Date / Time venom-honey bee Allergy Swelling Verified 01/10/21 03:41 [bee venom (honey bee)] lisinopril AdvReac Cough Verified 01/10/21 03:41 Home Meds: Home Meds Levothyroxine Sodium [Synthroid] 50 mcg PO DAILY 11/29/14 [History] metFORMIN [Glucophage] 1,000 mg PO DAILY 11/29/14 [History] Spironolactone [Aldactone] 50 mg PO DAILY 10/02/19 [History] Furosemide 10 mg PO DAILY 01/30/20 [History] Ondansetron [Zofran ODT] 4 mg PO Q6H PRN #7 tab.dis 01/30/20 [Rx] Omeprazole 40 mg PO ACBREAKFAST 01/09/21 [History] Past Medical History HEENT History: Reports: Cataract, Hard of Hearing, Other (See Below) Other HEENT History: hearing aids Cardiovascular History: Reports: Aneurysm, Hypertension Other Cardiovascular History: mild abdominal aneurism Gastrointestinal History: Reports: GERD, GI Bleed, Other (See Below) Other Gastrointestinal History: Liver cirosis Genitourinary History: Reports: BPH Musculoskeletal History: Reports: Gout, Other (See Below) Other Musculoskeletal History: broken ribs from fall Endocrine/Metabolic History: Reports: Diabetes, Type II, Hypothyroidism Hematologic History: Reports: Blood Transfusion(s), Iron Deficiency Oncologic (Cancer) History: Reports: Basal Cell Carcinoma - Infectious Disease History Infectious Disease History: Reports: Chicken Pox, Herpes, Measles, Mumps - Past Surgical History Head Surgeries/Procedures: Reports: None HEENT Surgical History: Reports: Cataract Surgery Cardiovascular Surgical History: Reports: None Respiratory Surgical History: Reports: Thoracentesis GI Surgical History: Reports: Appendectomy, Cholecystectomy, Hernia Repair/Other, Other (See Below) Other GI Surgeries/Procedures: paracentesis Male Surgical History: Reports: Prostate Biopsy Endocrine Surgical History: Reports: None Musculoskeletal Surgical History: Reports: None Oncologic Surgical History: Reports: Other (See Below) Other Oncologic Surgeries/Procedures: nose biopsy Social & Family History - Family History Cardiac: Reports: NM - Caffeine Use Caffeine Use: Reports: None ED ROS GENERAL - Review of Systems Review Of Systems: See Below Constitutional: Reports: Malaise. Denies: Fever, Chills HEENT: Reports: Hearing Loss (Chronic and stable) Respiratory: Denies: Shortness of Breath Cardiovascular: Denies: Chest Pain GI/Abdominal: Reports: Black Stool, Other (Feels bloated but not having significant pain) : Reports: No Symptoms Skin: Reports: Pallor Neurological: Reports: Dizziness ED EXAM, GENERAL - Physical Exam Exam: See Below Exam Limited By: No Limitations General Appearance: Alert, No Apparent Distress Eye Exam: Bilateral Eye: Other (Conjunctiva appear pale) Head: Atraumatic Respiratory/Chest: No Respiratory Distress, Lungs Clear Cardiovascular: Regular Rate, Rhythm GI/Abdominal: Normal Bowel Sounds, Soft. No: Tender (No significant tenderness to palpation, no guarding) Rectal (Males) Exam: Normal Rectal Tone, Black Stool. No: Mass Extremities: No: Pedal Edema Neurological: Alert, Oriented Psychiatric: Normal Affect, Normal Mood Skin Exam: Warm, Pallor Course - Vital Signs Last Recorded V/S: Last Vital Signs Temp 97.2 F 01/10/21 04:54 Pulse 77 01/10/21 05:10 Resp 17 01/10/21 05:10 BP 108/71 01/10/21 05:10 Pulse Ox 98 01/10/21 05:10 - Orders/Labs/Meds Labs: Laboratory Tests 01/10/21 01/10/21 01/10/21 Range/Units 04:10 04:10 04:10 WBC 7.4 (4.5-11.0) K/uL RBC 3.13 L (4.30-5.90) M/uL Hgb 8.2 L (12.0-15.0) g/dL Hct 27.1 L (40.0-54.0) % MCV 87 (80-98) fL MCH 26 L (27-31) pg MCHC 30 L (32-36) % Plt Count 185 (150-400) K/uL Neut % (Auto) 72.3 H (36-66) % Lymph % (Auto) 15.1 L (24-44) % [place] % (Auto) 11.8 H (2-6) % Eos % (Auto) 0.4 L (2-4) % Baso % (Auto) 0.4 (0-1) % PT 13.0 H (9.5-12.0) sec INR 1.20 (0.80-1.20) APTT 25.0 L (27.0-36.0) sec Blood Type A NEGATIVE Gel Antibody Screen Negative Crossmatch See Detail Meds: Medications Discontinued Medications Generic Name Dose Route Start Last Admin Trade Name Freq PRN Reason Stop Dose Admin Sodium Chloride 1,000 mls @ 500 mls/hr 01/10/21 04:15 01/10/21 04:45 Normal Saline IV 500 mls/hr ASDIRECTED JEANETTE Administration Octreotide Acetate 200 mcg 01/10/21 04:35 01/10/21 04:46 Octreotide 100 Mcg/Ml Sdv IVPUSH 01/10/21 04:36 200 mcg ONETIME ONE Administration Octreotide Acetate Confirm 01/10/21 04:37 01/10/21 04:52 Octreotide 200 Mcg/Ml 5 Ml Mdv Administered 01/10/21 04:38 Not Given Dose 1,000 mcg .ROUTE .STK-MED ONE Ondansetron HCl 4 mg 01/10/21 04:43 01/10/21 04:50 Ondansetron 4 Mg/2 Ml Sdv IVPUSH 01/10/21 04:44 4 mg ONETIME ONE Administration Pantoprazole Sodium 40 mg 01/10/21 04:42 01/10/21 04:50 Pantoprazole 40 Mg Vial IVPUSH 01/10/21 04:43 40 mg ONETIME ONE Administration - Re-Assessments/Exams Free Text/Narrative Re-Assessment/Exam: 01/10/21 04:00 Stool guaiac was obtained of the very black stool, no rectal masses were felt. Hemoglobin was 8.5 earlier today, CBC PTT and PT were redrawn. Patient will likely have to stay to follow hemoglobins tonight and assess for possible GI bleed. 01/10/21 04:41 Patient was being prepared to be admitted to our hospital when he started having bright red hematemesis. Hemoglobin returned 8.2, 8.5 earlier today. He remained stable but more critical, [facility] in [place] was consulted for transfer. 200 mcg of octreotide was given. 1 unit of typed and crossed RBCs was transfused. Departure - Departure Time of Disposition: 05:32 Disposition: DC/Tfer to Acute Hospital 02 Clinical Impression: Acute upper gastrointestinal hemorrhage, Anemia due to blood loss, acute - Discharge Information Referrals: PCP,None [Primary Care Provider] - Forms: ED Department Discharge Care Plan Goals: Patient was urgently transferred to [facility] after being accepted by the hospitalist service for further evaluation of upper GI bleed and blood loss anemia, possibly complicated by esophageal varices from cirrhosis. Sepsis Event Note (ED) - Evaluation Sepsis Screening Result: No Definite Risk
[2021-01-10] MEDS ORDERED: Sodium Chloride 0.9% 1,000 ML IV SCH (04:15)
[2021-01-10] MEDS ORDERED: Octreotide 100 MCG/ML SDV IVPUSH ONE (04:35)
[2021-01-10] MEDS ORDERED: Octreotide 200 MCG/ML 5 ML MDV ONE (04:37)
[2021-01-10] MEDS ORDERED: Pantoprazole 40 MG Vial IVPUSH ONE (04:42)
[2021-01-10] MEDS ORDERED: Ondansetron 4 MG/2 ML SDV IVPUSH ONE (04:43)
[2021-01-10 05:11] VITALS: BP 108/71; PULSE 77
== END 2021-01-10 05:30 ==
LOC: JP.ED 03:38
DX: K92.2 Gastrointestinal hemorrhage, unspecified (principal); D62 Acute posthemorrhagic anemia; I10 Essential (primary) hypertension; E11.9 Type 2 diabetes mellitus without complications; E03.9 Hypothyroidism, unspecified; Z88.8 Allergy status to other drugs, medicaments and biological substances; Z79.899 Other long term (current) drug therapy; Z79.84 Long term (current) use of oral hypoglycemic drugs; Z90.49 Acquired absence of other specified parts of digestive tract
CPT/HCPCS: 36415; 36430; 82272; 85025; 85610; 85730; 86850; 86900; 86901; 86920; 86922; 96374; 96375; 99285; C9113; J2354; J2405; J7030; P9016

== ENCOUNTER 2021-01-19 07:50 | Emergency (ER) | payer OTHER ==
[2021-01-19] MEDS ORDERED: Sodium Chloride 0.9% 10 ML Syringe FLUSH PRN (08:05)
[2021-01-19] MEDS ORDERED: Pantoprazole 40 MG Vial IVPUSH ONE (08:05)
[2021-01-19] MEDS ORDERED: Sodium Chloride 0.9% 500 ML IV SCH (08:15)
[2021-01-19] MEDS ORDERED: Octreotide 500 MCG in Sodium Chloride 0.9% 497.5 ML IV SCH (08:15)
--- NOTE | 2021-01-19 08:32 | EDM.PDOC ---
ED HPI GENERAL MEDICAL PROBLEM - General Chief Complaint: Gastrointestinal Problem Stated Complaint: MEDICAL [facility]IA [facility] Time Seen by Provider: 01/19/21 08:28 Source of Information: Reports: Patient, EMS, Old Records, RN Notes Reviewed History Limitations: Reports: No Limitations - History of Present Illness INITIAL COMMENTS - FREE TEXT/NARRATIVE: Seven 80-year-old male presents emergency department today with complaint of vomiting bright red blood, he has a known history of esophageal varices as well as alcoholic cirrhosis of the liver has had multiple EGDs and colonoscopies recent hospital admission was on 7 4 of this year same complaint EGD at that time showed grade 1 varices without active bleeding and colonoscopy revealed no bleeding site. He denies any alcohol use states his abdomen has become more distended states he has been taking his medications no shortness of breath or chest pain, 2 bouts of emesis this morning 630 and 645 he states this amount with of emesis was less than last time. - Related Data Allergies Allergy/AdvReac Type Severity Reaction Status Date / Time venom-honey bee Allergy Swelling Verified 01/19/21 08:56 [bee venom (honey bee)] lisinopril AdvReac Cough Verified 01/19/21 08:56 Home Meds: Home Meds Levothyroxine Sodium [Synthroid] 50 mcg PO DAILY 11/29/14 [History] metFORMIN [Glucophage] 1,000 mg PO DAILY 11/29/14 [History] Spironolactone [Aldactone] 50 mg PO DAILY 10/02/19 [History] Furosemide 10 mg PO DAILY 01/30/20 [History] Ondansetron [Zofran ODT] 4 mg PO Q6H PRN #7 tab.dis 01/30/20 [Rx] Omeprazole 40 mg PO BID 01/09/21 [History] Lactulose [Generlac] 20 gm PO TID 01/19/21 [History] Past Medical History HEENT History: Reports: Cataract, Hard of Hearing, Other (See Below) Other HEENT History: hearing aids Cardiovascular History: Reports: Aneurysm, Hypertension Other Cardiovascular History: mild abdominal aneurism Gastrointestinal History: Reports: GERD, GI Bleed, Other (See Below) Other Gastrointestinal History: Liver cirosis, esouphageal varicies Genitourinary History: Reports: BPH Musculoskeletal History: Reports: Gout, Other (See Below) Other Musculoskeletal History: broken ribs from fall Endocrine/Metabolic History: Reports: Diabetes, Type II, Hypothyroidism Hematologic History: Reports: Blood Transfusion(s), Iron Deficiency Oncologic (Cancer) History: Reports: Basal Cell Carcinoma - Infectious Disease History Infectious Disease History: Reports: Chicken Pox, Herpes, Measles, Mumps - Past Surgical History Head Surgeries/Procedures: Reports: None HEENT Surgical History: Reports: Cataract Surgery Cardiovascular Surgical History: Reports: None Respiratory Surgical History: Reports: Thoracentesis GI Surgical History: Reports: Appendectomy, Cholecystectomy, Hernia Repair/Other, Other (See Below) Other GI Surgeries/Procedures: paracentesis Male Surgical History: Reports: Prostate Biopsy Endocrine Surgical History: Reports: None Musculoskeletal Surgical History: Reports: None Oncologic Surgical History: Reports: Other (See Below) Other Oncologic Surgeries/Procedures: nose biopsy Dermatological Surgical History: Reports: None Social & Family History - Family History Cardiac: Reports: CT - Caffeine Use Caffeine Use: Reports: Coffee ED ROS GENERAL - Review of Systems Review Of Systems: See Below Constitutional: Reports: No Symptoms HEENT: Reports: No Symptoms Respiratory: Reports: No Symptoms Cardiovascular: Reports: No Symptoms GI/Abdominal: Reports: Distension, Hematemesis, Vomiting. Denies: Black Stool, Bloody Stool : Reports: No Symptoms ED EXAM, GI/ABD - Physical Exam Exam: See Below Exam Limited By: No Limitations General Appearance: Alert, WD/WN, No Apparent Distress Respiratory/Chest: No Respiratory Distress, Lungs Clear, Normal Breath Sounds, No Accessory Muscle Use, Chest Non-Tender Cardiovascular: Regular Rate, Rhythm, No Murmur GI/Abdominal Exam: Soft, Distended, Other (He does have bright red blood in the emesis bag he also has a photograph of emesis with coagulation that he vomited this morning.) Course - Vital Signs Last Recorded V/S: Last Vital Signs Temp 97.3 F 01/19/21 08:05 Pulse 67 01/19/21 10:50 Resp 14 01/19/21 10:50 BP 111/67 01/19/21 10:50 Pulse Ox 95 01/19/21 10:50 - Orders/Labs/Meds Orders: Active Orders 24 hr Category Date Time Status Peripheral IV Care [RC] . DIRECTED Care 01/19/21 08:05 Active Octreotide [SandoSTATIN] 500 mcg Med 01/19/21 08:15 Active Sodium Chloride 0.9% [Normal Saline] 497.5 ml IV Q10H Sodium Chloride 0.9% [Normal Saline] 500 ml Med 01/19/21 08:15 Active IV .BOLUS Sodium Chloride 0.9% [Saline Flush] Med 01/19/21 08:05 Active 10 ml FLUSH ASDIRECTED PRN Peripheral IV Insertion Adult [OM.PC] Urgent Oth 01/19/21 08:05 Ordered Peripheral IV Insertion Adult [OM.PC] Urgent Ot 01/19/21 08:05 Ordered Medication Orders Sodium Chloride (Normal Saline) 500 mls @ 1,000 mls/hr IV .BOLUS JEANETTE Octreotide Acetate 500 mcg/ (Sodium Chloride) 500 mls @ 50 mls/hr IV Q10H JEANETTE Last Admin: 01/19/21 08:41 Dose: 50 mcg/hr, 50 mls/hr Documented by: STELLA Sodium Chloride (Sodium Chloride 0.9% 10 Ml Syringe) 10 ml FLUSH ASDIRECTED PRN PRN Reason: Keep Vein Open Last Admin: 01/19/21 08:35 Dose: 10 ml Documented by: STELLA Labs: Laboratory Tests 01/19/21 01/19/21 01/19/21 Range/Units 08:17 08:17 08:17 WBC 9.7 (4.5-11.0) K/uL RBC 3.01 L (4.30-5.90) M/uL Hgb 8.5 L (12.0-15.0) g/dL Hct 26.9 L (40.0-54.0) % MCV 89 (80-98) fL MCH 28 (27-31) pg MCHC 32 (32-36) % Plt Count 137 L (150-400) K/uL Neut % (Auto) 74.2 H (36-66) % Lymph % (Auto) 10.1 L (24-44) % [place] % (Auto) 15.0 H (2-6) % Eos % (Auto) 0.3 L (2-4) % Baso % (Auto) 0.4 (0-1) % PT 14.3 H (9.5-12.0) sec INR 1.32 H (0.80-1.20) Sodium 137 L (140-148) mmol/L Potassium 4.4 (3.6-5.2) mmol/L Chloride 104 (100-108) mmol/L Carbon Dioxide 22 (21-32) mmol/L Anion Gap 15.4 H (5.0-14.0) mmol/L BUN 26 H (7-18) mg/dL Creatinine 1.1 (0.8-1.3) mg/dL Est Cr Clr Drug Dosing TNP Estimated GFR (MDRD) > 60 (>60) Glucose 157 H (74-106) mg/dL Calcium 7.5 L (8.5-10.1) mg/dL Total Bilirubin 1.2 H (0.2-1.0) mg/dL AST 39 H (15-37) U/L ALT 26 (12-78) U/L Alkaline Phosphatase 102 (46-116) U/L Ammonia (11-32) umol/L Total Protein 5.8 L (6.4-8.2) g/dL Albumin 1.9 L (3.4-5.0) g/dL Globulin 3.9 H (2.3-3.5) g/dL Albumin/Globulin Ratio 0.5 L (1.2-2.2) Ethyl Alcohol mg/dL Blood Type Gel Antibody Screen 01/19/21 01/19/21 01/19/21 Range/Units 08:17 08:17 08:27 WBC (4.5-11.0) K/uL RBC (4.30-5.90) M/uL Hgb (12.0-15.0) g/dL Hct (40.0-54.0) % MCV (80-98) fL MCH (27-31) pg MCHC (32-36) % Plt Count (150-400) K/uL Neut % (Auto) (36-66) % Lymph % (Auto) (24-44) % [place] % (Auto) (2-6) % Eos % (Auto) (2-4) % Baso % (Auto) (0-1) % PT (9.5-12.0) sec INR (0.80-1.20) Sodium (140-148) mmol/L Potassium (3.6-5.2) mmol/L Chloride (100-108) mmol/L Carbon Dioxide (21-32) mmol/L Anion Gap (5.0-14.0) mmol/L BUN (7-18) mg/dL Creatinine (0.8-1.3) mg/dL Est Cr Clr Drug Dosing Estimated GFR (MDRD) (>60) Glucose (74-106) mg/dL Calcium (8.5-10.1) mg/dL Total Bilirubin (0.2-1.0) mg/dL AST (15-37) U/L ALT (12-78) U/L Alkaline Phosphatase (46-116) U/L Ammonia 46 H (11-32) umol/L Total Protein (6.4-8.2) g/dL Albumin (3.4-5.0) g/dL Globulin (2.3-3.5) g/dL Albumin/Globulin Ratio (1.2-2.2) Ethyl Alcohol < 3 mg/dL Blood Type A NEGATIVE Gel Antibody Screen Negative Meds: Medications Generic Name Dose Route Start Last Admin Trade Name Freq PRN Reason Stop Dose Admin Sodium Chloride 500 mls @ 1,000 mls/hr 01/19/21 08:15 Normal Saline IV .BOLUS JEANETTE Octreotide Acetate 500 mcg/ 500 mls @ 50 mls/hr 01/19/21 08:15 01/19/21 08:41 Sodium Chloride IV 50 mcg/hr Q10H JEANETTE 50 mls/hr Administration 50 MCG/HR Sodium Chloride 10 ml 01/19/21 08:05 01/19/21 08:35 Sodium Chloride 0.9% 10 Ml Syringe FLUSH 10 ml ASDIRECTED PRN Administration Keep Vein Open Discontinued Medications Generic Name Dose Route Start Last Admin Trade Name Freq PRN Reason Stop Dose Admin Pantoprazole Sodium 80 mg 01/19/21 08:05 01/19/21 08:30 Pantoprazole 40 Mg Vial IVPUSH 01/19/21 08:06 80 mg .BOLUS ONE Administration Departure - Departure Time of Disposition: 12:33 Disposition: Against Medical Advice 07 Condition: Undetermined Clinical Impression: GI bleed Qualifiers: GI bleed type/associated pathology: melena Qualified Code(s): K92.1 - Melena - Discharge Information Referrals: PCP,Unknown [Primary Care Provider] - Forms: ED Department Discharge Sepsis Event Note (ED) - Focused Exam Vital Signs: Vital Signs Temp Pulse Resp BP Pulse Ox 01/19/21 10:50 67 14 111/67 95 01/19/21 10:20 71 16 119/70 96 01/19/21 09:50 66 19 116/65 01/19/21 09:20 80 21 H 111/72 01/19/21 08:50 78 21 H 116/68 98 01/19/21 08:48 77 18 112/70 98 01/19/21 08:05 97.3 F 78 17 118/68 98 01/19/21 07:51 94 25 H 128/82 - My Orders Last 24 Hours: My Active Orders 01/19/21 08:05 Peripheral IV Care [RC] . DIRECTED Sodium Chloride 0.9% [Saline Flush] 10 ml FLUSH ASDIRECTED PRN Peripheral IV Insertion Adult [OM.PC] Urgent Peripheral IV Insertion Adult [OM.PC] Urgent 01/19/21 08:15 Octreotide [SandoSTATIN] 500 mcg Sodium Chloride 0.9% [Normal Saline] 497.5 ml IV Q10H Sodium Chloride 0.9% [Normal Saline] 500 ml IV .BOLUS - Assessment/Plan Last 24 Hours: My Active Orders 01/19/21 08:05 Peripheral IV Care [RC] . DIRECTED Sodium Chloride 0.9% [Saline Flush] 10 ml FLUSH ASDIRECTED PRN Peripheral IV Insertion Adult [OM.PC] Urgent Peripheral IV Insertion Adult [OM.PC] Urgent 01/19/21 08:15 Octreotide [SandoSTATIN] 500 mcg Sodium Chloride 0.9% [Normal Saline] 497.5 ml IV Q10H Sodium Chloride 0.9% [Normal Saline] 500 ml IV .BOLUS Plan: The patient is clinically sober, free from distracting injury, appears to have intact insight and judgment and reason and in my opinion has the capacity to make decisions. The patient presents with upper GI bleed. I have explained that I am concerned that this may represent bleeding varices that could lead to ; they have verbalized an understanding of my concerns. I have discussed with the patient the lab work and image studies during the evaluation in the emergency department. I have discussed the transfer to a GI specialist closest to [place] he adamantly declines he will not go. I have told the patient that if they leave and have increasing bleeding, they could get much worse, could become critically ill, and could possibly become disabled or . I have discussed these concerns with the patient and I was unable to convince them to stay for further evaluation. The patient is refusing any further care and is leaving against medical advice. I am unable to convince the patient to stay, I have asked them to return as soon as possible to complete their evaluation. I have answered all their questions.
[2021-01-19 11:00] VITALS: BP 111/67; PULSE 67
== END 2021-01-19 12:26 | disposition left against medical advice (07) ==
LOC: JP.ED 07:50
DX: K92.1 Melena (principal); I10 Essential (primary) hypertension; K21.9 Gastro-esophageal reflux disease without esophagitis; E11.9 Type 2 diabetes mellitus without complications; E03.9 Hypothyroidism, unspecified; Z91.030 Bee allergy status; Z88.8 Allergy status to other drugs, medicaments and biological substances; Z79.84 Long term (current) use of oral hypoglycemic drugs; Z79.899 Other long term (current) drug therapy
CPT/HCPCS: 36415; 80053; 80307; 82140; 82271; 85025; 85610; 86850; 86900; 86901; 96365; 96366; 96375; 99285; C9113; J2354; J7040

== ENCOUNTER 2021-01-22 10:34 | Inpatient (IN) | payer OTHER ==
--- NOTE | 2021-01-22 11:15 | EDM.PDOC ---
ED HPI GENERAL MEDICAL PROBLEM - General Chief Complaint: Gastrointestinal Problem Stated Complaint: [facility] Time Seen by Provider: 01/22/21 11:05 Source of Information: Reports: Patient History Limitations: Reports: No Limitations - History of Present Illness INITIAL COMMENTS - FREE TEXT/NARRATIVE: This is a 80 year old male presenting with abdominal distention and increasing shortness of breath. Patient has a history of cirrhosis with ascites and recent GI bleed with known esophageal varices. He presents today with increasing abdominal distention over the past 2-3 days. He reports that now he feels more short of breath. He states this is typical when his ascites gets bad. He denies associated abdominal pain, nausea, or vomiting. He denies any recent episodes of hematemesis or melena. States he is having normal brown stools. He denies any chest pain. No fever or chills. He does report a recent cough, but states this has been going on for awhile and is not really changed. He is requesting a paracentesis. Abdominal Pain Score (Numeric/FACES): 3 - Related Data Allergies Allergy/AdvReac Type Severity Reaction Status Date / Time venom-honey bee Allergy Swelling Verified 01/22/21 10:43 [bee venom (honey bee)] lisinopril AdvReac Cough Verified 01/22/21 10:43 Home Meds: Home Meds Levothyroxine Sodium [Synthroid] 50 mcg PO DAILY 11/29/14 [History] metFORMIN [Glucophage] 1,000 mg PO DAILY 11/29/14 [History] Spironolactone [Aldactone] 50 mg PO DAILY 10/02/19 [History] Furosemide 10 mg PO DAILY 01/30/20 [History] Ondansetron [Zofran ODT] 4 mg PO Q6H PRN #7 tab.dis 01/30/20 [Rx] Omeprazole 40 mg PO BID 01/09/21 [History] Lactulose [Generlac] 20 gm PO TID 01/19/21 [History] Past Medical History HEENT History: Reports: Cataract, Hard of Hearing, Other (See Below) Other HEENT History: hearing aids Cardiovascular History: Reports: Aneurysm, Hypertension Other Cardiovascular History: mild abdominal aneurism Gastrointestinal History: Reports: GERD, GI Bleed, Other (See Below) Other Gastrointestinal History: Liver cirosis, esouphageal varicies. ascities Genitourinary History: Reports: BPH Musculoskeletal History: Reports: Gout, Other (See Below) Other Musculoskeletal History: broken ribs from fall Psychiatric History: Reports: None Endocrine/Metabolic History: Reports: Diabetes, Type II, Hypothyroidism Hematologic History: Reports: Blood Transfusion(s), Iron Deficiency Oncologic (Cancer) History: Reports: Basal Cell Carcinoma - Infectious Disease History Infectious Disease History: Reports: Chicken Pox, Herpes, Measles, Mumps - Past Surgical History Head Surgeries/Procedures: Reports: None HEENT Surgical History: Reports: Cataract Surgery Cardiovascular Surgical History: Reports: None Respiratory Surgical History: Reports: Thoracentesis GI Surgical History: Reports: Appendectomy, Cholecystectomy, Hernia Repair/Other, Other (See Below) Other GI Surgeries/Procedures: paracentesis Male Surgical History: Reports: Prostate Biopsy Endocrine Surgical History: Reports: None Musculoskeletal Surgical History: Reports: None Oncologic Surgical History: Reports: Other (See Below) Other Oncologic Surgeries/Procedures: nose biopsy Dermatological Surgical History: Reports: None Social & Family History - Family History Cardiac: Reports: OK - Tobacco Use Tobacco Use Status *Q: Never Tobacco User - Caffeine Use Caffeine Use: Reports: Coffee - Recreational Drug Use Recreational Drug Use: No ED ROS GENERAL - Review of Systems Review Of Systems: Comprehensive ROS is negative, except as noted in HPI. ED EXAM, GI/ABD - Physical Exam Exam: See Below Exam Limited By: No Limitations General Appearance: Alert, No Apparent Distress Head: Atraumatic, Normocephalic Neck: Full Range of Motion Respiratory/Chest: No Respiratory Distress, Lungs Clear, Normal Breath Sounds, No Accessory Muscle Use Cardiovascular: Normal Peripheral Pulses, Regular Rate, Rhythm GI/Abdominal Exam: Soft, Distended, Other (abdomen is distended with fluid wave present consistent with ascites. ) Extremities: Other (mild bilateral lower extremity edema present. ) Neurological: Alert, Oriented Skin Exam: Warm, Dry, No Rash Course - Vital Signs Last Recorded V/S: Last Vital Signs Temp 97.9 F 01/22/21 10:42 Pulse 66 01/22/21 13:02 Resp 16 01/22/21 10:42 BP 118/74 01/22/21 13:02 Pulse Ox 97 01/22/21 13:02 - Orders/Labs/Meds Orders: Active Orders 24 hr Category Date Time Status Patient Status [ADT] Routine ADT 01/22/21 15:47 Active Blood Glucose Check, Bedside [RC] TIDAC Care 01/22/21 15:51 Active Oxygen Therapy [RC] PRN Care 01/22/21 15:47 Active VTE/DVT Education [RC] Per Unit Routine Care 01/22/21 15:47 Active Vital Signs [RC] Q4H Care 01/22/21 15:47 Active 2 Gram Sodium Diet [DIET] Diet 01/22/21 Dinner Active Dextrose 50% in Water Med 01/22/21 15:51 Active 50 ml IVPUSH ASDIRECTED PRN Furosemide [Lasix] Med 01/22/21 16:00 Active 10 mg PO DAILY Glucagon,Human Recombinant [GlucaGen] Med 01/22/21 15:51 Active 1 mg IM ASDIRECTED PRN Insulin Lispro [HumaLOG] Med 01/22/21 17:00 Active See Protocol SUBCUT TIDMEALS Lactulose [Chronulac] Med 01/22/21 21:00 Active 20 gm PO TID Levothyroxine [Synthroid] Med 01/23/21 07:30 Active 50 mcg PO ACBREAKFAST Pantoprazole [ProTONIX] Med 01/22/21 16:30 Active 40 mg PO BIDAC Spironolactone [Aldactone] Med 01/23/21 09:00 Active 50 mg PO DAILY Resuscitation Status Routine Resus Stat 01/22/21 15:47 Ordered Medication Orders Dextrose/Water (50% Dextrose In Water 50 Ml Syringe) 50 ml IVPUSH ASDIRECTED PRN PRN Reason: Hypoglycemia Furosemide (Furosemide 20 Mg Tab) 10 mg PO DAILY JEANETTE Glucagon (Glucagon,Human Recombinant 1 Mg Vial) 1 mg IM ASDIRECTED PRN PRN Reason: Hypoglycemia Insulin Human Lispro (Insulin Lispro 100 Unit/Ml 3 Ml Kwikpen) 0 unit SUBCUT TIDMEALS JEANETTE; Protocol Lactulose (Lactulose Soln 10 Gm/15 Ml 15 Ml Ud Cup) 20 gm PO TID JEANETTE Levothyroxine Sodium (Levothyroxine 50 Mcg Tab) 50 mcg PO ACBREAKFAST JEANETTE Pantoprazole Sodium (Pantoprazole 40 Mg Tab.Cr) 40 mg PO BIDAC JEANETTE Spironolactone (Spironolactone 25 Mg Tab) 50 mg PO DAILY JEANETTE Labs: Laboratory Tests 01/22/21 01/22/21 01/22/21 Range/Units 11:18 11:18 11:18 WBC 4.7 (4.5-11.0) K/uL RBC 2.90 L (4.30-5.90) M/uL Hgb 7.7 L (12.0-15.0) g/dL Hct 25.6 L (40.0-54.0) % MCV 88 (80-98) fL MCH 27 (27-31) pg MCHC 30 L (32-36) % Plt Count 149 L (150-400) K/uL Add Manual Diff Yes Neutrophils % (Manual) 76 H (36-66) % Lymphocytes % (Manual) 20 L (24-44) % Monocytes % (Manual) 3 (2-6) % Eosinophils % (Manual) 1 L (2-4) % Basophils % (Manual) 0 (0-1) % Atypical Lymphocytes Few PT 14.8 H (9.5-12.0) sec INR 1.37 H (0.80-1.20) Sodium 141 (140-148) mmol/L Potassium 4.2 (3.6-5.2) mmol/L Chloride 107 (100-108) mmol/L Carbon Dioxide 25 (21-32) mmol/L Anion Gap 9.1 (5.0-14.0) mmol/L BUN 22 H (7-18) mg/dL Creatinine 1.0 (0.8-1.3) mg/dL Est Cr Clr Drug Dosing 58.59 mL/min Estimated GFR (MDRD) > 60 (>60) Glucose 138 H (74-106) mg/dL Calcium 7.4 L (8.5-10.1) mg/dL Total Bilirubin 1.1 H (0.2-1.0) mg/dL AST 34 (15-37) U/L ALT 32 (12-78) U/L Alkaline Phosphatase 107 (46-116) U/L Total Protein 5.8 L (6.4-8.2) g/dL Albumin 1.9 L (3.4-5.0) g/dL Globulin 3.9 H (2.3-3.5) g/dL Albumin/Globulin Ratio 0.5 L (1.2-2.2) Meds: Medications Generic Name Dose Route Start Last Admin Trade Name Freq PRN Reason Stop Dose Admin Dextrose/Water 50 ml 01/22/21 15:51 50% Dextrose In Water 50 Ml Syringe IVPUSH ASDIRECTED PRN Hypoglycemia Furosemide 10 mg 01/22/21 16:00 Furosemide 20 Mg Tab PO DAILY JEANETTE Glucagon 1 mg 01/22/21 15:51 Glucagon,Human Recombinant 1 Mg Vial IM ASDIRECTED PRN Hypoglycemia Insulin Human Lispro 0 unit 01/22/21 17:00 Insulin Lispro 100 Unit/Ml 3 Ml Kwikpen SUBCUT TIDMEALS [facility] Protocol Lactulose 20 gm 01/22/21 21:00 Lactulose Soln 10 Gm/15 Ml 15 Ml Ud Cup PO TID JEANETTE Levothyroxine Sodium 50 mcg 01/23/21 07:30 Levothyroxine 50 Mcg Tab PO ACBREAKFAST JEANETTE Pantoprazole Sodium 40 mg 01/22/21 16:30 Pantoprazole 40 Mg Tab.Cr PO BIDAC JEANETTE Spironolactone 50 mg 01/23/21 09:00 Spironolactone 25 Mg Tab PO DAILY JEANETTE Departure - Departure Time of Disposition: 14:00 Disposition: Admitted As Inpatient [id number] Clinical Impression: Pleural effusion, Ascites, Dyspnea - Discharge Information Referrals: PCP,None [Primary Care Provider] - Forms: ED Department Discharge Sepsis Event Note (ED) - Evaluation Sepsis Screening Result: No Definite Risk - Focused Exam Vital Signs: Vital Signs Temp Pulse Resp BP Pulse Ox 01/22/21 13:02 66 118/74 97 01/22/21 12:02 74 115/75 97 01/22/21 11:34 76 137/74 97 01/22/21 11:02 80 127/74 97 01/22/21 10:42 97.9 F 76 16 124/73 95 01/22/21 10:37 97.9 F 76 16 124/73 95 - Problem List Review Problem List Initiated/Reviewed/Updated: Yes - Assessment/Plan Assessment:: This is a 80 year old male with history of cirrhosis presenting with increasing abdominal distention and shortness of breath. He has a history of recurrent ascites and a history of pleural effusion on the right as well. His evaluation today shows that his hemoglobin is 7.7, down from 8.5 a few days ago. He was recently admitted for a GI bleed. He denies any further bleeding (no hematemesis or melena) and he is hemodynamically stable. I do not think he requires transfusion at this time, but his hemoglobin should be trended to ensure it is not further dropping due to occult GI bleed. Patient does have ascites on bedside ultrasound and my initial plan was that he could have a paracentesis and be discharged. I discussed the patient with [employer] operator surgeon Dr. Munguia and he was not able to do a paracentesis today and recommended patient come back tomorrow at 7 am for a paracentesis. However, in the meantime, his CXR was noted to have a large right pleural effusion. I again discussed the patient with Dr. Munguia and he recommended having him evaluated by the hospitalist. I discussed the patient with [employer] hospitalist Dr. Ojeda, and we ultimately felt that patient would be best served by being admitted to the hospital given the low hemoglobin and large pleural effusion with the tentative plane that he will have a thoracentesis tomorrow morning and then maybe a paracentesis in the following days. I have low suspicion for SBP at this time and do not think he requires emergent paracentesis to evaluate for it at this time. THe patient remained stable in the ED and was admitted for continued management of his pleural effusion, ascites, and anemia.
--- NOTE | 2021-01-22 12:52 | US ---
Limited abdominal ultrasound to george ascites for paracentesis
--- NOTE | 2021-01-22 12:52 | CR ---
CHEST: 2 view CLINICAL HISTORY:SOB COMPARISON:11/22/2020 FINDINGS: Patient is a large right pleural effusion which has increased in size when compared to November. Left lung is clear.. Impression: Large right pleural effusion which is increased since November 2020
[2021-01-22] MEDS ORDERED: Glucagon,Human Recombinant 1 MG Vial IM PRN (15:51)
[2021-01-22] MEDS ORDERED: 50% Dextrose in Water 50 ML Syringe IVPUSH PRN (15:51)
[2021-01-22] MEDS ORDERED: Furosemide 20 MG Tab PO SCH (16:00)
[2021-01-22] MEDS ORDERED: Pantoprazole 40 MG Tab.CR PO SCH (16:30)
[2021-01-22] MEDS ORDERED: Insulin Lispro 100 Unit/ML 3 ML KwikPen SUBCUT SCH (17:00)
--- NOTE | 2021-01-22 17:05 | PCM.HP.2 ---
H&P History of Present Illness - General Date of Service: 01/22/21 Admit Problem/Dx: Admission Diagnosis/Problem Admission Diagnosis/Problem Cirrhosis of liver with ascites, SOB secondary to large pulmonary effusion Source of Information: Patient History Limitations: Reports: No Limitations - History of Present Illness Initial Comments - Free Text/Narative: Mr. Schwartz is a 80-year-old white male with a history significant for liver cirrhosis who presents due to shortness of breath. He states that over the past 2 to 3 days he has had increasing abdominal distention associated with shortness of breath. He does have increasing weakness over the past few years. He states that about 3 to 4 years ago he stopped using alcohol because he had a massive GI bleed and needed to be life flighted to [place] and he has not been drinking since. He has had recurrent GI bleeds since that time, most recently he was here from October 05 through October 07 due to an upper GI bleed secondary to erosive gastritis and adjacent esophageal varices. He admits to having lost a significant amount of weight over the past 3 to 4 years and states that he is so weak he is almost bedridden. He also states that he gets fluid in his right leg. He denies any blood in stool or recent vomiting. He states that he had a good bowel movement today that was brown in color. His past medical history is also significant for erosive esophagitis, esophageal varices, recurrent upper GI bleed, hearing loss with the use of hearing aids, and a history of chronic heavy alcohol consumption that he states he stopped 3 to 4 years ago. He has had paracentesis in the past due to ascites, he states the most he has ever had removed was 8 L when he was in [place]. An EGD done on his last visit here by Dr. Munguia on 10/05 showed erosive esophagitis and varices. In the ED he had labs drawn that were significant: Hemoglobin 7.7, hematocrit 25.6, platelet count 149, PT 14.8, INR 1.37, BUN 22, bilirubin 1.1, albumin 1.9, total protein 5.8. He had a chest x-ray done that showed a large right pleural effusion that has increased in size since November 2020. He had an abdominal ultrasound that was limited due to marked ascites. Dr. Munguia, surgery, was consulted and agreed to do a thoracentesis on this patient tomorrow morning at 7 AM. He will be admitted to have a thoracentesis done. Due to his low albumin and low hemoglobin albumin will need to be administered slightly prior to and after the thoracentesis. We may be able to do a paracentesis in the following days depending on his stability after the thoracentesis. Abdominal Pain Score (Numeric/FACES): 3 - Related Data Allergies/Adverse Reactions: Allergies Allergy/AdvReac Type Severity Reaction Status Date / Time venom-honey bee Allergy Swelling Verified 01/22/21 10:43 [bee venom (honey bee)] lisinopril AdvReac Cough Verified 01/22/21 10:43 Home Medications: Home Meds Levothyroxine Sodium [Synthroid] 50 mcg PO DAILY 11/29/14 [History] metFORMIN [Glucophage] 1,000 mg PO DAILY 11/29/14 [History] Spironolactone [Aldactone] 50 mg PO DAILY 10/02/19 [History] Furosemide 10 mg PO DAILY 01/30/20 [History] Ondansetron [Zofran ODT] 4 mg PO Q6H PRN #7 tab.dis 01/30/20 [Rx] Omeprazole 40 mg PO BID 01/09/21 [History] Lactulose [Generlac] 20 gm PO TID 01/19/21 [History] Past Medical History HEENT History: Reports: Cataract, Hard of Hearing, Other (See Below) Other HEENT History: hearing aids Cardiovascular History: Reports: Aneurysm, Hypertension Other Cardiovascular History: mild abdominal aneurism Gastrointestinal History: Reports: GERD, GI Bleed, Other (See Below) Other Gastrointestinal History: Liver cirosis, esouphageal varicies. ascities Genitourinary History: Reports: BPH Musculoskeletal History: Reports: Gout, Other (See Below) Other Musculoskeletal History: broken ribs from fall Psychiatric History: Reports: None Endocrine/Metabolic History: Reports: Diabetes, Type II, Hypothyroidism Hematologic History: Reports: Blood Transfusion(s), Iron Deficiency Oncologic (Cancer) History: Reports: Basal Cell Carcinoma - Infectious Disease History Infectious Disease History: Reports: Chicken Pox, Herpes, Measles, Mumps - Past Surgical History Head Surgeries/Procedures: Reports: None HEENT Surgical History: Reports: Cataract Surgery Cardiovascular Surgical History: Reports: None Respiratory Surgical History: Reports: Thoracentesis GI Surgical History: Reports: Appendectomy, Cholecystectomy, Hernia Repair/Other, Other (See Below) Other GI Surgeries/Procedures: paracentesis Male Surgical History: Reports: Prostate Biopsy Endocrine Surgical History: Reports: None Musculoskeletal Surgical History: Reports: None Oncologic Surgical History: Reports: Other (See Below) Other Oncologic Surgeries/Procedures: nose biopsy Dermatological Surgical History: Reports: None Social & Family History - Family History Cardiac: Reports: [place] - Tobacco Use Tobacco Use Status *Q: Never Tobacco User - Caffeine Use Caffeine Use: Reports: Coffee - Recreational Drug Use Recreational Drug Use: No H&P Review of Systems - Review of Systems: Review Of Systems: See Below General: Reports: Weakness, Weight Loss. Denies: Fever, Chills HEENT: Reports: Hearing Changes (Uses hearing aids), Visual Changes (Has had cataract surgery). Denies: Headaches, Post Nasal Drip, Sinus Congestion Pulmonary: Reports: Shortness of Breath, Cough, Sputum (Clear). Denies: Wheezing, Hemoptysis Cardiovascular: Reports: Dyspnea on Exertion, Edema. Denies: Chest Pain, Palpitations, Syncope Gastrointestinal: Reports: Abdominal Pain, Distension. Denies: Black Stool, Bloody Stool, Constipation, Diarrhea, Hematemesis, Hematochezia, Melena, Nausea, Vomiting Genitourinary: Reports: No Symptoms. Denies: Dysuria, Frequency, Pain, Urgency Musculoskeletal: Reports: No Symptoms Skin: Reports: No Symptoms. Denies: Rash Psychiatric: Reports: No Symptoms. Denies: Confusion Neurological: Reports: No Symptoms. Denies: Confusion, Dizziness, Headache Hematologic/Lymphatic: Reports: Anemia, Easy Bruising Immunologic: Reports: Other (Bee venom, lisinopril) Exam - Exam Exam: See Below - Vital Signs Vital Signs: Last Vital Signs Temp 97.9 F 01/22/21 10:42 Pulse 66 01/22/21 13:02 Resp 16 01/22/21 10:42 BP 118/74 01/22/21 13:02 Pulse Ox 97 01/22/21 13:02 Weight: 150 lb (Stated weight) - Exam Quality Assessment: Supplemental Oxygen. No: DVT Prophylaxis General: Alert, Oriented, Cooperative, Mild Distress HEENT: PERRLA, EOMI, Hearing Intact (With hearing aids and), Mucosa Moist & [place], Nares Patent Neck: Supple, Trachea Midline Lungs: Other (Absent breath sounds on the right middle and lower lobe regions, increased respiratory effort) Cardiovascular: Regular Rate, Regular Rhythm GI/Abdominal Exam: Non-Tender, Distended, Other (Diminished bowel sounds likely related to ascites over top) Extremities: Non-Tender, Other (Right leg edema, 2+ pitting to the knee possibly 3+ towards the foot, no edema on the left) Skin: Warm, Dry, Intact, Ecchymosis (Scattered in various places along body) Neuro Extensive - Mental Status: Alert, Oriented x3, Normal Mood/Affect, Normal Cognition, Memory Loss-Recent Events (Has a hard time remembering dates of medical events, and timeframes) Psychiatric: Alert, Normal Affect, Normal Mood - Patient Data Lab Results Last 24 hrs: Laboratory Results - last 24 hr 01/22/21 01/22/21 01/22/21 Range/Units 11:18 11:18 11:18 WBC 4.7 (4.5-11.0) K/uL RBC 2.90 L (4.30-5.90) M/uL Hgb 7.7 L (12.0-15.0) g/dL Hct 25.6 L (40.0-54.0) % MCV 88 (80-98) fL MCH 27 (27-31) pg MCHC 30 L (32-36) % Plt Count 149 L (150-400) K/uL Add Manual Diff Yes Neutrophils % (Manual) 76 H (36-66) % Lymphocytes % (Manual) 20 L (24-44) % Monocytes % (Manual) 3 (2-6) % Eosinophils % (Manual) 1 L (2-4) % Basophils % (Manual) 0 (0-1) % Atypical Lymphocytes Few PT 14.8 H (9.5-12.0) sec INR 1.37 H (0.80-1.20) Sodium 141 (140-148) mmol/L Potassium 4.2 (3.6-5.2) mmol/L Chloride 107 (100-108) mmol/L Carbon Dioxide 25 (21-32) mmol/L Anion Gap 9.1 (5.0-14.0) mmol/L BUN 22 H (7-18) mg/dL Creatinine 1.0 (0.8-1.3) mg/dL Est Cr Clr Drug Dosing 58.59 mL/min Estimated GFR (MDRD) > 60 (>60) Glucose 138 H (74-106) mg/dL Calcium 7.4 L (8.5-10.1) mg/dL Total Bilirubin 1.1 H (0.2-1.0) mg/dL AST 34 (15-37) U/L ALT 32 (12-78) U/L Alkaline Phosphatase 107 (46-116) U/L Total Protein 5.8 L (6.4-8.2) g/dL Albumin 1.9 L (3.4-5.0) g/dL Globulin 3.9 H (2.3-3.5) g/dL Albumin/Globulin Ratio 0.5 L (1.2-2.2) Result Diagrams: 01/22/21 11:18 01/22/21 11:18 Sepsis Event Note - Evaluation Sepsis Screening Result: No Definite Risk - Focused Exam Vital Signs: Vital Signs Temp Pulse Resp BP Pulse Ox 01/22/21 13:02 66 118/74 97 01/22/21 12:02 74 115/75 97 01/22/21 11:34 76 137/74 97 01/22/21 11:02 80 127/74 97 01/22/21 10:42 97.9 F 76 16 124/73 95 01/22/21 10:37 97.9 F 76 16 124/73 95 - Problem List (1) Alcoholic cirrhosis of liver with ascites SNOMED Code(s): 057270811, 170698726 ICD Code: K70.31 - ALCOHOLIC CIRRHOSIS OF LIVER WITH ASCITES Status: Acute Current Visit: Yes (2) Pleural effusion SNOMED Code(s): 75065727 ICD Code: J90 - PLEURAL EFFUSION, NOT ELSEWHERE CLASSIFIED Status: Acute Current Visit: Yes (3) Portal hypertension SNOMED Code(s): 87468215 ICD Code: K76.6 - PORTAL HYPERTENSION Status: Acute Current Visit: No (4) Hypothyroidism SNOMED Code(s): 60202429 ICD Code: E03.9 - HYPOTHYROIDISM, UNSPECIFIED Status: Chronic Current Visit: No Qualifiers: Hypothyroidism type: acquired Qualified Code(s): E03.9 - Hypothyroidism, unspecified (5) Type 2 diabetes mellitus SNOMED Code(s): 38382698 ICD Code: E11.9 - TYPE 2 DIABETES MELLITUS WITHOUT COMPLICATIONS Status: Chronic Current Visit: No Qualifiers: Diabetes mellitus senior living insulin use: without intermodal truck driver use Diabetes mellitus complication status: without complication Qualified Code(s): E11.9 - Type 2 diabetes mellitus without complications Problem List Initiated/Reviewed/Updated: Yes Orders Last 24hrs: Active Orders 24 hr Category Date Time Status Patient Status [ADT] Routine ADT 01/22/21 15:47 Active Blood Glucose Check, Bedside [RC] TIDAC Care 01/22/21 15:51 Active Oxygen Therapy [RC] PRN Care 01/22/21 15:47 Active VTE/DVT Education [RC] Per Unit Routine Care 01/22/21 15:47 Active Vital Signs [RC] Q4H Care 01/22/21 15:47 Active Weight [Height and Weight] [] UPON Care 01/22/21 16:38 Active 2 Gram Sodium Diet [DIET] Diet 01/22/21 Dinner Active Dextrose 50% in Water Med 01/22/21 15:51 Active 50 ml IVPUSH ASDIRECTED PRN Furosemide [Lasix] Med 01/22/21 16:00 Active 10 mg PO DAILY Glucagon,Human Recombinant [GlucaGen] Med 01/22/21 15:51 Active 1 mg IM ASDIRECTED PRN Insulin Lispro [HumaLOG] Med 01/22/21 17:00 Active See Protocol SUBCUT TIDMEALS Lactulose [Chronulac] Med 01/22/21 21:00 Active 20 gm PO TID Levothyroxine [Synthroid] Med 01/23/21 07:30 Active 50 mcg PO ACBREAKFAST Pantoprazole [ProTONIX] Med 01/22/21 16:30 Active 40 mg PO BIDAC Spironolactone [Aldactone] Med 01/23/21 09:00 Active 50 mg PO DAILY Resuscitation Status Routine Resus Stat 01/22/21 15:47 Ordered Medication Orders Dextrose/Water (50% Dextrose In Water 50 Ml Syringe) 50 ml IVPUSH ASDIRECTED PRN PRN Reason: Hypoglycemia Furosemide (Furosemide 20 Mg Tab) 10 mg PO DAILY JEANETTE Glucagon (Glucagon,Human Recombinant 1 Mg Vial) 1 mg IM ASDIRECTED PRN PRN Reason: Hypoglycemia Insulin Human Lispro (Insulin Lispro 100 Unit/Ml 3 Ml Kwikpen) 0 unit SUBCUT TIDMEALS JEANETTE; Protocol Lactulose (Lactulose Soln 10 Gm/15 Ml 15 Ml Ud Cup) 20 gm PO TID JEANETTE Levothyroxine Sodium (Levothyroxine 50 Mcg Tab) 50 mcg PO ACBREAKFAST JEANETTE Pantoprazole Sodium (Pantoprazole 40 Mg Tab.Cr) 40 mg PO BIDAC JEANETTE Spironolactone (Spironolactone 25 Mg Tab) 50 mg PO DAILY JEANETTE Assessment/Plan Comment:: Alcoholic cirrhosis with ascites and large pleural effusion -Plan to have thoracentesis tomorrow at [address] Munguia, will be administering albumin slightly prior to and after procedure based on amount of fluid removed -There is concern for possible cardiovascular collapse in the event of large- volume fluid shifts, therefore he should be watched very carefully postprocedure -He does have a history of hepatorenal syndrome, this does not appear evident currently however will be monitored postprocedure -He states has not had alcohol in the past 3 to 4 years -Associated lab values: PT 14.8, INR 1.37, bilirubin 1.1, albumin 1.9, sodium 141 -He has a moderate amount of ascites, he does not appear to have encephalopathy however he takes lactulose 3 times a day which would mask the symptoms -His Child-Mota score is 9-11 (encephalopathy difficult to determine due to lactulose) making his life expectancy 1 to 3 years, if 9 he would be a good surgical candidate for transplant however if 11 he would not -His MELD score is 10 giving him a 6% 3-month mortality -I did ask him if he has ever been offered transplant and he said no, I did mention to him that his life expectancy is 1 to 3 years and he stated since this is the first time he is ever been told this that getting a liver transplant would be something he would have to think about -Continue home dose of furosemide 10 mg, spironolactone 50 mg -Will start on a 2 g/day sodium diet 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 -He has an extremely low albumin level and protein level -He has significant loss of fat and muscle mass, his weight is likely not affected because of the large amount of fluid due to the ascites -I have ordered an accurate weight to be taken and will order an accurate weight to be taken if a paracentesis is done -We will consult nutrition for input Hepatic encephalopathy -Continue home dose of lactulose 20 g 3 times daily Portal hypertension -He does have a large amount of edema in the right lower extremity to the knee, and a moderate amount of ascites indicative of portal hypertension Erosive esophagitis with esophageal varices -Continue pantoprazole 40 mg twice daily home medication Type 2 diabetes mellitus likely secondary to history of alcohol abuse -Blood glucose checks 3 times daily AC, sliding scale insulin low-dose correction -Takes Metformin at home, will be held Hypothyroidism -Start home dose of levothyroxine 50 mcg with breakfast Plan: Will begin giving albumin tomorrow morning prior to procedure at 8 AM and will continue albumin until 5 to 10 g/L removed has been obtained. We will monitor the patient for hemodynamic stability. We will continue to consult patient about end of life needs. He lives alone, he does have a sister within 30 minutes of here however he does not have any other family close. As his cirrhosis progresses he will need home health care at minimum and eventually penitentiary assistance. He does not appear to be a good surgical candidate for liver transplant even though this would be the only definitive treatment and he would qualify as he likely has hepatic encephalopathy masked by lactulose. We can still see if he would be willing to go to a telecommunication tower technician for evaluation when he is ready to make that decision. VTE prophylaxis: SCDs, I do not want to use any blood thinners with this patient as he likely does not make adequate coagulation factors GI prophylaxis: Pantoprazole 40 mg twice daily Diet: 2 g/day sodium diet CODE STATUS: Full code Admission status: Patient will be admitted to inpatient status, expect at least a 2 night hospital stay for evaluation and management of problems outlined above. At the time of admission I do not reasonably expect the evaluation and management of this problem will require more than a 96-hour hospital stay Yessi Ojeda DO - Mortality Measure Prognosis:: Poor
[2021-01-22 17:50] VITALS: PULSE 77
[2021-01-22] MEDS ORDERED: Acetaminophen 325 MG Tab PO PRN (18:22)
[2021-01-22] MEDS ORDERED: Lactulose Soln 10 GM/15 ML 15 ML UD Cup PO SCH (21:00)
[2021-01-22] MEDS ORDERED: Magnesium Sulfate/Water 2 GM in Premix Bag 2 BAG IV ONE (21:23)
[2021-01-22] MEDS ORDERED: Calcium Carbonate 500 MG Tab.Chew PO PRN (21:54)
[2021-01-22 22:35] VITALS: BP 127/76
--- NOTE | 2021-01-22 23:18 | PCM.DCSUM1 ---
Discharge Summary - Hospital Course Free Text/Narrative:: Mr. Schwartz is a 80-year-old white male with a history significant for liver cirrhosis who presented due to shortness of breath. He was admitted to the hospital with plans for a paracentesis after a large pleural effusion was seen on chest x-ray in the ED. He has a significantly low albumin at 1.9 and a low hemoglobin at 7.7 therefore albumin was going to be given along with the procedure. There was some concern for cardiovascular compromise once the pr ocedure were to be completed so he was admitted to the ICU. While in the ICU the nurse noted that his monitor was showing an abnormal heart rhythm and contacted me. An EKG was ordered which showed T wave inversions in V2 through V5 with ST segment depressions of 1.5 mm in V3 and V4, V3 and V4 also had large voltage QRS. The EKG appears to show atrial fibrillation versus first-degree block. We have a telemetry strip from 2019 but do not have a complete 12-lead EKG to compare this to. A troponin was drawn and was 0.034. He will be transported prior prior to a 3-hour repeat troponin. The patient was complaining of belching and burping with some nausea. He repeatedly asked for Zofran however his QTC is 437 so it was not given. His magnesium was low at 1.5 so he was given 4 g of magnesium sulfate IV started in the ICU and in route.He will be transferred for cardiac evaluation and to rule out cardiac ischemia. He will need an echo done which we will not have in this facility until Monday, he will need it prior to this. He will also likely need a thoracentesis as he continues to have some dyspnea without hypoxemia or retractions in the chest noted. Diagnosis: Stroke: No Modified [place] Scale: No Signif.Disability Despite Sympt.Able to Carry Out Usual Act./Duties Modified [place] Scale Score: 1 - Discharge Data Discharge Date: 01/22/21 Discharge Disposition: DC/Tfer to Acute Hospital 02 Condition: Stable - Referral to Home Health Primary Care Physician: PCP None - Discharge Diagnosis/Problem(s) (1) Alcoholic cirrhosis of liver with ascites SNOMED Code(s): 631250605, 485420760 ICD Code: K70.31 - ALCOHOLIC CIRRHOSIS OF LIVER WITH ASCITES Status: Acute Current Visit: Yes (2) Pleural effusion SNOMED Code(s): 67085729 ICD Code: J90 - PLEURAL EFFUSION, NOT ELSEWHERE CLASSIFIED Status: Acute Current Visit: Yes (3) Portal hypertension SNOMED Code(s): 94635309 ICD Code: K76.6 - PORTAL HYPERTENSION Status: Acute Current Visit: No (4) Hypothyroidism SNOMED Code(s): 51000550 ICD Code: E03.9 - HYPOTHYROIDISM, UNSPECIFIED Status: Chronic Current Visit: No Qualifiers: Hypothyroidism type: acquired Qualified Code(s): E03.9 - Hypothyroidism, unspecified (5) Type 2 diabetes mellitus SNOMED Code(s): 71435610 ICD Code: E11.9 - TYPE 2 DIABETES MELLITUS WITHOUT COMPLICATIONS Status: Chronic Current Visit: No Qualifiers: Diabetes mellitus terminal operator insulin use: without halfway use Diabetes mellitus complication status: without complication Qualified Code(s): E11.9 - Type 2 diabetes mellitus without complications (6) EKG abnormality SNOMED Code(s): 532998267 ICD Code: R94.31 - ABNORMAL ELECTROCARDIOGRAM [ECG] [EKG] Status: Acute Current Visit: Yes - Patient Summary/Data Consults: Consultations 01/22/21 18:00 Nutrition Reassessment/Plan, Adult [Consult to Force Dispatcher] [CONS] Routine Comment: Physician Instructions: Quantity: Reason for Consult: protein energy malnutrition likely - Discharge Plan Home Medications: Home Meds Levothyroxine Sodium [Synthroid] 50 mcg PO DAILY 11/29/14 [History] metFORMIN [Glucophage] 1,000 mg PO DAILY 11/29/14 [History] Spironolactone [Aldactone] 50 mg PO DAILY 10/02/19 [History] Furosemide 10 mg PO DAILY 01/30/20 [History] Omeprazole 40 mg PO BID 01/09/21 [History] Lactulose [Generlac] 20 gm PO TID 01/19/21 [History] Patient Handouts: Alcoholic Liver Disease Forms: ED Department Discharge Referrals: PCP,None [Primary Care Provider] - - Discharge Summary/Plan Comment DC Time >30 min.: Yes - General Info Date of Service: 01/22/21 Admission Dx/Problem (Free Text: Admission Diagnosis/Problem Admission Diagnosis/Problem Cirrhosis of liver with ascites, SOB secondary to large pulmonary effusion, EKG abnormality Subjective Update: He denies chest pain, continues to have dyspnea, and is having nausea with belching. He is very upset that he cannot have Zofran. After being given lactulose he did have a large bowel movement. Functional Status: Reports: Urinating - Review of Systems General: Reports: No Symptoms. Denies: Fever, Chills HEENT: Reports: No Symptoms. Denies: Headaches, Sinus Congestion Pulmonary: Reports: Shortness of Breath, Cough, Sputum (Clear). Denies: Wheezing Cardiovascular: Reports: Dyspnea on Exertion, Orthopnea, PND, Edema (Of the right leg). Denies: Chest Pain, Palpitations Gastrointestinal: Reports: Nausea, Other (Belching). Denies: Abdominal Pain, Hematochezia, Melena, Vomiting Genitourinary: Reports: No Symptoms. Denies: Dysuria, Frequency, Pain, Urgency Musculoskeletal: Reports: No Symptoms Skin: Reports: No Symptoms. Denies: Rash Neurological: Reports: No Symptoms. Denies: Confusion Psychiatric: Reports: No Symptoms - Patient Data Vitals - Most Recent: Last Vital Signs Temp 98.0 F 01/22/21 20:00 Pulse 77 01/22/21 16:38 Resp 16 01/22/21 22:00 BP 127/76 01/22/21 22:00 Pulse Ox 94 L 01/22/21 22:00 Weight - Most Recent: 150 lb (Stated weight) Lab Results - Last 24 hrs: Laboratory Results - last 24 hr 01/22/21 01/22/21 01/22/21 Range/Units 11:18 11:18 11:18 WBC 4.7 (4.5-11.0) K/uL RBC 2.90 L (4.30-5.90) M/uL Hgb 7.7 L (12.0-15.0) g/dL Hct 25.6 L (40.0-54.0) % MCV 88 (80-98) fL MCH 27 (27-31) pg MCHC 30 L (32-36) % Plt Count 149 L (150-400) K/uL Add Manual Diff Yes Neutrophils % (Manual) 76 H (36-66) % Lymphocytes % (Manual) 20 L (24-44) % Monocytes % (Manual) 3 (2-6) % Eosinophils % (Manual) 1 L (2-4) % Basophils % (Manual) 0 (0-1) % Atypical Lymphocytes Few PT 14.8 H (9.5-12.0) sec INR 1.37 H (0.80-1.20) Sodium 141 (140-148) mmol/L Potassium 4.2 (3.6-5.2) mmol/L Chloride 107 (100-108) mmol/L Carbon Dioxide 25 (21-32) mmol/L Anion Gap 9.1 (5.0-14.0) mmol/L BUN 22 H (7-18) mg/dL Creatinine 1.0 (0.8-1.3) mg/dL Est Cr Clr Drug Dosing 58.59 mL/min Estimated GFR (MDRD) > 60 (>60) Glucose 138 H (74-106) mg/dL POC Glucose (74-106) mg/dL Calcium 7.4 L (8.5-10.1) mg/dL Magnesium (1.8-2.4) mg/dL Total Bilirubin 1.1 H (0.2-1.0) mg/dL AST 34 (15-37) U/L ALT 32 (12-78) U/L Alkaline Phosphatase 107 (46-116) U/L Ammonia (11-32) umol/L Troponin I (0.000-0.056) ng/mL Total Protein 5.8 L (6.4-8.2) g/dL Albumin 1.9 L (3.4-5.0) g/dL Globulin 3.9 H (2.3-3.5) g/dL Albumin/Globulin Ratio 0.5 L (1.2-2.2) 01/22/21 01/22/21 01/22/21 Range/Units 17:23 20:28 20:54 WBC (4.5-11.0) K/uL RBC (4.30-5.90) M/uL Hgb (12.0-15.0) g/dL Hct (40.0-54.0) % MCV (80-98) fL MCH (27-31) pg MCHC (32-36) % Plt Count (150-400) K/uL Add Manual Diff Neutrophils % (Manual) (36-66) % Lymphocytes % (Manual) (24-44) % Monocytes % (Manual) (2-6) % Eosinophils % (Manual) (2-4) % Basophils % (Manual) (0-1) % Atypical Lymphocytes PT (9.5-12.0) sec INR (0.80-1.20) Sodium (140-148) mmol/L Potassium (3.6-5.2) mmol/L Chloride (100-108) mmol/L Carbon Dioxide (21-32) mmol/L Anion Gap (5.0-14.0) mmol/L BUN (7-18) mg/dL Creatinine (0.8-1.3) mg/dL Est Cr Clr Drug Dosing mL/min Estimated GFR (MDRD) (>60) Glucose (74-106) mg/dL POC Glucose 162 H 141 H (74-106) mg/dL Calcium (8.5-10.1) mg/dL Magnesium 1.5 L (1.8-2.4) mg/dL Total Bilirubin (0.2-1.0) mg/dL AST (15-37) U/L ALT (12-78) U/L Alkaline Phosphatase (46-116) U/L Ammonia (11-32) umol/L Troponin I (0.000-0.056) ng/mL Total Protein (6.4-8.2) g/dL Albumin (3.4-5.0) g/dL Globulin (2.3-3.5) g/dL Albumin/Globulin Ratio (1.2-2.2) 01/22/21 01/22/21 Range/Units 21:24 22:21 WBC (4.5-11.0) K/uL RBC (4.30-5.90) M/uL Hgb (12.0-15.0) g/dL Hct (40.0-54.0) % MCV (80-98) fL MCH (27-31) pg MCHC (32-36) % Plt Count (150-400) K/uL Add Manual Diff Neutrophils % (Manual) (36-66) % Lymphocytes % (Manual) (24-44) % Monocytes % (Manual) (2-6) % Eosinophils % (Manual) (2-4) % Basophils % (Manual) (0-1) % Atypical Lymphocytes PT (9.5-12.0) sec INR (0.80-1.20) Sodium (140-148) mmol/L Potassium (3.6-5.2) mmol/L Chloride (100-108) mmol/L Carbon Dioxide (21-32) mmol/L Anion Gap (5.0-14.0) mmol/L BUN (7-18) mg/dL Creatinine (0.8-1.3) mg/dL Est Cr Clr Drug Dosing mL/min Estimated GFR (MDRD) (>60) Glucose (74-106) mg/dL POC Glucose (74-106) mg/dL Calcium (8.5-10.1) mg/dL Magnesium (1.8-2.4) mg/dL Total Bilirubin (0.2-1.0) mg/dL AST (15-37) U/L ALT (12-78) U/L Alkaline Phosphatase (46-116) U/L Ammonia 22 (11-32) umol/L Troponin I 0.037 (0.000-0.056) ng/mL Total Protein (6.4-8.2) g/dL Albumin (3.4-5.0) g/dL Globulin (2.3-3.5) g/dL Albumin/Globulin Ratio (1.2-2.2) Med Orders - Current: Current Medications Acetaminophen (Acetaminophen 325 Mg Tab) 650 mg PO Q4H PRN PRN Reason: Pain Last Admin: 01/22/21 18:32 Dose: 650 mg Documented by: Calcium Carbonate/Glycine (Calcium Carbonate 500 Mg Tab.Chew) 1,000 mg PO Q2H PRN PRN Reason: Indigestion Last Admin: 01/22/21 22:07 Dose: 1,000 mg Documented by: Dextrose/Water (50% Dextrose In Water 50 Ml Syringe) 50 ml IVPUSH ASDIRECTED PRN PRN Reason: Hypoglycemia Furosemide (Furosemide 20 Mg Tab) 10 mg PO DAILY [facility] Last Admin: 01/22/21 17:13 Dose: 10 mg Documented by: Glucagon (Glucagon,Human Recombinant 1 Mg Vial) 1 mg IM ASDIRECTED PRN PRN Reason: Hypoglycemia Albumin Human 25 gm/ Premix 100 mls @ 100 mls/hr IV ONETIME ONE Stop: 01/23/21 08:29 Magnesium Sulfate 2 gm/ Premix 50 mls @ 25 mls/hr IV ONETIME ONE Stop: 01/23/21 01:59 Insulin Human Lispro (Insulin Lispro 100 Unit/Ml 3 Ml Kwikpen) 0 unit SUBCUT TIDMEALS [facility]; Protocol Last Admin: 01/22/21 17:25 Dose: 1 units Documented by: Lactulose (Lactulose Soln 10 Gm/15 Ml 15 Ml Ud Cup) 20 gm PO TID [facility] Last Admin: 01/22/21 22:04 Dose: 20 gm Documented by: Levothyroxine Sodium (Levothyroxine 50 Mcg Tab) 50 mcg PO ACBREAKFAST JEANETTE Pantoprazole Sodium (Pantoprazole 40 Mg Tab.Cr) 40 mg PO BIDAC [facility] Last Admin: 01/22/21 17:13 Dose: 40 mg Documented by: Spironolactone (Spironolactone 25 Mg Tab) 50 mg PO DAILY [facility] Discontinued Medications Magnesium Sulfate 2 gm/ Premix 0 mls @ 25 mls/hr IV ONETIME ONE Stop: 01/22/21 21:24 Last Admin: 01/22/21 22:04 Dose: 25 mls/hr Documented by: - Exam Quality Assessment: Denies: Supplemental Oxygen, Central Line/PICC, Urine Catheter General: Reports: Alert, Oriented, Cooperative, No Acute Distress HEENT: Reports: Pupils Equal, EOMI, Mucous Membr. Moist/[place] Neck: Reports: Supple, Trachea Midline Lungs: Reports: Other (Breath sounds in the middle and lower lobe maritnez on the right are absent, left lung is clear to auscultation) Cardiovascular: Reports: Regular Rate, Irregular Rhythm GI/Abdominal Exam: Normal Bowel Sounds, Non-Tender, Distended Extremities: Non-Tender, Pedal Edema (On the right to the knee, pitting) Skin: Reports: Warm, Dry, Ecchymosis Neurological: Reports: No New Focal Deficit, Other (May have mild confusion, however may be related to his hearing aids, is oriented x3) Psy/Mental Status: Reports: Alert, Normal Affect, Normal Mood
[2021-01-23] MEDS ORDERED: Magnesium Sulfate/Water 2 GM in Premix Bag 1 BAG IV ONE ×2
[2021-01-23] MEDS ORDERED: Albumin Human 25 GM in Premix Bag 1 BAG IV ONE (07:30)
[2021-01-23] MEDS ORDERED: Levothyroxine 50 MCG Tab PO SCH (07:30)
[2021-01-23] MEDS ORDERED: Spironolactone 25 MG Tab PO SCH (09:00)
--- NOTE | 2021-01-25 16:52 | PCM.EKG ---
#1 Interpretation EKG Date: 01/22/21 Time: 21:15 Rhythm: A-Fib Rate (Beats/Min): 78 Dennis: Normal P-Wave: Absent QRS: Normal ST-T: Depressed (Anterior ST segment depression with T wave inversion, consider ischemia) QT: Normal Comparison: NA - No Prior EKG
== END 2021-01-23 | DRG 433 ==
LOC: JP.ED 10:34 → JP.ICU 15:47
PROVIDERS: ADMIT Internal Medicine; ATTEND Internal Medicine
DX: K70.31 Alcoholic cirrhosis of liver with ascites (principal); R18.8 Other ascites; R06.00 Dyspnea, unspecified; H91.93 Unspecified hearing loss, bilateral; I10 Essential (primary) hypertension; I71.4 Abdominal aortic aneurysm, without rupture; J90 Pleural effusion, not elsewhere classified; K74.60 Unspecified cirrhosis of liver; K76.6 Portal hypertension; E46 Unspecified protein-calorie malnutrition; I85.10 Secondary esophageal varices without bleeding; K22.10 Ulcer of esophagus without bleeding; K72.90 Hepatic failure, unspecified without coma; I48.91 Unspecified atrial fibrillation; E03.9 Hypothyroidism, unspecified; R94.31 Abnormal electrocardiogram [ECG] [EKG]; D50.0 Iron deficiency anemia secondary to blood loss (chronic); E11.9 Type 2 diabetes mellitus without complications; H91.90 Unspecified hearing loss, unspecified ear; K21.9 Gastro-esophageal reflux disease without esophagitis; N40.0 Benign prostatic hyperplasia without lower urinary tract symptoms; Z91.030 Bee allergy status; Z88.8 Allergy status to other drugs, medicaments and biological substances; Z79.890 Hormone replacement therapy; Z79.84 Long term (current) use of oral hypoglycemic drugs; Z79.899 Other long term (current) drug therapy; Z98.49 Cataract extraction status, unspecified eye; Z90.49 Acquired absence of other specified parts of digestive tract; Z85.828 Personal history of other malignant neoplasm of skin; Z68.21 Body mass index [BMI] 21.0-21.9, adult
CPT/HCPCS: 36415; 71046; 71046-26; 76705; 76705-26; 80053; 82140; 82947; 83735; 84484; 85025; 85610; 93005; 99285-25; A9270-GY; J1815; J3475

== ENCOUNTER 2021-02-04 17:13 | Inpatient (IN) | payer MEDICARE, OTHER ==
--- NOTE | 2021-02-04 17:31 | EDM.PDOC ---
<Tucker Lin G - Last Filed: 02/04/21 17:26> ED HPI GENERAL MEDICAL PROBLEM - General Chief Complaint: Lower Extremity Injury/Pain Stated Complaint: FALL Time Seen by Provider: 02/04/21 17:15 Source of Information: Reports: Patient, EMS, Old Records History Limitations: Reports: No Limitations - History of Present Illness INITIAL COMMENTS - FREE TEXT/NARRATIVE: 80 yo male tripped going up a step today and fell with injury to his R hip. He also incurred some abrasions. He reports pain to the R ant/lower rib area. No LOC. No nausea. Here via EMS. Onset: Today, Sudden Onset Date: 02/04/21 Duration: Minutes: Location: Reports: Face, Chest, Lower Extremity, Right Quality: Reports: Ache Severity: Mild (at rest, worse with movement) Improves with: Reports: Rest Worsens with: Reports: Movement Context: Reports: Trauma Associated Symptoms: Reports: No Other Symptoms Treatments FINANCIAL ASSISTANCE ADVISOR: Reports: Other (see below) (none) - Related Data Allergies Allergy/AdvReac Type Severity Reaction Status Date / Time venom-honey bee Allergy Swelling Verified 02/04/21 17:15 [bee venom (honey bee)] lisinopril AdvReac Cough Verified 02/04/21 17:15 Home Meds: Home Meds Levothyroxine Sodium [Synthroid] 50 mcg PO DAILY 11/29/14 [History] metFORMIN [Glucophage] 1,000 mg PO DAILY 11/29/14 [History] Spironolactone [Aldactone] 50 mg PO DAILY 10/02/19 [History] Furosemide 40 mg PO DAILY 01/30/20 [History] Omeprazole 20 mg PO BID 01/09/21 [History] Lactulose [Generlac] 30 gm PO TID 01/19/21 [History] Acetaminophen [Tylenol] 650 mg PO Q4H PRN 02/03/21 [History] Apixaban [Eliquis] 5 mg PO BID 02/03/21 [History] Past Medical History HEENT History: Reports: Cataract, Hard of Hearing, Other (See Below) Other HEENT History: hearing aids Cardiovascular History: Reports: Aneurysm, Hypertension Other Cardiovascular History: mild abdominal aneurism Gastrointestinal History: Reports: GERD, GI Bleed, Other (See Below) Other Gastrointestinal History: Liver cirosis, esouphageal varicies. ascities Genitourinary History: Reports: BPH Musculoskeletal History: Reports: Gout, Other (See Below) Other Musculoskeletal History: broken ribs from fall Psychiatric History: Reports: None Endocrine/Metabolic History: Reports: Diabetes, Type II, Hypothyroidism Hematologic History: Reports: Blood Transfusion(s), Iron Deficiency Oncologic (Cancer) History: Reports: Basal Cell Carcinoma - Infectious Disease History Infectious Disease History: Reports: Chicken Pox, Herpes, Measles, Mumps - Past Surgical History Head Surgeries/Procedures: Reports: None HEENT Surgical History: Reports: Cataract Surgery Cardiovascular Surgical History: Reports: None Respiratory Surgical History: Reports: Thoracentesis GI Surgical History: Reports: Appendectomy, Cholecystectomy, Hernia Repair/Other, Other (See Below) Other GI Surgeries/Procedures: paracentesis Male Surgical History: Reports: Prostate Biopsy Endocrine Surgical History: Reports: None Musculoskeletal Surgical History: Reports: None Oncologic Surgical History: Reports: Other (See Below) Other Oncologic Surgeries/Procedures: nose biopsy Dermatological Surgical History: Reports: None Social & Family History - Family History Cardiac: Reports: [place] - Caffeine Use Caffeine Use: Reports: Coffee Review of Systems - Review of Systems Review Of Systems: See Below Constitutional: Reports: No Symptoms Eyes: Reports: No Symptoms Ears: Reports: No Symptoms Nose: Reports: No Symptoms Mouth/Throat: Reports: No Symptoms Respiratory: Reports: Pleuritic Chest Pain (R ant/lower rib) Cardiovascular: Reports: No Symptoms GI/Abdominal: Reports: No Symptoms Genitourinary: Reports: No Symptoms Musculoskeletal: Reports: Joint Pain (R hip area with movement) Skin: Reports: Wound (large abrasion of R voodoo and scattered smaller wounds on extrems) Neurological: Reports: No Symptoms ED EXAM, GENERAL - Physical Exam Exam: See Below Exam Limited By: No Limitations General Appearance: Alert, WD/WN, No Apparent Distress Eye Exam: Bilateral Eye: Normal Inspection Ears: Normal External Exam, Normal Canal, Hearing Loss Ear Exam: Bilateral Ear: Auricle Normal, Canal Normal Nose: Normal Inspection, No Blood Throat/Mouth: Normal Inspection, Normal Lips, Normal Oropharynx, Normal Voice, No Airway Compromise Head: Atraumatic, Normocephalic Neck: Normal Inspection Respiratory/Chest: No Respiratory Distress, Lungs Clear, Normal Breath Sounds, No Accessory Muscle Use. No: Chest Non-Tender (tender over bottom R rib anteriorly) Cardiovascular: Regular Rate, Rhythm, No Edema GI/Abdominal: Soft, Non-Tender Extremities: Normal Inspection, Normal Range of Motion, No Pedal Edema. No: Non-Tender (R hip area tender with lifting leg and putting it back down. ) Neurological: Alert, Oriented, CN II-XII Intact, Normal Cognition, No Motor/Sensory Deficits Psychiatric: Normal Affect, Normal Mood Skin Exam: Warm, Dry, Normal Color, No Rash, Wound/Incision (large R voodoo abrasion and scattered other abrasions(smaller). ). No: Intact Course - Radiology Interpretation Free Text/Narrative:: R hip and Pelvis X-rays- Departure - Departure Disposition: Admitted As Inpatient 68 Clinical Impression: Fracture of right superior pubic ramus Qualifiers: Encounter type: initial encounter Fracture type: closed Qualified Code(s): S32.511A - Fracture of superior rim of right pubis, initial encounter for closed fracture Fracture of right inferior pubic ramus Qualifiers: Encounter type: initial encounter Fracture type: closed Qualified Code(s): S32.591A - Other specified fracture of right pubis, initial encounter for closed fracture - Discharge Information Referrals: PCP,None [Primary Care Provider] - Forms: ED Department Discharge <Alonso Bai - Last Filed: 02/04/21 20:26> Course - Vital Signs Last Recorded V/S: Last Vital Signs Temp 36.6 C 02/04/21 17:38 Pulse 72 02/04/21 19:06 Resp 17 02/04/21 17:38 BP 116/67 02/04/21 19:06 Pulse Ox 97 02/04/21 19:06 - Radiology Interpretation Free Text/Narrative:: I reviewed the report of the x-ray of the right hip. There is a right superior and inferior rami fracture that is minimally displaced. I reviewed the x-ray and report on the chest demonstrating a large right pleural effusion that remains unchanged when compared to previous x-ray. - Re-Assessments/Exams Free Text/Narrative Re-Assessment/Exam: 02/04/21 20:23 Alton lives in an apartment that he has to ambulate upstairs to get to his apartment. He is unable to ambulate upstairs at this time due to his right superior and inferior rami fracture. I will arrange for him to be admitted with the plan to send him to a transition care unit where he can receive physical therapy and convalesce while healing this minimally displaced fracture. I discussed the case with Avtar Adam from orthopedics who also reviewed the imaging and agrees with this plan. I will discussed the case with Dr. Gui Gilliland to arrange for admission of the patient. Departure - Departure Time of Disposition: 20:24 Sepsis Event Note (ED) - Focused Exam Vital Signs: Vital Signs Temp Pulse Resp BP Pulse Ox 02/04/21 19:06 72 116/67 97 02/04/21 18:36 72 115/63 95 02/04/21 17:38 36.6 C 77 17 117/69 96 02/04/21 17:24 36.6 C 77 17 117/69 96
--- NOTE | 2021-02-04 19:20 | CRLCR ---
For Patients: As a result of the Cures Act, medical imaging exams and procedure reports are released immediately into your electronic medical record. You may view this report before your referring provider. If you have questions, please contact your health care provider. INDICATION: Status post fall. TECHNIQUE: Chest radiograph 1 view COMPARISON: 02/04/2021 FINDINGS: Heart size remains enlarged. Stable size of right pleural effusion from earlier today. From earlier today. No pneumothorax. Left hemithorax remains clear. No displaced rib fracture deformity. IMPRESSION: 1. Moderate to large right pleural effusion. No acute interval changes from earlier today. No pneumothorax. Dictated by Romulo Gomez MD @ 02/04/2021 7:20:08 PM Dictated by: Romulo Gomez MD @ 02/04/2021 19:20:13 (Electronically Signed)
--- NOTE | 2021-02-04 19:20 | CRLCR ---
For Patients: As a result of the Century Cures Act, medical imaging exams and procedure reports are released immediately into your electronic medical record. You may view this report before your referring provider. If you have questions, please contact your health care provider. Indication: Fall. Technique: Three views of the right hip, AP view of the pelvis. Comparison: None Findings/Impression: Minimally displaced fractures involving the right superior pubic ramus and right inferior pubic ramus. Right femoroacetabular joint alignment appears anatomic. Unremarkable appearance of the pubic symphysis. Dictated by Steve Vieyra MD @ 02/04/2021 7:19:[address] Steve Vieyra @ Feb 04 2021 7:19PM
[2021-02-04] MEDS ORDERED: Sodium Chloride 0.9% 10 ML Syringe FLUSH PRN (21:11)
[2021-02-04] MEDS ORDERED: Acetaminophen 325 MG Tab PO PRN (21:25)
--- NOTE | 2021-02-04 23:10 | HP ---
CHIEF COMPLAINT: Right-sided pelvic pain. HISTORY OF PRESENT ILLNESS: A 80-year-old who tripped on a cement step, not sure how he landed, but he has not been able to get up, was brought into the emergency room for further evaluation, was noted to have a minimally displaced fracture through the right superior pubic ramus and right inferior pubic ramus. They could not get him up to ambulate to go home and I was asked to admit the patient for further evaluation and treatment. As long as the patient does move, he does not have a lot of pain. He also sustained an abrasion to the right side of his forehead and bruising to his right hand, but his pelvis is his main complaint and his pain when he tries to move his right leg. The patient did not lose consciousness when he hit his head. He did have recent hospitalization for ascites with shortness of breath. Apparently, he was in today, not sure if he was tapped, but he was in the hospital for some reason. PAST MEDICAL HISTORY: 1. History of abdominal ascites. 2. Cirrhosis. 3. Significant GI bleed, requiring air transport in the past with history of erosive gastritis and history of esophageal varices. 4. Type 2 diabetes mellitus. 5. Essential hypertension. 6. Mild abdominal aortic aneurysm. 7. BPH. 8. Hypothyroidism. 9. Iron deficiency anemia. 10.Basal cell skin cancer. PAST SURGICAL HISTORY: 1. Cholecystectomy. 2. Hernia repair. 3. Appendectomy. 4. Cataract surgery. MEDICATIONS: Acetaminophen 650 mg q.4 hours p.r.n., Eliquis 5 mg b.i.d., furosemide 40 mg daily, lactulose 30 mg p.o. t.i.d., levothyroxine 50 mcg daily, metformin 1000 mg daily, omeprazole 20 mg b.i.d., and spironolactone 50 mg daily. ALLERGIES: BEE VENOM AND LISINOPRIL. SOCIAL HISTORY: Denies tobacco use. States that he has not drank for 3-4 years. He gave it up at that time because of his abdominal problems with cirrhosis. FAMILY HISTORY: Apparently positive for coronary artery disease with myocardial infarction. I am not sure who has had that. REVIEW OF SYSTEMS: Denies much pain in his head from the abrasion. No chest pain or trouble breathing. No abdominal pain. Does have the right-sided pelvic pain and pain with movement of his right leg. He denies any bowel or bladder trouble. He has had some chronic swelling in his legs. Skin problems as above. Other than weakness, denies any neurologic complaints. OBJECTIVE: VITAL SIGNS: Pulse 77, blood pressure 117/69, respiratory rate 17, O2 saturation 96% on room air, and temp 36.6. HEENT: Pharynx is clear. It looks like he has had some dental problems. I do not know if any of them are acute, but otherwise pharynx is clear. NECK: Supple. No adenopathy, thyromegaly, JVD, or carotid bruits. LUNGS: Clear. HEART: Regular without murmurs. ABDOMEN: Soft, did not appear to cause any tenderness. No dependent mass or organomegaly palpated. PELVIS: He did have discomfort in the right side of his pelvis and pain with movement of his right leg. EXTREMITIES: He has some mild swelling in his lower extremities. No pain in his calves. He is able to move the left leg easier than the right without much discomfort. He has an abrasion to the right side of his forehead and bruise, and slight abrasion to the dorsum of his right hand. X-ray shows minimally displaced superior and inferior pubic rami fracture on the right side. He had chest x-ray showed no rib fractures, moderate to large right pleural effusion, no pneumothorax. ASSESSMENT: 1. Right superior and inferior pubic rami fracture, unable to ambulate. We will admit him as an inpatient anticipate more than 2 midnight stays and might need rehab after this. We will transfer his care to the hospitalist service in the morning. 2. History of abdominal ascites with cirrhosis with gastrointestinal bleed and erosive esophagitis and varices in the past on chronic anticoagulation, which will continue for deep vein thrombosis prophylaxis. We will check CBC, which he has had problems with anemia in the past and CMP. 3. Essential hypertension, stable. 4. Type 2 diabetes mellitus. 5. History of alcohol use, stopped 3 or 4 years ago. Gui Gilliland MD /[id number]
[2021-02-05] MEDS ORDERED: Pantoprazole 40 MG Tab.CR PO SCH (07:30)
[2021-02-05] MEDS ORDERED: Levothyroxine 50 MCG Tab PO SCH (07:30)
[2021-02-05] MEDS ORDERED: oxyCODONE 5 MG Tab PO PRN (08:05)
[2021-02-05] MEDS ORDERED: metFORMIN 500 MG Tab PO SCH (09:00)
[2021-02-05] MEDS ORDERED: Spironolactone 25 MG Tab PO SCH (09:00)
[2021-02-05] MEDS ORDERED: Furosemide 40 MG Tab PO SCH (09:00)
[2021-02-05] MEDS ORDERED: Apixaban 5 MG Tab PO SCH (09:00)
[2021-02-05] MEDS: Lactulose Soln 10 GM/15 ML 15 ML UD Cup PO SCH ×2 (09:13→09:14)
[2021-02-05] MEDS ORDERED: Magnesium Hydroxide 400 MG/5 ML Susp 30 ML Cup PO PRN (09:25)
[2021-02-05] MEDS ORDERED: Sodium Chloride 0.9% 1,000 ML IV SCH (12:15)
[2021-02-05] MEDS ORDERED: Octreotide 100 MCG/ML SDV IVPUSH ONE (12:30)
[2021-02-05] MEDS ORDERED: Pantoprazole 40 MG Vial IVPUSH ONE (12:30)
[2021-02-05] MEDS ORDERED: Pantoprazole 40 MG Vial IVPUSH SCH (12:30)
[2021-02-05] MEDS ORDERED: Ondansetron 4 MG/2 ML SDV IVPUSH ONE (12:49)
--- NOTE | 2021-02-05 12:55 | PCM.DCSUM1 ---
Discharge Summary - Hospital Course Brief History: 80-year-old male with a history of cirrhosis/chronic liver disease complicated by ascites and esophageal varices as well as a recent diagnosis of lower extremity DVT who presented with right hip and pelvis pain after tripping at home. He was admitted for pain management with fractures of both the superior and inferior pubic rami. Diagnosis: Stroke: No - Discharge Data Discharge Date: 02/05/21 Discharge Disposition: DC/Tfer to Acute Hospital 02 Condition: Serious - Referral to Home Health Primary Care Physician: PCP None - Discharge Diagnosis/Problem(s) (1) Acute upper gastrointestinal hemorrhage SNOMED Code(s): 69701867 ICD Code: K92.2 - GASTROINTESTINAL HEMORRHAGE, UNSPECIFIED Status: Acute Current Visit: Yes (2) Anemia due to blood loss, acute SNOMED Code(s): 280617296 ICD Code: D62 - ACUTE POSTHEMORRHAGIC ANEMIA Status: Acute Current Visit: Yes (3) Esophageal varices in cirrhosis SNOMED Code(s): 928719241 ICD Code: K74.60 - UNSPECIFIED CIRRHOSIS OF LIVER; I85.10 - SECONDARY ESOPHAGEAL VARICES WITHOUT BLEEDING Status: Acute Current Visit: Yes (4) DVT (deep venous thrombosis) SNOMED Code(s): 621177727 ICD Code: I82.409 - ACUTE EMBOLISM AND THOMBOS UNSP DEEP VN UNSP LOWER EXTREMITY Status: Chronic Current Visit: Yes Qualifiers: DVT location: lower extremity Affected thrombotic vein of extremity: unspecified vein of extremity Chronicity: acute Laterality: unspecified laterality Qualified Code(s): I82.409 - Acute embolism and thrombosis of unsp ecified deep veins of unspecified lower extremity (5) Fracture of right inferior pubic ramus SNOMED Code(s): 583502885 ICD Code: S32.591A - OTH FRACTURE OF RIGHT PUBIS, INIT ENCNTR FOR CLOSED FRACTURE Status: Acute Current Visit: Yes Qualifiers: Encounter type: initial encounter Fracture type: closed Qualified Code(s): S32.591A - Other specified fracture of right pubis, initial encounter for closed fracture (6) Fracture of right superior pubic ramus SNOMED Code(s): 755823161 ICD Code: S32.511A - FRACTURE OF SUPERIOR RIM OF RIGHT PUBIS, INIT FOR CLOS FX Status: Acute Current Visit: Yes Qualifiers: Encounter type: initial encounter Fracture type: closed Qualified Code(s): S32.511A - Fracture of superior rim of right pubis, initial encounter for closed fracture (7) Alcoholic cirrhosis of liver with ascites SNOMED Code(s): 573435946, 154879739 ICD Code: K70.31 - ALCOHOLIC CIRRHOSIS OF LIVER WITH ASCITES Status: Chronic Current Visit: No - Patient Summary/Data Consults: Consultations 02/05/21 09:02 OT Evaluation and Treatment [CONS] Routine Please Evaluate and Treat. OT Reason for Consult: ADL's This query below is only for informational purposes and is not editable. Admission Diagnosis/Problem: Pelvic ring fracture PT Evaluation and Treatment [CONS] Routine Please Evaluate and Treat. PT Reason for Consult: Strengthening This query below is only for informational purposes and is not editable. Admission Diagnosis/Problem: Pelvic ring fracture Hospital Course: Alton presented to the ER with right hip pain after tripping and falling at home. X-ray imaging in the emergency room revealed evidence for fractures of both the superior and inferior pubic rami. He was not able to bear weight. The plan is for admission for pain control and physical therapy with the pelvic fracture. He has baseline hemoglobin was 8.5. Overnight there were no acute issues. The morning after admission he got up to work with physical therapy. While he was working with him he developed nausea followed by an emesis which was about 100 mL of coffee-ground appearing blood. At the time of the first emesis he had a presyncopal event. We were able to get him back into bed. Vital signs at the time showed a blood pressure with 90 systolic and a heart rate in the 80s. He had a second emesis a while later. He received a 1 L normal saline bolus as well as 80 mg of IV pantoprazole and 50 mcg of octreotide. He will be receiving 1 unit of blood prior to transfer as well with a hemoglobin of 7.6 at the time of discharge. I did talk to Dr. Munguia her surgeon who felt that he would be better served in hospital with gastroenterology given his large esophageal varices. I spoke with Dr. Squires of the hospitalist service at [facility] in [place]. He was agreeable to receive the patient in transfer. Initially her plan was for the patient to go by ground ambulance but he has had a second episode of vomiting as well as some retching and will be transferred by air instead because of the distance that will need to be travel to get him there. The patient is borderline unstable at this time and would benefit from rapid transfer from here to a higher level of care where endoscopy can be performed and potentially clipping of the esophageal varices if this is the source of bleeding. He would benefit from the most rapid form of transit via air ambulance. The benefits of transfer outweigh the risks at this time. It is noted that he was recently started on apixaban for a lower extremity DVT. His most recent dose was at 9 AM on the morning of discharge - Patient Instructions Diet: NPO Activity: Bedrest Other/Special Instructions: transfer to [facility] - acute upper GI hemorrhage with varices - Discharge Plan *PRESCRIPTION DRUG MONITORING PROGRAM REVIEWED*: Not Applicable *COPY OF PRESCRIPTION DRUG MONITORING REPORT IN PATIENT JAIRO: Not Applicable Home Medications: Home Meds Levothyroxine Sodium [Synthroid] 50 mcg PO DAILY 11/29/14 [History] metFORMIN [Glucophage] 1,000 mg PO DAILY 11/29/14 [History] Spironolactone [Aldactone] 50 mg PO DAILY 10/02/19 [History] Furosemide 40 mg PO DAILY 01/30/20 [History] Omeprazole 20 mg PO BID 01/09/21 [History] Lactulose [Generlac] 30 gm PO TID 01/19/21 [History] Acetaminophen [Tylenol] 650 mg PO Q4H PRN 02/03/21 [History] Apixaban [Eliquis] 5 mg PO BID 02/03/21 [History] Referrals: PCP,None [Primary Care Provider] - - Discharge Summary/Plan Comment DC Time >30 min.: Yes (60-transfer to acute hospital ) - Patient Data Vitals - Most Recent: Last Vital Signs Temp 36.7 C 02/05/21 12:00 Pulse 81 02/05/21 12:45 Resp 20 02/05/21 12:45 BP 107/61 02/05/21 12:45 Pulse Ox 97 02/05/21 12:45 Weight - Most Recent: 74.9 kg I&O - Last 24 hours: Intake & Output 02/04/21 02/05/21 02/05/21 22:59 06:59 14:59 Intake Total 660 Output Total 200 275 Balance -200 385 Lab Results - Last 24 hrs: Laboratory Results - last 24 hr 02/04/21 02/04/21 02/05/21 Range/Units 21:42 21:42 12:16 WBC 6.8 (4.5-11.0) K/uL RBC 3.21 L (4.30-5.90) M/uL Hgb 8.5 L 7.6 L (12.0-15.0) g/dL Hct 27.6 L (40.0-54.0) % MCV 86 (80-98) fL MCH 27 (27-31) pg MCHC 31 L (32-36) % Plt Count 113 L (150-400) K/uL Sodium 137 L (140-148) mmol/L Potassium 3.9 (3.6-5.2) mmol/L Chloride 104 (100-108) mmol/L Carbon Dioxide 26 (21-32) mmol/L Anion Gap 10.9 (5.0-14.0) mmol/L BUN 14 (7-18) mg/dL Creatinine 1.3 (0.8-1.3) mg/dL Est Cr Clr Drug Dosing 45.04 mL/min Estimated GFR (MDRD) 53 L (>60) Glucose 137 H (74-106) mg/dL Calcium 7.6 L (8.5-10.1) mg/dL Total Bilirubin 1.6 H (0.2-1.0) mg/dL AST 29 (15-37) U/L ALT 28 (12-78) U/L Alkaline Phosphatase 160 H (46-116) U/L Total Protein 5.9 L (6.4-8.2) g/dL Albumin 2.0 L (3.4-5.0) g/dL Globulin 3.9 H (2.3-3.5) g/dL Albumin/Globulin Ratio 0.5 L (1.2-2.2) Med Orders - Current: Current Medications Acetaminophen (Acetaminophen 325 Mg Tab) 650 mg PO Q4H PRN PRN Reason: Pain Furosemide (Furosemide 40 Mg Tab) 40 mg PO DAILY JEANETTE Last Admin: 02/05/21 09:13 Dose: 40 mg Documented by: Sodium Chloride (Normal Saline) 1,000 mls @ 999 mls/hr IV ASDIRECTED JEANETTE Stop: 02/05/21 13:16 Lactulose (Lactulose Soln 10 Gm/15 Ml 15 Ml Ud Cup) 30 gm PO TID [facility] Last Admin: 02/05/21 09:14 Dose: Not Given Documented by: Levothyroxine Sodium (Levothyroxine 50 Mcg Tab) 50 mcg PO DAILY@729 [facility] Last Admin: 02/05/21 09:13 Dose: 50 mcg Documented by: Magnesium Hydroxide (Magnesium Hydroxide 400 Mg/5 Ml Susp 30 Ml Cup) 30 ml PO BID PRN PRN Reason: Constipation Melatonin (Melatonin 3 Mg Tab) 9 mg PO BEDTIME [facility] Metformin HCl (Metformin 500 Mg Tab) 1,000 mg PO DAILY [facility] Last Admin: 02/05/21 09:13 Dose: 1,000 mg Documented by: Oxycodone HCl (Oxycodone 5 Mg Tab) 5 mg PO Q4H PRN PRN Reason: Pain Pantoprazole Sodium (Pantoprazole 40 Mg Tab.Cr) 40 mg PO BID@729,2099 [facility] Last Admin: 02/05/21 09:12 Dose: 40 mg Documented by: Senna/Docusate Sodium (Docusate Sodium/Sennosides 50-8.6 Mg Tab) 1 tab PO Q12H PRN PRN Reason: Constipation Sodium Chloride (Sodium Chloride 0.9% 10 Ml Syringe) 10 ml FLUSH ASDIRECTED PRN PRN Reason: Keep Vein Open Spironolactone (Spironolactone 25 Mg Tab) 50 mg PO DAILY [facility] Last Admin: 02/05/21 09:15 Dose: 50 mg Documented by: Discontinued Medications Apixaban (Apixaban 5 Mg Tab) 5 mg PO BID [facility] Last Admin: 02/05/21 09:13 Dose: 5 mg Documented by: Octreotide Acetate (Octreotide 100 Mcg/Ml Sdv) 50 mcg IVPUSH ONETIME ONE Stop: 02/05/21 12:31 Last Admin: 02/05/21 12:44 Dose: 50 mcg Documented by: Ondansetron HCl (Ondansetron 4 Mg/2 Ml Sdv) 4 mg IVPUSH ONETIME ONE Stop: 02/05/21 12:50 Pantoprazole Sodium (Pantoprazole 40 Mg Vial) 80 mg IVPUSH .BOLUS [facility] Pantoprazole Sodium (Pantoprazole 40 Mg Vial) 80 mg IVPUSH .BOLUS ONE Stop: 02/05/21 12:31 Last Admin: 02/05/21 12:39 Dose: 80 mg Documented by:
[2021-02-05 13:52] VITALS: BP 110/68; PULSE 89
[2021-02-05] MEDS ORDERED: Melatonin 3 MG Tab PO SCH (21:00)
== END 2021-02-05 14:05 | DRG 536 ==
LOC: JP.ED 17:13 → JP.MS 21:11
PROVIDERS: ADMIT Family Medicine; ATTEND Internal Medicine
PROC: 30233N1 Transfusion of Nonautologous Red Blood Cells into Peripheral Vein, Percutaneous Approach (ICD-10-PCS; principal; 2021-02-05)
DX: S32.591A Other specified fracture of right pubis, initial encounter for closed fracture (principal); D62 Acute posthemorrhagic anemia; K92.2 Gastrointestinal hemorrhage, unspecified; I85.10 Secondary esophageal varices without bleeding; I82.409 Acute embolism and thrombosis of unspecified deep veins of unspecified lower extremity; S32.511A Fracture of superior rim of right pubis, initial encounter for closed fracture; K70.31 Alcoholic cirrhosis of liver with ascites; W10.9XXA Fall (on) (from) unspecified stairs and steps, initial encounter; H91.93 Unspecified hearing loss, bilateral; I10 Essential (primary) hypertension; I71.4 Abdominal aortic aneurysm, without rupture; K21.9 Gastro-esophageal reflux disease without esophagitis; H91.90 Unspecified hearing loss, unspecified ear; N40.0 Benign prostatic hyperplasia without lower urinary tract symptoms; E03.9 Hypothyroidism, unspecified; E11.9 Type 2 diabetes mellitus without complications; K74.60 Unspecified cirrhosis of liver; M10.9 Gout, unspecified; Z90.49 Acquired absence of other specified parts of digestive tract; Z98.49 Cataract extraction status, unspecified eye; Z85.828 Personal history of other malignant neoplasm of skin; Z98.890 Other specified postprocedural states; Z88.8 Allergy status to other drugs, medicaments and biological substances; Z91.030 Bee allergy status; Z79.84 Long term (current) use of oral hypoglycemic drugs; Z79.899 Other long term (current) drug therapy; Z79.01 Long term (current) use of anticoagulants; W01.10XA Fall on same level from slipping, tripping and stumbling with subsequent striking against unspecified object, initial encounter; Z79.890 Hormone replacement therapy; Y92.009 Unspecified place in unspecified non-institutional (private) residence as the place of occurrence of the external cause
CPT/HCPCS: 36415; 36430; 71045; 73502-RT; 80053; 85018; 85027; 86850; 86900; 86901; 86920; 86922; 97110-GP; 97162-GP; 97165-GO; 97530-GP; 99285-25; A9270-GY; C9113; J2354-JA; J2405; P9016